=== PATIENT | female | born 2000 | race Caucasian/White ===

== ENCOUNTER 2019-09-10 21:15 | Outpatient (CLI) | payer MEDICAID, SELFPAY ==
[2019-09-10 21:38] VITALS: BP 128/75; PULSE 82
[2019-09-10 21:39] VITALS: TEMP 36.6; O2SAT 99
[2019-09-10 21:47] VITALS: BMI 35.9
[2019-09-10] MEDS: Nitrofurantoin Macrocrystals 100 MG Capsule PO (22:38)
--- NOTE | 2019-09-15 09:40 | OB.TRI.NOTE ---
- Problem List (1) Cramping affecting , antepartum Status: Acute (2) 27 weeks gestation of Status: Acute History of Present Illness Date of Service: 09/10/19 Was patient seen by the physician?: No Reason For Visit: R/O LABOR Date of Service: 09/10/19 Final TERRY: 12/12/19 Gestational age: 27 Weeks and 3 Days History of Present Illness: Patient was a transfer from [facility]. Patient presented with lower back pain and cramping for most of the day. Denies any loss of fluid, vaginal bleeding and has positive movement. Allergies No Known Allergies Allergy (Verified 09/10/19 21:48) Review of Systems Constitutional: Denies: Anorexia, Weakness Eyes: Denies: Blurred vision Cardiovascular: Denies: Chest Pain Respiratory: Denies: Cough Genitourinary: Reports: Frequency, Urgency Neurological: Denies: Headaches Physical Exam Vitals: Vital Signs Temp Pulse BP Pulse Ox 97.9 F 82 128/75 H 99 09/10/19 21:39 09/10/19 21:38 09/10/19 21:38 09/10/19 21:39 NST - FHR Rate Baby A Baseline: 140 NST Reactive:: Appropriate for gestational age Uterine Activity:: TOCO- none noted Impression/Plan Patient is a at 27.3 weeks gestation sent from [facility] to rule out labor. Patient is having cramping and lower back pain for the past two days. Positive movement. A/P UA sent at [place] [facility]- shows evidence of UTI Urine sent for culture Start Macrobid 100mg BID x 7 days CE- closed/thick/high Discharge home and will follow up in office
== END 2019-09-10 22:50 | disposition home or self-care (01) ==
LOC: WPOUT 21:25 → OBT 21:25
PROVIDERS: Visit Provider Advanced Practice Midwife
DX: O26.892 Other specified pregnancy related conditions, second trimester (principal); M54.5 Low back pain; Z3A.27 27 weeks gestation of pregnancy
CPT/HCPCS: 59025; 59050; 87086; 87088; 99218; G0378

== ENCOUNTER 2019-11-01 04:35 | Outpatient (CLI) | payer MEDICAID, SELFPAY ==
[2019-11-01 04:56] VITALS: BP 120/70; PULSE 80
[2019-11-01 04:57] VITALS: BP 120/70; PULSE 80; TEMP 36.7; O2SAT 99
[2019-11-01 05:13] VITALS: BMI 37.1
[2019-11-01 05:45] LABS: ALB/GLOB Ratio 0.6 RATIO (0.9-2.4); AST(SGOT) 18 U/L (15-37); Alanine Aminotransfer ALT/SGPT 17 U/L (13-56); Albumin, Serum 2.4 g/dL (3.2-5.0); Alkaline Phosphatase 99 U/L (45-117); Amylase 28 U/L (25-115); Anion Gap 6 (5-15); BUN 6 mg/dL (7-18); BUN/Creat Ratio 11.9 RATIO (10-20); Calcium,Total 8.1 mg/dL (8.5-10.1); Chloride 109 mmol/L (98-107); EST Glomerular Filtration Rate 165 mL/min (>60); Est Glom Filt Rate - Afr Amer 200 mL/min (>60); Estimated Creatinine Clearance 141.95 ml/min; Glucose 93 mg/dL (74-106); Lipase 66 U/L (73-393); Potassium 3.7 mmol/L (3.5-5.1); Protein, Total 6.4 g/dL (6.4-8.2); Sodium Level 138 mmol/L (136-145)
--- NOTE | 2019-11-01 08:23 | OB.TRI.NOTE ---
- Problem List (1) Abdominal pain Status: Acute (2) 34 weeks gestation of Status: Acute History of Present Illness Date of Service: 11/01/19 Was patient seen by the physician?: No Reason For Visit: R/O LABOR Final TERRY: 12/12/19 Gestational age: 34 Weeks and 1 Days History of Present Illness: Presents with pain under ribs Allergies No Known Allergies Allergy (Verified 11/01/19 05:13) Laboratory Studies: Laboratory Tests 11/01/19 Range/Units 05:18 Sodium 138 (136-145) mmol/L Potassium 3.7 (3.5-5.1) mmol/L Chloride 109 H (98-107) mmol/L Carbon Dioxide 23.0 (21.0-32.0) mmol/L Anion Gap 6 (5-15) BUN 6 L (7-18) mg/dL Creatinine 0.50 L (0.55-1.02) mg/dL Estim Creat Clear Calc 141.95 ml/min Est GFR (MDRD) Af Amer 200 (>60) mL/min Est GFR (MDRD) Non-Af 165 (>60) mL/min BUN/Creatinine Ratio 11.9 (10-20) RATIO Glucose 93 (74-106) mg/dL Calcium 8.1 L (8.5-10.1) mg/dL Total Bilirubin 0.30 (0.20-1.00) mg/dL AST 18 (15-37) U/L ALT 17 (13-56) U/L Alkaline Phosphatase 99 (45-117) U/L Total Protein 6.4 (6.4-8.2) g/dL Albumin 2.4 L (3.2-5.0) g/dL Globulin 4.0 (2.2-4.2) g/dL Albumin/Globulin Ratio 0.6 L (0.9-2.4) RATIO Amylase 28 (25-115) U/L Lipase 66 L (73-393) U/L Physical Exam Vitals: Vital Signs Temp Pulse BP Pulse Ox 98.1 F 80 120/70 99 11/01/19 04:57 11/01/19 04:57 11/01/19 04:57 11/01/19 04:57 NST - FHR Rate Baby A Baseline: 130 Variability:: Moderate Accelerations:: 15 x 15 Decelerations:: None NST Reactive:: Yes Impression/Plan - LFT's WNL - Amylase and lipase are not elevated - NST reactive - D/c home with follow up in the office for pain under ribs
== END 2019-11-01 06:05 | disposition home or self-care (01) ==
LOC: WPOUT 04:43 → OBT 04:45
PROVIDERS: Referring Provider Obstetrics & Gynecology; Visit Provider Obstetrics & Gynecology
DX: O47.03 False labor before 37 completed weeks of gestation, third trimester (principal); O26.899 Other specified pregnancy related conditions, unspecified trimester; Z3A.34 34 weeks gestation of pregnancy
CPT/HCPCS: 36415; 59025; 59050; 80053; 82150; 83690; 99218; G0378

== ENCOUNTER 2019-11-30 19:22 | Outpatient (CLI) | payer MEDICAID, SELFPAY ==
[2019-11-30 19:39] VITALS: BP 127/77; PULSE 90; TEMP 37.3; O2SAT 100
[2019-11-30 19:55] VITALS: BMI 39.1
--- NOTE | 2019-11-30 21:35 | OB.TRI.NOTE ---
- Problem List (1) Cramping affecting , antepartum Status: Acute (2) 38 weeks gestation of Status: Acute History of Present Illness Date of Service: 11/30/19 Was patient seen by the physician?: No Reason For Visit: RULE OUT LABOR Date of Service: 11/30/19 Gestational age: 38.2 History of Present Illness: Patient is a 19 year old at 38.2 weeks gestation that presents to triage with contractions starting earlier this evening. Denies any loss of fluids or vaginal bleeding. Positive movement. Allergies No Known Allergies Allergy (Verified 11/01/19 05:13) Review of Systems Constitutional: Denies: Chills, Fever Cardiovascular: Denies: Chest Pain Respiratory: Denies: Cough, Shortness of Breath Gastrointestinal: Denies: Abdominal Pain Genitourinary: Denies: Dysuria Neurological: Denies: Headaches Physical Exam Vitals: Vital Signs Temp Pulse BP Pulse Ox 99.2 F H 90 127/77 H 100 11/30/19 19:39 11/30/19 19:39 11/30/19 19:39 11/30/19 19:39 General: Alert, Oriented x3 Cardiovascular: Regular rate Lungs: Normal air movement Abdomen: Non Tender Neurological: Cranial nerves II-XII grossly intact Cervix Dilation (cm): 2 Station: -2 Effacement (%): 60 NST - FHR Rate Baby A Baseline: 130 Variability:: Moderate Accelerations:: 15 x 15 Decelerations:: None NST Reactive:: Yes, Appropriate for gestational age FHR Category:: Category I Uterine Activity:: Irritability Impression/Plan A/P at 38.2 weeks gestation here for contractions, rule out labor Category 1 tracing, NST reactive CE unchanged at 2/60/-2 Discharge home with instructions for follow up in office this week
== END 2019-11-30 21:40 | disposition home or self-care (01) ==
LOC: WPOUT 19:31 → WP 12-03 09:02
PROVIDERS: Visit Provider Advanced Practice Midwife
DX: O47.03 False labor before 37 completed weeks of gestation, third trimester (principal); Z3A.38 38 weeks gestation of pregnancy
CPT/HCPCS: 59025; 59050; 99218; G0378

== ENCOUNTER 2019-12-10 16:55 | Outpatient (CLI) | payer MEDICAID, SELFPAY ==
[2019-12-10 17:28] VITALS: BP 112/81; PULSE 91; TEMP 36.8; O2SAT 98
[2019-12-10 17:33] VITALS: BMI 38.3
[2019-12-10 18:24] LABS: ROM Internal Control Test YES-OK TO RESULT pt. (Internal QC); ROM Patient Test Negative (Negative)
--- NOTE | 2019-12-10 18:33 | OB.TRI.HP_ITS ---
- Problem List (1) 39 weeks gestation of Status: Acute (2) Amniotic fluid leaking Status: Acute History of Present Illness Date of Service: 12/10/19 Was patient seen by the physician?: No Reason For Visit: RULE OUT LABOR Date of Service: 12/10/19 Final TERRY: 12/12/19 Gestational age: 39 Weeks and 5 Days History of Present Illness: Patient is a at 39.5 weeks gestation that presents to triage with r/o ROM. Patient reports around 0500 today felt like her underwear were damp and con tinued to stay wet most of the day. Denies any vaginal bleeding or contractions. Positive movement. Allergies No Known Allergies Allergy (Verified 12/10/19 17:35) Laboratory Studies: Laboratory Tests 12/10/19 Range/Units 17:30 Vag Amniotic Fld Detect Negative (Negative) Review of Systems Constitutional: Denies: Chills, Fever Cardiovascular: Denies: Chest Pain, Heaviness, Light Headedness Respiratory: Denies: Cough, Shortness of Breath Gastrointestinal: Denies: Abdominal Pain Genitourinary: Denies: Dysuria Neurological: Denies: Headaches Physical Exam Vitals: Vital Signs Temp Pulse BP Pulse Ox 98.3 F 91 112/81 H 98 12/10/19 17:28 12/10/19 17:28 12/10/19 17:28 12/10/19 17:28 General: Alert, Oriented x3 Cardiovascular: Regular rate Lungs: Normal air movement Abdomen: Soft, Non Tender, Gravid Neurological: Cranial nerves II-XII grossly intact Cervix Dilation (cm): 2 - RN exam Station: -2 Effacement (%): 70 NST - FHR Rate Baby A Baseline: 150 Variability:: Moderate Accelerations:: 15 x 15 Decelerations:: None NST Reactive:: Yes FHR Category:: Category I Uterine Activity:: none noted Impression/Plan at 39.5 weeks gestation here for rule out ROM Category 1 tracing NST reactive ROM plus sent- negative results Discharge home with follow up in office
[2019-12-10 19:06] VITALS: BP 109/76; PULSE 54
== END 2019-12-10 19:10 | disposition home or self-care (01) ==
LOC: WPOUT 17:03 → WP 17:04
PROVIDERS: Referring Provider Advanced Practice Midwife; Visit Provider Advanced Practice Midwife
DX: O47.1 False labor at or after 37 completed weeks of gestation (principal); Z3A.39 39 weeks gestation of pregnancy
CPT/HCPCS: 59025; 59050; 84112; 99218; G0378

== ENCOUNTER → 2019-12-13 05:50 | Inpatient (IN) | payer MEDICAID, SELFPAY ==
[2019-12-10 17:33] VITALS: BMI 38.3
[2019-12-10 19:06] VITALS: TEMP 36.5
[2019-12-13] VITALS (70 sets, daily range): BP systolic 95–142; BP diastolic 54–78; PULSE 50–133; RESP 17; TEMP 36.7–37.3; O2SAT 93–100; BMI 38.9
--- NOTE | 2019-12-13 08:47 | PCM.HP.OB ---
History Date of Admission: 12/12/19 Final TERRY: 12/13/19 Gestational age: 40 Weeks and 0 Days History of this : This is a 19 year-old, G [], P [], at 40 weeks gestational age. Allergies No Known Allergies Allergy (Verified 12/13/19 06:30) Home Medications: Home Medications Vit,Calc76/Iron/Folic [Pnv 29-1 Tablet] 1 ea PO DAILY 09/10/19 Smoking Status: Former smoker Alcohol: None Number of Fetus(es): 1 NST - FHR Rate Baby A Baseline: 130 Variability:: Moderate Accelerations:: 15 x 15 Decelerations:: Variable Uterine Activity:: Irregular History Past Pregnancies: Past Pregnancies Delivery Date Name GA/ Weeks Outcome Route Wt Sex Labor Length Anesthesia Delivery Location Provider FOB Labs: See [facility] prenatals Physical Exam Vitals: Vital Signs Temp Pulse BP Pulse Ox 99.1 F 77 129/78 H 98 12/13/19 07:12 12/13/19 08:40 12/13/19 07:39 12/13/19 08:40 General: Alert, Oriented x3 Abdomen: Soft, Non Tender, Non-Distended, Gravid Neurological: Cranial nerves II-XII grossly intact Estimated gestational size: Appropriate for gestational size Presentation: Cephalic Cervix Dilation (cm): 5 Station: -2 Effacement (%): 90 Assessment/Plan All Active Problems (Last Updated 12/13/19 @ 08:[address] Kanchan Vazquez MD) Cramping affecting , antepartum (Acute) 27 weeks gestation of (Acute) Abdominal pain (Acute) 34 weeks gestation of (Acute) 38 weeks gestation of (Acute) 39 weeks gestation of (Acute) Amniotic fluid leaking (Acute) History of appendectomy (Acute) Depression (Acute) This is a 19 year-old, at 40 weeks gestational age. Admit to L&D Expectant management Pain - epidural GBS negative H/o chlamydia - will retreat as MAMADOU in process EFW less than 4500g, patient with adequate pelvis
[2019-12-13] MEDS: Lactated Ringers 500 ML 999 ML IV (08:57)
[2019-12-13 09:05] LABS: Absolute Lymphocyte Count 2.04 X10^3/uL (0.83-4.51); Absolute Neutrophil Count 12.6 X10^3/uL (2.0-7.7); Basophil# 0.02 X10^3/uL; Basophil% 0.1 % (0-1); Eosinophil# 0.01 X10^3/uL; Eosinophils% 0.1 % (0-5); Hematocrit 35.5 % (37-47); Hemoglobin 11.5 g/dL (12.0-15.0); Lymphocyte # 2.04 X10^3/ul (4.0); Mean Corp Hgb Conc 32.4 g/dL (32-36); Mean Corpuscular Hgb 27.8 pg (27.0-32.0); Mean Corpuscular Volume 85.7 fL (81-99); Mean Platelet Vol. 13.1 fl (6.2-12.0); Monocyte% 5.7 % (0-10); NRBC Flagged by Analyzer 0 % (0-5); Neutrophil # 12.64 X10^3/uL (2.7-7.7); Neutrophil % 80.5 % (47-70); Platelet Count 234 K/mm3 (150-450); RBC Distribution Width SD 37.2 fl (35.1-43.9); Red Blood Count 4.14 M/mm3 (4.2-5.4); White Blood Count 15.7 K/mm3 (4.4-11.0)
[2019-12-13] MEDS: fentaNYL-bupivacaine (epidural) 100 ML BAG EPIDURAL (10:11)
[2019-12-13] MEDS: Lactated Ringers 1,000 ML 50 ML IV (10:40)
--- NOTE | 2019-12-13 12:49 | PCM.PN.BLA ---
Progress Note S: Patient comfortable wit epidural O: cvx - C/C/0 fhts 125 with mod variability, accels, variables tocos irregular /not tracing well AROM clear fluid A&P: Labor down & start pushing in 1 hour STROKE Vital Signs/Narrative: Vital Signs Temp Pulse BP Pulse Ox 12/13/19 11:57 78 109/62 12/13/19 11:56 98.0 F 12/13/19 11:20 76 112/69 94 12/13/19 10:42 101 H 95/63 12/13/19 10:38 106 H 96 12/13/19 10:37 99 96/56 L 12/13/19 10:33 124 H 104/57 L 99 12/13/19 10:30 99.0 F 12/13/19 10:28 94 97 12/13/19 10:27 116 H 111/59 L 12/13/19 10:23 106 H 98 12/13/19 10:22 96 118/65 12/13/19 10:18 105 H 97 12/13/19 10:17 107 H 116/68 12/13/19 10:13 109 H 98 12/13/19 10:12 117 H 114/71 12/13/19 10:08 105 H 97 12/13/19 10:07 85 121/69 H 12/13/19 10:03 88 96 12/13/19 10:02 97 129/78 H 12/13/19 09:58 83 96 12/13/19 09:57 108 H 127/67 H 12/13/19 09:53 93 99 12/13/19 09:52 86 122/72 H 12/13/19 09:48 133 H 100 12/13/19 09:47 97 122/72 H 12/13/19 09:43 121 H 98 12/13/19 09:42 88 123/68 H 12/13/19 09:37 89 123/66 H 98 12/13/19 09:32 114 H 135/63 H 97 12/13/19 09:27 108 H 142/75 H 98 12/13/19 09:22 79 98 12/13/19 09:10 69 97 12/13/19 09:05 108 H 98 12/13/19 09:00 79 98 12/13/19 08:58 98.8 F 12/13/19 08:55 115 H 99 12/13/19 08:50 105 H 97
[2019-12-13] MEDS: Lactated Ringers 1,000 ML 200 ML IV (13:59)
[2019-12-13] MEDS: Oxytocin 30 units/NS 500 ml 30 UNITS/500 ML IV.SOLN 334 UNITS IV (15:30)
[2019-12-13] MEDS: Methylergonovine 0.2 MG/ML Ampul IM (15:37)
--- NOTE | 2019-12-13 16:14 | PCM.OPRPT ---
Vaginal Delivery Maternal Presentation: Active Labor Amniotic Membrane Rupture Type: Artificial Amniotic Fluid Description: Clear Final TERRY: 12/12/19 Gestational age: 40 Weeks and 1 Days Date of Procedure: 12/13/19 Pre-Operative Diagnosis: Labor Post-Operative Diagnosis: Labor Surgery/ Procedure Performed: Spontaneous Vaginal Delivery Type of Anesthesia: Epidural Description of Procedure: Patient prepped & draped in stirrups when C/C/+3. She pushed to deliver the head. Triple nuchal cord clamped & cut. 's shoulders & body then easily delivered with maternal push. Infant placed on maternal abdomen. Placenta delivered with gentle traction. Good uterine tone obtained. Presentation: TASHI Placental Delivery Description: Expressed Placenta Disposition: [facility] Cord Vessel Description: 3 Vessels Nuchal Cord Compression: Without compression Cord Entanglement: Around neck x 2, loose - x3 loose Estimated Blood Loss: 500ml Infant A gender: Male - [place] (1 minute): 8 (5 minute): 9 Episiotomy Description: None Laceration: 1st degree - bilateral & midline vaginal and 1st degree perineal - repaired with 3-0 vicryl Medications given after delivery: IV Pitocin, IM Methergin Complications: None
[2019-12-13] MEDS: 0.9% Saline Lock 10 ML Syringe IV (17:58)
[2019-12-13] MEDS: Ibuprofen 600 MG Tablet PO (18:52)
[2019-12-14 00:20] VITALS: BP 121/71; PULSE 74; RESP 17; TEMP 36.5
[2019-12-14] MEDS: Acetaminophen 500 MG Tablet 1000 MG PO (00:30)
[2019-12-14 03:45] VITALS: BP 105/51; PULSE 74; RESP 17; TEMP 36.4
[2019-12-14] MEDS: Ibuprofen 600 MG Tablet PO ×2 (08:11→19:55)
[2019-12-14] MEDS: 0.9% Saline Lock 10 ML Syringe IV (08:11)
[2019-12-14 08:14] VITALS: BP 116/75; PULSE 71; RESP 16; TEMP 36.6
--- NOTE | 2019-12-14 08:27 | PN.OBGYN_ITS ---
Subjective: Patient seen at bedside. Feeling good. Ambulating and urinating. Lochia decreased. going well. Desires Nexplanon placement today prior to discharge. Orders placed. Objective: Fundus Firm 2 below U - Physical Exam Vitals/I&O's: Vital Signs Temp Pulse Resp BP Pulse Ox 97.9 F 71 16 116/75 97 12/14/19 08:14 12/14/19 08:14 12/14/19 08:14 12/14/19 08:14 12/13/19 15:11 Oxygen Delivery Method Room Air Weight: 206 lb Body Mass Index (BMI) 38.9 Intake and Output for Last 24 Hours 12/12/19 12/13/19 12/14/19 23:59 23:59 23:59 Intake Total 2209.17 / 2209.17 Output Total 1600 / 1600 650 / 650 Balance 609.17 / 609.17 -650 / -650 General: Alert, Oriented x3 Lungs: Normal air movement Cardiovascular: Regular rate Abdomen: Soft, Non Tender Skin: No rashes Musculoskeletal: No Tenderness to Palpation of Joints or Extremities Neurological: Cranial nerves II-XII grossly intact Psych/Mental Status: Normal Affect, Appropriate Laboratory Results 12/13/19 08:50: WBC 15.7 H, RBC 4.14 L, Hgb 11.5 L, Hct 35.5 L, MCV 85.7, MCH 27.8, MCHC 32.4, RDW Std Deviation 37.2, RDW Coeff of Veronique 12.0, Plt Count 234, MPV 13.1 H, Immature Gran % (Auto) 0.600, Neut % (Auto) 80.5 H, Lymph % (Auto) 13.0 L, [place] % (Auto) 5.7, Eos % (Auto) 0.1, Baso % (Auto) 0.1, Absolute Neuts (auto) 12.6 H, Absolute Lymphs (auto) 2.04, Nucleated RBC % 0 12/13/19 08:50: Blood Type O POSITIVE, Antibody Screen NEGATIVE Current Medications Acetaminophen (Acetaminophen 500 Mg Tablet) 1,000 mg PO Q8H PRN PRN PRN Reason: Pain Score 1-3 Last Admin: 12/14/19 00:30 Dose: 1,000 mg Documented by: Bisacodyl (Bisacodyl 10 Mg Suppository) 10 mg RECTAL UD PRN PRN Reason: If no BM Dibucaine (Dibucaine 30 Gm Tube) 1 applic TOPICAL TID PRN PRN; Protocol PRN Reason: Discomfort Hydrocortisone (Hydrocortisone 2.5% Crm) 1 applic TOPICAL TID PRN PRN; Protocol PRN Reason: Discomfort Ibuprofen (Ibuprofen 600 Mg Tablet) 600 mg PO Q6H PRN PRN PRN Reason: Pain Score 1-3 Last Admin: 12/14/19 08:11 Dose: 600 mg Documented by: Methylergonovine Maleate (Methylergonovine 0.2 Mg/Ml Ampul) 0.2 mg IM X1 PRN PRN Reason: Excess bleeding/uterine atony Last Admin: 12/13/19 15:37 Dose: 0.2 mg Documented by: Ondansetron HCl (Ondansetron 4 Mg/2 Ml Vial) 4 mg IV Q4H PRN PRN PRN Reason: Nausea Oxycodone HCl (Oxycodone 5 Mg Tablet) 5 - 10 mg PO Q4H PRN PRN PRN Reason: Pain Score 4-10 Senna/Docusate Sodium (Senna/Docusate Sodium 1 Tablet) 1 - 2 tablet PO DAILY PRN PRN PRN Reason: Constipation Simethicone (Simethicone 80 Mg Tablet) 80 mg PO PCHS PRN PRN Reason: Indigestion/Stomach pain Sodium Chloride (0.9% Saline Lock 10 Ml Syringe) 5 - 15 ml IV UD PRN PRN Reason: SALINE FLUSH Last Admin: 12/14/19 08:11 Dose: 10 ml Documented by: Medical Necessity - Tobacco Use Smoking Status: Former smoker Assessment/Plan All Active Problems (Last Updated 12/13/19 @ 08:[address] Kanchan Vazquez MD) Cramping affecting , antepartum (Acute) 27 weeks gestation of (Acute) Abdominal pain (Acute) 34 weeks gestation of (Acute) 38 weeks gestation of (Acute) 39 weeks gestation of (Acute) Amniotic fluid leaking (Acute) History of appendectomy (Acute) Depression (Acute) PPD #1 Routine care Pain management support Nexplanon placement Anticipate Discharge home later today
--- NOTE | 2019-12-14 08:32 | DCINST_ITS ---
Discharge Diet: No Restrictions May resume sexual activity in: 6-8 weeks Additional Instructions: If you experience any of the following, contact your healthcare provider. * Bleeding that soaks a pad every hour for 2 hours * Fever 100.4 or higher * Unrelieved incision or abdominal pain * Swelling, redness, discharge or bleeding from your incision or episiotomy site * Your incision begins to separate * Problems urinating (including inability to urinate or burning while urinating). * Visual changes * Severe headache * Flu-like symptoms * Pain or redness in one of both of your breasts * Pain, warmth, tenderness or swelling in your legs, especially the calf area * Frequent nausea and vomiting * Symptoms of depression or anxiety If you experience any of the following, call 911 or go to the nearest Emergency Room. * Chest pain * Problems breathing * Seizure activity * Partial or complete paralysis of a body part, slurred speech, weakness or drooping of the face, or a sudden inability to walk or hold your balance Allergies/Adverse Reactions: Allergies No Known Allergies Allergy (Verified 12/13/19 06:30) Medications to take at Discharge Vit,Calc76/Iron/Folic [Pnv 29-1 Tablet] 1 ea PO DAILY 09/10/19 When: 2 weeks virtual visit/ 6 weeks in office Test Results: Test results from this visit will be discussed in further detail at your follow- up appointment, if applicable. Proposed Discharge Date: 12/14/19
--- NOTE | 2019-12-14 08:32 | PCM.DCVAG ---
Discharge Diet: No Restrictions May resume sexual activity in: 6-8 weeks Additional Instructions: If you experience any of the following, contact your healthcare provider. Bleeding that soaks a pad every hour for 2 hours Fever 100.4 or higher Unrelieved incision or abdominal pain Swelling, redness, discharge or bleeding from your incision or episiotomy site Your incision begins to separate Problems urinating (including inability to urinate or burning while urinating). Visual changes Severe headache Flu-like symptoms Pain or redness in one of both of your breasts Pain, warmth, tenderness or swelling in your legs, especially the calf area Frequent nausea and vomiting Symptoms of depression or anxiety If you experience any of the following, call 911 or go to the nearest Emergency Room. Chest pain Problems breathing Seizure activity Partial or complete paralysis of a body part, slurred speech, weakness or drooping of the face, or a sudden inability to walk or hold your balance Allergies/Adverse Reactions: Allergies No Known Allergies Allergy (Verified 12/13/19 06:30) Medications to take at Discharge Vit,Calc76/Iron/Folic [Pnv 29-1 Tablet] 1 ea PO DAILY 09/10/19 When: 2 weeks virtual visit/ 6 weeks in office Test Results: Test results from this visit will be discussed in further detail at your follow-up appointment, if applicable. Proposed Discharge Date: 12/14/19
[2019-12-14] MEDS: Etonogestrel 68 MG IMPLANT SQ (12:28)
[2019-12-14 12:40] VITALS: BP 110/69; PULSE 91; RESP 16; TEMP 36.8
--- NOTE | 2019-12-14 12:42 | PCM.PN.BLA ---
Progress Note PPD #1 that desires Nexplanon placement prior to discharge home. Discussed R/B/A to Nexplanon and patient desires placement. Consent signed. Nexplanon placed without difficulty in left arm. Card filled out and given to patient. Will update patient's chart
[2019-12-15] MEDS: Acetaminophen 500 MG Tablet 1000 MG PO (01:09)
[2019-12-15 03:00] VITALS: BP 112/72; PULSE 82; RESP 18; TEMP 36.7
[2019-12-15] MEDS: Ibuprofen 600 MG Tablet PO (06:57)
--- NOTE | 2019-12-15 08:45 | PN.OBGYN_ITS ---
Subjective: Patient seen at bedside. Had plans to be discharged home last night but baby had increased bilirubin level and needed to be placed under lights. Feeling well today. Denies any pain. Desires discharge home - Physical Exam Vitals/I&O's: Vital Signs Temp Pulse Resp BP Pulse Ox 98.0 F 82 18 112/72 98 12/15/19 03:00 12/15/19 03:00 12/15/19 03:00 12/15/19 03:00 12/14/19 20:00 Oxygen Delivery Method Room Air Weight: 206 lb Body Mass Index (BMI) 38.9 Intake and Output for Last 24 Hours 12/13/19 12/14/19 12/15/19 23:59 23:59 23:59 Intake Total 2209.17 / 2209.17 Output Total 1600 / 1600 850 / 850 Balance 609.17 / 609.17 -850 / -850 General: Alert HEENT: Atraumatic Neck: Supple Lungs: Normal air movement Cardiovascular: Regular rate Skin: No rashes Neurological: Cranial nerves II-XII grossly intact Psych/Mental Status: Normal Affect, Appropriate Current Medications Acetaminophen (Acetaminophen 500 Mg Tablet) 1,000 mg PO Q8H PRN PRN PRN Reason: Pain Score 1-3 Last Admin: 12/15/19 01:09 Dose: 1,000 mg Documented by: Bisacodyl (Bisacodyl 10 Mg Suppository) 10 mg RECTAL UD PRN PRN Reason: If no BM Dibucaine (Dibucaine 30 Gm Tube) 1 applic TOPICAL TID PRN PRN; Protocol PRN Reason: Discomfort Hydrocortisone (Hydrocortisone 2.5% Crm) 1 applic TOPICAL TID PRN PRN; Protocol PRN Reason: Discomfort Ibuprofen (Ibuprofen 600 Mg Tablet) 600 mg PO Q6H PRN PRN PRN Reason: Pain Score 1-3 Last Admin: 12/15/19 06:57 Dose: 600 mg Documented by: Methylergonovine Maleate (Methylergonovine 0.2 Mg/Ml Ampul) 0.2 mg IM X1 PRN PRN Reason: Excess bleeding/uterine atony Last Admin: 12/13/19 15:37 Dose: 0.2 mg Documented by: Ondansetron HCl (Ondansetron 4 Mg/2 Ml Vial) 4 mg IV Q4H PRN PRN PRN Reason: Nausea Oxycodone HCl (Oxycodone 5 Mg Tablet) 5 - 10 mg PO Q4H PRN PRN PRN Reason: Pain Score 4-10 Senna/Docusate Sodium (Senna/Docusate Sodium 1 Tablet) 1 - 2 tablet PO DAILY PRN PRN PRN Reason: Constipation Simethicone (Simethicone 80 Mg Tablet) 80 mg PO PCHS PRN PRN Reason: Indigestion/Stomach pain Sodium Chloride (0.9% Saline Lock 10 Ml Syringe) 5 - 15 ml IV UD PRN PRN Reason: SALINE FLUSH Last Admin: 12/14/19 08:11 Dose: 10 ml Documented by: Medical Necessity - Tobacco Use Smoking Status: Former smoker Assessment/Plan All Active Problems (Last Updated 12/13/19 @ 08:[address] Kanchan Vazquez MD) Cramping affecting , antepartum (Acute) 27 weeks gestation of (Acute) Abdominal pain (Acute) 34 weeks gestation of (Acute) 38 weeks gestation of (Acute) 39 weeks gestation of (Acute) Amniotic fluid leaking (Acute) History of appendectomy (Acute) Depression (Acute) PPD #2 Routine care support Discharge home
== END | disposition home or self-care (01) | DRG 560 ==
LOC: WPOUT 05:53 → WP 05:54 → WPOUT 08:25 → WP 08:25
PROVIDERS: Admitting Provider Obstetrics & Gynecology; Referring Provider Obstetrics & Gynecology; Visit Provider Obstetrics & Gynecology
DX: O69.81X0 Labor and delivery complicated by cord around neck, without compression, not applicable or unspecified (principal); O70.0 First degree perineal laceration during delivery; O47.1 False labor at or after 37 completed weeks of gestation; Z3A.40 40 weeks gestation of pregnancy; Z37.0 Single live birth; Z87.891 Personal history of nicotine dependence; Z3A.39 39 weeks gestation of pregnancy; Z30.017 Encounter for initial prescription of implantable subdermal contraceptive
CPT/HCPCS: 59025; 59050; 84112; 85025; 86850; 86900; 86901; 99218; J7120; A4216; G0378; J3490

== ENCOUNTER 2024-04-17 19:32 | Emergency (ER) | payer OTHER, SELFPAY ==
[2024-04-17 19:33] VITALS: BP 130/66; PULSE 128; RESP 17; TEMP 38.7; O2SAT 97; BMI 39.2
[2024-04-17 20:43] LABS: Absolute Lymphocyte Count 0.55 X10^3/uL (0.83-4.51); Absolute Neutrophil Count 7.1 X10^3/uL (2.0-7.7); Basophil# 0.03 X10^3/uL; Basophil% 0.3 % (0-1); Hematocrit 39.1 % (37-47); Hemoglobin 13.4 g/dL (12.0-15.0); Lymphocyte # 0.55 X10^3/ul (0.83-4.51); Lymphocyte % 6.4 % (19-41); Mean Corp Hgb Conc 34.3 g/dL (32-36); Mean Corpuscular Hgb 29.9 pg (27.0-32.0); Mean Corpuscular Volume 87.3 fL (81-99); Monocyte# 0.87 X10^3/uL; Monocyte% 10.1 % (0-10); NRBC Flagged by Analyzer 0 % (0-5); Neutrophil # 7.14 X10^3/uL (2.7-7.7); Neutrophil % 82.7 % (47-70); POSITIVE DIFFERENTIAL YES; Platelet Count 241 K/mm3 (150-450); RBC Distribution Width CV 12.4 % (11.6-14.6); RBC Distribution Width SD 39.6 fl (35.1-43.9); Red Blood Count 4.48 M/mm3 (4.2-5.4); White Blood Count 8.6 K/mm3 (4.4-11.0)
[2024-04-17 20:59] LABS: ALB/GLOB Ratio 0.7 RATIO (0.9-2.4); AST(SGOT) 46 U/L (15-37); Alanine Aminotransfer ALT/SGPT 56 U/L (13-56); Albumin, Serum 2.9 g/dL (3.2-5.0); Alkaline Phosphatase 73 U/L (45-117); Anion Gap 9 (5-15); BUN 5 mg/dL (7-18); BUN/Creat Ratio 9.6 RATIO (10-20); Calcium,Total 8.7 mg/dL (8.5-10.1); Chloride 105 mmol/L (98-107); Creatinine, Serum 0.52 mg/dL (0.55-1.02); EST Glomerular Filtration Rate 152 mL/min (>60); Est Glom Filt Rate - Afr Amer 184 mL/min (>60); Globulin 4.3 g/dL (2.2-4.2); Glucose 87 mg/dL (74-106); Potassium 3.6 mmol/L (3.5-5.1); Protein, Total 7.2 g/dL (6.4-8.2); Sodium Level 135 mmol/L (136-145)
[2024-04-17 21:33] VITALS: BP 122/68; PULSE 129; RESP 17; O2SAT 99
[2024-04-17 22:44] LABS: Color, Urine Yellow (Yellow); Glucose, Dipstick 50 mg/dl (Normal); Leukocyte Esterase-Dipstick 25 /ul (Negative); Nitrite-Dipstick Negative (Negative); Occult Blood-Urine Negative /ul (Negative); Protein-Dipstick 15 mg/dl (Negative); Urine Bilirubin Dipstick Negative (Negative); Urine Clarity Sl. Cloudy (Clear); Urine Urobilinogen 1 mg/dl (Normal); Urine pH 6.5 (5.0 - 8.0)
[2024-04-17 22:46] LABS: Ketone-Dipstick 150 mg/dl (Negative)
--- NOTE | 2024-04-17 22:58 | EX.ED.DYSGE1 ---
HPI History of Present Illness Chief Complaint: General Illness Informant: patient Onset/Context/Timing Onset: Days (2) Context: Gradual Onset Timing: Continuous Quality: Aching Location: Generalized Worsened by: Coughing Relieved by: Tylenol Narrative Narrative: Patient presents with fever and flulike symptoms that have been getting worse for the past 2 days. Patient states she feels achy all over. Patient states she is approximately 15 weeks . Patient states this has been constant for the past 2 days. Patient states it is gradually gotten worse. Patient admits to some nasal congestion and headache. Patient admits to some nausea and vomiting. Patient admits to a cough but denies any sputum production. Patient states her temperature at home was up to 101. PFSH PFSH Home Medications ?Medication ?Instructions ?Recorded ?Last Taken ?Type vitamin 1 ea PO DAILY 09/10/19 12/09/19 23:55 History no.76-iron,carbonyl 29 mg iron-folic acid 1 mg tablet Allergy/AdvReac Type Severity Reaction Status Date / Time No Known Allergies Allergy Verified 04/17/24 19:33 Surgical History no surgical history no surgical history Social History Smoking Status: Former smoker ROS ROS ED Constitutional Constitutional ED: Reports fever(s); Denies chills Eyes Eyes: Denies blurry vision or change in vision ENT ENT ED: Reports rhinorrhea and sore throat Cardiovascular Cardiovascular: Denies chest pain or palpitations Respiratory/Chest Respiratory/Chest: Reports cough; Denies dyspnea Gastrointestinal Gastrointestinal: Reports nausea and vomiting Genitourinary Genitourinary ED: Denies dysuria or hematuria Musculoskeletal Musculoskeletal: Denies back pain or neck pain Integumentary Denies abscess or rash Neurologic Neurologic: Reports headache(s); Denies weakness Allergic/Immunologic Allergic/Immunologic ED: Denies mouth swelling or urticaria EXAM Physical Exam Const Vital Signs: 04/17/24 19:33 04/17/24 21:33 04/17/24 22:33 Temperature 101.7 F H Temperature Source Oral Pulse Rate 128 H 129 H Respiratory Rate 17 17 Respiratory Effort Short of Breath Respiratory Pattern Normal Blood Pressure 130/66 H 122/68 H Blood Pressure Mean 87 86 Pulse Ox 97 99 Oxygen Delivery Method Room Air Room Air Positive well nourished and well developed General Appearance ED: well developed and NAD HEENT Reports moist mucous membranes Neck supple and no JVD Resp normal respiratory effort and clear to auscultation bilaterally Cardio regular rhythm Rate: tachycardic GI non-tender and non-distended Palpation: soft Extremity normal to inspection General Extremety ED: Negative for edema or tenderness General Extremity: Negative for edema Neuro oriented x3, CN's II-XII intact bilaterally and no sensory deficits noted Sensorium / Orientation: alert Motor Exam: strength 5/5 throughout Psych mental status grossly normal MDM MDM MDM Narrative Medical decision making narrative: Differential diagnosis includes viral illness, pneumonia, bronchitis, urinary tract infection, and electrolyte abnormality. Chest x-ray will be obtained to assess for pneumonia or bronchitis. CBC will be obtained to assess for leukocytosis and anemia. Comprehensive metabolic profile will be obtained to assess for hepatic function, renal function, and electrolyte abnormality. Quantitative hCG will be obtained to assess for . Urinalysis will be obtained to assess for urinary tract infection and hematuria. COVID-19, influenza, and RSV PCR will be obtained to assess for viral illness. Lab Data Attestation: I reviewed the patient's lab results. Lab results narrative: CBC was reviewed and was within normal limits. Comprehensive metabolic profile was reviewed and was essentially within normal limits. Urinalysis was reviewed. Urine ketones were 150. There is no evidence of urinary tract infection or hematuria. Quantitative hCG was reviewed and was [id number]. COVID-19 PCR was reviewed and was negative. Influenza PCR was reviewed and was positive for influenza A and negative for influenza B. RSV PCR was reviewed and was negative. Labs: Laboratory Results - last 24 hr 04/17/24 04/17/24 20:25 22:36 WBC 8.6 RBC 4.48 Hgb 13.4 Hct 39.1 MCV 87.3 MCH 29.9 MCHC 34.3 RDW Std Deviation 39.6 RDW Coeff of Veronique 12.4 Plt Count 241 MPV 12.0 Immature Gran % (Auto) 0.500 Neut % (Auto) 82.7 H Lymph % (Auto) 6.4 L [place] % (Auto) 10.1 H Eos % (Auto) 0.0 Baso % (Auto) 0.3 Absolute Neuts (auto) 7.1 Absolute Lymphs (auto) 0.55 L Nucleated RBC % 0 Sodium 135 L Potassium 3.6 Chloride 105 Carbon Dioxide 21.0 Anion Gap 9 BUN 5 L Creatinine 0.52 L Estim Creat Clear Calc 164.60 Est GFR (MDRD) Af Amer 184 Est GFR (MDRD) Non-Af 152 BUN/Creatinine Ratio 9.6 L Glucose 87 Calcium 8.7 Total Bilirubin 0.60 AST 46 H ALT 56 Alkaline Phosphatase 73 Total Protein 7.2 Albumin 2.9 L Globulin 4.3 H Albumin/Globulin Ratio 0.7 L Urine Color Yellow Urine Clarity Sl. Cloudy Urine pH 6.5 Ur Specific [place] 1.010 Urine Protein 15 H Urine Glucose (UA) 50 H Urine Ketones 150 A* Urine Occult Blood Negative Urine Nitrite Negative Urine Bilirubin Negative Urine Urobilinogen 1 H Ur Leukocyte Esterase 25 H Radiography Chest X-Ray - ED: 2 View, Read by ED Physician, Read by Radiologist and No Acute Disease Diagnostic Testing: PA and lateral chest x-ray was obtained. There are 2 views. On my independent interpretation, lung drummond are clear. There is normal cardiac silhouette. Bony thorax is normal. There is no acute process noted. Radiologist also interpreted the x-ray and agrees. Treatment and Re-Evaluation :: Patient was advised of her findings. Patient was advised she is outside the window for Tamiflu. Patient was instructed to take Tylenol as needed for any pain or fevers. Patient was instructed to drink plenty of fluids. Patient was instructed to follow-up with her [facility] in 3 to 5 days. Patient was instructed to return if worse in any way. Patient understood and was agreeable with the plan. All questions were answered. Discharge Plan Triage Chief Complaint: General Illness ED Provider: Ankush Chang Dx/Rx/DC Orders Clinical Impression: Influenza A, Instructions: ED Influenza (Adult), ED Established ... Prescriptions: No Action vit,[id number] 1 EACH tablet 1 ea PO DAILY Primary Care Provider: Damir Solano Referrals: Damir Solano MD [Primary Care Provider] - 3-5 Days Kanchan Vazquez MD [Med Staff - Active Staff] - 3-5 Days Print Language: Polish Disposition Disposition: Home, Self Care
[2024-04-17 22:59] LABS: Bacteria 1+ /hpf (None Seen); Mucous, Urine 1+ /hpf (<or=2+); Red Blood Cells-Urine 0-5 SEEN /hpf (0-5); Squamous Epithelial Cells - UA 0-5 SEEN /hpf (5-10); White Blood Cells 5-10 SEEN /hpf (0-5)
[2024-04-17 23:00] VITALS: BP 102/66; PULSE 110; RESP 12; O2SAT 99
[2024-04-17] MEDS: 0.9% Normal Saline (1000mL) 1,000 ML 1000 ML IV (23:18)
[2024-04-17] MEDS: Acetaminophen 500 MG Tablet 1000 MG PO (23:18)
--- NOTE | 2024-04-17 23:23 | RAD_ITS ---
PROCEDURE: CHEST PA AND LATERAL REASON FOR EXAM: 23-year-old female, cough. Positive influenza A, nausea, vomiting and fever x2 days. 15 weeks . TECHNIQUE: Frontal and lateral views of the chest. COMPARISON: None. FINDINGS: The heart size is normal. The mediastinal contour is unremarkable. No focal consolidation, pleural effusion or pneumothorax. The bones are unremarkable. RAD/Chest PA and Lateral IMPRESSION: NEGATIVE CHEST Reading Location: [id number]
[2024-04-18 00:33] LABS: hCG Titer Quant., Serum 15763 mIU/mL (1-3)
[2024-04-18 00:54] VITALS: BP 102/66; PULSE 99; RESP 18; TEMP 37.1; O2SAT 99
[2024-04-18 01:00] VITALS: BP 118/67; PULSE 75; RESP 12; O2SAT 98
== END 2024-04-18 01:35 | disposition home or self-care (01) ==
PROVIDERS: Emergency Provider Emergency Medicine; PCP Family Medicine; Visit Provider Emergency Medicine
DX: O99.512 Diseases of the respiratory system complicating pregnancy, second trimester (principal); J10.1 Influenza due to other identified influenza virus with other respiratory manifestations; Z3A.15 15 weeks gestation of pregnancy; Z87.891 Personal history of nicotine dependence
CPT/HCPCS: 71046; 80053; 81001; 84702; 85025; 87631; 96360; 96361; 99283; A4216

== ENCOUNTER 2024-09-07 21:45 | Outpatient (CLI) | payer OTHER, SELFPAY ==
[2024-09-07 21:59] VITALS: BP 124/62; PULSE 103; RESP 14; TEMP 37
--- OUTSIDE RECORDS SUMMARY | 2024-09-07 22:00 | XMS RPT_ITS | CCD ---
Author Organization [facility] Inform ion [facility] Care Team Providers Care Medical Administrative Specialist Name Role Phone Victor Hugo Solano MD Primary Care Provider ALEXANDRIA HYMAN Attending Unavaila ble VICTOR HUGO SOLANO Primary Care Unavailab VICTOR HUGO Bolton Primary Care Unavailab IRA Alejandro Attending Unavailable VICTOR HUGO PRICE Attending Unava ilable VICTOR HUGO SOLANO Primary Care Unavailab HALEY Felton Attending Unavailable VICTOR HUGO SOLANO Primary Care Unavailab Victor Hugo Bolton MD Primary Care Provider PROVIDER, UNKNOWN Referring Unavailable VICTOR HUGO SOLANO Primary Care Unavailab le Podlogar [employer] SH[employer] ASSOCIATE.Michelle [place] Unavailable Damir Solano Primary Care Unavailable Ankush Chang Attending Unavailable Knoble [employer] SHOP ASSOCIATE.Vida [place] Unavailable Knoble [employer] CREAM SHOP ASSOCIATE.Vida [place] Unavailable Knoble [employer] CREAM SHOP ASSOCIATE.Vida [place] Unavailable AJ POOLE Attending Unavailable VICTOR HUGO SOLANO Primary Care Unavailab AJ Gonzalez Attending Unavailable VICTOR HUGO SOLANO Primary Care Unavailab AJ Gonzalez Attending Unavailable VICTOR HUGO SOLANO Primary Care Unavailab ALEXANDRIA De Luna Attending Unavailable VICTOR HUGO SOLANO Primary Care Unavailab VICTOR HUGO Bolton Primary Care Unavailab VICTOR HUGO Bolton Primary Care Unavailab VERONIQUE Manzanares Attending Unavailable VICTOR HUGO SOLANO Primary Care Unavailab VERONIQUE Manzanares Attending Unavailable VICTOR HUGO SOLANO Primary Care Unavailab susana JONES VERONIQUE Attending Unavailable MOHINI, VERONIQUE Referring Unavailable VICTOR HUGO SOLANO Primary Care Unavailab susana JONES, VERONIQUE Referring Unavailable JOSE GALINDOECCA Sharmaine Referring Unavailable AJ POOLE Attending Unavailable VICTOR HUGO SOLANO Primary Care Unavailab MARIELA Jaeger Attending Unavailable JV SOLANOER Eladio Primary Care Unavailab MARIELA Jaeger Attending Unavailable JV SOLANOER B Primary Care Unavailab susana JONES, VERONIQUE Referring Unavailable MATEO, PAUL L Referring Unavailable JV SOLANOER Eladio Primary Care Unavailab susana JONES, VERONIQUE Attending Unavailable MATEO, PAUL L Referring Unavailable JV SOLANOER B Primary Care Unavailab JV BoltonER B Primary Care Unavailab AJ Gonzalez Referring Unavailable VICTOR HUGO SOLANO Primary Care Unavailab le MATEO, PAUL L Attending Unavailable ZULEMA, AJ Referring Unavailable JV SOLANOER B Primary Care Unavailab susana GALINDO, PAUL L Referring Unavailable JV SOLANOER B Primary Care Unavailab JV BoltonER Eladio Primary Care Unavailab le MATEO, PAUL L Referring Unavailable JV SOLANOER B Primary Care Unavailab le MATEO, PAUL L Referring Unavailable JV SOLANOER B Primary Care Unavailab susana JONES, VERONIQUE Attending Unavailable Medications Current Medications Medication Drug Class(es) Dates Sig (Normalized) Sig (Original) fluticasone propionate 0.05 mg/actuat metered dose nasal spray (1 source) Corticosteroid Start: 05-14-2022 End: 06-11-2022 take 1 spray(s) nasal route once daily at bedtime fluticasone (FLONASE) 50 mcg/actuation nasal spray Use 1 [place] in each nostril daily at bedtime for 28 days. Use before lying down for bed. 9.9 mL 0 05/14/2022 06/11/2022 Active Comment on above: Use 1 [place] in each nostril daily at bedtime for 28 days. Use before lying down for bed. loperamide hydrochloride 2 mg oral tablet (5 sources) Opioid Agonist Start: 03-21-2023 End: 02-09-2024 loperamide HCl (IMODIUM A-D) 2 mg tab Take 1 tablet by mouth as needed. Initial dose 4 mg, followed by 2 mg after each loose stool; maximum: 16 mg/day. Stop taking when diarrhea is resolved 24 tablet 03/21/2023 02/09/2024 Discontinued Comment on above: Take 1 tablet by [facility] as needed. Initial dose 4 mg, followed by 2 mg after each loose stool; maximum: 16 mg/day. Stop taking when diarrhea is resolved omeprazole 20 mg delayed release oral capsule (5 sources) Proton Pump Inhibitor Start: 04-21-2023 End: 02-09-2024 take 1 capsule by mouth once daily before breakfast omeprazole (PRILOSEC) 20 mg capsule Indications: Gastroesophageal reflux disease without esophagitis Take 1 capsule by mouth daily before breakfast. 1/2 hr before meal. 90 capsule 04/21/2023 02/09/2024 Discontinued Start: 01-31-2020 take 1 capsule by mo [facility] once daily omeprazole (PRILOSEC) 40 mg capsule Indications: RUQ abdominal pain Take 1 capsule by mouth once daily. 30 capsule 2 01/31/2020 Active Comment on above: Take 1 capsule by [facility] once daily. Take 1 capsule by [facility] daily before breakfast. 1/2 hr before meal. vit no.124/iron/folic ( VITAMIN ORAL) (18 sources) take 1 tablet by mouth once daily vit no.124/iron/folic ( VITAMIN ORAL) Take 1 tablet by mouth once daily. Active pyridoxine HCl, vitamin B6, (VITAMIN B-6 ORAL) (18 sources) take 1 tablet by mouth once daily pyridoxine HCl, vitamin B6, (VITAMIN B-6 ORAL) Take 1 tablet by mouth once daily. Active Completed/Discontinued Medications Medication Drug Class(es) Dates Sig (Normalized) Sig (Original) azithromycin 250 mg oral tablet (4 sources) Macrolide Antimicrobial Start: 04-16-2024 End: 05-21-2024 azithromycin (ZITHROMAX Z-ROXANNE) 250 mg tablet Indications: Bronchopneumonia Take 2 tablets (500 mg) by mouth on day 1, then take 1 tablet (250 mg) by mouth for 4 days. 6 tablet 04/16/2024 05/21/2024 Discontinued 12 hr dextromethorphan hydrobromide 30 mg / guaiFENesin 600 mg extended release oral tablet (1 source) Uncompetitive B-lxgbwl-K-[place]part[place] te Receptor Antagonist, Sigma-1 Agonist Start: 01-15-2021 take 1 tablet by mouth twice daily dextromethorphan-gua iFENesin (MUCINEX DM) 30-600 mg per tablet Indications: Viral URI with cough Take 1 tablet by mouth twice daily. 20 tablet 1 01/15/2021 Active Comment on above: Take 1 tablet by nanci th twice daily. drospirenone / Ethinyl Estradiol (2 sources) Progestin, Estrogen Start: 01-27-2022 take 1 tablet by mouth once daily Drospirenone-Ethinyl Estradiol (LORYNA, 28,) 3-0.02 mg per tablet Indications: General counseling and advice for contraceptive management , Encounter for BCP ( control pills) initial prescription Take 1 tablet by mouth once daily. 84 tablet 3 01/27/2022 Active Comment on above: Take 1 tablet by nanci th once daily. etonogestrel 68 mg drug implant (1 source) Progestin etonogestrel (NEXPLANON) 68 mg impl subdermal implant 68 mg by SUBDERMAL route. 0 Active Comment on above: 68 mg by SUBDERMAL r oute. famotidine 20 mg oral tablet (2 sources) Histamine-2 Receptor Antagonist Start: 03-21-2023 End: 05-20-2023 take 1 tablet by mouth twice daily famotidine (PEPCID) 20 mg tablet Indications: Nausea , Epigastric pain Take 1 tablet by mouth two times a day. 60 tablet 1 03/21/2023 04/21/2023 Discontinued Comment on above: Take 1 tablet by nanci th two times a day. Idqbjdes-Ge-Vky-Fe-FA ( VITAMIN) tab (1 source) take 1 tablet by mouth once Wfaytzwu-Vr-Fjs-Fe-F A ( VITAMIN) tab Take 1 tablet by mouth. 0 Active Comment on above: Take 1 tablet by nanci th. Problems Active Problems Problem Classification Problem Date Documented Da te Episodic/Chronic Abdominal pain (2 sources) Upper abdominal pain, unspecified; Translations: [Epigastric pain] Onset: 4 03-31-2023 Episodic Acute and chronic tonsillitis (1 source) Other chronic diseases of tonsils and adenoids; Translations: [Tonsil stone] Onset: 3 Chronic Contraceptive and procreative management (7 sources) Patient encounter status; Translations: [Encounter for other general counseling and advice on contraception] Episodic Esophageal disorders (1 source) Gastroesophageal reflux disease without esophagitis; Translations: [Gastro-esophageal reflux disease without esophagitis] 04-21-2023 Chronic Hemorrhage during ; abruptio placenta; placenta previa (2 sources) Antepartum hemorrhage; Translations: [Hemorrhage in early , unspecified] Onset: 4 11-14-2023 Episodic Immunizations and screening for infectious disease (2 sources) Vaccination needed; Translations: [Encounter for immunization] Onset: 5 07-30-2024 Episodic Menstrual disorders (1 source) Break-through bleeding; Translations: [Excessive and frequent menstruation with irregular cycle] Chronic Nausea and vomiting (1 source) Nausea; Translations: [Nausea] 03-31-2023 Episodic Other complications of (20 sources) Maternal obesity complicating , childbirth and the puerperium, antepartum; Translations: [Obesity complicating , first trimester] Onset: 4 02-13-2024 Chronic Other complications of (7 sources) Obesity complicating , first trimester; Translations: [Obesity complicating , childbirth, or the puerperium, antepartum condition or complication] Onset: 5 03-26-2024 Chronic Other complications of (1 source) Obesity complicating , third trimester; Translations: [Obesity affecting in third trimester, unspecified obesity type (HCC)] Onset: 5 Chronic Other complications of (1 source) Spotting per vagina in ; Translations: [Spotting complicating , unspecified trimester] 11-14-2023 Episodic Other complications of (20 sources) High risk ; Translations: [Supervision of high risk , unspecified, first trimester] Onset: 4 02-13-2024 Episodic Other gastrointestinal disorders (1 source) Constipation alternates with diarrhea; Translations: [Other specified symptoms and signs involving the digestive system and abdomen] 04-21-2023 Episodic Other lower respiratory disease (1 source) Persistent cough; Translations: [Persistent cough] 04-16-2024 Episodic Other nutritional; endocrine; and metabolic disorders (4 sources) Body mass index 30+ - obesity; Translations: [Body mass index (BMI) 38.0-38.9, adult] 03-26-2024 Chronic Other nutritional; endocrine; and metabolic disorders (1 source) Body mass index (BMI) 38.0-38.9, adult; Translations: [BMI 38.0-38.9,adult] Onset: Chronic Other screening for suspected conditions (not mental disorders or infectious disease) (3 sources) Encounter for screening for diabetes mellitus; Translations: [Encounter for screening for malformations] Onset: Episodic Pneumonia (except that caused by tuberculosis or sexually transmitted disease) (1 source) Bronchopneumonia; Translations: [Bronchopneumonia, unspecified organism] 04-16-2024 Episodic Polyhydramnios and other problems of amniotic cavity (4 sources) Polyhydramnios; Translations: [Polyhydramnios, third trimester, not applicable or unspecified] Onset: 08-13-2024 Episodic Residual codes; unclassified (1 source) Treatment not available; Translations: [Procedure and treatment not carried out for other reasons] Episodic Residual codes; unclassified (1 source) Gestation period, 7 weeks; Translations: [Less than 8 weeks gestation of ] 02-13-2024 Episodic Residual codes; unclassified (1 source) Gestation period, 10 weeks; Translations: [10 weeks gestation of ] 03-12-2024 Episodic Residual codes; unclassified (2 sources) Gestation period, 12 weeks; Translations: [12 weeks gestation of ] 03-26-2024 Episodic Residual codes; unclassified (2 sources) Gestation period, 16 weeks; Translations: [16 weeks gestation of ] 04-23-2024 Episodic Residual codes; unclassified (1 source) Gestation period, 20 weeks; Translations: [20 weeks gestation of ] 05-21-2024 Episodic Residual codes; unclassified (1 source) Gestation period, 24 weeks; Translations: [24 weeks gestation of ] 06-18-2024 Episodic Residual codes; unclassified (2 sources) Gestation period, 28 weeks; Translations: [28 weeks gestation of ] 07-16-2024 Episodic Residual codes; unclassified (2 sources) Gestation period, 30 weeks; Translations: [30 weeks gestation of ] 07-30-2024 Episodic Residual codes; unclassified (1 source) Gestation period, 32 weeks; Translations: [32 weeks gestation of ] 08-13-2024 Episodic Residual codes; unclassified (1 source) Gestation period, 34 weeks; Translations: [34 weeks gestation of ] 08-27-2024 Episodic Residual codes; unclassified (1 source) Gestation period, 35 weeks; Translations: [35 weeks gestation of ] 09-03-2024 Episodic Residual codes; unclassified (1 source) 35 weeks gestation of ; Translations: [35 weeks gestation of (HCC)] Onset: 5 Episodic Residual codes; unclassified (1 source) 34 weeks gestation of ; Translations: [34 weeks gestation of (HCC)] Onset: 5 Episodic Residual codes; unclassified (1 source) 32 weeks gestation of ; Translations: [32 weeks gestation of (HCC)] Onset: 5 Episodic Residual codes; unclassified (1 source) 30 weeks gestation of ; Translations: [30 weeks gestation of (HCC)] Onset: 5 Episodic Residual codes; unclassified (1 source) 24 weeks gestation of ; Translations: [24 weeks gestation of (HCC)] Onset: 5 Episodic Residual codes; unclassified (1 source) 28 weeks gestation of ; Translations: [28 weeks gestation of (HCC)] Onset: 5 Episodic Unclassified (1 source) Acute cough; Translations: [Acute cough] Onset: 3 Unclassified (19 sources) [facility] Education - COMMON Onset: 4 02-09-2024 Unclassified (19 sources) Education - [place] Onset: 4 02-09-2024 Unclassified (1 source) Cough, unspecified; Translations: [Cough, unspecified] Onset: 5 Viral infection (2 sources) Viral infection, unspecified; Translations: [Viral disease] Onset: 3 04-02-2024 Episodic Past or Other Problems Problem Classification Problem Date Documented Date Episodic/Chronic Bacterial infection; unspecified site (20 sources) Chlamydial infection; Translations: [Chlamydial infection, unspecified] Onset: 11-19-2019 Resolved: 02-13-2024 12-12-2019 Episodic Other complications of (20 sources) Abdominal pain in ; Translations: [Other specified related conditions, unspecified trimester] Onset: 04-19-2019 Resolved: 04-26-2019 04-26-2019 Episodic Other complications of (20 sources) Vomiting of , unspecified; Translations: [Unspecified vomiting of , unspecified as to episode of care or not applicable] Onset: 04-19-2019 Resolved: 07-26-2019 07-26-2019 Episodic Other complications of (1 source) Supervision of high risk , unspecified, second trimester; Translations: [Supervision of high risk in second trimester (HCC)] Onset: 05-21-2024 Episodic Other complications of (1 source) Supervision of high risk , unspecified, third trimester; Translations: [Supervision of high risk in third trimester (HCC)] Onset: 05-21-2024 Episodic Other complications of (1 source) Supervision of high risk , unspecified, first trimester; Translations: [Encounter for supervision of high risk in first trimester, antepartum] Onset: 02-13-2024 Episodic Other infections; including parasitic (20 sources) Pediculosis capitis; Translations: [Pediculosis due to Pediculus humanus capitis] Onset: 04-19-2019 Resolved: 07-26-2019 07-26-2019 Episodic Other lower respiratory disease (20 sources) History of bacterial infection; Translations: [Personal history of other diseases of the respiratory system] Onset: 04-19-2019 Resolved: 04-26-2019 04-26-2019 Episodic Other and delivery including normal (20 sources) Normal ; Translations: [Encounter for supervision of normal first , second trimester] Onset: 07-26-2019 Resolved: 08-13-2024 07-26-2019 Episodic Other upper respiratory infections (1 source) Acute sinusitis, unspecified; Translations: [Acute sinusitis, recurrence not specified, unspecified location] Onset: 05-23-2022 Episodic Residual codes; unclassified (20 sources) No current problems or disability; Translations: [Other specified health status] Onset: 11-25-2016 Resolved: 04-26-2019 04-26-2019 Episodic Residual codes; unclassified (19 sources) H/O: miscarriage; Translations: [Personal history of other complications of , childbirth and the puerperium] Onset: 02-13-2024 02-13-2024 Episodic Residual codes; unclassified (1 source) 16 weeks gestation of ; Translations: [16 weeks gestation of ] Onset: 04-23-2024 Episodic Residual codes; unclassified (1 source) Less than 8 weeks gestation of ; Translations: [7 weeks gestation of ] Onset: 03-26-2024 Episodic Residual codes; unclassified (1 source) 12 weeks gestation of ; Translations: [12 weeks gestation of ] Onset: 03-26-2024 Episodic Screening and history of mental health and substance abuse codes (20 sources) Stopped smoking; Translations: [Personal history of nicotine dependence] Onset: 04-19-2019 04-19-2019 Episodic Results Test Name Value Interpretation Reference Range Facil ity URINE OB DIP B/Oon 5 Glucose Ql (U) Negative Neg mg/dL [facility] Interpretation and review of laboratory results Normal [facility] Protein.monoclonal (U) [Mass/Vol] Negative Neg mg/dL [facility] URINE OB DIP B/Oon 5 Glucose Ql (U) Negative Neg mg/dL [facility] Protein.monoclonal (U) [Mass/Vol] Negative Neg mg/dL [facility] Examination level ultrasound on 08-13-2024 [facility] Radiology Study observation (narrative) [facility] CBC W Auto Differential pane l (Bld)on 07-16-2024 Basophils (Bld) [#/Vol] 0.03 10*3/uL Normal <0.11 [facility] Comment on above: Order Comment: Speci men Type: BLOOD SPECIMENOrdering Facility: [facility] Address: [address] [place] [address] Performed By: #### 5 7021-8 ####[facility] PORTSMOUTHDaniela [id number] [place] [address] [place] Basophils/100 WBC (Bld) 0.3 % Normal [facility] Comment on above: Order Comment: Speci men Type: BLOOD SPECIMENOrdering Facility: [facility] Address: [address] [place] [address] Performed By: #### 5 7021-8 ####[facility] SAVANAHPhilipAMILCARLIA [id number] [place] [address] [place] Differential cell count method Nom (Bld) Auto Normal [facility] Comment on above: Order Comment: Speci men Type: BLOOD SPECIMENOrdering Facility: [facility] Address: [address] [place] [address] Performed By: #### 5 7021-8 ####[facility] HOSPITALAMILCARLIA [id number] [place] [address] [place] Eosinophils (Bld) [#/Vol] 0.04 10*3/uL Normal <0.46 [facility] Comment on above: Order Comment: Speci men Type: BLOOD SPECIMENOrdering Facility: [facility] Address: [address] [place] [address] Performed By: #### 5 7021-8 ####[facility] HOSPITALA [id number] [place] [address] [place] Eosinophils/100 WBC (Bld) 0.4 % Normal [facility] Comment on above: Order Comment: Speci men Type: BLOOD SPECIMENOrdering Facility: [facility] Address: [address] [place] [address] Performed By: #### 5 7021-8 ####[facility] HOSPITALAMILCARLIA [id number] [place] [address] [place] Erythrocyte distribution width (RBC) [Ratio] 12.3 % Normal 11.5-15.0 [facility] Comment on above: Order Comment: Speci men Type: BLOOD SPECIMENOrdering Facility: [facility] Address: [address] [place] [address] Performed By: #### 5 7021-8 ####[facility] HOSPITALNCNIKAA [id number] [place] [id number] [place] Hematocrit (Bld) [Volume fraction] 37.5 % Normal 36.0-46.0 [facility] Comment on above: Order Comment: Speci men Type: BLOOD SPECIMENOrdering Facility: [facility] Address: [address] [place] [address] Performed By: #### 5 7021-8 ####[facility] HOSPITALKEELEY [id number] [place] [address] [place] Hemoglobin (Bld) [Mass/Vol] 12.8 g/dL Normal 11.5-15.5 [facility] Comment on above: Order Comment: Speci men Type: BLOOD SPECIMENOrdering Facility: [facility] Address: [address] [place] [address] Performed By: #### 5 7021-8 ####[facility] HOSPITALALYXA [id number] [place] [address] [place] Immature granulocytes (Bld) [#/Vol] 0.05 10*3/uL Normal <0.10 [facility] Comment on above: Order Comment: Speci men Type: BLOOD SPECIMENOrdering Facility: [facility] Address: [address] [place] [address] Performed By: #### 5 7021-8 ####[facility] HOSPITALALYXA [id number] [place] [address] [place] Immature granulocytes/100 WBC (Bld) 0.5 % Normal [facility] Comment on above: Order Comment: Speci men Type: BLOOD SPECIMENOrdering Facility: [facility] Address: [address] [place] [address] Performed By: #### 5 7021-8 ####[facility] HOSPITALNCLIA [id number] [place] [address] [place] Lymphocytes (Bld) [#/Vol] 2.05 10*3/uL Normal 1.00-4.00 [facility] Comment on above: Order Comment: Speci men Type: BLOOD SPECIMENOrdering Facility: [facility] Address: [address] [place] [address] Performed By: #### 5 7021-8 ####[facility] GABNCSAM [id number] [place] [address] [place] Lymphocytes/100 WBC (Bld) 20.1 % Normal [facility] Comment on above: Order Comment: Speci men Type: BLOOD SPECIMENOrdering Facility: [facility] Address: [address] [place] [address] Performed By: #### 5 7021-8 ####[facility] HOSPITALNCSAM [id number] [place] [address] [place] MCH (RBC) [Entitic mass] 30.3 pg Normal 26.0-34.0 [facility] Comment on above: Order Comment: Speci men Type: BLOOD SPECIMENOrdering Facility: [facility] Address: [address] [place] [address] Performed By: #### 5 7021-8 ####[facility] HOSPITALNCSAM [id number] [place] [address] [place] MCHC (RBC) [Mass/Vol] 34.1 g/dL Normal 30.5-36.0 [facility] Comment on above: Order Comment: Speci men Type: BLOOD SPECIMENOrdering Facility: [facility] Address: [address] [place] [address] Performed By: #### 5 7021-8 ####[facility] HOSPITALNCLIA [id number] [place] [address] [place] MCV (RBC) [Entitic vol] 88.7 fL Normal 80.0-100.0 [facility] Comment on above: Order Comment: Speci men Type: BLOOD SPECIMENOrdering Facility: [facility] Address: [address] [place] [address] Performed By: #### 5 7021-8 ####[facility] MILLWNCLIA [id number] [place] [address] [place] Monocytes (Bld) [#/Vol] 0.57 10*3/uL Normal <0.87 [facility] Comment on above: Order Comment: Speci men Type: BLOOD SPECIMENOrdering Facility: [facility] Address: [address] [place] [address] Performed By: #### 5 7021-8 ####[facility] HOSPITALLIA [id number] [place] [address] [place] Monocytes/100 WBC (Bld) 5.6 % Normal [facility] Comment on above: Order Comment: Speci men Type: BLOOD SPECIMENOrdering Facility: [facility] Address: [address] [place] [address] Performed By: #### 5 7021-8 ####[facility] HOSPITALLIA [id number] [place] [address] [place] Neutrophils (Bld) [#/Vol] 7.45 10*3/uL Normal 1.45-7.50 [facility] Comment on above: Order Comment: Speci men Type: BLOOD SPECIMENOrdering Facility: [facility] Address: [address] [place] [address] Performed By: #### 5 7021-8 ####[facility] MILLWNCLIA [id number] [place] [address] [place] Neutrophils/100 WBC (Bld) 73.1 % Normal [facility] Comment on above: Order Comment: Speci men Type: BLOOD SPECIMENOrdering Facility: [facility] Address: [address] [place] [address] Performed By: #### 5 7021-8 ####[facility]ITALNCLIA [id number] [place] [address] [place] Nucleated RBC (Bld) [#/Vol] 10*3/uL Normal <0.01 [facility] Comment on above: Order Comment: Speci men Type: BLOOD SPECIMENOrdering Facility: [facility] Address: [address] [place] [address] Performed By: #### 5 7021-8 ####[facility]OS[facility]ITALNCNIKAA [id number] [place] [address] [place] Nucleated RBC/100 WBC (Bld) [Ratio] 0.0 /100 WBC Normal [facility] Comment on above: Order Comment: Speci men Type: BLOOD SPECIMENOrdering Facility: [facility] Address: [address] [place] [address] Performed By: #### 5 7021-8 ####[facility] HOSPITALNCA [id number] [place] [address] [place] Platelet mean volume (Bld) [Entitic vol] 12.2 fL Normal 9.0-12.7 [facility] Comment on above: Order Comment: Speci men Type: BLOOD SPECIMENOrdering Facility: [facility] Address: [address] [place] [address] Performed By: #### 5 7021-8 ####[facility]ITALNCLIA [id number] [place] [address] [place] Platelets (Bld) [#/Vol] 219 10*3/uL Normal 150-400 [facility] Comment on above: Order Comment: Speci men Type: BLOOD SPECIMENOrdering Facility: [facility] Address: [address] [place] [address] Performed By: #### 5 7021-8 ####[facility]ITALNCLIA [id number] [place] [address] [place] RBC (Bld) [#/Vol] 4.23 10*6/uL Normal 3.90-5.20 [facility] Comment on above: Order Comment: Speci men Type: BLOOD SPECIMENOrdering Facility: [facility] Address: [address] [place] [address] Performed By: #### 5 7021-8 ####[facility]ITALNCLIA [id number] [place] [address] [place] WBC (Bld) [#/Vol] 10.19 10*3/uL Normal 3.70-11.[address] [facility] Comment on above: Order Comment: Speci men Type: BLOOD SPECIMENOrdering Facility: [facility] Address: [address] [place] [address] Performed By: #### 5 7021-8 ####[facility]ITALNCA [id number] [place] [address] [place] GESTATIONAL GLUCOSE SCREEN, 1-HOUR, 50 GRAM, NON-FASTINGon 07-16-2024 Glucose [Mass/Vol] 121 mg/dL Normal 74-134 [facility] Comment on above: Order Comment: Speci men Type: BLOOD SPECIMENOrdering Facility: [facility] Address: [address] [place] [address] Result Comment: [facility] Congress of Obstetricians and Gynecologists ([place]) guidelines state a gestational diabetes mellitus positive screen is made, in women not previously diagnosed with overt diabetes, when the 1 hr plasma glucose level is equal to or above 140 mg/dL. [facility] [employer] [facility] [place] recommends a 135 mg/dL cutoff. Performed By: #### G LTGST ####[facility]ITALNCLIA [id number] [place] [address] [place] Reagin and Treponema pallidu m IgG and IgM [Interp]on 07-16-2024 T. pallidum IgG+IgM IA Ql (S) Non-Reactive Normal Nonreactive [facility] Comment on above: Order Comment: Speci men Type: BLOOD SPECIMENOrdering Facility: [facility] Address: [address] [place], [place] [address] [id number] Performed By: #### 7 3752-8 ####[facility] LABCLIA [id number] [place] [id number] [place] Reagin+T pallidum IgG+IgM Se rPl-Impon 07-16-2024 Reagin and Treponema pallidum IgG and IgM [Interp] Cannot exclude recent Treponemal infection if specimen collected within 7-10 days after appearance of suspect lesions or 2-3 weeks after an exposure. Clinical correlation is required. Normal [facility] Comment on above: Order Comment: Speci men Type: BLOOD SPECIMENOrdering Facility: [facility] Address: [address] [place] [address] Performed By: #### 7 3752-8 ####[facility] LABCLIA [id number] [place] [id number] [place] Examination level ultrasound on 05-22-2024 Indication Detailed anatomic survey Maternal obesity, BMI >30 Impression REMOTE READ The patient is referred for a detailed anatomic survey. - Single, live, intrauterine . - biometry is consistent with the established gestational age. - No malformations were visualized on a complete detailed anatomic survey. - The amniotic fluid volume is normal amount. - The placenta is anterior, fundal. - The Transabdominal cervical length measures 40.8 mm with no evidence of funneling or other dynamic changes. - Not all structural malformations can be detected by ultrasound examination. - The EFW is 470 g, at the 96%. AC is at the 81%. Recommendations Additional follow-up as clinically indicated. Maternal Assessment Height 160 cm Height (ft) 5 ft Height (in) 3 in Physical Exam Initial weight (lb) 192 lb Initial BMI 34.01 kg/m Maternal assessment other: 4 Para 1 Method Transabdominal ultrasound examination. View: Adequate visualization Lai . Number of fetuses: 1 Dating GA by prior assessment 20 w + 5 d TERRY by prior assessment: 10/03/2024 Ultrasound examination on: 05/21/2024 GA by U/S based upon: AC, BPD, Femur, HC GA by U/S 22 w + 0 d TERRY by U/S: 09/24/2024 Assigned: based on stated TERRY, selected on 05/21/2024 Assigned GA 20 w + 5 d Assigned TERRY: 10/03/2024 General Evaluation Cardiac activity present. FHR 157 bpm. movements: present. Presentation: breech Placenta: Placental site: anterior, fundal Umbilical cord: Cord vessels: 3 vessel cord Amniotic fluid: Amount of AF: normal amount. MVP 5.6 cm Growth Overview Exam date GA BPD (mm) HC (mm) AC (mm) FL (mm) HL (mm) EFW (g) 04/23/2024 16w 5d 39.6 94% 145.1 76% 124.9 89% 26 94% 26.3 96% 215 97% 05/21/2024 20w 5d 52 86% 199.8 87% 169.6 81% 37.9 97% 37 98% 470 96% Biometry Standard BPD 52.0 mm 21w 5d 86% Hadlock OFD 72.7 mm 22w 3d >99% Nicolaides HC 199.8 mm 22w 1d 87% Alka Cerebellum tr 22.0 mm 20w 4d 65% Hill Nuchal fold 5.1 mm AC 169.6 mm 22w 0d 81% Hadlock Femur 37.9 mm 22w 2d 97% Alka Humerus 37.0 mm 22w 6d 98% Alka EFW 470 g 21w 6d 96% Hadlock EFW (lb) 1 lb EFW (oz) 1 oz EFW by: Hadlock (HC-AC-FL) Extended [employer] Project Manager 8.5 mm CM 6.7 mm 88% Nicolaides Extremities / Bony Struc FL / HC 0.19 48% Hadlock Other Structures FHR 157 bpm Anatomy Cranium: normal Lateral ventricles: normal Choroid plexus: normal Midline falx: normal Cavum septi pellucidi: normal Cerebellum: normal Cisterna magna: normal Head / Neck Vermis: normal Neck: normal Nuchal fold: normal Lips: normal Profile: normal Nose: normal Face Maxilla: normal Mandible: normal Orbits: normal Lens: normal 4-chamber view: normal RVOT view: normal LVOT view: normal 3-vessel view: normal 9-ltrpyg-famjbhi view: normal Heart / Thorax Situs: situs solitus (normal) Aortic arch view: normal SVC: normal IVC: normal Cardiac axis: normal Rt lung: normal Lt lung: normal Diaphragm: normal Cord insertion: normal Stomach: normal Kidneys: normal Bladder: normal Genitals: normal Abdomen Abdom. wall: normal Cervical spine: normal Thoracic spine: normal Lumbar spine: normal Sacral spine: normal Arms: normal Legs: normal Rt upper arm: normal Rt forearm: normal Rt hand: normal Rt fingers: normal Lt upper arm: normal Lt forearm: normal Lt hand: normal Lt fingers: normal Rt upper leg: normal Rt lower leg: normal Rt foot: normal Lt upper leg: normal Lt lower leg: normal Lt foot: normal sex: male Wants to know sex: yes Maternal Structures Uterus / Cervix Uterus: Visualized Cervix: Visualized Approach: Transabdominal Cervical length 40.8 mm Other: Patient declined transvaginal ultrasound for cervical length. Ovaries / Tubes / Adnexa Rt ovary: Visualized Lt ovary: Not visualized Performed By: Jessica Mckeon, BORIS, RVT Read By: Berta Hampton M.D. MATERNAL MEDICINE [facility] Examination level ultrasound on 05-21-2024 Radiology Study observation (narrative) [facility] Examination level ultrasound on 04-23-2024 Indication Early anatomic survey. Maternal obesity, BMI >30 Impression REMOTE READ The patient is referred for an early anatomic survey because of identified risk factors. - Single, live, intrauterine . - biometry is consistent with the established gestational age. - No malformations were visualized on a complete early anatomic assessment. - The amniotic fluid volume is normal amount. - The placenta is anterior, fundal. - Not all structural malformations can be detected by ultrasound examination. Recommendations - A detailed anatomic survey at 20 weeks is indicated secondary to increased risk. Maternal Assessment Height 160 cm Height (ft) 5 ft Height (in) 3 in Physical Exam Initial weight (lb) 192 lb Initial BMI 34.01 kg/m Method Transabdominal ultrasound examination Lai . Number of fetuses: 1 Dating GA by prior assessment 16 w + 5 d TERRY by prior assessment: 10/03/2024 Ultrasound examination on: 04/23/2024 GA by U/S based upon: AC, BPD, Femur, HC GA by U/S 18 w + 0 d TERRY by U/S: 09/24/2024 Assigned: based on stated TERRY, selected on 03/26/2024 Assigned GA 16 w + 5 d Assigned TERRY: 10/03/2024 General Evaluation Cardiac activity present. FHR 158 bpm. movements: present. Presentation: breech Placenta: Placental site: anterior, fundal Umbilical cord: Cord vessels: 3 vessel cord. Insertion site: normal insertion Amniotic fluid: Amount of AF: normal amount Biometry Standard BPD 39.6 mm 18w 0d 94% Hadlock OFD 51.1 mm 17w 2d 95% Nicolaides HC 145.1 mm 17w 4d 76% Alka Cerebellum tr 18.2 mm 18w 0d 93% Hill Nuchal fold 3.7 mm AC 124.9 mm 18w 1d 89% Hadlock Femur 26.0 mm 18w 0d 94% Alka Humerus 26.3 mm 18w 2d 96% Alka EFW 215 g 17w 6d 97% Hadlock EFW (lb) 0 lb EFW (oz) 8 oz EFW by: Hadlock (HC-AC-FL) Extended [employer] Project Manager 6.3 mm CM 4.0 mm 46% Nicolaides Extremities / Bony Struc FL / HC 0.18 90% Hadlock Other Structures FHR 158 bpm Anatomy Cranium: normal Lateral ventricles: normal Choroid plexus: normal Midline falx: normal Cerebellum: normal Cisterna magna: normal Lips: normal 4-chamber view: normal RVOT view: normal LVOT view: normal 3-vessel view: normal 3-gtrfqy-wjmkajj view: normal Heart / Thorax Diaphragm: normal Cord insertion: normal Stomach: normal Kidneys: normal Bladder: normal Cervical spine: normal Thoracic spine: normal Lumbar spine: normal Sacral spine: normal Arms: normal Legs: normal Rt upper arm: normal Rt forearm: normal Rt hand: normal Lt upper arm: normal Lt forearm: normal Lt hand: normal Rt upper leg: normal Rt lower leg: normal Rt foot: normal Lt upper leg: normal Lt lower leg: normal Lt foot: normal Maternal Structures Uterus / Cervix Uterus: Visualized Approach: Transabdominal Cervical length 35.5 mm Ovaries / Tubes / Adnexa Rt ovary: Visualized Lt ovary: Visualized Performed By: Theresa Chaney RDMS Read By: Yenny Lozano M.D. MATERNAL MEDICINE [facility] Radiology Study observation (narrative) [facility] hCG Titer Quant., Serumon HCG QUANT. 16554 mIU/mL [facility] 1-3 [facility] Comment on above: Result Comment: hCG levels with Gestational Age Gestational Age hCG mIU/mL (IU/L) 0.2 - 1 week 5 - 50 1-2 weeks 50 - 500 2-3 weeks 100 - 5000 3-4 weeks 500 - 64845 4-5 weeks 1000 - 88897 5-6 weeks 78619 - 100,000 6-8 weeks 76272 - 200,000 2-3 months 93601 - 100,000 Performed By: #### L 700.8000 #### [facility] [address] [place], [address] CBC W/Diff, Automatedon 03-31 Absolute Lymph 0.55 X10 3/uL Low 0.83-4.51 [facility] Comment on above: Performed By: #### L 500.4050, L100.0100 #### [facility] [address] [place], [address] Absolute Neut 7.1 X10 3/uL Normal 2.0-7.7 [facility] Comment on above: Performed By: #### L 500.4050, L100.0100 #### [facility] [address] [place], [address] Basophils/100 WBC (Bld) 0.3 % Normal 0-1 [facility] Comment on above: Performed By: #### L 500.4050, L100.0100 #### [facility] [address] [place], [address] Eosinophils/100 WBC (Bld) 0.0 % Normal 0-5 [facility] Comment on above: Performed By: #### L 500.4050, L100.0100 #### [facility] [address] [place], [address] Erythrocyte distribution width (RBC) [Ratio] 12.4 % Normal 11.6-14.6 [facility] Comment on above: Performed By: #### L 500.4050, L100.0100 #### [facility] [address] [place], [address] Hematocrit (Bld) [Volume fraction] 39.1 % Normal 37-47 [facility] Comment on above: Performed By: #### L 500.4050, L100.0100 #### [facility] [address] [place], [address] Hemoglobin (Bld) [Mass/Vol] 13.4 g/dL Normal 12.0-15.0 [facility] Comment on above: Performed By: #### L 500.4050, L100.0100 #### [facility] [address] [place], [address] IG% 0.500 Normal 0.0-0.9 [facility] Comment on above: Result Comment: IG% - Immature Granulocytes (promyelocytes, myelocytes and metamyelocytes) > 1% indicates that a LEFT SHIFT is Present. Performed By: #### L 500.4050, L100.0100 #### [facility] [address] [place], [address] Lymphocytes/100 WBC (Bld) 6.4 % Low 19-41 [facility] Comment on above: Performed By: #### L 500.4050, L100.0100 #### [facility] [address] [place], [address] MCH (RBC) [Entitic mass] 29.9 pg Normal 27.0-32.0 [facility] Comment on above: Performed By: #### L 500.4050, L100.0100 #### [facility] [address] [place], [address] MCHC (RBC) [Mass/Vol] 34.3 g/dL Normal 32-36 [facility] Comment on above: Performed By: #### L 500.4050, L100.0100 #### [facility] [address] [place], [address] MCV (RBC) [Entitic vol] 87.3 fL Normal 81-99 [facility] Comment on above: Performed By: #### L 500.4050, L100.0100 #### [facility] [address] [place], [address] Monocytes/100 WBC (Bld) 10.1 % High 0-10 [facility] Comment on above: Performed By: #### L 500.4050, L100.0100 #### [facility] [address] [place], [address] Neutrophils/100 WBC (Bld) 82.7 % High 47-70 [facility] Comment on above: Performed By: #### L 500.4050, L100.0100 #### [facility] [address] [place], [address] Nucleated RBC (Bld) [#/Vol] 0 10*3/uL Normal 0-5 [facility] Comment on above: Performed By: #### L 500.4050, L100.0100 #### [facility] [address] [place], [address] Platelet mean volume (Bld) [Entitic vol] 12.0 fL Normal 6.2-12.0 [facility] Comment on above: Performed By: #### L 500.4050, L100.0100 #### [facility] [address] [place], [address] Platelets (Bld) [#/Vol] 241 10*3/uL Normal 150-450 [facility] Comment on above: Performed By: #### L 500.4050, L100.0100 #### [facility] [address] [place], [address] RBC (Bld) [#/Vol] 4.48 10*6/uL Normal 4.2-5.4 [facility] Comment on above: Performed By: #### L 500.4050, L100.0100 #### [facility] [address] [place], [address] RDW SD 39.6 fl Normal 35.1-43.9 [facility] Comment on above: Performed By: #### L 500.4050, L100.0100 #### [facility] [address] [place], [address] WBC (Bld) [#/Vol] 8.6 10*3/uL Normal 4.4-11.0 [facility] Comment on above: Performed By: #### L 500.4050, L100.0100 #### [facility] [address] [place], [address] Chest PA and Lateralon 04-17 Chest PA and Lateral [facility] [address] [place] [address] Chest PA and Lateral MR#: [id number] Acct: [id number] Name: RAMONA ZHAO Rep #: [id number] : 2000 F 23 From: Diamond Sexton nd, MD PCP: Dr. Damir Solano MD Status: [facility] Study: Chest PA and Lateral Date of Exam: 04/17/24 Exam# [id number] Ordering Dr: Ankush Chang DO PROCEDURE: CHEST PA AND LATERAL REASON FOR EXAM: 23-year-old female, cough. Positive influenza A, nausea, vomiting and fever x2 days. 15 weeks . TECHNIQUE: Frontal and lateral views of the chest. COMPARISON: None. FINDINGS: The heart size is normal. The mediastinal contour is unremarkable. No focal consolidation, pleural effusion or pneumothorax. The bones are unremarkable. RAD/Chest PA and Lateral IMPRESSION: NEGATIVE CHEST Reading Location: [facility] CC: Dr. Damir Solano MD; Dr. Ankush Chang DO Paralegal Legal Secretary: Signed Normal [facility] Comprehensive Metabolic Prof ilon 04-17-2024 Albumin [Mass/Vol] 2.9 g/dL Low 3.2-5.0 [facility] Comment on above: Performed By: #### L 500.4050, L100.0100 #### [facility] [address] [place], [address] Albumin/Globulin [Mass ratio] 0.7 {ratio} Low 0.9-2.4 [facility] Comment on above: Performed By: #### L 500.4050, L100.0100 #### [facility] [address] [place], [address] ALK P 73 U/L Normal 45-117 [facility] Comment on above: Performed By: #### L 500.4050, L100.0100 #### [facility] [address] [place], [address] ALT [Catalytic activity/Vol] 56 U/L Normal 13-56 [facility] Comment on above: Performed By: #### L 500.4050, L100.0100 #### [facility] [address] [place], [address] AST [Catalytic activity/Vol] 46 U/L High 15-37 [facility] Comment on above: Performed By: #### L 500.4050, L100.0100 #### [facility] [address] [place], [address] Bilirubin [Mass/Vol] 0.60 mg/dL Normal 0.20-1.00 [facility] Comment on above: Result Comment: For patients on eltrombopag therapy, use of Dimension [place] TBIL is not recommended. Performed By: #### L 500.4050, L100.0100 #### [facility] [address] [place], [address] BUN/CRE 9.6 RATIO Low 10-20 [facility] Comment on above: Performed By: #### L 500.4050, L100.0100 #### [facility] [address] [place], [address] CA,Total 8.7 mg/dL Normal 8.5-10.1 [facility] Comment on above: Performed By: #### L 500.4050, L100.0100 #### [facility] [address] [place], [address] Chloride [Moles/Vol] 105 mmol/L Normal 98-107 [facility] Comment on above: Performed By: #### L 500.4050, L100.0100 #### [facility] [address] [place], [address] CO2 [Moles/Vol] 21.0 mmol/L Normal 21.0-32.0 [facility] Comment on above: Performed By: #### L 500.4050, L100.0100 #### [facility] [address] [place], [address] Creatinine [Mass/Vol] 0.52 mg/dL Low 0.55-1.02 [facility] Comment on above: Result Comment: The validity of the calculated GFR GFRAA in patients over 70 years has not been determined. Clinical correlation is essential. Performed By: #### L 500.4050, L100.0100 #### [facility] [address] [place], [address] ECRCL 164.60 ml/min Normal [facility] Comment on above: Performed By: #### L 500.4050, L100.0100 #### [facility] [address] [place], [address] EST GFR - AA 184 mL/min Normal >60 [facility] Comment on above: Result Comment: Afri can [place] GFR Calc Performed By: #### L 500.4050, L100.0100 #### [facility] [address] [place], [address] GAP 9 Normal 5-15 [facility] Comment on above: Performed By: #### L 500.4050, L100.0100 #### [facility] [address] [place], [address] GFR/1.73 sq M.predicted among non-blacks MDRD (S/P/Bld) [Vol rate/Area] 152 mL/min/{1.73_m2} Normal >60 [facility] Comment on above: Result Comment: Non- GFR Calc Performed By: #### L 500.4050, L100.0100 #### [facility] [address] [place], [address] Globulin (S) [Mass/Vol] 4.3 g/dL High 2.2-4.2 [facility] Comment on above: Performed By: #### L 500.4050, L100.0100 #### [facility] [address] [place], [address] Glucose [Mass/Vol] 87 mg/dL Normal 74-106 [facility] Comment on above: Performed By: #### L 500.4050, L100.0100 #### [facility] [address] [place], [address] Potassium [Moles/Vol] 3.6 mmol/L Normal 3.5-5.1 [facility] Comment on above: Performed By: #### L 500.4050, L100.0100 #### [facility] [address] [place], [address] Sodium [Moles/Vol] 135 mmol/L Low 136-145 [facility] Comment on above: Performed By: #### L 500.4050, L100.0100 #### [facility] [address] [place], [address] T PROT 7.2 g/dL Normal 6.4-8.2 [facility] Comment on above: Performed By: #### L 500.4050, L100.0100 #### [facility] [address] [place], [address] Urea nitrogen [Mass/Vol] 5 mg/dL Low - [facility] Comment on above: Performed By: #### L 500.4050, L100.0100 #### [facility] Laboratory [address] [place], [address] Emergency Department Summary on 04-17-2024 Emergency Department Summary [facility] Medical Records Department [address] [place] [address] Emergency Department Summary 04/17/24 MR#: [id number] Acct: [id number] Name: RAMONA ZHAO Rep #: [id number] : 2000 23 From: Ankush Chang DO PCP: Dr. Damir Solano MD Status:REG ER Location: ED HPI History of Present Illness Chief Complaint: General Illness Informant: patient Onset/Context/Timing Onset: Days (2) Context: Gradual Onset Timing: Continuous Quality: Aching Location: Generalized Worsened by: Coughing Relieved by: Tylenol Narrative Narrative: Patient presents with fever and flulike symptoms that have been getting worse for the past 2 days. Patient states she feels achy all over. Patient states she is approximately 15 weeks . Patient states this has been constant for the past 2 days. Patient states it is gradually gotten worse. Patient admits to some nasal congestion and headache. Patient admits to some nausea and vomiting. Patient admits to a cough but denies any sputum production. Patient states her temperature at home was up to 101. PFSH PFSH Home Medications ???Medication ???Instructions ???Recorded ???Last Taken ???Type vitamin 1 ea PO DAILY 09/10/19 1 23:55 History no.76-iron,carbonyl 29 mg iron-folic acid 1 mg tablet Allergy/AdvReac Type Severity Reaction Status Date / Time No Known Allergies Allergy Verified 04/17/24 19:33 Surgical History no surgical history no surgical history Social History Smoking Status: Former smoker ROS ROS ED Constitutional Constitutional ED: Reports fever(s); Denies chills Eyes Eyes: Denies blurry vision or change in vision ENT ENT ED: Reports rhinorrhea and sore throat Cardiovascular Cardiovascular: Denies chest pain or palpitations Respiratory/Chest Respiratory/Chest: Reports cough; Denies dyspnea Gastrointestinal Gastrointestinal: Reports nausea and vomiting Genitourinary Genitourinary ED: Denies dysuria or hematuria Musculoskeletal Musculoskeletal: Denies back pain or neck pain Integumentary Denies abscess or rash Neurologic Neurologic: Reports headache(s); Denies weakness Allergic/Immunologic Allergic/Immunologic ED: Denies mouth swelling or urticaria EXAM Physical Exam Const Vital Signs: 04/17/24 19:33 04/17/24 21:33 04/17/24 22:33 Temperature 101.7 F H Temperature Source Oral Pulse Rate 128 H 129 H Respiratory Rate 17 17 Respiratory Effort Short of Breath Respiratory Pattern Normal Blood Pressure 130/66 H 122/68 H Blood Pressure Mean 87 86 Pulse Ox 97 99 Oxygen Delivery Method Room Air Room Air Positive well nourished and well developed General Appearance ED: well developed and NAD HEENT Reports moist mucous membranes Neck supple and no JVD Resp normal respiratory effort and clear to auscultation bilaterally Cardio regular rhythm Rate: tachycardic GI non-tender and non-distended Palpation: soft Extremity normal to inspection General Extremety ED: Negative for edema or tenderness General Extremity: Negative for edema Neuro oriented x3, CN's II-XII intact bilaterally and no sensory deficits noted Sensorium / Orientation: alert Motor Exam: strength 5/5 throughout Psych mental status grossly normal MDM MDM MDM Narrative Medical decision making narrative: Differential diagnosis includes viral illness, pneumonia, bronchitis, urinary tract infection, and electrolyte abnormality. Chest x-ray will be obtained to assess for pneumonia or bronchitis. CBC will be obtained to assess for leukocytosis and anemia. Comprehensive metabolic profile will be obtained to assess for hepatic function, renal function, and electrolyte abnormality. Quantitative hCG will be obtained to assess for . Urinalysis will be obtained to assess for urinary tract infection and hematuria. COVID-19, influenza, and RSV PCR will be obtained to assess for viral illness. Lab Data Attestation: I reviewed the patient's lab results. Lab results narrative: CBC was reviewed and was within normal limits. Comprehensive metabolic profile was reviewed and was essentially within normal limits. Urinalysis was reviewed. Urine ketones were 150. There is no evidence of urinary tract infection or hematuria. Quantitative hCG was reviewed and was [address]. COVID-19 PCR was reviewed and was negative. Influenza PCR was reviewed and was positive for influenza A and negative for influenza B. RSV PCR was reviewed and was negative. Labs: Laboratory Results - last 24 hr 04/17/24 04/17/24 20:25 22:36 WBC 8.6 RBC 4.48 Hgb 13.4 Hct 39.1 MCV 87.3 MCH 29.9 MCHC 34.3 RDW Std Deviation 39.6 RDW Coeff of Veronique 12.4 (more content not included)... Normal [facility] M100.678on 04-17-2024 M100.678 18- SARS-CoV-2 (COVID 19) Negative INFLUENZA A A Positive A INFLUENZA B Negative RSV PCR Negative INFLUENZAE A Normal [facility] Comment on above: Performed By: #### M 100.678 #### [facility] Laboratory [address] [place], [place], [id number] Urinalysis, Completeon 04-17 BACTERIA 1+ /hpf Normal None Seen [facility] Comment on above: Order Comment: CRITICAL VALUE CALLED TO JORI MATA 04/17/24 2247 Charity Lollo. RESULTS READ BACK BY SAME. MOLECULAR BIOLOGY SCIENTIST TO SPECIFY Performed By: #### L 400.0001 #### [facility] Laboratory [address] [place], [address] EPI,SQUAMOUS 0-5 SEEN Normal 5-10 [facility] Comment on above: Order Comment: CRITICAL VALUE CALLED TO JORI MATA 04/17/24 2247 Charity Lollo. RESULTS READ BACK BY SAME. MOLECULAR BIOLOGY SCIENTIST TO SPECIFY Performed By: #### L 400.0001 #### [facility] [address] [place], [address] Mucus Ql (Urine sed) 1+ /hpf Normal [facility] Comment on above: Order Comment: CRITICAL VALUE CALLED TO JORI MATA 04/17/24 2247 Charity Lollo. RESULTS READ BACK BY SAME. MOLECULAR BIOLOGY SCIENTIST TO SPECIFY Performed By: #### L 400.0001 #### [facility] Laboratory [address] [place], [address] RBC 0-5 SEEN Normal 0-5 [facility] Comment on above: Order Comment: CRITICAL VALUE CALLED TO JORI MATA 04/17/24 2247 Charity Lollo. RESULTS READ BACK BY SAME. MOLECULAR BIOLOGY SCIENTIST TO SPECIFY Performed By: #### L 400.0001 #### [facility] [address] [place], [address] WBC 5-10 SEEN Normal 0-5 [facility] Comment on above: Order Comment: CRITICAL VALUE CALLED TO JORI MATA 04/17/24 2247 Charity Lollo. RESULTS READ BACK BY SAME. MOLECULAR BIOLOGY SCIENTIST TO SPECIFY Performed By: #### L 400.0001 #### [facility] [address] [place], [address] CNOVon 04-16-2024 CNOV Office Visit (WSTR ) KADENRAMONA PALMER ([id number]) [address] [facility] Date Time Provider Department 04/16/24 10:30 AM CARA FROST [facility] [[email or web address]] During your visit today, we recorded the following information about you: Temperature Pulse Respiration Blood pressure 98.9 degrees 97/minute 21/minute 104/82 Weight 89.5 kg Cara Frost PA-C 04/16/2024 11:01 AM Signed This note was created using NoteWriter. Subjective Ramona Zhao is a 23 year old female. Patient is a 23-year-old female who complains of ongoing loose, productive cough that she has been experiencing for the past 2 weeks. Patient reports no fever, chills or myalgia. Patient denies congestion, sinus pressure, ear pain or sore throat. Patient was seen and evaluated at this facility on 02 April 2024 at which time she was diagnosed with a viral URI. Patient reports that overall she is feeling improved, however she states that her cough has continued to worsen. Patient has no history of asthma or COPD and does not smoke. Patient is currently 13 weeks gestation. Cough Review of Systems Respiratory: Positive for cough. All other systems reviewed and are negative. Objective BP 104/82 Pulse 97 Temp 37.2 ?C (98.9 ?F) Resp 21 Wt 89.5 kg (197 lb 5 oz) LMP 12/20/2023 (Within Days) SpO2 98% BMI 39.83 kg/m? Physical Exam Vitals and nursing note reviewed. Constitutional: Appearance: Normal appearance. She is normal weight. HENT: Head: Normocephalic and atraumatic. Right Ear: Tympanic membrane, ear canal and external ear normal. Left Ear: Tympanic membrane, ear canal and external ear normal. Nose: Nose normal. Mouth/Throat: Mouth: Mucous membranes are moist. Pharynx: Oropharynx is clear. Eyes: Extraocular Movements: Extraocular movements intact. Conjunctiva/sclera: Conjunctivae normal. Pupils: Pupils are equal, round, and reactive to light. Cardiovascular: Rate and Rhythm: Normal rate and regular rhythm. Pulses: Normal pulses. Heart sounds: Normal heart sounds. Pulmonary: Effort: Pulmonary effort is normal. Breath sounds: Rhonchi present. No wheezing. Musculoskeletal: Cervical back: Normal range of motion and neck supple. Skin: General: Skin is warm and dry. Capillary Refill: Capillary refill takes less than 2 seconds. Neurological: General: No focal deficit present. Mental Status: She is alert and oriented to person, place, and time. Psychiatric: Mood and Affect: Mood normal. Behavior: Behavior normal. Thought Content: Thought content normal. Judgment: Judgment normal. Assessment and Plan Physical exam findings as noted above. Patient was provided with a prescription for Zithromax 250 mg and supportive care instructions were discussed. Patient verbalizes clear understanding of same. CLINICAL IMPRESSION: Bronchopneumonia; Persistent Cough ASSESSMENT/PLAN: 1. Bronchopneumonia - ICD9: 485, ICD10: J18.0 (primary diagnosis) - AZITHROMYCIN 250 MG TABLET 2. Persistent cough - ICD9: 786.2, ICD10: R05.3 Cara Frost PA-C Allergies As of Date: 04/16/2024 (No Known Allergies) Date Reviewed: 04/16/2024 Reviewed by: Xi Betts MA - Fully Assessed Reason for Visit: Cough [28] Cmt: PIZARRO, body aches x 1 day Primary Visit Diagnosis:Bronchopneum onia [J18.0] Other Visit Diagnosis:Persistent cough [R05.3] Order(s):azithromycin (ZITHROMAX Z-ROXANNE) 250 mg tabletTake 2 tablets (500 mg) by mouth on day 1, then take 1 tablet (250 mg) by mouth for 4 days.Disp: 6 tabletRfl: 0 Prescriptions as of 04/16/2024 - azithromycin (ZITHROMAX Z-ROXANNE) 250 mg tablet Take 2 tablets (500 mg) by mouth on day 1, then take 1 tablet (250 mg) by mouth for 4 days. - pyridoxine HCl, vitamin B6, (VITAMIN B-6 ORAL) Take 1 tablet by mouth once daily. - vit no.124/iron/folic ( VITAMIN ORAL) Take 1 tablet by mouth once daily. Problem List As Of Date 04/16/2024 Noted Resolved No known problems [Z78.9] 11/25/2016 04/26/2019 Abdominal pain in , antepartum [O26.89*04/19/2019 04/26/2019 History of streptococcal sore throat [Z87.09] 04/19/2019 04/26/2019 Quit smoking [Z87.891] 04/19/2019 Nausea and vomiting in [O21.9] 04/19/2019 07/26/2019 Patient request for diagnostic testing [Z01.89] 04/19/2019 07/26/2019 Head lice infestation [B85.0] 04/19/2019 07/26/2019 Chlamydial infection [A74.9] 11/19/2019 02/13/2024 Nausea and vomiting during [O21.9] 02/09/2024 Encounter for supervision of high risk pregnanc*02/13/2024 Obesity affecting in first trimester *02/13/2024 History of miscarriage [Z87.59] 02/13/2024 with uncertain dates in first trimest*02/13/2024 Prescriptions ordered this encounter Disp Refills Start End AZITHROMYCIN 250 MG TABLET 6 ta* 0 04/16/2024 Sig: Take 2 tablets (500 mg) by mouth on day 1, then take 1 tablet (250 mg) by mouth for 4 days. Ca (more content not included)... Normal [facility] CNOVon 04-02-2024 CNOV Office Visit (UCWSTR ) RAMONA ZHAO ([id number]) [address] Date Time Provider Department 04/02/24 1:00 PM LIVAN BILLS [facility] [[email or web address]] During your visit today, we recorded the following information about you: Temperature Pulse Respiration Blood pressure 98.4 degrees 91/minute 18/minute 122/78 Weight 87.6 kg Livan Bills APRN.LAP MAKER 04/02/2024 1:04 PM Signed Subjective HPI Nontoxic-appearing female who is 13 weeks presents urgent care chief complaint sore throat nasal congestion cough fatigue. Duration of symptoms 1 week. Associated symptoms listed above. Presents today for evaluation. OTC medications none. Son sick similar signs symptoms. Denies any fever chest pain shortness of breath hemoptysis pleuritic pain or change in bowel or bladder habits. Past medical history prescription medications allergies reviewed. .Patient presents with: Cough: Cough, congestion and ST x 1 week PAST MEDICAL HISTORY Diagnosis Date Chlamydial infection 11/19/2019 12/12/19-MAMADOU GC/CT today. Alexandria Schwartz APRN.CNM 11/19/2019 Positive at time of GBS. SW NEGATIVE MEDICAL HISTORY PAST SURGICAL HISTORY Procedure Laterality Date DENTAL SURGERY HX wisdom teeth cut out NEXPLANON INSERTION 12/14/2019 removed 02/05/2022 NEXPLANON REMOVAL ALLERGIES Patient has no known allergies. MEDICATIONS vit no.124/iron/folic ( VITAMIN ORAL) Take 1 tablet by mouth once daily. pyridoxine HCl, vitamin B6, (VITAMIN B-6 ORAL) Take 1 tablet by mouth once daily. FAMILY HISTORY Problem Relation Age of Onset Hypertension Mother No Known Problems Father ADD/ADHD Brother Diabetes Maternal Grandmother Hypertension Maternal Grandmother Thyroid Maternal Grandmother Diabetes Maternal Grandfather Heart Maternal Grandfather Hypertension Maternal Grandfather No Known Problems Paternal Grandmother Diabetes Paternal Grandfather Hypertension Paternal Grandfather Heart Paternal Grandfather Social History Tobacco Use Smoking status: Former Current packs/day: 0.00 Types: Cigarettes Start date: 04/12/2016 Quit date: 04/12/2019 Years since quittin.9 Smokeless tobacco: Never Tobacco comments: Social Vaping Use Vaping status: Former Quit date: 04/12/2019 Substance Use Topics Alcohol use: Not Currently Comment: social Drug use: Not Currently Types: Marijuana Comment: Stopped marijuana 01/20/2024 BP 122/78 Pulse 91 Temp 36.9 ?C (98.4 ?F) (Tympanic) Resp 18 Wt 87.6 kg (193 lb 2 oz) LMP 12/20/2023 (Within Days) SpO2 97% BMI 38.98 kg/m? Review of Systems Constitutional: Negative for chills, fever and malaise/fatigue. HENT: Positive for congestion and sore throat. Negative for ear discharge, ear pain and sinus pain. Eyes: Negative for blurred vision, pain, discharge and redness. Respiratory: Positive for cough. Negative for hemoptysis, sputum production, shortness of breath, wheezing and stridor. Cardiovascular: Negative for chest pain. Gastrointestinal: Negative for abdominal pain, diarrhea, nausea and vomiting. Musculoskeletal: Negative for myalgias. Skin: Negative for itching and rash. Neurological: Positive for headaches. Negative for dizziness. Objective Physical Exam Constitutional: General: She is not in acute distress. Appearance: She is not diaphoretic. HENT: Head: Normocephalic. Jaw: No trismus, tenderness, swelling or pain on movement. Right Ear: Tympanic membrane, ear canal and external ear normal. Left Ear: Tympanic membrane, ear canal and external ear normal. Nose: Congestion present. Mouth/Throat: Mouth: Mucous membranes are moist. Pharynx: Oropharynx is clear. Uvula midline. No pharyngeal swelling, oropharyngeal exudate, posterior oropharyngeal erythema or uvula swelling. Eyes: Conjunctiva/sclera: Conjunctivae normal. Pupils: Pupils are equal, round, and reactive to light. Cardiovascular: Rate and Rhythm: Normal rate and regular rhythm. Heart sounds: Normal heart sounds. Pulmonary: Effort: Pulmonary effort is normal. No tachypnea, accessory muscle usage or respiratory distress. Breath sounds: Normal breath sounds. No stridor. No wheezing, rhonchi or rales. Abdominal: General: There is no distension. Palpations: Abdomen is soft. Tenderness: There is no abdominal tenderness. There is no guarding or rebound. Musculoskeletal: Cervical back: Normal range of motion and neck supple. No edema, erythema, rigidity or tenderness. No pain with movement. Normal range of motion. Lymphadenopathy: Cervical: No cervical adenopathy. Skin: General: Skin is warm and dry. Neurological: Mental Status: She is alert and oriented to person, place, and time. ASSESSMENT/PLAN: 1. Viral illness - ICD9: 079.99, ICD10: B34.9 - Discussed viral etiology and rationale for treatment. - Symptomatic treatment with prn lavelle (more content not included)... Normal [facility] nuchal translucency me asured by on 03-27-2024 Indication First trimester anatomic survey Maternal obesity, BMI >30 Impression REMOTE READ The patient is referred for a first trimester anatomy scan including nuchal translucency measurement as clinically indicated. - Single, live, intrauterine . - [place] rump length measurement is consistent with the established gestational age. - A qualitative screen of the nuchal translucency and other anatomic structures was unremarkable on a complete first trimester anatomic assessment. - Not all structural malformations can be detected by ultrasound examination. Maternal Structures: Right Ovary: Size 28 mm x 23 mm x 24 mm Left Ovary: Size 22 mm x 22 mm x 19 mm Recommendations - An anatomic survey at 18-20 weeks is recommended given no identified risk factors. Maternal Assessment Height 160 cm Height (ft) 5 ft Height (in) 3 in Physical Exam Initial weight (lb) 192 lb Initial BMI 34.01 kg/m Maternal assessment other: 4 Para 1 Method Transabdominal ultrasound examination Lai . Number of fetuses: 1 Dating LMP on: 12/20/2023 GA by LMP 13 w + 6 d TERRY by LMP: 09/25/2024 GA by prior assessment 12 w + 5 d TERRY by prior assessment: 10/03/2024 Ultrasound examination on: 03/26/2024 GA by U/S based upon: CRL GA by U/S 13 w + 4 d TERRY by U/S: 09/27/2024 Assigned: based on stated TERRY, selected on 03/26/2024 Assigned GA 12 w + 5 d Assigned TERRY: 10/03/2024 General Evaluation Cardiac activity present Placenta: anterior Cord vessels: 3 vessel cord Amniotic fluid: normal amount Biometry Standard FHR 160 bpm CRL 74.7 mm 13w 4d 93% [facility] First Trimester Anatomy Calvarium: normal Falx cerebri: normal Choroid plexus: normal Profile: normal Nasal bone: normal Retronasal triangle: normal Maxilla: normal Mandible: normal Nuchal translucency: Unremarkable Situs: normal Cardiac position: normal Cardiac axis: normal 4-chamber view: normal 4-chamber view with color: normal [id number]-mtgacko view: normal Abdominal cord insertion: normal Stomach: normal Kidneys: normal Bladder: normal Color doppler of perivesical umbilical arteries: normal Vertebral alignment: normal Arms: normal Hands: normal Legs: normal Feet: normal Maternal Structures Uterus / Cervix Uterus: Visualized Uterus length 135 mm Uterus width 110 mm Uterus height 64 mm Uterus Vol 497.8 cm Ovaries / Tubes / Adnexa Rt ovary: Visualized Rt ovary D1 28 mm Rt ovary D2 23 mm Rt ovary D3 24 mm Rt ovary Vol 8.1 cm Lt ovary: Visualized Lt ovary D1 22 mm Lt ovary D2 22 mm Lt ovary D3 19 mm Lt ovary Vol 4.9 cm Performed By: Jessica Mckeon RDMS, RVT Read By: Yenny Lozano M.D. MATERNAL MEDICINE [facility] CARRIER SCREEN, STANDARDon 0 03-26-2024 CARRIER SCREEN RESULTS View results in Scanned Documents link when available. Normal [facility] Comment on above: Order Comment: Speci men Type: BLOOD SPECIMENOrdering Facility: [facility] Address: [address] [place] [id number] Performed By: #### C RRSCN ####MYRIADCLIA [id number] [place] [address] CBC W Auto Differential pane l (Bld)on 03-26-2024 Basophils (Bld) [#/Vol] 0.03 10*3/uL Normal <0.11 [facility] Comment on above: Order Comment: Speci men Type: BLOOD SPECIMENOrdering Facility: [facility] Address: [address] [place] [address] Performed By: #### 5 7021-8 ####[facility] MILLMARILUZWNCLIA [id number] [place] [address] [place] Basophils/100 WBC (Bld) 0.3 % Normal [facility] Comment on above: Order Comment: Speci men Type: BLOOD SPECIMENOrdering Facility: [facility] Address: [address] [place] [address] Performed By: #### 5 7021-8 ####[facility] MILLWNCLIA [id number] [place] [address] [place] Differential cell count method Nom (Bld) Auto Normal [facility] Comment on above: Order Comment: Speci men Type: BLOOD SPECIMENOrdering Facility: [facility] Address: [address] [place] [address] Performed By: #### 5 7021-8 ####[facility] MILLWNCLIA [id number] [place] [address] [place] Eosinophils (Bld) [#/Vol] 0.03 10*3/uL Normal <0.46 [facility] Comment on above: Order Comment: Speci men Type: BLOOD SPECIMENOrdering Facility: [facility] Address: [address] [place] [address] Performed By: #### 5 7021-8 ####[facility] MILLTOWNCLIA [id number] [place] [address] [place] Eosinophils/100 WBC (Bld) 0.3 % Normal [facility] Comment on above: Order Comment: Speci men Type: BLOOD SPECIMENOrdering Facility: [facility] Address: [address] [place] [address] Performed By: #### 5 7021-8 ####[facility] MILLWNCLIA [id number] [place] [address] [place] Erythrocyte distribution width (RBC) [Ratio] 12.0 % Normal 11.5-15.0 [facility] Comment on above: Order Comment: Speci men Type: BLOOD SPECIMENOrdering Facility: [facility] Address: [address] [place] [address] Performed By: #### 5 7021-8 ####[facility] [id number] [place] [address] [place] Hematocrit (Bld) [Volume fraction] 37.4 % Normal 36.0-46.0 [facility] Comment on above: Order Comment: Speci men Type: BLOOD SPECIMENOrdering Facility: [facility] Address: [address] [place] [address] Performed By: #### 5 7021-8 ####[facility]ALSAM [id number] [place] [address] [place] Hemoglobin (Bld) [Mass/Vol] 12.9 g/dL Normal 11.5-15.5 [facility] Comment on above: Order Comment: Speci men Type: BLOOD SPECIMENOrdering Facility: [facility] Address: [address] [place] [address] Performed By: #### 5 7021-8 ####[facility] [id number] [place] [address] [place] Immature granulocytes (Bld) [#/Vol] 0.03 10*3/uL Normal <0.10 [facility] Comment on above: Order Comment: Speci men Type: BLOOD SPECIMENOrdering Facility: [facility] Address: [address] [place] [address] Performed By: #### 5 7021-8 ####[facility]ITAL[facility]CL[facility] [id number] [place] [address] [place] Immature granulocytes/100 WBC (Bld) 0.3 % Normal [facility] Comment on above: Order Comment: Speci men Type: BLOOD SPECIMENOrdering Facility: [facility] Address: [address] [place] [address] Performed By: #### 5 7021-8 ####[facility] [id number] [place] [address] [place] Lymphocytes (Bld) [#/Vol] 1.74 10*3/uL Normal 1.00-4.00 [facility] Comment on above: Order Comment: Speci men Type: BLOOD SPECIMENOrdering Facility: [facility] Address: [address] [place] [address] Performed By: #### 5 7021-8 ####[facility] [id number] [place] [address] [place] Lymphocytes/100 WBC (Bld) 18.6 % Normal [facility] Comment on above: Order Comment: Speci men Type: BLOOD SPECIMENOrdering Facility: [facility] Address: [address] [place] [address] Performed By: #### 5 7021-8 ####[facility] [id number] [place] [address] [place] MCH (RBC) [Entitic mass] 29.7 pg Normal 26.0-34.0 [facility] Comment on above: Order Comment: Speci men Type: BLOOD SPECIMENOrdering Facility: [facility] Address: [address] [place] [address] Performed By: #### 5 7021-8 ####[facility] [id number] [place] [address] [place] MCHC (RBC) [Mass/Vol] 34.5 g/dL Normal 30.5-36.0 [facility] Comment on above: Order Comment: Speci men Type: BLOOD SPECIMENOrdering Facility: [facility] Address: [address] [place] [address] Performed By: #### 5 7021-8 ####[facility] SAVANAHLACYLIA [id number] [place] [address] [place] MCV (RBC) [Entitic vol] 86.2 fL Normal 80.0-100.0 [facility] Comment on above: Order Comment: Speci men Type: BLOOD SPECIMENOrdering Facility: [facility] Address: [address] [place] [address] Performed By: #### 5 7021-8 ####[facility] [id number] [place] [address] [place] Monocytes (Bld) [#/Vol] 0.83 10*3/uL Normal <0.87 [facility] Comment on above: Order Comment: Speci men Type: BLOOD SPECIMENOrdering Facility: [facility] Address: [address] [place] [address] Performed By: #### 5 7021-8 ####[facility] [id number] [place] [address] [place] Monocytes/100 WBC (Bld) 8.8 % Normal [facility] Comment on above: Order Comment: Speci men Type: BLOOD SPECIMENOrdering Facility: [facility] Address: [address] [place] [address] Performed By: #### 5 7021-8 ####[facility]ITAL[facility] [id number] [place] [address] [place] Neutrophils (Bld) [#/Vol] 6.72 10*3/uL Normal 1.45-7.50 [facility] Comment on above: Order Comment: Speci men Type: BLOOD SPECIMENOrdering Facility: [facility] Address: [address] [place] [address] Performed By: #### 5 7021-8 ####[facility] [id number] [place] [address] [place] Neutrophils/100 WBC (Bld) 71.7 % Normal [facility] Comment on above: Order Comment: Speci men Type: BLOOD SPECIMENOrdering Facility: [facility] Address: [address] [place] [address] Performed By: #### 5 7021-8 ####[facility] [id number] [place] [address] [place] Nucleated RBC (Bld) [#/Vol] 10*3/uL Normal <0.01 [facility] Comment on above: Order Comment: Speci men Type: BLOOD SPECIMENOrdering Facility: [facility] Address: [address] [place] [address] Performed By: #### 5 7021-8 ####[facility] [id number] [place] [address] [place] Nucleated RBC/100 WBC (Bld) [Ratio] 0.0 /100 WBC Normal [facility] Comment on above: Order Comment: Speci men Type: BLOOD SPECIMENOrdering Facility: [facility] Address: [address] [place] [address] Performed By: #### 5 7021-8 ####[facility] [id number] [place] [address] [place] Platelet mean volume (Bld) [Entitic vol] 12.2 fL Normal 9.0-12.7 [facility] Comment on above: Order Comment: Speci men Type: BLOOD SPECIMENOrdering Facility: [facility] Address: [address] [place] [address] Performed By: #### 5 7021-8 ####[facility]ITALNCLI [id number] [place] [address] [place] Platelets (Bld) [#/Vol] 239 10*3/uL Normal 150-400 [facility] Comment on above: Order Comment: Speci men Type: BLOOD SPECIMENOrdering Facility: [facility] Address: [address] [place] [address] Performed By: #### 5 7021-8 ####[facility] [id number] [place] [address] [place] RBC (Bld) [#/Vol] 4.34 10*6/uL Normal 3.90-5.20 [facility] Comment on above: Order Comment: Speci men Type: BLOOD SPECIMENOrdering Facility: [facility] Address: [address] [place] [address] Performed By: #### 5 7021-8 ####[facility] [id number] [place] [address] [place] WBC (Bld) [#/Vol] 9.38 10*3/uL Normal 3.70-11.00 [facility] Comment on above: Order Comment: Speci men Type: BLOOD SPECIMENOrdering Facility: [facility] Address: [address] [place] [address] Performed By: #### 5 7021-8 ####[facility] [id number] [place] [address] [place] nuchal translucency me asured by USon 03-26-2024 Radiology Study observation (narrative) [facility] HBV surface Ag Ser Qlon - HBV surface Ag Ql (S) Negative Normal Negative [facility] Comment on above: Order Comment: Speci men Type: BLOOD SPECIMENOrdering Facility: [facility] Address: [address] [place] [address] Performed By: #### 5 195-3, 00359-0, 00286-9 ####[facility] LABCLIA [id number] [place] [address] [place] HCV Ab Ser Qlon 03-26-2024 HCV Ab Ql (S) Negative Normal Negative [facility] Comment on above: Order Comment: Renetta lynn Type: BLOOD SPECIMENOrdering Facility: [facility] Address: [address] [place] [address] Result Comment: The result suggests no evidence of active infection with Hepatitis C virus. Should recent infection be suspected, repeat testing may be considered 4-6 weeks after this draw. Performed By: #### 1 6128-1 ####[facility] LABCLIA [id number] [place] [address] [place] HGB ELECTROPHORESIS FOR EVAL (LAB ORDER)on 03-26-2024 Hemoglobin A (Bld) [Mass fraction] 97.5 % Normal 96.2-98.0 [facility] Comment on above: Order Comment: Renetta lynn Type: BLOOD SPECIMENOrdering Facility: [facility] Address: [address] [place] [address] Performed By: #### L [id number], HGBELEV ####[facility] LABCLIA [id number] [place] [address] [place] Hemoglobin A2 (Bld) [Mass fraction] 2.5 % Normal 2.0-3.1 [facility] Comment on above: Order Comment: Renetta lynn Type: BLOOD SPECIMENOrdering Facility: [facility] Address: [address] [place] [address] Performed By: #### L [id number], HGBELEV ####[facility] LABCLIA [id number] [place] [address] [place] Hemoglobin Unsp Elph (Bld) [Mass fraction] No abnormal hemoglobin identified. Normal No abnormal hemoglobin identified. [facility] Comment on above: Order Comment: Renetta lynn Type: BLOOD SPECIMENOrdering Facility: [facility] Address: [address] [place] [address] Performed By: #### L [id number], HGBELEV ####[facility] LABCLIA [id number] [place] [address] [place] HGB EVALUATION CASCADE INTER Devang 03-26-2024 Hemoglobin pattern (Bld) [Interp] Reviewed by Sandra Ramirez MD Normal [facility] Comment on above: Order Comment: Speci men Type: BLOOD SPECIMENOrdering Facility: [facility] Address: [address] [place] [address] Performed By: #### L [id number], HGBELEV ####[facility] LABCLIA [id number] [place] [address] [place] INTERPRETATION (HGB EVAL) Normal [facility] Comment on above: Order Comment: Speci men Type: BLOOD SPECIMENOrdering Facility: [facility] Address: [address] [place] [address] Result Comment: Hemo globins were analyzed by capillary electrophoresis and CBC red cell parameters were reviewed. No abnormal hemoglobin is identified. There is a normal hemoglobin capillary electrophoresis pattern. Performed By: #### L [id number], HGBELEV ####[facility] LABCLIA [id number] [place] [address] [place] HIV 1+2 Ab IA Qlon 5 HIV 1 and 2 Ab IA.rapid Nom (S/P/Bld) Normal [facility] Comment on above: Order Comment: Speci men Type: BLOOD SPECIMENOrdering Facility: [facility] Address: [address] [place] [address] Result Comment: Test not indicated. Performed By: #### 5 195-3, 66470-3, 00138-2 ####[facility] LABIA [id number] [place] [address] [place] HIV 1+2 Ab+HIV1 p24 Ag IA Ql Non-Reactive Normal Nonreactive [facility] Comment on above: Order Comment: Speci men Type: BLOOD SPECIMENOrdering Facility: [facility] Address: [address] [place] [address] Performed By: #### 5 195-3, 50607-8, 52167-3 ####[facility] LABCLIA [id number] [place] [address] [place] HIV immunoassay testing algorithm interpretation (S/P/Bld) [Interp] Normal [facility] Comment on above: Order Comment: Speci men Type: BLOOD SPECIMENOrdering Facility: [facility] Address: [address] [place] [address] Result Comment: No e vidence of HIV-1 or HIV-2 infection. Should recent infection be suspected, repeat testing may be considered 2-3 weeks after this draw. [place] Rev. Code 3701.243(E): This information has been disclosed to you from confidential records protected from disclosure by state law. ???You shall make no further disclosure of this information without the specific, written, and informed release of the individual to whom it pertains or as otherwise permitted by state law. A general authorization for the release of medical or other information is not sufficient for the purpose of the release of HIV test results or diagnoses. Performed By: #### 5 195-3, 19803-1, 11204-3 ####[facility] LABIA [id number] [place] [address] [place] HbA1c (Bld)on 03-26-2024 Average glucose Estimated from glycated hemoglobin (Bld) [Mass/Vol] 80 mg/dL Normal [facility] Comment on above: Order Comment: Speci men Type: BLOOD SPECIMENOrdering Facility: [facility] Address: [address] [place] [address] Result Comment: eAG: (Estimated average glucose) is a calculated value from HgbA1c and is safety representative of the average blood glucose level in the last 2-3 month period. Performed By: #### 5 5454-3 ####[facility] LABIA [id number] [place] [address] [place] HbA1c (Bld) [Mass fraction] 4.4 % Normal 4.3-5.6 [facility] Comment on above: Order Comment: Speci men Type: BLOOD SPECIMENOrdering Facility: [facility] Address: [address] [place] [address] Result Comment: Amer ican Diabetes Association guidelines indicate that patients with HgbA1c in the range 5.7-6.4% are at increased risk for development of diabetes, and intervention by lifestyle modification may be beneficial. HgbA1c greater or equal to 6.5% is considered diagnostic of diabetes. Performed By: #### 5 5454-3 ####[facility] LABCLIA [id number] [address] OF [facility] [id number] PLUSon 03-26-2024 Cell-free DNA./Cell-free DNA.total Dosage of chromosome-specific cfDNA (cfDNA) [Molar fraction] 17% Normal [facility] Comment on above: Order Comment: Renetta lynn Type: BLOOD SPECIMENOrdering Facility: [facility] Address: [address] [place] [address] Performed By: #### M AT21 ####[facility] LABCLIA [id number] [place] [address] Chr 13+18+21+X+Y aneuploidy Dosage of chromosome-specific cfDNA Ql (cfDNA) Negative Normal [facility] Comment on above: Order Comment: Renetta lynn Type: BLOOD SPECIMENOrdering Facility: [facility] Address: [address] [place] [address] Performed By: #### M AT21 ####[facility] LABCLIA [id number] [place] [address] Chr 21 trisomy Dosage of chromosome-specific cfDNA Ql (cfDNA) Negative Normal [facility] Comment on above: Order Comment: Novai men Type: BLOOD SPECIMENOrdering Facility: [facility] Address: [address] [place] [address] Performed By: #### M AT21 ####[facility] LABCLIA [id number] [place] [address] Chr X and Y aneuploidy risk Sequencing Ql (cfDNA) [Interp] Not detected Normal [facility] Comment on above: Order Comment: Novai men Type: BLOOD SPECIMENOrdering Facility: [facility] Address: [address] [place] [address] Result Comment: Not Detected Not Detected Performed By: #### M AT21 ####[facility] LABCLIA [id number] [place] [address] Citation Damian (Reference lab test) Comment Normal [facility] Comment on above: Order Comment: Speci men Type: BLOOD SPECIMENOrdering Facility: [facility] Address: [address] [place] [address] Result Comment: 1. P mariel BENÍTEZ, et al. Kaia Med. 2012;14(3):296-305. 2. Calvin CASTELLANO, et al. Prenat Diag. 2013;33(6):591-597. 3. Adam C, et al. Clin Chem. 2015 Apr;61(4):608-616. 4. Bri BENÍTEZ, et al. Kaia Med. 2011;13(11):913-920. 5. ACOG/SMFM Practice Bulletin No. 226, Nov 2019. Performed By: #### M AT21 ####[facility] LABCLIA [id number] [place] [address] Gestational age Estimated from conception date Lai Normal [facility] Comment on above: Order Comment: Speci men Type: BLOOD SPECIMENOrdering Facility: [facility] Address: [address] [place] [address] Performed By: #### M AT21 ####[facility] LABCLIA [id number] [place] [address] GESTATIONALAGE AGE > OR = 9W Yes Normal [facility] Comment on above: Order Comment: Speci men Type: BLOOD SPECIMENOrdering Facility: [facility] Address: [address] [place] [address] Performed By: #### M AT21 ####[facility] LABCLIA [id number] [place] [address] Laboratory comment Damian (Report) Comment Normal [facility] Comment on above: Order Comment: Speci men Type: BLOOD SPECIMENOrdering Facility: [facility] Address: [address] [place] [address] Result Comment: The MaterniT(R) 21 PLUS laboratory-developed test (LDT) analyzes circulating cell-free DNA from a maternal blood sample. This test is used for screening purposes and not diagnostic. Clinical correlation is recommended. Validation data on twin pregnancies is limited and the ability of this test to detect aneuploidy in higher multiple gestations has not yet been validated. Performed By: #### M AT21 ####[facility] LABSynapseIA [id number] [place] [id number] director of clinical services name Nom (Provider) Comment Normal [facility] Comment on above: Order Comment: Speci men Type: BLOOD SPECIMENOrdering Facility: [facility] Address: [address] [place] [address] Result Comment: This specimen showed an expected representation of chromosome 21, 18 and 13 material. Clinical correlation is suggested. Comment Paramjit Soto MD, PhD, Director, [employer] Performed By: #### M AT21 ####[facility] LABCLIA [id number] [place] [id number] LIMITATIONS OF THE TEST Comment Normal [facility] Comment on above: Order Comment: Renetta lynn Type: BLOOD SPECIMENOrdering Facility: [facility] Address: [address] [place] [address] Result Comment: [place] vasques the results of these tests are highly reliable, discordant results, including inaccurate sex prediction, may occur due to placental, maternal, or mosaicism or neoplasm; vanishing twin; prior maternal organ transplant; or other causes. These tests are screening tests and not diagnostic; they do not replace the accuracy and precision of diagnosis with CVS or amniocentesis. A patient with a positive test result should be referred for genetic counseling and offered invasive diagnosis for confirmation of test results.[5] The results of this testing, including the benefits and limitations, should be discussed with a qualified healthcare provider. management decisions, including termination of the , should not be based on the results of these tests alone. The healthcare provider is responsible for the use of this information in the management of their patient. Sex chromosomal aneuploidies are not reportable for known multiple gestations. A negative result does not ensure an unaffected nor does it exclude the possibility of other chromosomal abnormalities or defects which are not a part of these tests. An uninformative result may be reported, the causes of which may include, but are not limited to, insufficient sequencing coverage, noise or artifacts in the region, amplification or sequencing bias, or insufficient fraction. These tests are not intended to identify pregnancies at risk for neural tube defects or ventral wall defects. Testing for whole chromosome abnormalities (including sex chromosomes) and for subchromosomal abnormalities could lead to the potential discovery of both and maternal genomic abnormalities that could have major, minor, or no, clinical significance. Evaluating the significance of a positive or a non-reportable result may involve both invasive testing and additional studies on the mother. Such investigations may lead to a diagnosis of maternal chromosomal or subchromosomal abnormalities, which on occasion may be associated with benign or malignant maternal neoplasms. These tests may not accurately identify triploidy, balanced rearrangements, or the precise location of subchromosomal duplications or deletions; these may be detected by diagnosis with CVS or amniocentesis. The ability to report results may be impacted by maternal BMI, maternal weight, maternal systemic lupus erythematosus (SLE) and/or by certain pharmaceutical agents such as low molecular weight heparin (for example: Lovenox(R), Xaparin(R), Clexane(R) and Fragmin(R)). Performed By: #### M AT21 ####[facility] LABSynapseIA [id number] [place] [address] Monosomy X risk Dosage of chromosome-specific cfDNA Ql (Plasma cell-free+WBC DNA) [Interp] Not detected Normal [facility] Comment on above: Order Comment: Renetta lynn Type: BLOOD SPECIMENOrdering Facility: [facility] Address: [address] [place] [address] Performed By: #### M AT21 ####[facility] LABCLIA [id number] [place] [address] NEGATIVE PREDICTIVE VALUE Note Normal [facility] Comment on above: Order Comment: Renetta lynn Type: BLOOD SPECIMENOrdering Facility: [facility] Address: [address] [place] [address] Result Comment: The Negative Predictive Value (NPV) for trisomy 21, 18, and 13 is greater than 99%. The NPV for SCA and ESS cannot be calculated as SCA and ESS are only reported when an abnormality is detected. Performed By: #### M AT21 ####[facility] LABSynapseIA [id number] [place] [address] NOTE Comment Normal [facility] Comment on above: Order Comment: Speci men Type: BLOOD SPECIMENOrdering Facility: [facility] Address: [address] [place] [address] Result Comment: See Notes [employer] is a subsidiary of [employer], using the brand [employer]. This test was developed and its performance characteristics determined by [employer]. It has not been cleared or approved by the Food and Drug Administration. This laboratory is certified under the Clinical Laboratory Improvement Amendments (CLIA) as qualified to perform high complexity clinical laboratory testing and accredited by the [employer] ([employer]). If there is future clinical need for adding MaterniT GENOME testing, this specimen will be available until term. [facility] samples will not be retained beyond 60 days. [facility] patients will have to send a new sample for re-sequencing ([facility] Test Code: [id number]). Performed By: #### M AT21 ####[facility] LABSynapseIA [id number] [place] [address] PERFORMANCE CHARACTERISTICS Note Normal [facility] Comment on above: Order Comment: Speci men Type: BLOOD SPECIMENOrdering Facility: [facility] Address: [address] [place] [address] Result Comment: ! Sex ! Accuracy: 99.4% ! ! ! ! Region (associated syndrome) ! Est. Sens# ! Est. Spec ! ! ! ! Trisomy 21 (Down Syndrome) ! 99.1% ! 99.9% ! ! ! ! Trisomy 18 (Mireles Syndrome) ! >99.9% ! 99.6% ! ! ! ! Trisomy 13 (Patau Syndrome) ! 91.7% ! 99.7% ! ! ! ! Sex Chromosome Aneuploidies## ! 96.2% ! 99.7% ! ! ! * As reported in ISCA database nstd37 [https://www.ncbi.nlm.nih.gov/dbvar/studies/nstd37/ ] # Estimated Sensitivity. Sensitivity estimated across the observed size distribution of each syndrome [per ISCA database nstd37] and across the range of fractions observed in routine clinical NIPT. Actual sensitivity can also be influenced by other factors such as the size of the event, total sequence counts, amplification bias, or sequence bias. ## Lai gestation only. Performed By: #### M AT21 ####[facility] LABCLIA [id number] [place] [address] POSITIVE PREDICTIVE VALUE N/A Normal [facility] Comment on above: Order Comment: Speci men Type: BLOOD SPECIMENOrdering Facility: [facility] Address: [address] [place] [address] Performed By: #### M AT21 ####[facility] LABCLIA [id number] [place] [address] Reference Lab Test Method Comment Normal [facility] Comment on above: Order Comment: Speci men Type: BLOOD SPECIMENOrdering Facility: [facility] Address: [address] [place] [address] Result Comment: See Notes Circulating cell-free DNA was purified from the plasma component of maternal blood. The extracted DNA was then converted into a genomic DNA library for aneuploidy analysis of chromosomes 21, 18, and 13 via next generation sequencing.[1] Optional findings based on the test order include sex chromosome aneuploidy (SCA)[2], and enhanced sequencing series (ESS)[3], which will only be reported on as an additional finding when an abnormality is detected. SCA testing includes information on X and Y representation, while ESS testing includes deletions in selected regions (22q, 15q, 11q, 8q, 5p, 4p, 1p) and trisomy of chromosomes 16 and 22. Performed By: #### M AT21 ####[facility] LABCLIA [id number] [place] [address] Sex Dosage of chromosome-specific cfDNA Nom (cfDNA) Comment Normal [facility] Comment on above: Order Comment: Speci men Type: BLOOD SPECIMENOrdering Facility: [facility] Address: [address] [place] [address] Result Comment: Cons istent with Male Performed By: #### M AT21 ####[facility] LABCLIA [id number] [place] [address] Test performance information Damian (Unsp spec) Comment Normal [facility] Comment on above: Order Comment: Speci men Type: BLOOD SPECIMENOrdering Facility: [facility] Address: [address] [place] [address] Result Comment: The performance characteristics of the MaterniT(R) 21 PLUS laboratory-developed test (LDT) have been determined in a clinical validation study with women at increased risk for chromosomal aneuploidy.[1-4] Performed By: #### M AT21 ####[facility] LABCLIA [id number] [place] [address] Trisomy 13 risk Dosage of chromosome-specific cfDNA Ql (cfDNA) [Interp] Negative Normal [facility] Comment on above: Order Comment: Renetta lynn Type: BLOOD SPECIMENOrdering Facility: [facility] Address: [address] [place] [address] Performed By: #### M AT21 ####[facility] LABCLIA [id number] [place] [address] Trisomy 18 risk Dosage of chromosome-specific cfDNA Ql (Plasma cell-free+WBC DNA) [Interp] Negative Normal [facility] Comment on above: Order Comment: Renetta lynn Type: BLOOD SPECIMENOrdering Facility: [facility] Address: [address] [place] [address] Performed By: #### M AT21 ####[employer] LABCLIA [id number] [place] [address] RBC PARAMETERS FOR HB IDon 0 03-26-2024 Erythrocyte distribution width (RBC) [Ratio] 12.1 % Normal 11.5-15.0 [facility] Comment on above: Order Comment: Renetta lynn Type: BLOOD SPECIMENOrdering Facility: [facility] Address: [address] [place] [address] Performed By: #### L [id number] ####[facility] LABCLIA [id number] [place] [address] [place] Hematocrit (Bld) [Volume fraction] 37.6 % Normal 36.0-46.0 [facility] Comment on above: Order Comment: Renetta lynn Type: BLOOD SPECIMENOrdering Facility: [facility] Address: [address] [place] [address] Performed By: #### L [id number] ####[facility] LABIA [id number] [place] [address] [place] Hemoglobin (Bld) [Mass/Vol] 12.7 g/dL Normal 11.5-15.5 [facility] Comment on above: Order Comment: Speci men Type: BLOOD SPECIMENOrdering Facility: [facility] Address: [address] [place] [address] Performed By: #### L [id number] ####[facility] LABIA [id number] [place] [address] [place] MCH (RBC) [Entitic mass] 30.1 pg Normal 26.0-34.0 [facility] Comment on above: Order Comment: Speci men Type: BLOOD SPECIMENOrdering Facility: [facility] Address: [address] [place] [address] Performed By: #### L [id number] ####[facility] [id number] [place] [address] [place] MCHC (RBC) [Mass/Vol] 33.8 g/dL Normal 30.5-36.0 [facility] Comment on above: Order Comment: Speci men Type: BLOOD SPECIMENOrdering Facility: [facility] Address: [address] [place] [address] Performed By: #### L [id number] ####[facility] [id number] [place] [address] [place] MCV (RBC) [Entitic vol] 89.1 fL Normal 80.0-100.0 [facility] Comment on above: Order Comment: Speci men Type: BLOOD SPECIMENOrdering Facility: [facility] Address: [address] [place] [address] Performed By: #### L [id number] ####[facility] LABIA [id number] [place] [address] [place] RBC (Bld) [#/Vol] 4.22 10*6/uL Normal 3.90-5.20 [facility] Comment on above: Order Comment: Speci men Type: BLOOD SPECIMENOrdering Facility: [facility] Address: [address] [place] [address] Performed By: #### L [id number] ####[facility] LABCLIA [id number] [place] [address] [place] RUBELLA IGG ANTIBODYon 03-26 RUBELLA IGG AB, QUAL Positive Normal Positive [facility] Comment on above: Order Comment: Speci men Type: BLOOD SPECIMENOrdering Facility: [facility] Address: [address] [place] [address] Result Comment: The result suggests recent or past exposure to Rubella virus or history of Rubella vaccination. Positive result may also be seen due to presence of passively-transferred antibodies. Please correlate with patient's history. Performed By: #### R UBIGG ####[facility] LABCLIA [id number] [place] [address] [place] Reagin and Treponema pallidu m IgG and IgM [Interp]on 03-26-2024 T. pallidum IgG+IgM IA Ql (S) Non-Reactive Normal Nonreactive [facility] Comment on above: Order Comment: Speci men Type: BLOOD SPECIMENOrdering Facility: [facility] Address: [address] [place] [address] Performed By: #### 5 195-3, 59430-8, 17349-2 ####[facility] LABCLIA [id number] [place] [address] [place] Reagin+T pallidum IgG+IgM Se rPl-Impon 03-26-2024 Reagin and Treponema pallidum IgG and IgM [Interp] Cannot exclude recent Treponemal infection if specimen collected within 7-10 days after appearance of suspect lesions or 2-3 weeks after an exposure. Clinical correlation is required. Normal [facility] Comment on above: Order Comment: Speci men Type: BLOOD SPECIMENOrdering Facility: [facility] Address: [address] [place] [address] Performed By: #### 5 195-3, 31697-8, 77293-6 ####[facility] LABCLIA [id number] [place] [address] [place] TYPE + SCREEN PRENATALon ABO O Normal [facility] Comment on above: Order Comment: Speci men Type: BLOOD SPECIMENOrdering Facility: [facility] Address: [address] [place] [address] Performed By: #### T SPN ####[facility] BLOOD BANKIA [id number] [place] [address] [place] Rh Nom (Bld) Positive Normal [facility] Comment on above: Order Comment: Speci men Type: BLOOD SPECIMENOrdering Facility: [facility] Address: [address] [place] [address] Performed By: #### T SPN ####[facility] BLOOD BANKIA [id number] [place] [address] [place] TYPE AND SCREEN EXPIRATION 03/29/2024 23:59 Normal [facility] Comment on above: Order Comment: Speci men Type: BLOOD SPECIMENOrdering Facility: [facility] Address: [address] [place] [address] Performed By: #### T SPN ####[facility] BLOOD BANKCLIA [id number] [place] [address] [place] Bacteria Ur Culton 4 Bacteria identified Cx Nom (U) ORGANISM ID: 1 10,000 -<50,000 CFU/ml Normal urogenital sergio Normal [facility] Comment on above: Performed By: #### 6 30-4 ####[facility] LABCLIA [id number] [place] [address] [place] C. trachomatis+N. gonorrhoea e DNA NABILA+probe Ql (Unsp spec)on 02-13-2024 C. trachomatis rRNA NABILA+probe Ql (Unsp spec) Not detected Normal Not detected [facility] Comment on above: Order Comment: Speci men Type: SWABOrdering Facility: [facility] Address: [address] [place] [address] Performed By: #### 3 6902-5 ####[facility] LABCLIA [id number] [place] [address] [place] N. gonorrhoeae rRNA NABILA+probe Ql (Unsp spec) Not detected Normal Not detected [facility] Comment on above: Order Comment: Speci men Type: SWABOrdering Facility: [facility] Address: [address] [place] [address] Performed By: #### 3 6902-5 ####[facility] LABCLIA [id number] [place] [address] [place] PAP TESTon 02-13-2024 ADEQUACY Satisfactory for interpretation. Normal [facility] Comment on above: Order Comment: Speci men Type: FLUID SPECIMENOrdering Facility: [facility] Address: [address] [place] [address] Performed By: #### L [id number] ####[facility] LABCLIA [id number] [place] [address] [place] CASE REPORT Normal [facility] Comment on above: Order Comment: Speci men Type: FLUID SPECIMENOrdering Facility: [facility] Address: [address] [place] [address] Result Comment: Gyne cologic Cytology Report Case: [id number] Authorizing Provider: Aj Poole APRN.LAP MAKER Collected: 02/13/2024 11:55 AM Ordering Location: OB/Gynecology Received: 02/13/2024 02:46 PM First Screen: Aramouni, Tiffanie, CT, ASCP Specimen: Pap Test, ThinPrep, Cervix Performed By: #### L [id number] ####[facility] LABCLIA [id number] [place] [address] [place] CLINICAL HISTORY, CYTOLOGY, NURSE TECHNICIAN (Indicate Weeks) Normal [facility] Comment on above: Order Comment: Speci men Type: FLUID SPECIMENOrdering Facility: [facility] Address: [address] [place] [address] Performed By: #### L [id number] ####[facility] LABCLIA [id number] [place] [address] [place] FINAL PERFORMING LAB Normal [facility] Comment on above: Order Comment: Speci men Type: FLUID SPECIMENOrdering Facility: [facility] Address: [address] [place] [address] Result Comment: Tech nical component, garnett mechanic screening performed at [facility], [address] [place], [place] [address] CLIA# [id number] Diagnostic interpretation performed at [facility], [address] [place], [place] [address] CLIA# [id number] Plant Machinist: Federico Ring M.D. Performed By: #### L [id number] ####[facility] LABCLIA [id number] [place] [address] [place] INTERPRETATION, CYTOLOGY, NURSE TECHNICIAN Normal [facility] Comment on above: Order Comment: Speci men Type: FLUID SPECIMENOrdering Facility: [facility] Address: [address] [place] [address] Result Comment: Nega tive for intraepithelial lesion or malignancy. Performed By: #### L [id number] ####[facility] LABCLIA [id number] [place] [address] [place] LMP 12/20/2023 Normal [facility] Comment on above: Order Comment: Speci men Type: FLUID SPECIMENOrdering Facility: [facility] Address: [address] [place] [address] Performed By: #### L [id number] ####[facility] LABCLIA [id number] [place] [address] [place] PAP DISCLAIMER COMMENT The Pap Smear is a screening test for cervical cancer. False negative results occur with all screening tests, emphasizing the need for rescreening at recommended intervals, and clinical correlation. Normal [facility] Comment on above: Order Comment: Speci men Type: FLUID SPECIMENOrdering Facility: [facility] Address: [address] [place] [address] Performed By: #### L [id number] ####[facility] LABCLIA [id number] [place] [address] [place] PAP PROGRAM CONSULTANT COMMENT This specimen has be en analyzed by the ThinPrep Imaging System, an automated imaging and review system, which assists the laboratory in evaluating cells on ThinPrep Pap tests. Following automated imaging, selected drummond from every slide are reviewed by a garnett mechanic. Normal [facility] Comment on above: Order Comment: Speci men Type: FLUID SPECIMENOrdering Facility: [facility] Address: [address] [place] [address] Performed By: #### L [id number] ####[facility] LABIA [id number] [address] [place] POC MIXER WET POUR ULTRASOUNDon 02-13-20 24 Indication Viability; confirm cardiac activity Impression Single intrauterine gestational sac, CRL indicates discrepancy from clinical dates, TERRY 10/03/2024 based on today's ultrasound, cardiac activity is visualized Recommendations Follow up for NT scan if desired Method Transabdominal ultrasound examination, Transvaginal ultrasound examination. View: Adequate visualization Lai . Number of embryos: 1 Dating LMP on: 12/20/2023 GA by LMP 7 w + 6 d TERRY by LMP: 09/25/2024 Ultrasound examination on: 02/13/2024 GA by U/S based upon: CRL GA by U/S 6 w + 5 d TERRY by U/S: 10/03/2024 Assigned: based on the LMP, selected on 02/13/2024 Assigned GA 7 w + 6 d Assigned TERRY: 09/25/2024 Biometry Standard FHR 152 bpm CRL 8.1 mm 6w 5d <1% Hadlock Assessment Gestational sac: visualized Location: intrauterine Yolk sac: visualized Embryo: visualized CRL 8.1 mm 6w 5d <1% Hadlock Cardiac activity: present FHR 152 bpm General Evaluation Cardiac activity present. FHR 152 bpm Performed By: Aj Poole NP Read By: Aj Poole NP MATERNAL MEDICINE [facility] Radiology Study observation (narrative) [facility] CNOVon 02-09-2024 CNOV Office Visit (OBGYWM ) RAMONA ZHAO ([id number]) [address] [facility] Date Time Provider Department 02/09/24 8:45 AM AJ POOLE OBGYWM During your visit today, we recorded the following information about you: Blood pressure Weight Last Period 114/64 91.2 kg 12/20/23 Aj Poole, ANA.LAP MAKER 02/09/2024 8:58 AM Signed Ramona Zhao is a 23 year old female who presents for problem visit to confirm . HPI: Ramona presents for a confirmation of . She states her LMP was in the end of November but does not remember the exact date - around 12/20. She is taking a vitamin. She is no longer using marijuana or vaping. She is having severe nausea. Using mints and mint tea for some relief. She is able to eat or drink, but has a harder time in the morning. OB History T1 L1 SAB0 IAB0 Ectopic0 Multiple0 Live Births1 Physical Therapist Technician History LMP: 12/20/2023 (Within Days), Having periods Age at Menarche: Age at First : Age at Menopause: Physical Therapist Technician History Comments: Sexual Activity: Yes; Male Contraception: Condom PAST MEDICAL HISTORY Diagnosis Date NEGATIVE MEDICAL HISTORY PAST SURGICAL HISTORY Procedure Laterality Date DENTAL SURGERY HX wisdom teeth cut out NEXPLANON INSERTION 12/14/2019 removed 02/05/2022 FAMILY HISTORY Problem Relation Age of Onset Hypertension Mother No Known Problems Father ADD/ADHD Brother Diabetes Maternal Grandmother Hypertension Maternal Grandmother Thyroid Maternal Grandmother Diabetes Maternal Grandfather Heart Maternal Grandfather Hypertension Maternal Grandfather No Known Problems Paternal Grandmother Diabetes Paternal Grandfather Hypertension Paternal Grandfather Heart Paternal Grandfather Social History Tobacco Use Smoking status: Former Current packs/day: 0.00 Types: Cigarettes Start date: 04/12/2016 Quit date: 04/12/2019 Years since quittin.8 Smokeless tobacco: Never Tobacco comments: Social Vaping Use Vaping status: current everyday user Quit date: 04/12/2019 Substances: Nicotine, THC, CBD, Flavoring Substance Use Topics Alcohol use: Yes Comment: social Drug use: Yes Types: Marijuana No current outpatient medications on file. No current facility-administered medications for this visit. Allergies As of Date: 02/09/2024 (No Known Allergies) Fully Assessed 02/09/2024 REVIEW OF SYSTEMS Expanded ROS: NURSE TECHNICIAN: + UPT Allergies and current medication updated:Yes SENSITIVE EXAM: Sensitive exam not performed. EXAM: BP 114/64 Wt 201 lb (91.2kg) LMP 12/20/2023 GENERAL: pleasant, female in no apparent distress HEENT: Normocephalic, atraumatic, mucus membranes moist, and no lesions CHEST: Normal inspiratory effort NEURO: alert and oriented x3,exam grossly non-focal EXTREMITIES: normal ASSESSMENT AND PLAN: 1. Positive urine test - ICD9: V72.42, ICD10: Z32.01 (primary diagnosis) - Continue PNV - Avoid environmental toxins - Reviewed spotting/light cramping normal, but to notify with anything further - care guide provided via [employer] 2. Nausea and vomiting during - ICD9: 643.90, ICD10: O21.9 Vitamin B6 and Unisom doses reviewed. - To notify if prescription is needed. - Small frequent meals and hydration encouraged - To go to ER if unable to tolerate food/water more than 12-24 hours RTO for new OB visit. Aj Poole APRN.LAP MAKER Medical Decision Making: Problems: Moderate: New problem with uncertain prognosis Data: Unique test(s) ordered: 1 Risk: Low: Low risk from testing/treatment Moderate: Drug management Medical Decision Making Level: 4 - Moderate Aj PooleANA.LAP MAKER 02/09/2024 8:53 AM Signed MORNING SICKNESS IN by Elaine Conti M.D. for [employer] As you may already know, morning sickness can often be more appropriately called evening sickness or efjtm-insqvm-wa-the-da y sickness. While there are the carolann few, most women (50-90%) experience some degree of nausea, some have vomiting, and a few develop a severe form of vomiting during called hyperemesis gravidarum. What causes the nausea and vomiting of ? We can't explain why some people feel fine and others are green for months. Even the same woman may feel vastly different in each . There is some relationship between nausea and the level of the hormone hCG. In twin pregnancies, and in other situations where the hCG is greater than expected, nausea and vomiting tend to be worse. In a destined for miscarriage, hCG levels tend to be low, and nausea is often less severe. This being said, a lack of nausea doesn't guarantee that the is destined for miscarriage. The fact that nausea and vomiting are often signs of a healthy (more content not included)... Normal [facility] UA DIP,URINE HCG (POC)on Beta HCG ( test) Ql (U) Positive Abnormal Negative [facility] Comment on above: Location:[facility], [address], [place], [address] Interpretation and review of laboratory results Abnormal [facility] Tree Planter (POCT) Internal QC OK [facility] Location:[facility], [address], [place], [address] [facility] POINT OF CARE [facility] B-HCG SerPl-aCncon 4 HCG.beta subunit Qn m[IU]/mL Normal <5.0 [facility] Comment on above: Order Comment: Speci men Type: BLOOD SPECIMEN Ordering Facility: [facility] Address: [address] [place] [address] Result Comment: Oneal zacariasindira Performed By: #### 2 1198-7 #### [facility] CLIA [id number] [address] [place] [address] [place] CBC panel Auto (Bld)on 11-13 Erythrocyte distribution width (RBC) [Ratio] 11.9 % 11.5 - 15.0 % [facility] Hematocrit (Bld) [Volume fraction] 41.6 % 36.0 - 46.0 % [facility] Hemoglobin (Bld) [Mass/Vol] 13.6 g/dL 11.5 - 15.5 g/dL [facility] Interpretation and review of laboratory results Normal [facility] MCH (RBC) [Entitic mass] 28.6 pg 26.0 - 34.[address] [facility] MCHC (RBC) [Mass/Vol] 32.7 g/dL 30.5 - 36.0 g/dL [facility] MCV (RBC) [Entitic vol] 87.4 fL 80.0 - 100.[address] [facility] Nucleated RBC (Bld) [#/Vol] NINF [facility] Platelet mean volume (Bld) [Entitic vol] 11.5 fL 9.0 - 12.[address] [facility] Platelets (Bld) [#/Vol] 310 10*3/uL [facility] RBC (Bld) [#/Vol] 4.76 10*6/uL 3.90 - 5.2 0 m/uL [facility] WBC (Bld) [#/Vol] 10.24 10*3/uL [facility] Erythrocyte distribution width (RBC) [Ratio] 11.9 % Normal 11.5-15.0 [facility] Comment on above: Order Comment: Speci men Type: BLOOD SPECIMEN Ordering Facility: [facility] Address: [address] [place] [id number] Performed By: #### 5 8410-2 #### [facility] CLIA [id number] [address] Hematocrit (Bld) [Volume fraction] 41.6 % Normal 36.0-46.0 [facility] Comment on above: Order Comment: Speci men Type: BLOOD SPECIMEN Ordering Facility: [facility] Address: [address] [place] [address] Performed By: #### 5 8410-2 #### [facility] CLIA [id number] [address] Hemoglobin (Bld) [Mass/Vol] 13.6 g/dL Normal 11.5-15.5 [facility] Comment on above: Order Comment: Speci men Type: BLOOD SPECIMEN [facility]ing Facility: [facility] Address: [address] [place] [address] Performed By: #### 5 8410-2 #### [facility] CLIA [id number] [address] MCH (RBC) [Entitic mass] 28.6 pg Normal 26.0-34.0 [facility] Comment on above: Order Comment: Speci men Type: BLOOD SPECIMEN [facility]ing Facility: [facility] Address: [address] [place] [address] Performed By: #### 5 8410-2 #### [facility] CLIA [id number] [address] MCHC (RBC) [Mass/Vol] 32.7 g/dL Normal 30.5-36.0 [facility] Comment on above: Order Comment: Speci men Type: BLOOD SPECIMEN Ordering Facility: [facility] Address: [address] [place] [address] Performed By: #### 5 8410-2 #### [facility] CLIA [id number] [address] MCV (RBC) [Entitic vol] 87.4 fL Normal 80.0-100.0 [facility] Comment on above: Order Comment: Speci men Type: BLOOD SPECIMEN [facility]ing Facility: [facility] Address: [address] [place] [address] Performed By: #### 5 8410-2 #### [facility] CLIA [id number] [address] Nucleated RBC (Bld) [#/Vol] 10*3/uL Normal <0.01 [facility] Comment on above: Order Comment: Speci men Type: BLOOD SPECIMEN Ordering Facility: [facility] Address: [address] [place] [address] Performed By: #### 5 8410-2 #### [facility] CLIA [id number] [address] [place] Platelet mean volume (Bld) [Entitic vol] 11.5 fL Normal 9.0-12.7 [facility] Comment on above: Order Comment: Speci men Type: BLOOD SPECIMEN Ordering Facility: [facility] Address: [address] [place] [address] Performed By: #### 5 8410-2 #### [facility] CLIA [id number] [address] [place] Platelets (Bld) [#/Vol] 310 10*3/uL Normal 150-400 [facility] Comment on above: Order Comment: Speci men Type: BLOOD SPECIMEN Ordering Facility: [facility] Address: [address] [place] [address] Performed By: #### 5 8410-2 #### [facility] CLIA [id number] [address] [place] [address] [place] RBC (Bld) [#/Vol] 4.76 10*6/uL Normal 3.90-5.20 [facility] Comment on above: Order Comment: Speci men Type: BLOOD SPECIMEN Ordering Facility: [facility] Address: [address] [place] [address] Performed By: #### 5 8410-2 #### [facility] CLIA [id number] [address] [place] WBC (Bld) [#/Vol] 10.24 10*3/uL Normal 3.70-11.00 [facility] Comment on above: Order Comment: Speci men Type: BLOOD SPECIMEN Ordering Facility: [facility] Address: [address] [place] [address] Performed By: #### 5 8410-2 #### [facility] CLIA [id number] [address] [place] CNPNon 11-14-2023 [facility] RAMONA ZHAO ([id number]) [address] Date Time Provider Department 11/14/23 PAUL GALINDO OBGYWM During your visit today, we recorded the following information about you: Armida Quiros RN 11/14/2023 1:48 PM Signed Pt called stating + test on 11-11-23. Started bleeding 2 days ago-heavy for about 8 hours with use of tampons.Has been wearing a panty liner since then and continues with spotting. Pt wanting HCG levels drawn. Bleeding precautions reviewed. VARUN Amor Rebecca L, MD 11/14/2023 2:08 PM Signed Virtual visit this afternoon to discuss- and have openings.. MD Russel Linares Trisha, RN 11/14/2023 2:32 PM Signed Left message for patient to call office. VARUN Williamson Lindsey, RN 11/14/2023 3:30 PM Signed Patient notified of below and virtual visit scheduled. Jessica Tripp RN Allergies As of Date: 11/14/2023 (No Known Allergies) Date Reviewed: 04/21/2023 Reviewed by: Nasima Johnson MA - Fully Assessed Reason for Visit: Spotting [Other] Primary Visit Diagnosis:Spotting in early [O26.859] Order(s):HCG QUANTITATIVE [SQHCGQT] Order #: [id number] STANDING Prescriptions as of 11/14/2023 - omeprazole (PRILOSEC) 20 mg capsule Take 1 capsule by mouth daily before breakfast. 1/2 hr before meal. - loperamide HCl (IMODIUM A-D) 2 mg tab Take 1 tablet by mouth as needed. Initial dose 4 mg, followed by 2 mg after each loose stool; maximum: 16 mg/day. Stop taking when diarrhea is resolved Problem List As Of Date 11/14/2023 Noted Resolved No known problems [Z78.9] 11/25/2016 04/26/2019 Abdominal pain in , antepartum [O26.89*04/19/2019 04/26/2019 History of streptococcal sore throat [Z87.09] 04/19/2019 04/26/2019 Quit smoking [Z87.891] 04/19/2019 Nausea and vomiting in [O21.9] 04/19/2019 07/26/2019 Patient request for diagnostic testing [Z01.89] 04/19/2019 07/26/2019 Head lice infestation [B85.0] 04/19/2019 07/26/2019 Encounter for supervision of normal first pregn*07/26/2019 Chlamydial infection [A74.9] 11/19/2019 Encounter Status:Closed by JESSICA TRIPP on 11/14/23 Normal [facility] HCG QUANTITATIVEon HCG.beta subunit Qn NINF [facility] Comment on above: Negative HCG.beta subunit Qnon 2023 Interpretation and review of laboratory results Normal [facility] TYPE + SCREEN PRENATALon ABO group Nom (Bld) O [facility] Blood group antibody screen Ql Negative [facility] HIstorical Ab Scr Status Negative [facility] Rh Nom (Bld) Positive [facility] Type and Screen Expiration 11/17/2023 23:59 [facility] ABO O [facility] Comment on above: Order Comment: Speci men Type: BLOOD SPECIMEN Ordering Facility: [facility] Address: [address] [place] [address] Performed By: #### T SPN #### [facility] CLIA [id number] [address] HISTORICAL AB SCR STATUS Negative [facility] Comment on above: Order Comment: Speci men Type: BLOOD SPECIMEN Ordering Facility: [facility] Address: [address] [place] [address] Performed By: #### T SPN #### [facility] CLIA [id number] [address] [place] Rh Nom (Bld) Positive [facility] Comment on above: Order Comment: Speci men Type: BLOOD SPECIMEN Ordering Facility: [facility] Address: [address] [place] [address] Performed By: #### T SPN #### [facility] CLIA [id number] [address] [place] [address] [facility] TYPE AND SCREEN EXPIRATION 11/17/2023 23:59 [facility] Comment on above: Order Comment: Speci men Type: BLOOD SPECIMEN Ordering Facility: [facility] Address: [address] [place] [address] Performed By: #### T SPN #### [facility] CLIA [id number] [address] [place] [id number] [facility] NM HEPATOBILIARY W EF AND/OR RXon 03-31-2023 [facility] ALLIED HEALTHon 03-14-2023 ALLIED HEALTH HNO ID: [id number] Author: MARY STONE RT(R) Service: ? Author Type: Technologist Type: Allied Health Filed: 03/14/2023 16:08 Note Text: Radiology Service Progress Note PATIENT NAME: Ramona Zhao DATE OF SERVICE: March 14, 2023 TIME: 4:08 PM PATIENT IDENTITY VERIFICATION COMPLETED USING TWO (2) IDENTIFIERS: Name and Date of confirmed by patient verbally. FALL SCREENING: Has the patient had 2 falls in the last year or 1 fall with injury or currently using an Ambulatory Assistive Device (Walker, Cane, Wheelchair, Crutches, etc.)? Emergency Room Patient: Screened in ED PATIENT GENDER DATA: Female. status: : No status: NO. PATIENT RELEVANT IMPLANT DATA REVIEWED: Yes RADIOLOGY DEPARTMENT: Ultrasound PERIPHERAL IV DATA: Not applicable SIGNED BY: Mary Stone RDMS, RVT March 14, 2023 4:08 PM Normal [facility] B-HCG SerPl-aCncon 4 HCG.beta subunit Qn m[IU]/mL Normal <5.0 [facility] Comment on above: Order Comment: Speci men Type: BLOOD SPECIMEN Ordering Facility: [facility] Address: [address] [place] [address] Result Comment: Nega tive Performed By: #### 2 4323-8, 3039-3, #### [facility] CLIA [id number] [address] [place] [address] [place] CBC W Auto Differential pane l (Bld)on 03-14-2023 Basophils (Bld) [#/Vol] 0.03 10*3/uL Normal <0.11 [facility] Comment on above: Order Comment: Speci men Type: BLOOD SPECIMEN Ordering Facility: [facility] Address: [address] [place] [address] Performed By: #### 2 4323-8, 3039-3, #### [facility] CLIA [id number] [address] [place] [id number] [facility] Basophils/100 WBC (Bld) 0.3 % Normal [facility] Comment on above: Order Comment: Speci men Type: BLOOD SPECIMEN Ordering Facility: [facility] Address: [address] [place] [address] Performed By: #### 2 4323-8, 3039-3, #### [facility] CLIA [id number] [address] Differential cell count method Nom (Bld) Auto Normal [facility] Comment on above: Order Comment: Speci men Type: BLOOD SPECIMEN Ordering Facility: [facility] Address: [address] [place] [address] Performed By: #### 2 4323-8, 3, #### [facility] CLIA [id number] [address] [place] [address] [place] Eosinophils (Bld) [#/Vol] 0.12 10*3/uL Normal <0.46 [facility] Comment on above: Order Comment: Speci men Type: BLOOD SPECIMEN Ordering Facility: [facility] Address: [address] [place] [address] Performed By: #### 2 4323-8, 3039-3, #### [facility] CLIA [id number] [address] [place] [address] [place] Eosinophils/100 WBC (Bld) 1.0 % Normal [facility] Comment on above: Order Comment: Speci men Type: BLOOD SPECIMEN Ordering Facility: [facility] Address: [address] [place] [address] Performed By: #### 2 4323-8, 0-3, #### [facility] CLIA [id number] [address] [place] [address] [place] Erythrocyte distribution width (RBC) [Ratio] 11.8 % Normal 11.5-15.0 [facility] Comment on above: Order Comment: Speci men Type: BLOOD SPECIMEN Ordering Facility: [facility] Address: [address] [place] [address] Performed By: #### 2 4323-8, 3039-3, #### [facility] CLIA [id number] [address] [place] [address] [place] Hematocrit (Bld) [Volume fraction] 44.3 % Normal 36.0-46.0 [facility] Comment on above: Order Comment: Speci men Type: BLOOD SPECIMEN Ordering Facility: [facility] Address: [address] [place] [address] Performed By: #### 2 4323-8, 3039-3, #### [facility] CLIA [id number] [address] [place] [address] [place] Hemoglobin (Bld) [Mass/Vol] 14.3 g/dL Normal 11.5-15.5 [facility] Comment on above: Order Comment: Speci men Type: BLOOD SPECIMEN Ordering Facility: [facility] Address: [address] [place] [address] Performed By: #### 2 4323-8, 0-3, #### [facility] CLIA [id number] [address] [place] [address] [place] Immature granulocytes (Bld) [#/Vol] 10*3/uL Normal <0.10 [facility] Comment on above: Order Comment: Speci men Type: BLOOD SPECIMEN Ordering Facility: [facility] Address: [address] [place] [address] Performed By: #### 2 4323-8, 3039-3, #### [facility] CLIA [id number] [address] [place] [address] [place] Immature granulocytes/100 WBC (Bld) 0.1 % Normal [facility] Comment on above: Order Comment: Speci men Type: BLOOD SPECIMEN Ordering Facility: [facility] Address: [address] [place] [address] Performed By: #### 2 4323-8, 3, #### [facility] CLIA [id number] [address] [place] [address] [place] Lymphocytes (Bld) [#/Vol] 1.83 10*3/uL Normal 1.00-4.00 [facility] Comment on above: Order Comment: Speci men Type: BLOOD SPECIMEN Ordering Facility: [facility] Address: [address] [place] [address] Performed By: #### 2 4323-8, 3, #### [facility] CLIA [id number] [address] [place] [address] [place] Lymphocytes/100 WBC (Bld) 15.9 % Normal [facility] Comment on above: Order Comment: Speci men Type: BLOOD SPECIMEN Ordering Facility: [facility] Address: [address] [place] [address] Performed By: #### 2 4323-8, 3, #### [facility] CLIA [id number] [address] [place] [address] [place] MCH (RBC) [Entitic mass] 28.9 pg Normal 26.0-34.0 [facility] Comment on above: Order Comment: Speci men Type: BLOOD SPECIMEN Ordering Facility: [facility] Address: [address] [place] [address] Performed By: #### 2 4323-8, 3, #### [facility] CLIA [id number] [address] [place] [address] [facility] MCHC (RBC) [Mass/Vol] 32.3 g/dL Normal 30.5-36.0 [facility] Comment on above: Order Comment: Speci men Type: BLOOD SPECIMEN Ordering Facility: [facility] Address: [address] [place] [address] Performed By: #### 2 4323-8, 3, #### [facility] CLIA [id number] [address] [place] [address] [place] MCV (RBC) [Entitic vol] 89.7 fL Normal 80.0-100.0 [facility] Comment on above: Order Comment: Speci men Type: BLOOD SPECIMEN Ordering Facility: [facility] Address: [address] [place] [address] Performed By: #### 2 4323-8, 3, #### [facility] CLIA [id number] [address] [place], [place] [address] [place] [address] [place] Monocytes (Bld) [#/Vol] 0.75 10*3/uL Normal <0.87 [facility] Comment on above: Order Comment: Speci men Type: BLOOD SPECIMEN Ordering Facility: [facility] Address: [address] [place] [address] Performed By: #### 2 4323-8, 3, #### [facility] CLIA [id number] [address] [place] [address] [facility] Monocytes/100 WBC (Bld) 6.5 % Normal [facility] Comment on above: Order Comment: Speci men Type: BLOOD SPECIMEN Ordering Facility: [facility] Address: [address] [place] [address] Performed By: #### 2 4323-8, 3, #### [facility] CLIA [id number] [address] [facility] [place] [address] [place] Neutrophils (Bld) [#/Vol] 8.75 10*3/uL High 1.45-7.50 [facility] Comment on above: Order Comment: Speci men Type: BLOOD SPECIMEN Ordering Facility: [facility] Address: [address] [place] [address] Performed By: #### 2 4323-8, 3039-3, #### [facility] CLIA [id number] [address] [place] [address] [place] Neutrophils/100 WBC (Bld) 76.2 % Normal [facility] Comment on above: Order Comment: Speci men Type: BLOOD SPECIMEN Ordering Facility: [facility] Address: [address] [place] [address] Performed By: #### 2 4323-8, 3, #### [facility] CLIA [id number] [address] [place] [address] [place] Nucleated RBC (Bld) [#/Vol] Normal [facility] Comment on above: Order Comment: Speci men Type: BLOOD SPECIMEN Ordering Facility: [facility] Address: [address] [place] [address] Performed By: #### 2 4323-8, 3, #### [facility] CLIA [id number] [address] [place] [address] [place] Nucleated RBC/100 WBC (Bld) [Ratio] Normal [facility] Comment on above: Order Comment: Speci men Type: BLOOD SPECIMEN Ordering Facility: [facility] Address: [address] [place] [address] Performed By: #### 2 4323-8, 3, #### [facility] CLIA [id number] [address] [place] [address] [place] Platelet mean volume (Bld) [Entitic vol] 11.1 fL Normal 9.0-12.7 [facility] Comment on above: Order Comment: Speci men Type: BLOOD SPECIMEN Ordering Facility: [facility] Address: [address] [place] [address] Performed By: #### 2 4323-8, 3039-3, #### [facility] CLIA [id number] [address] [place] [address] [place] Platelets (Bld) [#/Vol] 293 10*3/uL Normal 150-400 [facility] Comment on above: Order Comment: Speci men Type: BLOOD SPECIMEN Ordering Facility: [facility] Address: [address] [place] [address] Performed By: #### 2 4323-8, 3039-3, #### [facility] CLIA [id number] [address] [place] [address] [place] RBC (Bld) [#/Vol] 4.94 10*6/uL Normal 3.90-5.20 [facility] Comment on above: Order Comment: Speci men Type: BLOOD SPECIMEN Ordering Facility: [facility] Address: [address] [place] [address] Performed By: #### 2 4323-8, 3039-3, #### [facility] CLIA [id number] [address] [place] [address] [place] WBC (Bld) [#/Vol] 11.49 10*3/uL High 3.70-11.00 [facility] Comment on above: Order Comment: Speci men Type: BLOOD SPECIMEN Ordering Facility: [facility] Address: [address] [place], [place] [address] Performed By: #### 2 4323-8, 3039-3, #### [facility] CLIA [id number] [address] [place] [address] [facility] Comprehensive metabolic 2000 panelon 03-14-2023 Albumin [Mass/Vol] 4.3 g/dL Normal 3.9-4.9 [facility] Comment on above: Order Comment: Speci men Type: BLOOD SPECIMEN Ordering Facility: [facility] Address: [address] [place] [address] Performed By: #### 2 4323-8, 3039-3, #### [facility] CLIA [id number] [address] [place] [address] [place] ALP [Catalytic activity/Vol] 63 U/L Normal 34-123 [facility] Comment on above: Order Comment: Speci men Type: BLOOD SPECIMEN Ordering Facility: [facility] Address: [address] [place] [address] Performed By: #### 2 4323-8, 3039-3, #### [facility] CLIA [id number] [address] [place] [address] [place] ALT With P-5'-P [Catalytic activity/Vol] 14 U/L Normal 7-38 [facility] Comment on above: Order Comment: Speci men Type: BLOOD SPECIMEN Ordering Facility: [facility] Address: [address] [place] [address] Performed By: #### 2 4323-8, 3039-3, #### [facility] CLIA [id number] [address] [place] [address] [facility] [place] Anion gap [Moles/Vol] 10 mmol/L Normal 9-18 [facility] Comment on above: Order Comment: Speci men Type: BLOOD SPECIMEN Ordering Facility: [facility] Address: [address] [place] [address] Performed By: #### 2 4323-8, 0-3, #### [facility] CLIA [id number] [address] [place] [address] [place] AST With P-5'-P [Catalytic activity/Vol] 19 U/L Normal 13-35 [facility] Comment on above: Order Comment: Speci men Type: BLOOD SPECIMEN Ordering Facility: [facility] Address: [address] [place] [address] Performed By: #### 2 4323-8, 3040-3, #### [facility] CLIA [id number] [address] [place] [address] [place] Bilirubin [Mass/Vol] 0.6 mg/dL Normal 0.2-1.3 [facility] Comment on above: Order Comment: Speci men Type: BLOOD SPECIMEN Ordering Facility: [facility] Address: [address] [place] [address] Performed By: #### 2 4323-8, 3039-3, #### [facility] CLIA [id number] [address] [facility] [address] [place] Calcium [Mass/Vol] 9.0 mg/dL Normal 8.5-10.2 [facility] Comment on above: Order Comment: Speci men Type: BLOOD SPECIMEN Ordering Facility: [facility] Address: [address] [place] [address] Performed By: #### 2 4323-8, 3, #### [facility] CLIA [id number] [address] [facility] [address] [place] Chloride [Moles/Vol] 104 mmol/L Normal 97-105 [facility] Comment on above: Order Comment: Speci men Type: BLOOD SPECIMEN Ordering Facility: [facility] Address: [address] [place] [address] Performed By: #### 2 4323-8, 3, #### [facility] CLIA [id number] [address] [place] [address] [place] CO2 [Moles/Vol] 26 mmol/L Normal 22-30 [facility] Comment on above: Order Comment: Speci men Type: BLOOD SPECIMEN Ordering Facility: [facility] Address: [address] [place] [address] Performed By: #### 2 4323-8, 3039-3, #### [facility] CLIA [id number] [address] [place] [address] [place] Creatinine [Mass/Vol] 0.69 mg/dL Normal 0.58-0.96 [facility] Comment on above: Order Comment: Renetta lynn Type: BLOOD SPECIMEN Ordering Facility: [facility] Address: [address] [place] [address] Performed By: #### 2 4323-8, 3040-3, 89171-0 #### [facility] CLIA [id number] [address] [place] [address] [facility] Creatinine and Glomerular filtration rate.predicted panel (S/P/Bld) 125 mL/min/1.73m??? Normal >=60 [facility] Comment on above: Order Comment: Renetta lynn Type: BLOOD SPECIMEN Ordering Facility: [facility] Address: [address] [place] [address] Result Comment: [place] mated Glomerular Filtration Rate (eGFR) is calculated using the 2020 CKD-EPI creatinine equation. This equation utilizes serum creatinine, sex, and age as parameters. The creatinine assay has traceable calibration to isotope dilution-mass spectrometry. Refer to KDIGO guidelines for clinical interpretation. In patients with unstable renal function, e.g. those with acute kidney injury, the eGFR may not accurately reflect actual GFR. Performed By: #### 2 4323-8, 0-3, #### [facility] CLIA [id number] [address] [place] [address] [place] [facility] Glucose [Mass/Vol] 83 mg/dL Normal 74-99 [facility] Comment on above: Order Comment: Renetta lynn Type: BLOOD SPECIMEN Ordering Facility: [facility] Address: [address] [place] [address] Result Comment: The [place] [employer] (ADA) provides guidance for cutoff values for fasting glucose and random glucose. The ADA defines fasting as no caloric intake for at least 8 hours. Fasting plasma glucose results between 100 to 125 mg/dL indicate increased risk for diabetes (prediabetes). Fasting plasma glucose results greater than or equal to 126 mg/dL meet the criteria for diagnosis of diabetes. In the absence of unequivocal hyperglycemia, results should be confirmed by repeat testing. In a patient with classic symptoms of hyperglycemia or hyperglycemic crisis, random plasma glucose results greater than or equal to 200 mg/dL meet the criteria for diagnosis of diabetes. Reference: Standards of Medical Care in Diabetes 2016, [place] [employer]. Diabetes Care. 2016.39(Suppl 1). Performed By: #### 2 4323-8, 3039-3, #### [facility] CLIA [id number] [address] [place] [address] [place] Potassium [Moles/Vol] 3.9 mmol/L Normal 3.7-5.1 [facility] Comment on above: Order Comment: Speci men Type: BLOOD SPECIMEN Ordering Facility: [facility] Address: [address] [place] [address] Performed By: #### 2 4323-8, 3, #### [facility] CLIA [id number] [address] [place] [address] [place] Protein [Mass/Vol] 7.0 g/dL Normal 6.3-8.0 [facility] Comment on above: Order Comment: Speci men Type: BLOOD SPECIMEN Ordering Facility: [facility] Address: [address] [place] [address] Performed By: #### 2 4323-8, 3, #### [facility] CLIA [id number] [address] [place] [address] [place] Sodium [Moles/Vol] 140 mmol/L Normal 136-144 [facility] Comment on above: Order Comment: Speci men Type: BLOOD SPECIMEN Ordering Facility: [facility] Address: [address] [place] [address] Performed By: #### 2 4323-8, 3, #### [facility] CLIA [id number] [address] [place] [address] [place] Urea nitrogen [Mass/Vol] 10 mg/dL Normal 7-21 [facility] Comment on above: Order Comment: Speci men Type: BLOOD SPECIMEN Ordering Facility: [facility] Address: [address] [place] [address] Performed By: #### 2 4323-8, 3040-3, 70754-8 #### [facility] CLIA [id number] [address] [place] [address] [facility] ED NOTEon 03-14-2023 ED NOTE HNO ID: [id number] Author: JANICE MARIE RN Service: Nursing Author Type: Registered Nurse Type: ED Notes Filed: 03/14/2023 16:41 Note Text: Patient leaves pleasant and cooperative, alert and oriented x 3 with regular and easy respirations. Discharge instructions discussed. There are no additional questions for the provider. Medications discussed with patients verbal understanding of purpose and potential side effects. Will follow up as directed or return to ED for worsening or life threatening symptoms. Normal [facility] ED NOTE HNO ID: [id number] Author: JANICE MARIE, VARUN Service: Nursing Author Type: Registered Nurse Type: ED Notes Filed: 03/14/2023 15:14 Note Text: Patient awoke at 0200 today for work feeling nauseated. Shortly after she developed pain. She preceded to work. The pain continued in waves with diarrhea (x 4 times), denies vomiting. Approx 3 years ago she was told her gallbladder was not functioning appropriately. Since she has episodes of bloating and pain after eating high fat foods.She ate pizza and jackson-egg and cheese muffin 03/13/23. Her pain is epigastric and RUQ/LUQ abdomen. She states It is like a band across my abdomen. Normal [facility] ED PROV NOTEon 03-14-2023 ED PROV NOTE HNO ID: [id number] Author: IRA ZEE MD Service: Emergency Medicine Author Type: Physician Type: ED Provider Notes Filed: 03/14/2023 16:32 Note Text: ED Provider Note Patient Name: Ramona Zhao : 2000 SERVICE DATE: 03/14/23 History Patient presents with: Abdominal Pain Diarrhea Ramona Zhao is a 22 year old female with history of gallbladder dysfunction who presents with upper abdominal pain. Patient has not taken anything with no relief of symptoms. - Symptom began 12 hours prior to arrival. - Severity: moderate - Timing: intermittent - Quality: Colicky - Pain is exacerbated by nothing. Pain radiates to upper back. - Pain is not exacerbated by inspiration. - Symptoms are associated with nausea and diarrheal stool. - Symptoms are not associated with chills and fever. - Improved by nothing. - Not improved by rest Previous workup for gallbladder colic was diagnosed with what sounds like a low ejection fraction and since then she has had sensitivities to greasy and fatty foods. She was initially evaluated shortly after the of her child 4 years ago she was supposed to get repeat testing but did not schedule that. Today she developed discomfort around 2 in the morning she did go to work she has had pain off and on throughout the workday and presents emergency department for evaluation. Seems similar to what she had had for years ago when she had her original evaluation.. PAST MEDICAL HISTORY Diagnosis Date - NEGATIVE MEDICAL HISTORY PAST SURGICAL HISTORY Procedure Laterality Date - DENTAL SURGERY HX wisdom teeth cut out - NEXPLANON INSERTION 12/14/2019 removed 02/05/2022 FAMILY HISTORY Problem Relation Age of Onset - Hypertension Mother - No Known Problems Father - ADD/ADHD Brother - Diabetes Maternal Grandmother - Hypertension Maternal Grandmother - Thyroid Maternal Grandmother - Diabetes Maternal Grandfather - Heart Maternal Grandfather - Hypertension Maternal Grandfather - No Known Problems Paternal Grandmother - Diabetes Paternal Grandfather - Hypertension Paternal Grandfather - Heart Paternal Grandfather Social History Tobacco Use - Smoking status: Former Years: 3 Types: Cigarettes Quit date: 04/12/2019 Years since quittin.9 - Smokeless tobacco: Never - Tobacco comments: Social Vaping Use - Vaping Use: current everyday user - Quit date: 04/12/2019 - Substances: Nicotine, THC, CBD, Flavoring Substance and Sexual Activity - Alcohol use: Yes Comment: social - Drug use: Yes Types: Marijuana - Sexual activity: Yes Partners: Male control/protection: Condom ALLERGIES No Known Allergies Review of Systems Constitutional: Negative for chills and fever. Respiratory: Negative for cough and shortness of breath. Gastrointestinal: Positive for abdominal pain, diarrhea and nausea. Genitourinary: Negative for dysuria and flank pain. Musculoskeletal: Positive for back pain. Allergic/Immunologic: Negative for environmental allergies, food allergies and immunocompromised state. Physical Exam Vitals [03/14/23 1429] BP Pulse Temp Temp src Resp SpO2 Weight Height 124/76 89 36.8 ?C (98.2 ?F) Temporal Art 16 100 % 94.8 kg (209 lb) -- Physical Exam Vitals and nursing note reviewed. Constitutional: General: She is not in acute distress. Appearance: She is well-developed. She is not toxic-appearing. Comments: Elevated BMI HENT: Head: Normocephalic and atraumatic. Cardiovascular: Rate and Rhythm: Normal rate and regular rhythm. Pulmonary: Effort: Pulmonary effort is normal. No respiratory distress. Abdominal: Tenderness: There is abdominal tenderness in the epigastric area. There is no guarding or rebound. Skin: General: Skin is warm and dry. Capillary Refill: Capillary refill takes less than 2 seconds. Coloration: Skin is not jaundiced. Findings: No rash. Neurological: General: No focal deficit present. Mental Status: She is oriented to person, place, and time. Psychiatric: Mood and Affect: Mood normal. Mood is not anxious or depressed. Behavior: Behavior normal. Diagnostic Testing ED Labs Ordered and Reviewed - No data to display Procedures ED Course / Clinical Impression Clinical Impressions as of 03/14/23 1632 Pain of upper abdomen MDM / Disposition / Plan Patient is concerned that she may be having gallbladder issues. She does have some upper abdominal tenderness on palpation there is been some nausea no vomiting she has had some diarrheal stools. Sounds like she has been having some food sensitivities. She did have abnormal gallbladder function presumably on HIDA scan. By her history she was post to repeat the HIDA scan but did not do so. Our workup here looks good with ultrasound and lab work unable to do HIDA this could be done however outpatient no indication that she needs admission or transfer at this time Toradol was (more content not included)... Normal [facility] Lipase SerPl-cCncon 03-14-19 24 Lipase [Catalytic activity/Vol] 14 U/L Low 16-61 [facility] Comment on above: Order Comment: Speci men Type: BLOOD SPECIMEN Ordering Facility: [facility] Address: [address] [facility] [address] Performed By: #### 2 4323-8, 3040-3, 12647-9 #### [facility] CLIA [id number] [address] [place] [address] [place] US ABD RIGHT UPPER QUADRANTo n 03-14-2023 US ABD RIGHT UPPER QUADRANT * * *Final Report* * * DATE OF EXAM: Mar 14 2023 4:15PM LDU 1032 - US ABD RIGHT UPPER QUADRANT / PROCEDURE REASON: RUQ pain, no fever, no elev WBC * * * * Physician Interpretation * * * * EXAMINATION: RIGHT UPPER QUADRANT ULTRASOUND CLINICAL HISTORY: Right upper quadrant abdominal pain. TECHNIQUE: Sonography of the right upper quadrant was performed. Images were obtained and stored in a permanent archive. MQ: [id number] COMPARISON: 02/01/2020 RESULT: Pancreas: Normal sonographic appearance. Portions obscured: Portions of the body as well as the tail. Liver: Echotexture: Normal, homogeneous. Echogenicity: Normal Surface contour: Smooth Lesions: None. Biliary: No intrahepatic biliary duct dilation. CBD: 0.6 cm at the hilum. Gallbladder: Normal caliber -Contents: No cholelithiasis -Wall: Normal -Other: No pericholecystic fluid. Right Kidney: No hydronephrosis. Ascites: None. IMPRESSION: Normal sonographic appearance of the right upper quadrant. Paralegal Legal Secretary: PSCEladio Transcribe Date/Time: Mar 14 2023 4:16P Dictated by : ANTONIO LYNN MD This examination was interpreted and the report reviewed and electronically signed by: ANTONIO LYNN MD on Mar 14 2023 4:19PM EST [id number] Normal [facility] Bacteria Bld Culton 05-24-19 23 Bacteria identified Cx Nom (Bld) CULTURE, BLOOD: No growth 5 days Normal [facility] Comment on above: Performed By: #### 5 7021-8 #### [facility] CLIA [id number] [address] [place] [address] [place] Bacteria identified Cx Nom (Bld) CULTURE, BLOOD: No growth 5 days Normal [facility] Comment on above: Performed By: #### 6 00-7 #### [facility] CLIA [id number] [address] [place] [address] [place] Bacteria Ur Culton 3 Bacteria identified Cx Nom (U) CULTURE, URINE: 10,000-<50,000 CFU/ml Normal Urogenital Sergio Normal [facility] Comment on above: Performed By: #### 5 7021-8 #### [facility] CLIA [id number] [address] [place] [address] [place] CBC W Auto Differential pane l (Bld)on 05-23-2022 Basophils (Bld) [#/Vol] 10*3/uL Normal <0.11 [facility] Comment on above: Order Comment: Speci men Type: BLOOD SPECIMEN Ordering Facility: [facility] Address: [address] [place] [address] Performed By: #### 5 7021-8 #### [facility] CLIA [id number] [address] [place] [address] [place] Basophils/100 WBC (Bld) 0.1 % Normal [facility] Comment on above: Order Comment: Speci men Type: BLOOD SPECIMEN Ordering Facility: [facility] Address: [address] [place] [address] Performed By: #### 5 7021-8 #### [facility] CLIA [id number] [address] [place] [address] [facility] [place] Differential cell count method Nom (Bld) Auto Normal [facility] Comment on above: Order Comment: Speci men Type: BLOOD SPECIMEN Ordering Facility: [facility] Address: [address] [place] [address] Performed By: #### 5 7021-8 #### [facility] CLIA [id number] [address] [place] [address] [place] Eosinophils (Bld) [#/Vol] 0.05 10*3/uL Normal <0.46 [facility] Comment on above: Order Comment: Speci men Type: BLOOD SPECIMEN Ordering Facility: [facility] Address: [address] [place] [address] Performed By: #### 5 7021-8 #### [facility] CLIA [id number] [address] [place] [address] [place] Eosinophils/100 WBC (Bld) 0.3 % Normal [facility] Comment on above: Order Comment: Speci men Type: BLOOD SPECIMEN Ordering Facility: [facility] Address: [address] [place] [address] Performed By: #### 5 7021-8 #### [facility] CLIA [id number] [address] [place] [address] [place] Erythrocyte distribution width (RBC) [Ratio] 12.0 % Normal 11.5-15.0 [facility] Comment on above: Order Comment: Speci men Type: BLOOD SPECIMEN Ordering Facility: [facility] Address: [address] [place] [address] Performed By: #### 5 7021-8 #### [facility] CLIA [id number] [address] [place] [address] [place] Hematocrit (Bld) [Volume fraction] 40.9 % Normal 36.0-46.0 [facility] Comment on above: Order Comment: Speci men Type: BLOOD SPECIMEN Ordering Facility: [facility] Address: [address] [place] [address] Performed By: #### 5 7021-8 #### [facility] CLIA [id number] [address] [place] [address] [place] Hemoglobin (Bld) [Mass/Vol] 13.3 g/dL Normal 11.5-15.5 [facility] Comment on above: Order Comment: Speci men Type: BLOOD SPECIMEN Ordering Facility: [facility] Address: [address] [place] [address] Performed By: #### 5 7021-8 #### [facility] CLIA [id number] [address] [place] Immature granulocytes (Bld) [#/Vol] 0.03 10*3/uL Normal <0.10 [facility] Comment on above: Order Comment: Speci men Type: BLOOD SPECIMEN Ordering Facility: [facility] Address: [address] [place] [address] Performed By: #### 5 7021-8 #### [facility] CLIA [id number] [address] STATES OF [facility] Immature granulocytes/100 WBC (Bld) 0.2 % Normal [facility] Comment on above: Order Comment: Speci men Type: BLOOD SPECIMEN Ordering Facility: [facility] Address: [address] [place] [address] Performed By: #### 5 7021-8 #### [facility] CLIA [id number] [address] [place] [address] [facility] [place] Lymphocytes (Bld) [#/Vol] 3.48 10*3/uL Normal 1.00-4.00 [facility] Comment on above: Order Comment: Speci men Type: BLOOD SPECIMEN Ordering Facility: [facility] Address: [address] [place] [address] Performed By: #### 5 7021-8 #### [facility] CLIA [id number] [address] [place] [address] Lymphocytes/100 WBC (Bld) 20.7 % Normal [facility] Comment on above: Order Comment: Speci men Type: BLOOD SPECIMEN Ordering Facility: [facility] Address: [address] [place] [address] Performed By: #### 5 7021-8 #### [facility] CLIA [id number] [address] [place] [address] [place] MCH (RBC) [Entitic mass] 29.2 pg Normal 26.0-34.0 [facility] Comment on above: Order Comment: Speci men Type: BLOOD SPECIMEN Ordering Facility: [facility] Address: [address] [place] [address] Performed By: #### 5 7021-8 #### [facility] CLIA [id number] [address] [place] [address] [place] [facility] MCHC (RBC) [Mass/Vol] 32.5 g/dL Normal 30.5-36.0 [facility] Comment on above: Order Comment: Speci men Type: BLOOD SPECIMEN Ordering Facility: [facility] Address: [address] [place] [address] Performed By: #### 5 7021-8 #### [facility] CLIA [id number] [address] [place] [address] [place] MCV (RBC) [Entitic vol] 89.9 fL Normal 80.0-100.0 [facility] Comment on above: Order Comment: Speci men Type: BLOOD SPECIMEN Ordering Facility: [facility] Address: [address] [place] [address] Performed By: #### 5 7021-8 #### [facility] CLIA [id number] [address] [place] [address] [place] Monocytes (Bld) [#/Vol] 1.29 10*3/uL High <0.87 [facility] Comment on above: Order Comment: Speci men Type: BLOOD SPECIMEN Ordering Facility: [facility] Address: [address] [place] [address] Performed By: #### 5 7021-8 #### [facility] CLIA [id number] [address] [place] Monocytes/100 WBC (Bld) 7.7 % Normal [facility] Comment on above: Order Comment: Speci men Type: BLOOD SPECIMEN Ordering Facility: [facility] Address: [address] [place] [address] Performed By: #### 5 7021-8 #### [facility] CLIA [id number] [address] [place] [address] [place] Neutrophils (Bld) [#/Vol] 11.97 10*3/uL High 1.45-7.50 [facility] Comment on above: Order Comment: Speci men Type: BLOOD SPECIMEN Ordering Facility: [facility] Address: [address] [place] [address] Performed By: #### 5 7021-8 #### [facility] CLIA [id number] [address] [place] [address] [place] Neutrophils/100 WBC (Bld) 71.0 % Normal [facility] Comment on above: Order Comment: Speci men Type: BLOOD SPECIMEN Ordering Facility: [facility] Address: [address] [address] Performed By: #### 5 7021-8 #### [facility] CLIA [id number] [address] [place] [address] [place] Nucleated RBC (Bld) [#/Vol] Normal [facility] Comment on above: Order Comment: Speci men Type: BLOOD SPECIMEN Ordering Facility: [facility] Address: [address] [address] Performed By: #### 5 7021-8 #### [facility] CLIA [id number] [address] [place] [address] [place] Nucleated RBC/100 WBC (Bld) [Ratio] Normal [facility] Comment on above: Order Comment: Speci men Type: BLOOD SPECIMEN Ordering Facility: [facility] Address: [address] [address] Performed By: #### 5 7021-8 #### [facility] CLIA [id number] [address] [place] [address] [place] Platelet mean volume (Bld) [Entitic vol] 10.9 fL Normal 9.0-12.7 [facility] Comment on above: Order Comment: Speci men Type: BLOOD SPECIMEN Ordering Facility: [facility] Address: [address] [address] Performed By: #### 5 7021-8 #### [facility] CLIA [id number] [address] [place] [address] [place] Platelets (Bld) [#/Vol] 357 10*3/uL Normal 150-400 [facility] Comment on above: Order Comment: Speci men Type: BLOOD SPECIMEN Ordering Facility: [facility] Address: [address] [place] [address] Performed By: #### 5 7021-8 #### [facility] CLIA [id number] [address] OF [facility] RBC (Bld) [#/Vol] 4.55 10*6/uL Normal 3.90-5.20 [facility] Comment on above: Order Comment: Speci men Type: BLOOD SPECIMEN Ordering Facility: [facility] Address: [address] [place] [address] Performed By: #### 5 7021-8 #### [facility] CLIA [id number] [address] [place] [address] OF [facility] WBC (Bld) [#/Vol] 16.84 10*3/uL High 3.70-11.00 [facility] Comment on above: Order Comment: Speci men Type: BLOOD SPECIMEN Ordering Facility: [facility] Address: [address] [place] [address] Performed By: #### 5 7021-8 #### [facility] CLIA [id number] [address] [place] [address] Comprehensive metabolic 2000 panelon 05-23-2022 Albumin [Mass/Vol] 4.0 g/dL Normal 3.9-4.9 [facility] Comment on above: Order Comment: Speci men Type: SPECIMEN FROM THROAT Ordering Facility: [facility] Address: [address] [place] [address] Performed By: #### G ASPCR #### [facility] CLIA [id number] [address] [place] [address] ALP [Catalytic activity/Vol] 73 U/L Normal 34-123 [facility] Comment on above: Order Comment: Speci men Type: SPECIMEN FROM THROAT Ordering Facility: [facility] Address: [address] [place] [address] Performed By: #### G ASPCR #### [facility] CLIA [id number] [address] [place] [address] ALT With P-5'-P [Catalytic activity/Vol] 15 U/L Normal 7-38 [facility] Comment on above: Order Comment: Speci men Type: SPECIMEN FROM THROAT Ordering Facility: [facility] Address: [address] [place] [address] Performed By: #### G ASPCR #### [facility] CLIA [id number] [address] [place] [address] [place] Anion gap [Moles/Vol] 10 mmol/L Normal 9-18 [facility] Comment on above: Order Comment: Speci men Type: SPECIMEN FROM THROAT Ordering Facility: [facility] Address: [address] [place] [address] Performed By: #### G ASPCR #### [facility] CLIA [id number] [address] [place] [address] [place] AST With P-5'-P [Catalytic activity/Vol] 17 U/L Normal 13-35 [facility] Comment on above: Order Comment: Speci men Type: SPECIMEN FROM THROAT Ordering Facility: [facility] Address: [address] [place] [address] Performed By: #### G ASPCR #### [facility] CLIA [id number] [address] [place] [address] [place] Bilirubin [Mass/Vol] 0.4 mg/dL Normal 0.2-1.3 [facility] Comment on above: Order Comment: Speci men Type: SPECIMEN FROM THROAT Ordering Facility: [facility] Address: [address] [place] [address] Performed By: #### G ASPCR #### [facility] CLIA [id number] [address] [place] [address] [place] Calcium [Mass/Vol] 9.3 mg/dL Normal 8.5-10.2 [facility] Comment on above: Order Comment: Speci men Type: SPECIMEN FROM THROAT Ordering Facility: [facility] Address: [address] [place] [address] Performed By: #### G ASPCR #### [facility] CLIA [id number] [address] [place] [address] [place] Chloride [Moles/Vol] 99 mmol/L Normal 97-105 [facility] Comment on above: Order Comment: Speci men Type: SPECIMEN FROM THROAT Ordering Facility: [facility] Address: [address] [place] [address] Performed By: #### G ASPCR #### [facility] CLIA [id number] [address] [place] [address] [place] CO2 [Moles/Vol] 27 mmol/L Normal 22-30 [facility] Comment on above: Order Comment: Speci men Type: SPECIMEN FROM THROAT Ordering Facility: [facility] Address: [address] [place] [address] Performed By: #### G ASPCR #### [facility] CLIA [id number] [address] [place] [address] STATES OF [facility] Creatinine [Mass/Vol] 0.69 mg/dL Normal 0.58-0.96 [facility] Comment on above: Order Comment: Speci men Type: SPECIMEN FROM THROAT Ordering Facility: [facility] Address: [address] [place] [address] Performed By: #### G ASPCR #### [facility] CLIA [id number] [address] [place] [address] OF [facility] ESTIMATED GLOMERULAR FILTRATION RATE 125 mL/min/1.73m??? Normal >=60 [facility] Comment on above: Order Comment: Speci men Type: SPECIMEN FROM THROAT Ordering Facility: [facility] Address: [address] [place] [address] Result Comment: [place] mated Glomerular Filtration Rate (eGFR) is calculated using the 2020 CKD-EPI creatinine equation. This equation utilizes serum creatinine, sex, and age as parameters. The creatinine assay has traceable calibration to isotope dilution-mass spectrometry. Refer to KDIGO guidelines for clinical interpretation. In patients with unstable renal function, e.g. those with acute kidney injury, the eGFR may not accurately reflect actual GFR. Performed By: #### G ASPCR #### [facility] CLIA [id number] [address] [place] [address] [place] Glucose [Mass/Vol] 99 mg/dL Normal 74-99 [facility] Comment on above: Order Comment: Speci men Type: SPECIMEN FROM THROAT Ordering Facility: [facility] Address: [address] [place] [address] Result Comment: The [place] [employer] (ADA) provides guidance for cutoff values for fasting glucose and random glucose. The ADA defines fasting as no caloric intake for at least 8 hours. Fasting plasma glucose results between 100 to 125 mg/dL indicate increased risk for diabetes (prediabetes). Fasting plasma glucose results greater than or equal to 126 mg/dL meet the criteria for diagnosis of diabetes. In the absence of unequivocal hyperglycemia, results should be confirmed by repeat testing. In a patient with classic symptoms of hyperglycemia or hyperglycemic crisis, random plasma glucose results greater than or equal to 200 mg/dL meet the criteria for diagnosis of diabetes. Reference: Standards of Medical Care in Diabetes 2016, [place] [employer]. Diabetes Care. 2016.39(Suppl 1). Performed By: #### G ASPCR #### [facility] CLIA [id number] [address] [place] [address] [place] Potassium [Moles/Vol] 3.9 mmol/L Normal 3.7-5.1 [facility] Comment on above: Order Comment: Speci men Type: SPECIMEN FROM THROAT Ordering Facility: [facility] Address: [address] [place] [address] Performed By: #### G ASPCR #### [facility] CLIA [id number] [address] [place] [address] [place] Protein [Mass/Vol] 7.5 g/dL Normal 6.3-8.0 [facility] Comment on above: Order Comment: Speci men Type: SPECIMEN FROM THROAT Ordering Facility: [facility] Address: [address] [place] [address] Performed By: #### G ASPCR #### [facility] CLIA [id number] [address] [place] [address] [place] Sodium [Moles/Vol] 136 mmol/L Normal 136-144 [facility] Comment on above: Order Comment: Speci men Type: SPECIMEN FROM THROAT Ordering Facility: [facility] Address: [address] [address] Performed By: #### G ASPCR #### [facility] CLIA [id number] [address] Urea nitrogen [Mass/Vol] 8 mg/dL Normal 7-21 [facility] Comment on above: Order Comment: Speci men Type: SPECIMEN FROM THROAT Ordering Facility: [facility] Address: [address] [address] Performed By: #### G ASPCR #### [facility] CLIA [id number] [address] ED NOTEon 05-23-2022 ED NOTE HNO ID: [id number] Author: Brian Pfeiffer RN Service: Emergency Medicine Author Type: Registered Nurse Type: ED Notes Filed: 05/23/2022 8:13 PM Note Text: Pt arrived with c/o of continued ear pain and fever from previous visit. Pt states was here and only put on nasal spray to open ears. Helped for a short time but pain and fever worse. PWD. NAD. VSS. HR elevated. Fever noted. Normal [facility] ED PROV NOTEon 05-23-2022 ED PROV NOTE HNO ID: [id number] Author: Alexandria Hyman DO Service: Emergency Medicine Author Type: Physician Type: ED Provider Notes Filed: 05/24/2022 2:57 AM Note Text: ED Provider Note Patient Name: Ramona Zhao : 2000 SERVICE DATE: 05/23/22 History Patient presents with: Fever Ear Pain Ramona Zhao is a 22 year old female who presents with Fever and Ear Pain. - Symptoms began a couple weeks. - Severity: moderate - Timing: constant - Quality: sore - Fever and Ear Pain is exacerbated by nothing. - Fever and Ear Pain is not exacerbated by anything. - Symptoms are associated with dizziness, headache, bilateral ear pain, sore throat when she coughs, thick green sinus drainage. - Symptoms are not associated with abdominal pain, chest pain, diarrhea, rash, shortness of breath, vomiting, numbness, weakness, head injury, LOC, difficulty swallowing, neck pain, neck stiffness. Patient presents with persistent fever and cough for the past couple weeks. She states that she was seen in the ED previously for the symptoms and was diagnosed with a virus. She states her symptoms have not improved. She is having bilateral ear pain. She states she does have a sore throat mainly when she coughs. No difficulty swallowing. No neck stiffness. She denies chest pain or shortness of breath. She states the cough is starting to become productive. She states that she has no abdominal pain. No vomiting or diarrhea. No dysuria or hematuria. No rash. She also reports thick green sinus drainage over the past couple weeks. PAST MEDICAL HISTORY Diagnosis Date NEGATIVE MEDICAL HISTORY PAST SURGICAL HISTORY Procedure Laterality Date DENTAL SURGERY HX wisdom teeth cut out NEXPLANON INSERTION 12/14/2019 removed 02/05/2022 FAMILY HISTORY Problem Relation Age of Onset Hypertension Mother No Known Problems Father ADD/ADHD Brother Diabetes Maternal Grandmother Hypertension Maternal Grandmother Thyroid Maternal Grandmother Diabetes Maternal Grandfather Heart Maternal Grandfather Hypertension Maternal Grandfather No Known Problems Paternal Grandmother Diabetes Paternal Grandfather Hypertension Paternal Grandfather Heart Paternal Grandfather Social History Tobacco Use Smoking status: Former Years: 3.00 Types: Cigarettes Quit date: 04/12/2019 Years since quittin.1 Smokeless tobacco: Never Tobacco comments: Social Vaping Use Vaping Use: current everyday user Quit date: 04/12/2019 Substances: Nicotine Substance and Sexual Activity Alcohol use: Yes Comment: social Drug use: No Sexual activity: Yes Partners: Male control/protection: Condom ALLERGIES No Known Allergies Review of Systems Constitutional: Positive for chills and fever. HENT: Positive for congestion, ear pain, rhinorrhea, sinus pressure and sore throat (Mainly with cough). Negative for drooling, ear discharge, facial swelling, mouth sores, trouble swallowing and voice change. Eyes: Negative for discharge and redness. Respiratory: Positive for cough. Negative for shortness of breath. Cardiovascular: Negative for chest pain, palpitations and leg swelling. Gastrointestinal: Negative for abdominal pain, diarrhea, nausea and vomiting. Genitourinary: Negative for dysuria, flank pain and hematuria. Musculoskeletal: Negative for back pain, neck pain and neck stiffness. Skin: Negative for rash. Neurological: Positive for dizziness and headaches. Negative for syncope, facial asymmetry, speech difficulty, weakness and numbness. Psychiatric/Behavioral : Negative for agitation and confusion. Physical Exam Vitals BP Pulse Temp Temp src Resp SpO2 Weight Height 05/23/22193105/23/22193305/23/22193105/23/22193105/23/22193105/23/22193105/23/22193105/23/221931 133/91 (!) 130 (!) 38.2 ?C (100.7 ?F) Temporal 16 99 % 90.7 kg (200 lb) 1.524 m (5') Physical Exam Vitals and nursing note reviewed. Constitutional: Appearance: She is not toxic-appearing. HENT: Head: Normocephalic and atraumatic. No right periorbital erythema or left periorbital erythema. Jaw: No trismus. Right Ear: Tympanic membrane, ear canal and external ear normal. Left Ear: Tympanic membrane, ear canal and external ear normal. Nose: Congestion present. Mouth/Throat: Mouth: Mucous membranes are moist. Pharynx: Oropharynx is clear. Uvula midline. Posterior oropharyngeal erythema present. No pharyngeal swelling, oropharyngeal exudate or uvula swelling. Tonsils: No tonsillar exudate or tonsillar abscesses. 1+ on the right. 1+ on the left. Comments: Uvula midline, no elevation of the tongue, soft submandibular compartment. Tonsils are symmetric bilaterally. Eyes: General: No scleral icterus. Conjunctiva/sclera: Conjunctivae normal. Neck: Trachea: Trachea and phonation normal. Cardiovascular: Rate and Rhythm: Regular rhythm. Tachycardia present. Puls (more content not included)... Normal [facility] FLUABV+SARS-CoV-2+RSV Pnl Re sp NABILA+probeon 05-23-2022 FLUABV+SARS-CoV-2+RS V Pnl Resp NABILA+probe COVID 19 RESULT: Not detected The method used is RT-PCR or an equivalent NAAT method. Reference Range(the expected result in uninfected individuals): Not detected INFLUENZA A PCR: Not detected INFLUENZA B PCR: Not detected RSV PCR: Not detected Normal [facility] Comment on above: Performed By: #### 5 7021-8 #### [facility] CLIA [id number] [address] [place] [address] [facility] GROUP A STREPTOCOCCUS BY PCR on 05-23-2022 S. pyogenes DNA NABILA+probe Ql (Throat) Not detected Normal Not detected [facility] Comment on above: Order Comment: Speci men Type: SPECIMEN FROM THROAT Ordering Facility: [facility] Address: [address] [place] [address] Performed By: #### G ASPCR #### [facility] CLIA [id number] [address] [place] [address] [place] HCG Preg Ur Qlon 05-23-2022 HCG ( test) Ql (U) Negative Normal Negative [facility] Comment on above: Order Comment: Speci men Type: SPECIMEN FROM THROAT Ordering Facility: [facility] Address: [address] [place] [address] Result Comment: This test is intended to aid in the early detection of . Very dilute urine samples, as indicated by a low specific gravity, may not contain safety representative levels of hCG. This test detects intact hCG only. This test does not reliably detect hCG degradation products, including free-beta subunit and beta-core fragment. Therefore, this test may show reduced reactivity in urine after 8 weeks gestation. A number of conditions other than , including trophoblastic disease and certain non-trophoblastic neoplasms cause elevated levels of hCG. As with any assay employing mouse antibodies, the possibility exists for interference by human anti-mouse antibodies (HAMA) in the specimen. The test provides a presumptive diagnosis for . Performed By: #### G ASPCR #### [facility] CLIA [id number] [address] [place] [address] [place] HIGH SENSITIVITY TROPONIN T (INITIAL)on 05-23-2022 HIGH SENSITIVITY MILO <6 Normal <12 [facility] Comment on above: Order Comment: Speci men Type: BLOOD SPECIMEN Ordering Facility: [facility] Address: [address] [place] [address] Result Comment: When assessing risk for acute coronary syndromes: In patients undergoing blood draw greater than or equal to 2 hours from symptom onset, with history of very low to moderate risk and non-ischemic ECG, an initial hs-Troponin T less than 12 ng/L AND a 1 hour delta hs-Troponin T less than 3 ng/L should be considered very low risk for 30 day MACE. Performed By: #### L [id number] #### [facility] CLIA [id number] [address] [place] [address] [place] HIGH SENSITIVITY TROPONIN T (SECOND)on 05-23-2022 HIGH SENSITIVITY MILO <6 Normal <12 [facility] Comment on above: Order Comment: Spechayley men Type: SPECIMEN FROM THROAT Ordering Facility: [facility] Address: [address] [place] [address] Result Comment: When assessing risk for acute coronary syndromes: In patients undergoing blood draw greater than or equal to 2 hours from symptom onset, with history of very low to moderate risk and non-ischemic ECG, an initial hs-Troponin T less than 12 ng/L AND a 1 hour delta hs-Troponin T less than 3 ng/L should be considered very low risk for 30 day MACE. Performed By: #### G ASPCR #### [facility] CLIA [id number] [address] [place], [place] [id number] [place] Lactate (Bld) [Moles/Vol]on 05-23-2022 Lactate [Moles/Vol] 1.1 mmol/L Normal 0.5-2.2 [facility] Comment on above: Order Comment: Speci men Type: SPECIMEN FROM THROAT Ordering Facility: [facility] Address: [address] [address] Performed By: #### G ASPCR #### [facility] CLIA [id number] [address] [place], [place] [id number] [place] Urinalysis complete panel (U )on 05-23-2022 Bacteria LM.HPF (Urine sed) [#/Area] Many Abnormal None Seen [facility] Comment on above: Order Comment: Renetta men Type: URINE SPECIMEN Ordering Facility: [facility] Address: [address] [place] [address] Performed By: #### 2 4356-8 #### [facility] CLIA [id number] [address] [place] [address] [facility] [place] Bilirubin Ql (U) Negative Normal Negative [place] Comment on above: Order Comment: Speci men Type: URINE SPECIMEN Ordering Facility: [facility] Address: [address] [place] [address] Performed By: #### 2 4356-8 #### [facility] CLIA [id number] [address] [place] [address] [facility] [place] Clarity (Unsp spec) Clear Normal Clear [facility] Comment on above: Order Comment: Speci men Type: URINE SPECIMEN Ordering Facility: [facility] Address: [address] [place] [address] Performed By: #### 2 4356-8 #### [facility] CLIA [id number] [address] Color (U) Yellow Normal Yellow [facility] Comment on above: Order Comment: Speci men Type: URINE SPECIMEN Ordering Facility: [facility] Address: [address] [place] [address] Performed By: #### 2 4356-8 #### [facility] CLIA [id number] [address] [place], [place] [id number] [facility] Epithelial cells LM.HPF (Urine sed) [#/Area] Moderate Normal [facility] Comment on above: Order Comment: Speci men Type: URINE SPECIMEN Ordering Facility: [facility] Address: [address] [place] [address] Performed By: #### 2 4356-8 #### [facility] CLIA [id number] [address] [id number] [facility] Glucose Test strip (U) [Mass/Vol] Negative Normal Negative [facility] Comment on above: Order Comment: Speci men Type: URINE SPECIMEN Ordering Facility: [facility] Address: [address] [place] [address] Performed By: #### 2 4356-8 #### [facility] CLIA [id number] [address] [place] [address] [facility] [place] Hemoglobin Ql (U) Trace Abnormal Negative [facility] Comment on above: Order Comment: Speci men Type: URINE SPECIMEN Ordering Facility: [facility] Address: [address] [place] [address] Performed By: #### 2 4356-8 #### [facility] CLIA [id number] [address] [place] [address] [place] Ketones Ql (U) Negative Normal Negative [facility] Comment on above: Order Comment: Speci men Type: URINE SPECIMEN Ordering Facility: [facility] Address: [address] [place] [address] Performed By: #### 2 4356-8 #### [facility] CLIA [id number] [address] Leukocyte esterase Test strip Ql (U) Negative Normal Negative [facility] Comment on above: Order Comment: Speci men Type: URINE SPECIMEN Ordering Facility: [facility] Address: [address] [place] [address] Performed By: #### 2 4356-8 #### [facility] CLIA [id number] [address] [place] Nitrite Ql (U) Negative Normal Negative [facility] Comment on above: Order Comment: Speci men Type: URINE SPECIMEN Ordering Facility: [facility] Address: [address] [place] [address] Performed By: #### 2 4356-8 #### [facility] CLIA [id number] [address] [place] pH (U) 7.0 [pH] Normal 5.0-8.0 [facility] Comment on above: Order Comment: Speci men Type: URINE SPECIMEN Ordering Facility: [facility] Address: [address] [place] [address] Performed By: #### 2 4356-8 #### [facility] CLIA [id number] [address] [place] [address] Protein (U) [Mass/Vol] Negative Normal Negative [facility] Comment on above: Order Comment: Speci men Type: URINE SPECIMEN Ordering Facility: [facility] Address: [address] [place] [address] Performed By: #### 2 4356-8 #### [facility] CLIA [id number] [address] [place] [address] RBC LM.HPF (Urine sed) [#/Area] 0-3 /HPF Normal 0-3 /HPF [facility] Comment on above: Order Comment: Speci men Type: URINE SPECIMEN Ordering Facility: [facility] Address: [address] [place] [address] Performed By: #### 2 4356-8 #### [facility] CLIA [id number] [address] [place] [address] Urobilinogen Ql (U) 0.2 EU/dL Normal 0.2-1.0 EU/dL [facility] Comment on above: Order Comment: Speci men Type: URINE SPECIMEN Ordering Facility: [facility] Address: [address] [place] [address] Performed By: #### 2 4356-8 #### [facility] CLIA [id number] [address] [place] [address] WBC LM.HPF (Urine sed) [#/Area] 0-5 /HPF Normal 0-5 /HPF [facility] Comment on above: Order Comment: Speci men Type: URINE SPECIMEN Ordering Facility: [facility] Address: [address] [place] [address] Performed By: #### 2 4356-8 #### [facility] CLIA [id number] [address] [place] [address] Urinalysis complete pnl Uron 05-23-2022 Specific gravity (U) [Rel density] 1.015 Normal 1.005-1.030 [facility] Comment on above: Order Comment: Speci men Type: URINE SPECIMEN Ordering Facility: [facility] Address: [address] [place] [address] Performed By: #### 2 4356-8 #### [facility] CLIA [id number] [address] [place] [address] [facility] Order Comment: Speci men Type: SPECIMEN FROM THROAT Ordering Facility: [facility] Address: [address] [place] [address] Performed By: #### G ASPCR #### [facility] CLIA [id number] [address] XR CHEST 2V FRONTAL/LATon XR CHEST 2V FRONTAL/LAT * * *Final Report* * * DATE OF EXAM: May 23 2022 9:19PM LDX 5291 - XR CHEST 2V FRONTAL/LAT / PROCEDURE REASON: Cough, persistent * * * * Physician Interpretation * * * * EXAMINATION: CHEST RADIOGRAPH (2 VIEW FRONTAL and LATERAL), 05/23/2022 CLINICAL HISTORY: Cough, persistent, Fever of unknown origin MQ: [id number] EXAM DATE/TIME: 05/23/2022 9:19 PM COMPARISON: 07/09/2021 RESULT: Lines, tubes, and devices: None. Lungs and pleura: There is suboptimal inspiration accentuating the pulmonary markings at the lung bases mildly. No appreciable infiltrates. No pleural effusion. No pneumothorax. Cardiomediastinal silhouette: Normal cardiomediastinal silhouette. Bones and soft tissues: Osseous structures grossly intact. Large patient body habitus. IMPRESSION: Suboptimal inspiration. No acute radiographic abnormality. Paralegal Legal Secretary: PSCB Transcribe Date/Time: May 23 2022 9:20P Dictated by : POLA ARMSTRONG MD This examination was interpreted and the report reviewed and electronically signed by: POLA ARMSTRONG MD on May 23 2022 9:21PM EST [id number] Normal [facility] ED PROV NOTEon 05-15-2022 ED PROV NOTE HNO ID: [id number] Author: Haley Barnhart MD Service: Emergency Medicine Author Type: Physician Type: ED Provider Notes Filed: 05/14/2022 10:57 PM Note Text: ED Provider Note Patient Name: Ramona Zhao : 2000 SERVICE DATE: 05/14/22 History Patient presents with: Cough Fever HPI 22-year-old female that significant past medical history presenting for evaluation of URI symptoms for 3 days History is provided by the patient. Reports she has children at home with similar symptoms. Reports 3 days of sinus congestion, pressure, sore throat and runny nose. Also reporting right ear fullness. Has a cough that is mostly dry. Reports fevers at home with highest temp measured to 102. Is taking Motrin and Tylenol intermittently. Reports her last dose of Tylenol was about 12 hours ago. Has tried Mucinex intermittently with no significant improvement. Denies nausea, vomiting or diarrhea. Unsure of COVID exposure. PAST MEDICAL HISTORY Diagnosis Date NEGATIVE MEDICAL HISTORY PAST SURGICAL HISTORY Procedure Laterality Date DENTAL SURGERY HX wisdom teeth cut out NEXPLANON INSERTION 12/14/2019 removed 02/05/2022 FAMILY HISTORY Problem Relation Age of Onset Hypertension Mother No Known Problems Father ADD/ADHD Brother Diabetes Maternal Grandmother Hypertension Maternal Grandmother Thyroid Maternal Grandmother Diabetes Maternal Grandfather Heart Maternal Grandfather Hypertension Maternal Grandfather No Known Problems Paternal Grandmother Diabetes Paternal Grandfather Hypertension Paternal Grandfather Heart Paternal Grandfather Social History Tobacco Use Smoking status: Former Years: 3.00 Types: Cigarettes Quit date: 04/12/2019 Years since quittin.0 Smokeless tobacco: Never Tobacco comments: Social Vaping Use Vaping Use: current everyday user Quit date: 04/12/2019 Substances: Nicotine Substance and Sexual Activity Alcohol use: Yes Comment: social Drug use: No Sexual activity: Yes Partners: Male control/protection: Condom ALLERGIES No Known Allergies Review of Systems Constitutional: Positive for chills and fever. HENT: Positive for congestion, ear pain, rhinorrhea and sore throat. Negative for ear discharge and sinus pressure. Eyes: Negative for photophobia and visual disturbance. Respiratory: Positive for cough. Negative for shortness of breath. Cardiovascular: Negative for chest pain and palpitations. Gastrointestinal: Negative for abdominal pain, nausea and vomiting. Genitourinary: Negative for dysuria, frequency and hematuria. Musculoskeletal: Negative for back pain and neck pain. Skin: Negative for rash and wound. Neurological: Negative for dizziness, weakness and headaches. Physical Exam Vitals [05/14/229] BP Pulse Temp Temp src Resp SpO2 Weight Height 144/80 (!) 108 36.9 ?C (98.5 ?F) Temporal 22 100 % 101 kg (222 lb 10.6 oz) 1.524 m (5') Physical Exam Vitals and nursing note reviewed. Constitutional: General: She is not in acute distress. Appearance: She is well-developed. HENT: Head: Normocephalic and atraumatic. Right Ear: Tympanic membrane, ear canal and external ear normal. Left Ear: Tympanic membrane, ear canal and external ear normal. Nose: Congestion present. Mouth/Throat: Mouth: Mucous membranes are moist. Pharynx: Oropharynx is clear. Eyes: Conjunctiva/sclera: Conjunctivae normal. Neck: Trachea: No tracheal deviation. Cardiovascular: Rate and Rhythm: Normal rate and regular rhythm. Heart sounds: Normal heart sounds. Pulmonary: Effort: Pulmonary effort is normal. No respiratory distress. Breath sounds: Normal breath sounds. Comments: Lungs are clear to auscultation without wheezing, rales or rhonchi. No increased work of breathing, no accessory muscle usage. Pulse oximetry maintained on room air and patient has easy unlabored speech Abdominal: General: Bowel sounds are normal. Palpations: Abdomen is soft. Musculoskeletal: General: Normal range of motion. Cervical back: Normal range of motion. Skin: General: Skin is warm and dry. Neurological: Mental Status: She is alert and oriented to person, place, and time. Diagnostic Testing ED Labs Ordered and Reviewed - No data to display Procedures ED Course / Clinical Impression Clinical Impressions as of 05/14/22 6501 Viral illness COVID-19 test performed per [facility] [place] policy for suspected COVID community exposure. MDM / Disposition / Plan MDM Patient is a 22-year-old female with history as above presenting with complaints of URI symptoms x3d. History and exam as above. Medical record reviewed. Patient overall well-appearing, nontoxic no obvious distress. Differential diagnosis considered this including viral illness, including but not limited to COVID-19, influenza, RSV. On exam she has evidence of congestion but ears are clear, oropharynx unremarkab (more content not included)... Normal [facility] FLUABV+SARS-CoV-2+RSV Pnl Re sp NABILA+probeon 05-15-2022 FLUABV+SARS-CoV-2+RS V Pnl Resp NABILA+probe COVID 19 RESULT: Not detected The method used is RT-PCR or an equivalent NAAT method. Reference Range(the expected result in uninfected individuals): Not detected INFLUENZA A PCR: Not detected INFLUENZA B PCR: Not detected RSV PCR: Not detected Normal [facility] Comment on above: Performed By: #### 5 7021-8 #### [facility] CLIA [id number] [address] [place] [address] ED NOTEon 05-14-2022 ED NOTE HNO ID: [id number] Author: Allie Hoffman RN Service: Emergency Medicine Author Type: Registered Nurse Type: ED Notes Filed: 05/14/2022 9:49 PM Note Text: Sore throat / cough / congestion x 3. Fever as high as 102; advil 1000. Denies N/V/D. Normal [facility] ED NOTEon 04-20-2022 ED NOTE HNO ID: [id number] Author: Nany Lazo Service: Emergency Medicine Author Type: ? Type: ED Notes Filed: 04/21/2022 3:12 PM Note Text: Emergency Services: ED Call Back Questionnaire SERVICE DATE: 04/20/2022 Are you feeling better? Yes Any questions about discharge instructions and follow-up care? No Were you able to make a follow up appointment? No, referred to appointment hotline Do you have any further questions? No Is there anything that we could have done differently to improve your ED visit? No SIGNATURE: Nany Lazo PATIENT NAME: Ramona Zhao DATE: April 21, 2022 TIME: 3:11 PM Normal [facility] ED NOTE HNO ID: [id number] Author: Beena Rome RN Service: Emergency Medicine Author Type: Registered Nurse Type: ED Notes Filed: 04/20/2022 10:40 AM Note Text: Pt given discharge instructions, pt questions answered and pt denies any further questions at time of discharge. Pt ambulates out of dept with a steady gait. 1 rx given Normal [facility] ED NOTE HNO ID: [id number] Author: Beena Rome RN Service: Emergency Medicine Author Type: Registered Nurse Type: ED Notes Filed: 04/20/2022 9:56 AM Note Text: Pt had a uri recently and now has swelling and pain to the l side of her throat only. Pt has history of having tonsil stones. Normal [facility] ED PROV NOTEon 04-20-2022 ED PROV NOTE HNO ID: [id number] Author: Victor Hugo Price MD Service: Emergency Medicine Author Type: Physician Type: ED Provider Notes Filed: 04/21/2022 1:49 AM Note Text: ED Provider Note Patient Name: Ramona Zhao : 2000 SERVICE DATE: 04/20/22 History Patient presents with: Sore Throat Patient presents the emergency department concerns over throat pain and difficulty swallowing. Patient had a recent upper respiratory infection, which is now improved, however patient actually has pain in the left side of her throat, specifically her tonsil. Patient states she has a past history of tonsil stones, and she feels this may be the same. Patient denies fevers. Patient has no neck pain. Has no chest pain or difficulty breathing, and patient has an absence of cough. Sore Throat Location: Left Quality: Sore Severity: Mild Onset quality: Gradual Duration: 2 days Timing: Intermittent Progression: Worsening Chronicity: New Worsened by: Drinking and swallowing Associated symptoms: sinus congestion Associated symptoms: no abdominal pain, no chest pain, no cough, no fever and no shortness of breath Risk factors: no exposure to strep and no sick contacts PAST MEDICAL HISTORY Diagnosis Date NEGATIVE MEDICAL HISTORY PAST SURGICAL HISTORY Procedure Laterality Date DENTAL SURGERY HX wisdom teeth cut out NEXPLANON INSERTION 12/14/2019 removed 02/05/2022 FAMILY HISTORY Problem Relation Age of Onset Hypertension Mother No Known Problems Father ADD/ADHD Brother Diabetes Maternal Grandmother Hypertension Maternal Grandmother Thyroid Maternal Grandmother Diabetes Maternal Grandfather Heart Maternal Grandfather Hypertension Maternal Grandfather No Known Problems Paternal Grandmother Diabetes Paternal Grandfather Hypertension Paternal Grandfather Heart Paternal Grandfather Social History Tobacco Use Smoking status: Former Years: 3.00 Types: Cigarettes Quit date: 04/12/2019 Years since quittin.0 Smokeless tobacco: Never Tobacco comments: Social Vaping Use Vaping Use: current everyday user Quit date: 04/12/2019 Substances: Nicotine Substance and Sexual Activity Alcohol use: Yes Comment: social Drug use: No Sexual activity: Yes Partners: Male control/protection: Condom ALLERGIES No Known Allergies Review of Systems Constitutional: Negative for fever. HENT: Positive for sore throat. Respiratory: Negative for cough and shortness of breath. Cardiovascular: Negative for chest pain. Gastrointestinal: Negative for abdominal pain. All other systems reviewed and are negative. Physical Exam Vitals [04/20/22 0955] BP Pulse Temp Temp src Resp SpO2 Weight Height 140/89 (!) 96 36.7 ?C (98.1 ?F) Oral 14 96 % -- -- Physical Exam Vitals and nursing note reviewed. Constitutional: General: She is not in acute distress. Appearance: Normal appearance. She is not ill-appearing or toxic-appearing. HENT: Head: Normocephalic and atraumatic. Left Ear: Tympanic membrane and ear canal normal. No drainage, swelling or tenderness. No middle ear effusion. Tympanic membrane is not erythematous. Nose: Congestion present. Mouth/Throat: Mouth: Mucous membranes are moist. No oral lesions. Pharynx: Uvula midline. No uvula swelling. Tonsils: No tonsillar exudate. 1+ on the left. Eyes: General: Right eye: No discharge. Left eye: No discharge. Neck: Thyroid: No thyromegaly. Cardiovascular: Rate and Rhythm: Normal rate and regular rhythm. Pulmonary: Effort: Pulmonary effort is normal. No respiratory distress. Musculoskeletal: Cervical back: Normal range of motion and neck supple. Lymphadenopathy: Cervical: No cervical adenopathy. Skin: General: Skin is warm and dry. Neurological: General: No focal deficit present. Mental Status: She is alert and oriented to person, place, and time. Mental status is at baseline. Psychiatric: Mood and Affect: Mood normal. Behavior: Behavior normal. Diagnostic Testing ED Labs Ordered and Reviewed - No data to display Procedures ED Course / Clinical Impression Clinical Impressions as of 04/21/22 0145 Tonsil stone - r/o pharyngitis MDM / Disposition / Plan 21-year-old female, previously healthy, up-to-date immunizations presents the emergency room complaints of unilateral, left-sided throat pain and swelling. Patient's symptoms initially suboptimally for 5 days ago, she had upper respite infection, which has not since cleared, however patient has persistent pain, swelling, her left tonsil. Patient does have a history of tonsillar stones, she wonders if this is the same. Does have isolated, very mild left-sided tonsillar swelling, hypertrophy, with erythema, and there appears to be a small exudative lesion in the center, I was able to touch this and palpate with a tongue depressor, and actually appears very firm, and immobile due to (more content not included)... Normal [facility] US GRAVID ECHO LESS THAN 14 WEEKS OFFICEon 05-03-2019 Cholesterol [Mass/Vol] Indication: Confirmation of Transabdominal and transvaginal ultrasound were performed. LMP 02/25/2019 9 weeks 3 days December 02, 2019 U/S 05/02/2019 8 weeks 2 days December 10, 2019 The uterus was visualized and a gestational sac was seen. The yolk sac appeared normal. The pole measured 1.8 cm and the heart rate was 182 beats per minute. There was a 1.8 by 0.8 by 0.9 cm subchorionic hemorrhage noted. There was a 0.4 by 0.3 cm umbilical cord cyst noted. The right ovary was normal and measured 2 by 1.6 by 1.3 cm. The left ovary was measured 3.3 by 2 by 2 cm. There was mild free fluid in the pelvis. Impression: Viable lai intrauterine . Dating error with estimated date of confinement of December 10, 2019. Small subchorionic hemorrhage noted. Normal [facility] Comment on above: Order Comment: Order ed on [facility]# [id number] Result Comment: Tech nologist: DM Dictated By: WONG KING MD, FACOG Signed By: WONG KING MD, FACOG Transcribed: 05.03.2019 14:08 Signed Out: 05/03/19 14:08:16 Rapid Influenza A/Bon 2019 Rapid Influenza A/B See below Normal Negative [facility] Comment on above: Result Comment: Nega tive for influenza A and B. Performed By: #### L RFLU #### [place] [address] Throat Rapid Grp A Strepon 0 04-11-2019 S. pyogenes Ag IA Ql (Unsp spec) see below Normal Negative [facility] Comment on above: Result Comment: Posi tive for group A Streptococcus antigen. Performed By: #### L RAPS #### [facility] [address] [place] [address] Urinalysis Routineon 020 Appearance (U) CLEAR Normal [facility] Comment on above: Performed By: #### L URIN #### [place] [address] Bacteria LM.HPF (Urine sed) [#/Area] FEW Abnormal None [facility] Comment on above: Performed By: #### L URIN #### [place] [address] Bilirubin Urine Negative Normal Negative [facility] Comment on above: Performed By: #### L URIN #### [place] [address] Color (U) YELLOW Normal [facility] Comment on above: Performed By: #### L URIN #### [place] [address] Ep Cells Urine 6-12 Abnormal 0-5 [facility] Comment on above: Performed By: #### L URIN #### [place] [address] Glucose Ql (U) Negative Normal Negative [facility] Comment on above: Performed By: #### L URIN #### [place] [address] Hemoglobin,Urine Negative Normal Negative [facility] Comment on above: Performed By: #### L URIN #### [place] [address] Ketone Urine 2+ Abnormal Negative [facility] Comment on above: Performed By: #### L URIN #### [place] [address] Leukocytes Esterase TRACE Abnormal Negative [facility] Comment on above: Performed By: #### L URIN #### [address], [place] [address] Nitrites Urine Negative Normal Negative [facility] Comment on above: Performed By: #### L URIN #### [facility] [address] [place] [address] pH (U) 7.5 [pH] Normal 5.0-8.0 [facility] Comment on above: Performed By: #### L URIN #### [place] [address] Protein (U) [Mass/Vol] Negative Normal Negative [facility] Comment on above: Performed By: #### L URIN #### [place] [address] RBC LM.HPF (Urine sed) [#/Area] 0-3 Normal 0-3 [facility] Comment on above: Performed By: #### L URIN #### [place] [address] Specific Garner, Ur 1.020 Normal 1.005-1.030 [facility] Comment on above: Performed By: #### L URIN #### [place] [address] Urobilinogen,Ur 1.0 EU/dL Normal 0.2-1.0 [facility] Comment on above: Performed By: #### L URIN #### [place] [address] WBC LM.HPF (Urine sed) [#/Area] 0-2 Normal 0-5 [facility] Comment on above: Performed By: #### L URIN #### [place] [address] Urine HCG, Qual.on 0 Beta HCG ( test) Ql (U) Positive Normal Negative [facility] Comment on above: Performed By: #### L HCG2 #### [place] [address] CT HEAD WO CONTRASTon 2018 CT HEAD WO CONTRAST Patient Name: RAMONA ZHAO STUDY: NR CT HEAD WO CONTRAST; 07/01/2018 10:57 pm INDICATION: head injury yesterday, off balance, vomiting. COMPARISON: None. ACCESSION NUMBER(S): [id number] ORDERING CLINICIAN: KEIKO SILVEIRA TECHNIQUE: Noncontrast axial CT scan of head was performed. Angled reformats in brain and bone windows were generated. The images were reviewed in bone, brain, blood and soft tissue windows. FINDINGS: CSF Spaces: The ventricles, sulci and basal cisterns are within normal limits. There is no extraaxial fluid collection. Parenchyma: The ching-white differentiation is intact. There is no mass effect or midline shift. There is no intracranial hemorrhage. Calvarium: The calvarium is unremarkable. Paranasal sinuses and mastoids: Visualized paranasal sinuses and mastoids are clear. IMPRESSION: Normal exam. Electronically signed by: YASMINE MAJANO MD [facility] Provider Note - ED v2on 05-0 Protein mass conc Provider Note - ED v 2: Chart Review: ED NOTES ED NOTES: History of Present Illness: Patient is a 18 y/o female who denies significant PMhx, presenting to the ED with complaints of nausea, vomiting x2, and dizziness, status post head injury last night. Patient states that she was standing up from bed when she hit her head on the metal siding of the bed. She reports that her symptoms began approximately 2 hours prior to arrival. Patient also admits to vision changes, stating that her vision is blurry, shaking, and that she sees black dots. She admits to feeling shaky and weak while on her feat with problems ambulating as a result. Per boyfriend present at bedside, the patient was fine for 1-2 hours after the head injury last night. Patient does note some abdominal pain in addition to her nausea. She denies any chest pain, shortness of breath, fever, chills, urinary complaints, or fatigue. Patient denies any chance of and states that she is on control. She denies taking anything prior to arrival. PMH: Denies PSH: Denies Allergies: NKDA Social history: Admits to smoking and trying to quit. On control. Family history: Reviewed and noncontributory. Review of Systems: Constitutional: No fatigue, fever, chills, changes in appetite. + Problems ambulating, head injury Skin: No rash HEENT: No visual changes, ear pain, nasal congestion, sore throat Neck: No neck pain, stiffness Cardiac: No chest pain, edema Resp: No difficulty breathing, cough, orthopnea GI: No bowel changes. + Nausea, vomiting, abdominal pain : No dysuria, hematuria, changes in urinary habits, discharge Musculoskeletal: No myalgias, back pain Hematologic: No easy bleeding, bruising Neurological: No headaches, numbness or tingling. + Weakness, vision changes, dizziness Psych: No anxiety, depression, suicidal or homicidal ideation. Physical exam Vital signs and nursing note reviewed General: Appears well, no acute distress, alert Head: Head atraumatic; normocephalic Eyes: Normal inspection; no icterus ENT: Mucosa moist without lesion Neck: Normal inspection, no meningeal signs Resp: Normal breath sounds, no wheeze or crackles; No respiratory distress Chest Wall: No tenderness or deformity Heart: Heart rate and rhythm regular; No Murmurs Abdomen: Soft, Non-tender; No distention, guarding, rigidity, or rebound MSK: Normal appearance; Moves all extremities; No LE edema Neuro: AxOx3; CNII-XII intact; sensation intact to upper and lower extremities bilaterally; motor intact to upper and lower extremities bilaterally; rapid alternating movement and finger-nose test normal; no nystagmus; unsteady on standing; speech normal, no dysphasia or aphasia Psych: Mood and Affect normal Skin: Color appropriate; warm; Dry Course/MDM: [07/01/2018, 21:50] Patient seen in the ED and evaluated for nausea, vomiting, and dizziness status post head injury. Her clinical presentation and history is concerning for concussion. Patient to receive HCG and CT head for further evaluation. She will be given Tylenol for pain and Zofran for nausea as well as IV fluids. If workup is negative, plan is for patient discharge. Patient was advised on smoking cessation and the risks of continued smoking. She was informed to engage in brain rest for the next several days until her symptoms resolve. Patient and family understand and are agreeable with the above plan of care and instructions pending discharge. Imaging reviewed and found unremarkable. [23:51] On re-assessment, the patient reports feeling much improved after receiving fluids. She is stable for discharge with a diagnosis of concussion. I again instructed the patient to take brain rest and advised that she follow up with her primary care physician. Patient and family understand and are agreeable with the plan for discharge. HISTORY OF PRESENTING ILLNESS RAMONA is a 18 year old Female and was seen by me at 01-Jul-2018 21:44 for a chief complaint of head injury (Patient states that she hit her head yesterday on the beam of a metal bunk bed. Patient is now having blurred vision, dizziness, nausea, and vomiting. Patient denies any LOC.)(1). Triage Information: Most recent Vital Sign Value Date Temp (F): 98.7 07-01-2018 21:49 Temp (C): 37.1 07-01-2018 21:49 Heart Rate (beats/min): 92 07-01-2018 21:49 Respirations (breaths/min): 17 07-01-2018 21:49 SpO2 (%): 97 07-01-2018 21:49 BP Systolic (mm Hg): 150 07-01-2018 21:49 BP Diastolic (mm Hg): 97 07-01-2018 21:49 PAST MEDICAL HISTORY ATTESTATION: I have reviewed and confirmed nurse's/medic's notes for patient's medications, allergies, medical history, and surgical history ALLERGIES/INTOLERANCES : No Known Allergies HEALTH HISTORY: No documented data. OUTPATIENT MEDICATIONS: Home Medications Review Status for Reconciliation: Not Done Med Status: Patient Currently Takes Medications Drug Name: Zofran ODT 4 mg oral tablet, disintegrating Instructions: 1 tab(s) orally every 6 hours, As Needed -for nausea SIGNIFICANT EVENTS: Past Medical History Description:Denies AIR SAMPLER: Is : no(1) Is : no(1) RESULTS/VITAL SIGNS RESULTS: Radiology Results: Impression: Normal exam. CT Head without Contrast [Jul 01 2018 11:04PM] VITAL SIGNS: T PRBP SpO2O2(LPM) %FiO2 Method 01-Jul-2018 21:49:[id number] 7 97 room air, no respiratory support CLINICAL IMPRESSION Diagnosis/Annotation: ED Dx Name:Concussion Code:S06.0X9A Dispostion: discharged Type: home Condition on Disposition: stable ATTESTATION Scribe Name: Sterling Garzon Scribing on Behalf of: Keiko Silveira DO ATTENDING SCRIBE ATTESTATION STATEMENT I, Keiko Silveira DO, attests all medical record entries made by the scribe were under my direction and personally dictated by me. I have reviewed the chart and agree that the record accurately reflects my performance of the history, physical, and assessment plan. I have also personally directed, reviewed, and agree with disposition instructions. Comments/Additional Findings: Scribed by Sterling Garzon This note is prepared by the scribe acting as Scribe for Keiko Silveira DO. All medical record entries made by the Scribe were at my direction and personally dictated by me. I have reviewed the chart and agree that the record accurately reflects my personal performance of the history, physical exam, assessment, plan, and diagnosis. I have also personally directed, reviewed, and agree with the discharge instructions. Keiko Silveira DO CRITICAL CARE TIME Is this a critically ill patient: no Electronic Signatures: Keiko Silveira () (Signed 02-Jul-2018 00:41) Authored: Provider Note - ED v2 Sterling Garzon (Scribe) (Entered 01-Jul-2018 22:21) Entered: Provider Note - ED v2 Last Updated: 02-Jul-2018 00:41 by Keiko Silveira () References: 1. Data Referenced From Triage - ED 07/01/2018 09:[address] [facility] Risk Screen - Adult Emergenc yon 07-01-2018 Risk Screen - Adult Emergency Preferred Language: Preferred Language: Preferred Language for Discussing Health Care (patient/designee)Engl ney Advanced Directives: Advance Directive Medicalno Family Violence Adult: Abuse Screen: Are you or have you been threatened or abused physically, emotionally, or sexually by anyoneno Learning Assessment (Patient): Learning Assessment (Patient): Patient is Able to be Assessed for Learningyes Factors Influencing Readiness to Learnacuteness of illness Factors that Impact Ability to Learnnone Devices/Methods Used to Communicatenone Learning Preferenceswritten material; verbal instruction Cultural Considerationsnone Developmental Considerationsnone Nondenominational Considerationsnone Learning Assessment (Other Learner): Learning Assessment (Other Learner): Other learner availableyes... Learnermother Factors Influencing Readiness to Learnacuteness of illness Factors that Impact Ability to Learnnone Devices/Methods Used to Communicatenone Learning Preferencesverbal instruction, written material Cultural Considerationsnone Developmental Considerationsnone Nondenominational Considerationsnone Fall Risk Adult: Falls Risk: Altered Mobilitynone Change in Mental Statusno Relevant Medical History / Diagnosisnone Fall Historynone Altered Eliminationno Medications that Might Alter: equilibrium, cognitive judgement or severity of injurynone Sensory Deficitno UNABLE or UNWILLING to Follow Directionsno Patient Identified as a Falls Riskyes Pressure Injury/TB/Substance: Pressure Injury: Pressure Injury Present on Admissionno Do you have a coughno Substance Use Current or Former Historynever: e-Cigarette/Vaping, Alcohol, Street Drugs YES: Cigarette/Tobacco Smoking Statuscurrent every day smoker Admission Risk Screen: Significant IndicatorsComplete CAGE: CAGE: Is this an injured patient at a Trauma Center ([facility]/[place]/[facility]): yes C: Have you ever felt you needed to Cut down on your drinking: no A: Have people Annoyed you by criticizing your drinking: no G: Have you ever felt Guilty about drinking: no E: Have you ever felt you needed a drink first thing in the morning (Eye-water purification chemist) to steady your nerves or to get rid of hangover: no Electronic Signatures: Nasima Belle (VARUN) (Signed 01-Jul-2018 21:58) Authored: Preferred Language, Advanced Directives, Family Violence Adult, Learning Assessment (Patient), Learning Assessment (Other Learner), Fall Risk Adult, Pressure Injury/TB/Substance, CAGE Last Updated: 01-Jul-2018 21:58 by Nasima Belle (VARUN) [facility] Triage - EDon 07-01-2018 Triage - ED Quick Triage: The patient and/or guardian verbally acknowledges placement for services into the following (when Urgent Care Service hours are operating):emergency department Are You no Are You Currently Breastfeedingno Chart Review: CHIEF COMPLAINT RAMONA ZHAO is a Female patient with a chief complaint of head injury (Patient states that she hit her head yesterday on the beam of a metal bunk bed. Patient is now having blurred vision, dizziness, nausea, and vomiting. Patient denies any LOC.). Triage Date/Time: 01-Jul-2018 21:49 Pain Rating (0-10): Rest: 0 Vital Signs: Temperature: 98.7F ( 37.1C) taken tympanic Blood Pressure: 150/97 Mean: Heart Rate: 92 Respiratory Rate: 17 Pulse Oximetry: 97% on room air, no respiratory support. Weight: 184.5 pounds. Calculated 83.7 kg. (scale measurement) Cough lasting greater than 3 weeks: no Patient immunocompromised related to: N/A Travel outside of [place]: no Last menstrual period: 01-Jul-2018 AIR SAMPLER History: control Patient has homicidal thoughts: no LAMAR: 3 Symptom Notes: . Symptoms Are POSITIVE For: blurred vision, nausea and vomiting. Symptoms Are Negative For: ataxia, bleeding, confusion, dizziness, headache, loss of consciousness and seizure. [place] Suicide Suicide Risk Screen In the Past Month: Have you wished you were or wished you could go to sleep and not wake up no In the Past Month: Have you had any actual thoughts of killing yourself no In Your Lifetime: Have you ever done anything, started to do anything, or prepared to do anything to end your life no PAIN Pain Scale Used: SRINIVASAN Pain Rating (0-10): 0 = None ARRIVAL INFORMATION Means of Arrival: wheelchair Mode of Arrival: private vehicle Arrival From: home Accompanied By: parent and spouse/significant other Language: Spoken Language Preferred: Bahraini Reading Language Preferred: [place] Highway Commissioner Requested: no automotive parts interpreter was requested MDRO: History of MDRO: no Present on Arrival: Device Present on Arrival to ED: no Pressure Ulcer Present on Arrival to ED: no PRIMARY ASSESSMENT RAMONA ZHAO's primary assessment is Within Normal Limits. The airway is open and patent. Breathing spontaneous and unlabored with clear breath sounds bilaterally. Circulation is normal with good peripheral pulses. Skin is warm and dry and color is normal for race. PAST MEDICAL HISTORY Immunization History: Last Known Tetanus Immunization: Unknown TRAVEL HISTORY Travel Exposure History: NO travel to International locations in the past 30 days Past Medical History: Past Medical History Reviewedyes Denies: Past Medical History, Active Electronic Signatures: Nasima Belle (VARUN) (Signed 01-Jul-2018 21:59) Authored: Triage, Past Medical History Last Updated: 01-Jul-2018 21:59 by Nasima Belle (VARUN) Normal [facility] Vital Signs Date Time Vital Sign Value Performing Clinician Nahun harris 09-03-2024 13:27-0400 Body mass index (BMI) [Ratio] 40.78 kg/m2 Mariela Velasco MD Work Phone: [facility] 09-03-2024 13:27-0400 Body weight 98.61 kg Mariela Velasco MD Work Phone: [facility] 09-03-2024 13:27-0400 Diastolic blood pressure 78 mm[Hg] Mariela Velasco MD Work Phone: [facility] 09-03-2024 13:27-0400 Systolic blood pressure 112 mm[Hg] Mariela Velasco MD Work Phone: [facility] 08-27-2024 16:12-0400 Body mass index (BMI) [Ratio] 40.14 kg/m2 Veronique Jones MD Work Phone: [facility] 08-27-2024 16:12-0400 Body weight 97.07 kg Veronique Jones MD Work Phone: [facility] 08-27-2024 16:12-0400 Diastolic blood pressure 78 mm[Hg] Veronique Jones MD Work Phone: [facility] 08-27-2024 16:12-0400 Systolic blood pressure 118 mm[Hg] Veronique Jones MD Work Phone: [facility] 08-13-2024 13:29-0400 Body mass index (BMI) [Ratio] 39.81 kg/m2 Veronique Jones MD Work Phone: [facility] 08-13-2024 13:29-0400 Body weight 96.25 kg Veronique Jones MD Work Phone: [facility] 08-13-2024 13:29-0400 Diastolic blood pressure 70 mm[Hg] Veronique Jones MD Work Phone: [facility] 08-13-2024 13:29-0400 Systolic blood pressure 112 mm[Hg] Veronique Jones MD Work Phone: [facility] 07-30-2024 14:16-0400 Body mass index (BMI) [Ratio] 39.32 kg/m2 Veronique Jones MD Work Phone: [facility] 07-30-2024 14:16-0400 Body weight 95.07 kg Veronique Jones MD Work Phone: [facility] 07-30-2024 14:16-0400 Diastolic blood pressure 70 mm[Hg] Veronique Jones MD Work Phone: [facility] 07-30-2024 14:16-0400 Systolic blood pressure 110 mm[Hg] Veronique Jones MD Work Phone: [facility] 07-16-2024 14:27-0400 Body mass index (BMI) [Ratio] 39.24 kg/m2 Veronique Jones MD Work Phone: [facility] 07-16-2024 14:27-0400 Body weight 94.89 kg Veronique Jones MD Work Phone: [facility] 07-16-2024 14:27-0400 Diastolic blood pressure 60 mm[Hg] Veronique Jones MD Work Phone: [facility] 07-16-2024 14:27-0400 Systolic blood pressure 100 mm[Hg] Veronique Jones MD Work Phone: [facility] 06-18-2024 14:14-0400 Body mass index (BMI) [Ratio] 38.57 kg/m2 Mariela Velasco MD Work Phone: [facility] 06-18-2024 14:14-0400 Body weight 93.26 kg Mariela Velasco MD Work Phone: [facility] 06-18-2024 14:14-0400 Diastolic blood pressure 64 mm[Hg] Mariela Velasco MD Work Phone: [facility] 06-18-2024 14:14-0400 Systolic blood pressure 102 mm[Hg] Mariela Velasco MD Work Phone: [facility] [facility] 05-21-2024 14:11-0400 Body mass index (BMI) [Ratio] 37.52 kg/m2 Aj Poole APRN.LAP MAKER Work Phone: [facility] 05-21-2024 14:11-0400 Body weight 90.72 kg Aj Poole APRN.LAP MAKER Work Phone: [facility] 05-21-2024 14:11-0400 Diastolic blood pressure 60 mm[Hg] Aj Poole [employer]AM SHOP ASSOCIATE.LAP MAKER Work Phone: [facility] 05-21-2024 14:11-0400 Systolic blood pressure 110 mm[Hg] Aj Zulema [employer]AM SHOP ASSOCIATE.LAP MAKER Work Phone: [facility] 04-23-2024 14:02-0500 Body height 155.5 cm Veronique Jones MD Work Phone: [facility] 04-23-2024 14:02-0500 Body mass index (BMI) [Ratio] 35.79 kg/m2 Veronique Jones MD Work Phone: [facility] 04-23-2024 14:02-0500 Body weight 86.55 kg Veronique Jones MD Work Phone: [facility] 04-23-2024 14:02-0500 Diastolic blood pressure 60 mm[Hg] Veronique Jones MD Work Phone: [facility] 04-23-2024 14:02-0500 Systolic blood pressure 100 mm[Hg] Veronique Jones MD Work Phone: [facility] 04-16-2024 10:35-0500 Body mass index (BMI) [Ratio] 39.83 kg/m2 Cara Clutter PA-C Work Phone: [facility] 04-16-2024 10:35-0500 Body temperature 98.91 [degF] Cara Clutter PA-C Work Phone: [facility] 04-16-2024 10:35-0500 Body weight 89.5 kg Cara Clutter PA-C Work Phone: [facility] 04-16-2024 10:35-0500 Diastolic blood pressure 82 mm[Hg] Cara Clutter PA-C Work Phone: [facility] 04-16-2024 10:35-0500 Heart rate 97 /min Cara Clutter PA-C Work Phone: [facility] 04-16-2024 10:35-0500 Respiratory rate 21 /min Cara Clutter PA-C Work Phone: [facility] 04-16-2024 10:35-0500 SaO2% (BldA) [Mass fraction] 98 % Cara Clutter PA-C Work Phone: [facility] 04-16-2024 10:35-0500 Systolic blood pressure 104 mm[Hg] Cara Clutter PA-C Work Phone: [facility] 04-02-2024 12:43-0500 Body mass index (BMI) [Ratio] 38.98 kg/m2 Livan Bills [employer] SHOP ASSOCIATE.LAP MAKER Work Phone: [facility] 04-02-2024 12:43-0500 Body temperature 98.4 [degF] Livan Bills ICE CREAM SHOP ASSOCIATE.LAP MAKER Work Phone: [facility] 04-02-2024 12:43-0500 Body weight 87.6 kg Livan Bills [employer] CREAM SHOP ASSOCIATE.LAP MAKER Work Phone: [facility] 04-02-2024 12:43-0500 Diastolic blood pressure 78 mm[Hg] Livan Bills [employer] CREAM SHOP ASSOCIATE.LAP MAKER Work Phone: [facility] 04-02-2024 12:43-0500 Heart rate 91 /min Livan Bills [employer] CREAM SHOP ASSOCIATE.LAP MAKER Work Phone: [facility] 04-02-2024 12:43-0500 Respiratory rate 18 /min Livan Bills [employer] CREAM SHOP ASSOCIATE.LAP MAKER Work Phone: [facility] 04-02-2024 12:43-0500 SaO2% (BldA) [Mass fraction] 97 % Livan Bills [employer] SHOP ASSOCIATE.LAP MAKER Work Phone: [facility] 04-02-2024 12:43-0500 Systolic blood pressure 122 mm[Hg] Livan Bills [employer] CREAM SHOP ASSOCIATE.LAP MAKER Work Phone: [facility] 03-26-2024 13:42-0500 Body mass index (BMI) [Ratio] 38.76 kg/m2 Paul Galindo MD Work Phone: [facility] 03-26-2024 13:42-0500 Body weight 87.09 kg Paul Galnido MD Work Phone: [facility] 03-26-2024 13:42-0500 Diastolic blood pressure 66 mm[Hg] Paul Galindo MD Work Phone: [facility] 03-26-2024 13:42-0500 Systolic blood pressure 114 mm[Hg] Pual Galindo MD Work Phone: [facility] 03-12-2024 13:17-0500 Body mass index (BMI) [Ratio] 39.16 kg/m2 Alexandria Schwartz ICE [employer]AM SHOP ASSOCIATE.CNM Work Phone: [facility] 03-12-2024 13:17-0500 Body weight 88 kg Alexandria Schwartz ICE CREAM SHOP ASSOCIATE.CNM Work Phone: [facility] 03-12-2024 13:17-0500 Diastolic blood pressure 72 mm[Hg] Alexandria Schwartz ICE CREAM SHOP ASSOCIATE.CNM Work Phone: [facility] 03-12-2024 13:17-0500 Systolic blood pressure 110 mm[Hg] Alexandria Schwartz ICE CREAM SHOP ASSOCIATE.CNM Work Phone: [facility] 02-13-2024 11:14-0500 Body height 149.9 cm Aj Poole [employer]AM SHOP ASSOCIATE.LAP MAKER Work Phone: [facility] 02-13-2024 11:14-0500 Body mass index (BMI) [Ratio] 39.57 kg/m2 Aj Hashirley [employer]AM SHOP ASSOCIATE.LAP MAKER Work Phone: [facility] 02-13-2024 11:14-0500 Body weight 88.91 kg Aj Haury [employer] CREAM SHOP ASSOCIATE.LAP MAKER Work Phone: [facility] 02-13-2024 11:14-0500 Diastolic blood pressure 68 mm[Hg] Aj Haury [employer] CREAM SHOP ASSOCIATE.LAP MAKER Work Phone: [facility] 02-13-2024 11:14-0500 Systolic blood pressure 112 mm[Hg] Aj Haury [employer] CREAM SHOP ASSOCIATE.LAP MAKER Work Phone: [facility] 02-09-2024 08:45-0500 Body mass index (BMI) [Ratio] 39.26 kg/m2 Aj Poole APRN.LAP MAKER Work Phone: [facility] 02-09-2024 08:45-0500 Body weight 91.17 kg Aj Poole APRN.LAP MAKER Work Phone: [facility] 02-09-2024 08:45-0500 Diastolic blood pressure 64 mm[Hg] Aj Poole [employer]AM SHOP ASSOCIATE.LAP MAKER Work Phone: [facility] 02-09-2024 08:45-0500 Systolic blood pressure 114 mm[Hg] Aj Poole [employer] CREAM SHOP ASSOCIATE.LAP MAKER Work Phone: [facility] 04-21-2023 17:34-0500 Body weight 92.53 kg Vida Drake APRN.LAP MAKER Work Phone: [facility] 04-21-2023 17:34-0500 Diastolic blood pressure 66 mm[Hg] Vida Drake APRN.LAP MAKER Work Phone: [facility] 04-21-2023 17:34-0500 Heart rate 94 /min Vida Drake APRN.LAP MAKER Work Phone: [facility] 04-21-2023 17:34-0500 Respiratory rate 16 /min Vida Drake APRN.LAP MAKER Work Phone: [facility] 04-21-2023 17:34-0500 Systolic blood pressure 112 mm[Hg] Vida Drake APRN.LAP MAKER Work Phone: [facility] 01-27-2022 07:16-0500 Body weight 100.25 kg Alpa Rios APRN.LAP MAKER Work Phone: [facility] 01-27-2022 07:16-0500 Diastolic blood pressure 62 mm[Hg] Alpa Rios APRN.LAP MAKER Work Phone: [facility] 01-27-2022 07:16-0500 Systolic blood pressure 102 mm[Hg] Alpa Rios APRN.LAP MAKER Work Phone: [facility] Encounters Encounter Date Encounter Type Care Provider Facility Start: 09-03-2024 End: 09-03-2024 Patient encounter procedure Mariela Velasco MD Work Phone: OB/Gynecology Comment on above: 35 weeks gestation o f (HCC) (Primary Dx); Supervision of high risk in third trimester (HCC); Obesity affecting in third trimester, unspecified obesity type (HCC) Start: 09-03-2024 End: 09-03-2024 ambulatory MARIELA VELASCO Facility:[facility] Start: 08-27-2024 End: 08-27-2024 Patient encounter procedure Veronique Jones MD Work Phone: OB/Gynecology Comment on above: Supervision of high risk in third trimester (HCC) (Primary Dx); Obesity affecting in third trimester, unspecified obesity type (HCC); 34 weeks gestation of (HCC); Supervision of high risk in second trimester (HCC) Start: 08-27-2024 End: 08-27-2024 ambulatory VICTOR HUGO SOLANO Facility:[facility] Start: 08-13-2024 End: 08-13-2024 ambulatory PAUL GALINDO Facility:[facility] Start: 08-13-2024 End: 08-13-2024 Patient encounter procedure [employer] [facility] Maternal Medicine Comment on above: Maternal obesity syn drome in first trimester (HCC); BMI 38.0-38.9,adult Supervision of high risk in third trimester (HCC) (Primary Dx); 32 weeks gestation of (HCC); Obesity affecting in third trimester, unspecified obesity type (HCC) Start: 07-30-2024 End: 07-30-2024 Patient encounter procedure Veronique Jones MD Work Phone: OB/Gynecology Comment on above: Supervision of high risk in third trimester (HCC) (Primary Dx); 30 weeks gestation of (HCC); Obesity affecting in third trimester, unspecified obesity type (HCC); Need for vaccination Start: 07-30-2024 End: 07-30-2024 ambulatory VICTOR HUGO SOLANO Facility:[facility] Start: 07-16-2024 End: 07-16-2024 Patient encounter procedure Veronique Jones MD Work Phone: OB/Gynecology Comment on above: Supervision of high risk in third trimester (HCC) (Primary Dx); 28 weeks gestation of (HCC); Obesity affecting in third trimester, unspecified obesity type (HCC) Start: 07-16-2024 End: 07-16-2024 ambulatory VICTOR HUGO SOLANO Facility:[facility] Start: 06-18-2024 End: 06-18-2024 Patient encounter procedure Mariela Velasco MD Work Phone: OB/Gynecology Comment on above: Screening for diabet es mellitus (Primary Dx); 24 weeks gestation of (HCC); Supervision of high risk in second trimester (HCC) Start: 06-18-2024 End: 06-18-2024 ambulatory MARIELA VELASCO Facility:[facility] Start: 05-22-2024 End: 07-22-2024 Follow-up encounter Paul Galindo MD Work Phone: OB/Gynecology Start: 05-21-2024 End: 05-21-2024 ambulatory PAUL GALINDO Facility:[facility] Start: 05-21-2024 End: 05-21-2024 Patient encounter procedure Aj Poole APRN.CNP Work Phone: OB/Gynecology Comment on above: Supervision of high risk in second trimester (Primary Dx); 20 weeks gestation of ; Obesity affecting in second trimester, unspecified obesity type Encounter for anatomic survey (Primary Dx); Maternal obesity 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; BMI 38.0-38.9,adult Start: 04-23-2024 End: 04-23-2024 ambulatory PAUL GALINDO Facility:[facility] Start: 04-23-2024 End: 04-23-2024 Patient encounter procedure Veronique Jones MD Work Phone: OB/Gynecology Comment on above: Encounter for superv ision of high risk in first trimester, antepartum (Primary Dx); 16 weeks gestation of ; Maternal obesity 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 Encounter for israel coleman screening for malformation using ultrasound (Primary Dx); Maternal obesity 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; BMI 38.0-38.9,adult; 16 weeks gestation of Start: 04-17-2024 End: 04-18-2024 Emergency department patient visit [facility] Facility:[facility] Start: 04-16-2024 End: 04-16-2024 ambulatory [facility] Facility:[facility] Start: 04-16-2024 End: 04-16-2024 Office outpatient visit 25 minutes Cara Frost PA-C Work Phone: [facility] [employer] [facility] Comment on above: Bronchopneumonia (Pr imary Dx); Persistent cough Start: 04-02-2024 End: 04-02-2024 ambulatory [facility] Facility:[facility] Start: 04-02-2024 End: 04-02-2024 Office outpatient visit 15 minutes Livan Bills APRN.CNP Work Phone: [facility] Comment on above: Viral illness (Prima ry Dx) Start: 03-26-2024 End: 03-26-2024 [facility] AJ POOLE Facility:[facility] Start: 03-26-2024 End: 03-26-2024 Patient encounter procedure Paul Galindo MD Work Phone: OB/Gynecology Comment on above: Encounter for superv ision of high risk in first trimester, antepartum (Primary Dx); 12 weeks gestation of ; screening encounter; Maternal obesity 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; BMI 38.0-38.9,adult Encounter for antena jared screening for malformation using ultrasound (Primary Dx); 12 weeks gestation of Start: 03-26-2024 End: 03-26-2024 [facility] AJ POOLE Facility:[facility] Start: 03-12-2024 End: 03-12-2024 ambulatory ALEXANDRIA SCHWARTZ Facility:[facility] Start: 03-12-2024 End: 03-12-2024 Patient encounter procedure Alexandria Schwartz APRN.CNJose Alejandro Work Phone: OB/Gynecology Comment on above: Encounter for superv ision of high risk in first trimester, antepartum (Primary Dx); 10 weeks gestation of ; Obesity affecting in first trimester, unspecified obesity type Start: 02-13-2024 End: 02-13-2024 ambulatory AJ POOLE Facility:[facility] Start: 02-13-2024 End: 02-13-2024 Patient encounter procedure Aj Poole ANA.LAP MAKER Work Phone: OB/Gynecology Comment on above: Encounter for superv ision of high risk in first trimester, antepartum (Primary Dx); with uncertain dates in first trimester; 7 weeks gestation of ; Obesity affecting in first trimester, unspecified obesity type; History of miscarriage; Nausea and vomiting during Start: 02-09-2024 End: 02-09-2024 ambulatory AJ POOLE Facility:[facility] Start: 02-09-2024 End: 02-09-2024 Patient encounter procedure Aj Poole ANA.LAP MAKER Work Phone: OB/Gynecology Comment on above: Positive urine pregn smiley test (Primary Dx); Nausea and vomiting during Start: 11-14-2023 End: 11-14-2023 ambulatory Aj Pizarroshirley PEREZ.LAP MAKER Work Phone: OB/Gynecology Comment on above: Bleeding in early pr egnancy (Primary Dx) Start: 11-14-2023 End: 11-14-2023 Telemedicine consultation with patient Aj Poole APRN.LAP MAKER Work Phone: OB/Gynecology Start: 11-14-2023 End: 11-14-2023 Telephone encounter Paul Galindo MD Work Phone: OB/Gynecology Comment on above: Spotting Start: 04-21-2023 End: 04-21-2023 Patient encounter procedure Vida Drake APRN.LAP MAKER Work Phone: Family Medicine [place] Comment on above: Alternating constipa tion and diarrhea (Primary Dx); Gastroesophageal reflux disease without esophagitis Start: 03-31-2023 End: 03-31-2023 Subsequent hospital visit by physician [facility] Work Phone: Nuclear Medicine Comment on above: Nausea [R11.0] Start: 03-14-2023 End: 03-14-2023 Emergency department patient visit VICTOR HUGO SOLANO Facility:[facility] Start: 05-30-2022 ambulatory Lety Murillo APRN.LAP MAKER Work Phone: Telemedicine Comment on above: Treatment not availa ble (Primary Dx) Start: 05-23-2022 End: 05-24-2022 Emergency department patient visit ALEXANDRIA SHRESTHARosalvaREINALDO Facility:[facility] Start: 05-14-2022 End: 05-15-2022 Emergency department patient visit HALEY BARNHART Facility:[facility] Start: 04-20-2022 End: 04-20-2022 Emergency department patient visit VICTOR HUGO FLOWERS CONCEPCION Facility:[facility] Start: 01-27-2022 End: 01-27-2022 Patient encounter procedure Alpa Rioszelda PEREZ.LAP MAKER Work Phone: OB/Gynecology Comment on above: Breakthrough bleedin g on Nexplanon (Primary Dx); General counseling and advice for contraceptive management; Encounter for BCP ( control pills) initial prescription Start: 04-19-2019 End: 07-26-2019 Patient requested procedure Paul Galindo MD Work Phone: [facility] Procedures Date Procedure Procedure Detail Performing Clinician Start: 09-03-2024 Urnls dip stick/tabl et rgnt non-auto w/o micrscp Mariela Velasco MD Work Phone: Start: 08-27-2024 Urnls dip stick/tabl et rgnt non-auto w/o micrscp Veronique Jones MD Work Phone: Start: 08-13-2024 Us preg uterus after 1st trimest / gestation Paul Galindo MD Work Phone: Start: 05-21-2024 Us preg uterus after 1st trimest / gestation Paul Galindo MD Work Phone: Start: 04-23-2024 Us preg uterus after 1st trimest / gestation Paul Galindo MD Work Phone: Start: 03-26-2024 Antibody screen AJ HUNT Comment on above: Order Comment: Speci men Type: BLOOD SPECIMENOrdering Facility: [facility] Address: [address] [place] [address] Performed By: #### T SPN ####CC [facility]CL[facility] [id number] [facility] [id number] [id number] [place] Start: 03-26-2024 Us nuchal watts slucency 1st gestation Aj Poole APRN.LAP MAKER Work Phone: Start: 02-13-2024 Us uterus l imited 1/> fetuses Aj Poole [employer] ASSOCIATE.LAP MAKER Work Phone: Start: 02-09-2024 UA DIP,URINE HCG (POC) Aj Poole [employer] SH[employer] ASSOCIATE.LAP MAKER Work Phone: Start: 11-14-2023 Antibody screen UNKNOWN PROVIDER Comment on above: Order Comment: Speci men Type: BLOOD SPECIMEN Ordering Facility: [facility] Address: [address] [place] [address] Performed By: #### T SPN #### [facility] CLIA [id number] [address] [place], [place] [id number] [place] [address] Start: 03-31-2023 Hepatobil syst imag inc gb w/pharma intervenj Paola Rea [employer]AM SHOP ASSOCIATE.SUBCONTRACTS MANAGER Work Phone: Start: 05-07-2018 Follow-up visit Plan of Treatment Date Care Activity Detail Author Start: 07-30-2034 Urine microalbumin profile DTaP,Tdap,Td Vaccine (9 - Td or Tdap) [facility] Start: 09-16-[address] [facility] Start: 02-12-2027 Screening for malign ant neoplasm of cervix Cervical Cancer Screening [facility] Start: 03-26-2025 Covid-19 Vaccine ( season) Covid-19 Vaccine ( season) [facility] Comment on above: Postponed from 10/29 (Declined at this time) Start: 10-29-2024 Influenza vaccination [facility] Start: 09-17-2024 End: 09-17-2024 Patient encounter procedure OB/Gynecology Comment on above: NST OB Routine Start: 09-11-2024 End: 09-11-2024 Patient encounter procedure Maternal Medicine Comment on above: Growth and BPP OB-Growth and BPP at 11 Start: 09-10-2024 End: 09-10-2024 Patient encounter procedure OB/Gynecology Comment on above: NST OB Routine Start: 09-03-2024 End: 09-03-2024 Patient encounter procedure OB/Gynecology Comment on above: NST NST/ OB Start: 08-27-2024 End: 08-27-2024 Patient encounter procedure Maternal Medicine Comment on above: Growth Growth/ ob Start: 08-27-2024 Influenza vaccination Influenza Vacc ine (#1) [facility] Comment on above: Postponed from 10/29 (Declined at this time) Start: 08-13-2024 End: 08-13-2024 Patient encounter procedure Maternal Medicine Comment on above: OB Start: 07-30-2024 End: 07-30-2024 Patient encounter procedure 07/30/2024 2:20 PM EDT Routine Office Visit OB/Gynecology [address] [place], [place] [id number] Veronique Jones MD [address] [place] [address] OB OB/Gynecology Comment on above: OB Start: 07-18-2024 End: 10-17-2024 ANEMIA REFLEX PANEL ANEMIA REFLEX PANEL Lab Routine 24 weeks gestation of (HCC) Supervision of high risk in second trimester ([facility]) Expected: 07/18/2024 (Approximate), Expires: 10/17/2024 [facility] Comment on above: Expected: 07/18/2024 (Approximate), Expires: 10/17/2024 Start: 07-18-2024 End: 06-18-2025 GESTATIONAL GLUCOSE SCREEN, 1-HOUR, 50 GRAM, NON-FASTING GESTATIONAL GLUCOSE SCREEN, 1-HOUR, 50 GRAM, NON-FASTING Lab Routine Screening for diabetes mellitus Expected: 07/18/2024 (Approximate), Expires: 06/18/[address] [facility] Work Phone: Comment on above: Expected: 07/18/2024 (Approximate), Expires: 06/18/2025 Start: 07-18-2024 End: 06-18-2025 SYPHILIS TREPONEMAL W/REFLEX SYPHILIS TREPONEMAL W/REFLEX Lab Routine 24 weeks gestation of (HCC) Supervision of high risk in second trimester ([facility]) Expected: 07/18/2024 (Approximate), Expires: 06/18/2025 [facility] Comment on above: Expected: 07/18/2024 (Approximate), Expires: 06/18/2025 Start: 07-16-2024 End: 07-16-2024 Patient encounter procedure 07/16/2024 2:20 PM EDT Routine Office Visit OB/Gynecology [address] [place] [address] Veronique Jones MD [address] [place] [address] OB Routine OB/Gynecology Comment on above: OB Routine Start: 07-16-2024 End: 07-16-2024 ambulatory 07/16/2024 1:00 PM EDT Results Only [facility] [address] [place] [address] Glucose test and LABs [facility] Comment on above: Glucose test and LAB s Start: 06-18-2024 End: 06-18-2024 Patient encounter procedure 06/18/2024 2:20 PM EDT Routine Office Visit OB/Gynecology [address] [place] [address] Mariela Velasco MD [address] [place] [address] OB OB/Gynecology Comment on above: OB Start: 05-21-2024 End: 05-21-2024 Patient encounter procedure Maternal Medicine Comment on above: anatomy OB Start: 04-23-2024 End: 04-23-2024 Patient encounter procedure Maternal Medicine Comment on above: anatomy OB Start: 03-26-2024 End: 06-25-2024 Chromosome 21 trisomy [Presence] in Blood or Tissue by Cytogenetics [facility] Comment on above: Expected: 03/26/2024 , Expires: 06/25/2024 Start: 03-26-2024 End: 03-26-2024 Patient encounter procedure Maternal Medicine Comment on above: Nuchal OB Routine Start: 03-12-2024 End: 03-12-2024 Patient encounter procedure 03/12/2024 1:15 PM EST Routine Office Visit OB/Gynecology [address] [place] [address] Alexandria Schwartz APRN.CNM [address] [place] [address] OB Routine OB/Gynecology Comment on above: OB Routine Start: 02-13-2024 End: 05-14-2024 ANEMIA REFLEX PANEL ANEMIA REFLEX PANEL Lab Routine Encounter for supervision of high risk in first trimester, antepartum with uncertain dates in first trimester Expected: 02/13/2024, Expires: 05/14/[address] [facility] Work Phone: Comment on above: Expected: 02/13/2024 , Expires: 05/14/2024 Start: 02-13-2024 End: 05-14-2024 CARRIER SCREEN, STANDARD CARRIER SCREEN, STANDARD Lab Routine Encounter for supervision of high risk in first trimester, antepartum with uncertain dates in first trimester 7 weeks gestation of Expected: 02/13/2024, Expires: 05/14/2024 [facility] Comment on above: Expected: 02/13/2024 , Expires: 05/14/2024 Start: 02-13-2024 End: 05-14-2024 Hemoglobin A1c in Blood HEMOGLOBIN A1C Lab Routine Encounter for supervision of high risk in first trimester, antepartum with uncertain dates in first trimester Expected: 02/13/2024, Expires: 05/14/2024 [facility] Comment on above: Expected: 02/13/2024 , Expires: 05/14/2024 Start: 02-13-2024 End: 05-14-2024 HEMOGLOBIN EVALUATION CASCADE HEMOGLOBIN EVALUATION CASCADE Lab Routine Encounter for supervision of high risk in first trimester, antepartum Expected: 02/13/2024, Expires: 05/14/2024 [facility] Comment on above: Expected: 02/13/2024 , Expires: 05/14/2024 Start: 02-13-2024 End: 05-14-2024 Hepatitis B virus surface Ag [Presence] in Serum HEPATITIS B SURFACE ANTIGEN Lab Routine Encounter for supervision of high risk in first trimester, antepartum with uncertain dates in first trimester Expected: 02/13/2024, Expires: 05/14/2024 [facility] Comment on above: Expected: 02/13/2024 , Expires: 05/14/2024 Start: 02-13-2024 End: 05-14-2024 Hepatitis C virus Ab [Presence] in Serum HEPATITIS C ANTIBODY IA WITH CONFIRMATION Lab Routine Encounter for supervision of high risk in first trimester, antepartum with uncertain dates in first trimester Expected: 02/13/2024, Expires: 05/14/2024 [facility] Comment on above: Expected: 02/13/2024 , Expires: 05/14/2024 Start: 02-13-2024 End: 05-14-2024 HIV 1+2 Ab [Presence] in Serum or Plasma by Immunoassay HIV 1/2 COMBO WITH REFLEX TO DIFFERENTIATION Lab Routine Encounter for supervision of high risk in first trimester, antepartum with uncertain dates in first trimester Expected: 02/13/2024, Expires: 05/14/2024 [facility] Comment on above: Expected: 02/13/2024 , Expires: 05/14/2024 Start: 02-13-2024 End: 02-12-2025 NUCHAL TRANSLUCENCY WHI NUCHAL TRANSLUCENCY WHI Anc Imaging Routine Encounter for supervision of high risk in first trimester, antepartum with uncertain dates in first trimester 7 weeks gestation of Expected: 02/13/2024, Expires: 02/12/2025 [facility] Comment on above: Expected: 02/13/2024 , Expires: 02/12/2025 Start: 02-13-2024 End: 05-14-2024 RUBELLA IGG ANTIBODY RUBELLA IGG ANTIBODY Lab Routine Encounter for supervision of high risk in first trimester, antepartum with uncertain dates in first trimester Expected: 02/13/2024, Expires: 05/14/2024 [facility] Comment on above: Expected: 02/13/2024 , Expires: 05/14/2024 Start: 02-13-2024 End: 05-14-2024 SYPHILIS TREPONEMAL W/REFLEX SYPHILIS TREPONEMAL W/REFLEX Lab Routine Encounter for supervision of high risk in first trimester, antepartum with uncertain dates in first trimester Expected: 02/13/2024, Expires: 05/14/2024 [facility] Comment on above: Expected: 02/13/2024 , Expires: 05/14/2024 Start: 02-13-2024 End: 05-14-2024 TYPE + SCREEN TYPE + SCREEN Blood Bank Routine Encounter for supervision of high risk in first trimester, antepartum with uncertain dates in first trimester Expected: 02/13/2024, Expires: 05/14/2024 [facility] Comment on above: Expected: 02/13/2024 , Expires: 05/14/2024 Start: 02-13-2024 End: 02-13-2024 Patient encounter procedure 02/13/2024 11:00 AM EST Initial Office Visit OB/Gynecology [address] [place], [place] [id number] Aj Poole APRN.LAP MAKER [address] [place] [address] New OB OB/Gynecology Comment on above: New OB Start: 10-30-2023 Covid-19 Vaccine ( season) Covid-19 Vaccine ( season) [facility] Start: 10-30-2023 Covid-19 Vaccine ( season) Covid-19 Vaccine ( season) [facility] Start: 10-30-2023 Influenza vaccination Influenza Vacc ine (#1) [facility] Start: 02-28-2023 Depression Assessment Depression Ass essment [facility] Start: 10-29-2022 Covid-19 Vaccine ( season) Covid-19 Vacc[address] () [facility] Start: 10-29-2022 Influenza vaccination [facility] Start: 02-28-2022 DEPRESSION ASSESSMENT DEPRESSION ASS ESSMENT [facility] Start: 10-29-2021 Influenza vaccination INFLUENZA (#1) [facility] Start: 02-28-2021 DEPRESSION ASSESSMENT DEPRESSION ASS ESSMENT [facility] Start: 12-11-2020 CHLAMYDIA SCREENING (18-24) CHLAMYDIA SCREENING (18-24) [facility] Start: 12-11-2020 GC (GONORRHEA) SCREENING (18-24) GC (GONORRHEA) SCREENING (18-24) [facility] Start: 12-11-2020 Screening for Chlamy faye trachomatis Chlamydia Screening (18-) [facility] Start: 10-22-2020 COVID-19 VACCINE (3 - Booster for Pfizer series) COVID-19 VACCINE (3 - Booster for Pfizer series) [facility] Start: 05-12-2020 PAP TESTING PAP TESTING [facility] Start: 05-12-2020 Screening for malign ant neoplasm of cervix [facility] Start: 07-19-2017 HPV Vaccine (2 - 3-d ose series) HPV Vaccine (2 - 3-dose series) [facility] Start: 05-12-2017 Anxiety Screening Anxiety Screening [facility] Start: 05-12-2017 Depression Screening Depression Scre ening [facility] Start: 12-21-2016 MENINGOCOCCAL B: Consider based on risk (2 of 2 - Risk Bexsero 2-dose series) MENINGOCOCCAL B: Consider based on risk (2 of 2 - Risk Bexsero 2-dose series) [facility] Start: 05-12-2013 PEDS TO ADULT TRANSITION ANNUAL ASSESSMENT PEDS TO ADULT TRANSITION ANNUAL ASSESSMENT [facility] Start: 2011 PEDS TO ADULT TRANSITION INITIAL DISCUSSION PEDS TO ADULT TRANSITION INITIAL DISCUSSION [facility] Start: 05-12-2010 HPV VACCINE (1 - 2-d ose series) HPV VACCINE (1 - 2-dose series) [facility] Bacteria identified in Urine by Culture URINE CULTURE Microbiology Routine Encounter for supervision of high risk in first trimester, antepartum with uncertain dates in first trimester 02/13/2024 11:[address] [facility] Chlamydia trachomatis+Neisseria gonorrhoeae DNA [Presence] in Unspecified specimen by NABILA with probe detection GONORRHEA/CHLAMYDIA NAAT Lab Routine Encounter for supervision of high risk in first trimester, antepartum with uncertain dates in first trimester 02/13/2024 11:[address] [facility] End: 12-14-2023 Choriogonadotropin.beta subunit [Units/volume] in Serum or Plasma HCG QUANTITATIVE Lab Routine Spotting in early 2x per week for 2 Occurrences starting 11/14/2023 until 12/14/[address] [facility] Work Phone: Comment on above: 2x per week for 2 Oc currences starting 11/14/2023 until 12/14/2023 End: 10-03-2024 nonstress test NON-STRESS TEST Procedures Routine 30 weeks gestation of (HCC) Obesity affecting in third trimester, unspecified obesity type (HCC) Once per week for 3 Occurrences starting 07/30/2024 until 10/03/[address] [facility] Work Phone: Comment on above: Once per week for 3 Occurrences starting 07/30/2024 until 10/03/2024 NEXPLANON REMOVAL NEXPLANON FREIDA SHAYY Procedures Routine Breakthrough bleeding on Nexplanon General counseling and advice for contraceptive management Ordered: 01/27/[address] [facility] Work Phone: Comment on above: Ordered: 01/27/2022 End: 10-12-2024 OBSTETRIC ULTRASOUND WHI OBSTETRIC ULTRASOUND [facility] Anc Imaging Routine 12 weeks gestation of Encounter for supervision of high risk in first trimester, antepartum screening encounter Maternal obesity 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 BMI 38.0-38.9,adult Once per month for 8 Occurrences starting 03/26/2024 until 10/12/[address] [facility] Work Phone: Comment on above: Once per month for 8 Occurrences starting 03/26/2024 until 10/12/2024 End: 10-08-2024 OBSTETRIC ULTRASOUND WHI OBSTETRIC ULTRASOUND [facility] Anc Imaging Routine 28 weeks gestation of (HCC) Supervision of high risk in third trimester (HCC) Obesity affecting in third trimester, unspecified obesity type (HCC) Once per month for 2 Occurrences starting 07/16/2024 until 10/08/[address] [facility] Work Phone: Comment on above: Once per month for 2 Occurrences starting 07/16/2024 until 10/08/2024 PAP TEST PAP TEST Lab Ren centeno Encounter for supervision of high risk in first trimester, antepartum with uncertain dates in first trimester 02/13/2024 11:55 AM COLEMAN [facility] Immunizations Immunization Date Immunization Notes Care Provider Fa alvaro 07-30-2024 tetanus toxoid, redu aleida diphtheria toxoid, and acellular pertussis vaccine, adsorbed Veronique Jones MD Work Phone: [facility] 11-21-2019 influenza, injectabl e, quadrivalent, contains preservative Alpa Rios APRN.[facility] Work Phone: [facility] Work Phone: 11-21-2019 influenza virus vacc ine, unspecified formulation [facility] Work Phone: [facility] 09-17-2019 tetanus toxoid, redu aleida diphtheria toxoid, and acellular pertussis vaccine, adsorbed Alpa Rios APRN.[facility] Work Phone: [facility] Work Phone: 11-23-2016 meningococcal B vacc ine, recombinant, OMV, adjuvanted Alpa Rios APRN.[facility] Work Phone: [facility] Work Phone: 11-23-2016 meningococcal polysaccharide (groups A, C, Y and W-135) diphtheria toxoid conjugate vaccine (MCV4P) Alpa Rios APRN.[facility] Work Phone: [facility] Work Phone: 11-17-2011 tetanus toxoid, redu aleida diphtheria toxoid, and acellular pertussis vaccine, adsorbed Alpa Rios APRN.[facility] Work Phone: [facility] Work Phone: 06-20-2003 diphtheria, tetanus toxoids and acellular pertussis vaccine, 5 pertussis antigens Alpa Rios APRN.[facility] Work Phone: [facility] Work Phone: 06-20-2003 measles, mumps and rubella virus vaccine Alpa Rios APRN.[facility] Work Phone: [facility] Work Phone: 06-20-2003 poliovirus vaccine, inactivated Alpa Rios APRN.[facility] Work Phone: [facility] Work Phone: 10-08-2002 diphtheria, tetanus toxoids and acellular pertussis vaccine, 5 pertussis antigens Alpa Rios APRN.[facility] Work Phone: [facility] Work Phone: 05-18-2000 haemophilus influenz ae type b vaccine, HbOC conjugate Alpa Rios APRN.[facility] Work Phone: [facility] Work Phone: 05-18-2000 hepatitis B vaccine, pediatric or pediatric/adolescent dosage Alpa Rios ICE CREAM SHOP ASSOCIATE.[facility] Work Phone: [facility] Work Phone: 05-18-2000 measles, mumps and rubella virus vaccine Alpa Rios ICE CREAM SHOP ASSOCIATE.[facility] Work Phone: [facility] Work Phone: 05-18-2000 varicella virus vaccine Alpa Rios APRN.[facility] Work Phone: [facility] Work Phone: 1999 diphtheria, tetanus toxoids and acellular pertussis vaccine, 5 pertussis antigens Alpa Rios APRN.[facility] Work Phone: [facility] Work Phone: 1999 poliovirus vaccine, inactivated Alpa Rios ICE CREAM SHOP ASSOCIATE.[facility] Work Phone: [facility] Work Phone: 1999 diphtheria, tetanus toxoids and acellular pertussis vaccine, 5 pertussis antigens Alpa Rios ICE CREAM SHOP ASSOCIATE.LAP MAKER Work Phone: [facility] Work Phone: 1999 haemophilus influenz ae type b vaccine, HbOC conjugate Alpa Rios ICE CREAM SHOP ASSOCIATE.LAP MAKER Work Phone: [facility] Work Phone: 1999 hepatitis B vaccine, pediatric or pediatric/adolescent dosage Alpa [place] ICE CREAM SHOP ASSOCIATE.LAP MAKER Work Phone: [facility] Work Phone: 1999 poliovirus vaccine, inactivated Alpa Rios APRN.L[employer] MAK[employer] Work Phone: [facility] Work Phone: 1999 diphtheria, tetanus toxoids and acellular pertussis vaccine, 5 pertussis antigens Alpa Rios APRN.[employer] MA[employer] Work Phone: [facility] Work Phone: 1999 haemophilus influenz ae type b vaccine, HbOC conjugate Alpa Rios APRN.LAP MAKER Work Phone: [facility] Work Phone: 1999 hepatitis B vaccine, pediatric or pediatric/adolescent dosage Alpa Rios APRN.[employer] MAK[employer] Work Phone: [facility] Work Phone: [id number] poliovirus vaccine, inactivated Alpa Rios APRN.[employer] Work Phone: [facility] Work Phone: Payers Date Payer Category Payer Self-pay 2024 Unknown [id number] 2022 Medicaid [id number] 2019 Medicaid [id number] 2019 Private Health Insurance [id number] 2019 Unknown [id number] Unknown [id number] Social History Date Type Detail Facility Start: 01-27-2022 End: 02-09-2024 Tobacco smoking status NHIS Ex-smoker [facility] Work Phone: Start: 04-12-2016 End: 04-12-2019 History of tobacco use Current smoker [facility] Work Phone: Start: 04-12-2016 End: 04-12-2019 History of tobacco use Cigarette Smoker [facility] Work Phone: Start: 01-27-2022 End: 02-09-2024 Tobacco use and exposure Smokeless tobacco non-user 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 Start: 04-19-2019 History SDOH Financial 2 [facility] Start: 04-19-2019 History SDOH Food Worry 1 [facility] Start: 04-19-[address] [facility] Start: 01-27-2022 Tobacco Comment [facility] Start: 1999 Sex Assigned At Not on file [facility] Start: 05-23-2022 End: 02-09-2024 Alcohol intake Current drinker of alcohol (finding) [facility] Start: 04-20-2022 Alcohol Comment [facility] Start: 03-15-2023 End: 03-21-2023 History of Social function [facility] Start: 03-15-2023 End: 03-21-[address] [facility] How hard is it for y ou to pay for the very basics like food, housing, medical care, and heating Hard [facility] (I/We) worried wheth er (my/our) food would run out before (I/we) got money to buy more. Never true [facility] In the past 12 month s, has lack of transportation kept you from medical appointments or from getting medications? No [facility] Start: 02-13-2024 End: 09-03-2024 Alcoholic beverage intake Ex-drinker (finding) [facility] sylvia Start: 01-11-2024 [facility] Goals Date Patient Goal Desired Activity /State Personal health goal Clinical Notes 04-19-2019 to 09-03-2024 Mariela Velasco MD - 09/03/2024 3:48 PM EDTPrenatal Quick Notes - Mariela Velasco MD - 09/03/2024 3:47 PM EDTPrenatal Quick Notes - Mariela Velasco MD - 09/03/2024 3:47 PM EDT Note Date & Type Note Facility 09-03-2024 Note HNO ID: [id number] Author: MARIELA VELASCO MD Service: ? Author Type: Physician Type: Progress Notes Filed: 09/03/2024 15:49 Note Text: NST SUMMARY PROVIDER ASSESSMENT AND INTERPRETATION Indications for NST: Obesity and Polyhydramnios Baseline: 155 Variability: Moderate Accelerations: Present 15 X 15 Decelerations: None Interpretation: Reactive SIGNATURE: Mairela Velasco MD [facility] 09-03-2024 History of Presen t illness Narrative NST SUMMARY PROVIDER ASSESSMENT AND INTERPRETATION Indications for NST: Obesity and Polyhydramnios Baseline: 155 Variability: Moderate Accelerations: Present 15 X 15 Decelerations: None Interpretation: Reactive SIGNATURE: Mariela Velasco MD documented in this encounter [facility] 09-03-2024 Progress note Formatting of t his note might be different from the original. S: Ramona Zhao is a 24 year old female who presents at 10/03/2024, by Ultrasound for a routine visit. Denies headache, visual changes, chest pain, shortness of breath, vaginal bleeding, leakage of fluid, or dysuria. Feeling well, no complaints. Good movement, No contractions O: See flow sheet Gen: No apparent distress Abd: Gravid, nontender Reactive NST Has growth next week ASSESSMENT/PLAN: 1. 35 weeks gestation of ([facility]) - ICD9: V22.2, ICD10: Z3A.35 (primary diagnosis) - URINE OB DIP B/O 2. Supervision of high risk in third trimester ([facility]) - ICD9: V23.9, ICD10: O09.93 - URINE OB DIP B/O 3. Obesity affecting in third trimester, unspecified obesity type ([facility]) - ICD9: 649.13, ICD10: O99.213 Growth q month and Nsts q week - URINE OB DIP B/O Mariela Velasco MD [facility] 09-03-2024 Miscellaneous Notes S: Ramona Zhao is a 24 year old female who presents at 10/03/2024, by Ultrasound for a routine visit. Denies headache, visual changes, chest pain, shortness of breath, vaginal bleeding, leakage of fluid, or dysuria. Feeling well, no complaints. Good movement, No contractions O: See flow sheet Gen: No apparent distress Abd: Gravid, nontender Reactive NST Has growth next week ASSESSMENT/PLAN: 1. 35 weeks gestation of ([facility]) - ICD9: V22.2, ICD10: Z3A.35 (primary diagnosis) - URINE OB DIP B/O 2. Supervision of high risk in third trimester ([facility]) - ICD9: V23.9, ICD10: O09.93 - URINE OB DIP B/O 3. Obesity affecting in third trimester, unspecified obesity type ([facility]) - ICD9: 649.13, ICD10: O99.213 Growth q month and Nsts q week - URINE OB DIP B/O Mariela Velasco MD documented in this encounter [facility] 09-03-2024 Instructions Yarelis Rider MA - 09/03/2024 1:25 PM EDT SEQUENTIAL SCREENINGS The [facility] offers sequential screenings for women who are interested in screenings for chromosomal abnormalities and certain defects during a . The sequential screen combines ultrasound and blood tests to determine the risk of chromosomal abnormalities, including Down's Syndrome (Trisomy 21) and Trisomy 18, as well as open neural tube defects including spina bifida. Ultrasound examination is performed between 11 weeks and 13 weeks gestational age. Blood tests are drawn after the ultrasound and again later in the between 15 and 21 weeks gestational age. Please let your physician know if you are interested in this testing. It will require an appointment with our utility locate technician. This is not an ultrasound performed by a physician in our office during a routine visit. SIGNS AND SYMPTOMS OF LABOR 1. Contractions every 10 minutes or more often 2. Clear, pink, or brownish fluid (water) leaking from vagina 3. Feeling that baby is pushing down, pressure 4. Low, dull backache 5. Cramps that feel like a period 6. Cramps with or without diarrhea If you notice any of the above symptoms, contact our office at [phone] and ask to speak with a nurse. After hours, you can call doctors registry at [phone] OR call [facility] at [phone] and ask to have the doctor cardiopulmonary technician paged. If you consider this an emergency, dial 9--2 or go to your nearest emergency department. NEED HELP? Are you dealing with a violent or abusive relationship? Are you a victim of rape or sexual assult? Call [facility] ([place]) 24 hour Crisis Hotline: 554.163.3591 or 977-455-2103. MANUAL Your Guide to a Healthy manual is now on-line. Visit [email or web address] to download your free copy documented in this encounter [facility] 08-27-2024 Note HNO ID: [id number] Author: VERONIQUE JONES MD Service: ? Author Type: Physician Type: Progress Notes Filed: 08/27/2024 17:21 Note Text: SW- Pt doing well. Having irregular ctx's. No vb, lof. Good FM PE: Gen- NAD, well appearing Abd- Soft, gravid, NT See flowsheet A/p 34 wk gestation - Accelerated growth: Has 36 week growth US scheduled. Consider section if EFW 5,000 grams or more - Obesity: Scheduled weekly NST's. Cont daily FKC's - RTO 1 wk Veronique Jones DO [facility] 08-27-2024 History of Presen t illness Narrative SW- Pt doing well. Having irregular ctx's. No vb, lof. Good FM PE: Gen- NAD, well appearing Abd- Soft, gravid, NT See flowsheet A/p 34 wk gestation - Accelerated growth: Has 36 week growth US scheduled. Consider section if EFW 5,000 grams or more - Obesity: Scheduled weekly NST's. Cont daily FKC's - RTO 1 wk Veronique Jones DO documented in this encounter [facility] 08-27-2024 Progress note Formatting of t his note might be different from the original. SW- No rgular ctx, v,b lkof. Good FM [facility] 08-27-2024 Miscellaneous Notes SW- No rgular ctx, v,b lkof. Good FM documented in this encounter [facility] 08-27-2024 Instructions Chikis Esquivel MA - 08/27/2024 4:12 PM EDT SEQUENTIAL SCREENINGS The [facility] offers sequential screenings for women who are interested in screenings for chromosomal abnormalities and certain defects during a . The sequential screen combines ultrasound and blood tests to determine the risk of chromosomal abnormalities, including Down's Syndrome (Trisomy 21) and Trisomy 18, as well as open neural tube defects including spina bifida. Ultrasound examination is performed between 11 weeks and 13 weeks gestational age. Blood tests are drawn after the ultrasound and again later in the between 15 and 21 weeks gestational age. Please let your physician know if you are interested in this testing. It will require an appointment with our utility locate technician. This is not an ultrasound performed by a physician in our office during a routine visit. SIGNS AND SYMPTOMS OF LABOR 1. Contractions every 10 minutes or more often 2. Clear, pink, or brownish fluid (water) leaking from vagina 3. Feeling that baby is pushing down, pressure 4. Low, dull backache 5. Cramps that feel like a period 6. Cramps with or without diarrhea If you notice any of the above symptoms, contact our office at [phone] and ask to speak with a nurse. After hours, you can call doctors registry at [phone] OR call [facility] at [phone] and ask to have the doctor cardiopulmonary technician paged. If you consider this an emergency, dial 9--1 or go to your nearest emergency department. NEED HELP? Are you dealing with a violent or abusive relationship? Are you a victim of rape or sexual assult? Call [facility] ([place]) 24 hour Crisis Hotline: 684.671.7238 or 014-062-2582. MANUAL Your Guide to a Healthy manual is now on-line. Visit [email or web address] to download your free copy documented in this encounter [facility] 08-13-2024 Note Indication Evaluation of growth Discrepancy between uterine size and clinical dates Impression - Single, live, intrauterine . - presentation is cephalic. - The biometry is ahead of the assigned gestational dating. - The EFW is 2773 g, at the >99%. AC is at the >99%. - The amniotic fluid volume is mild polyhydramnios with an MVP of 7 cm and an WALLY of 24.2 cm. - The placenta is anterior, fundal. - No malformations visualized on a limited survey as detailed below. Recommendations - growth scan every 4 weeks - Additional follow up as clinically indicated. Maternal Assessment Height 160 cm Height (ft) 5 ft Height (in) 3 in Physical Exam Initial weight (lb) 192 lb Initial BMI 34.01 kg/m Maternal assessment other: 4 Para 1 REMOTE READ Method Transabdominal ultrasound examination Lai . Number of fetuses: 1 Dating GA by prior assessment 32 w + 5 d TERRY by prior assessment: 10/03/2024 Ultrasound examination on: 08/13/2024 GA by U/S based upon: AC, BPD, Femur, HC GA by U/S 36 w + 0 d TERRY by U/S: 09/10/2024 Assigned: based on stated TERRY, selected on 08/13/2024 Assigned GA 32 w + 5 d Assigned TERRY: 10/03/2024 General Evaluation Cardiac activity present. FHR 148 bpm. movements: present. Presentation: cephalic Placenta: Placental site: anterior, fundal Umbilical cord: Cord vessels: 3 vessel cord Amniotic fluid: Amount of AF: mild polyhydramnios. MVP 7.0 cm. WALLY 24.2 cm. Q1 4.6 cm, Q2 7.0 cm, Q3 5.9 cm, Q4 6.8 cm Growth Overview Exam date GA BPD (mm) HC (mm) AC (mm) FL (mm) HL (mm) EFW (g) 04/23/2024 16w 5d 39.6 94% 145.1 76% 124.9 89% 26 94% 26.3 96% 215 97% 05/21/2024 20w 5d 52 86% 199.8 87% 169.6 81% 37.9 97% 37 98% 470 96% 08/13/2024 32w 5d 91.4 >99% 329.8 97% 323.7 >99% 66 93% 2773 >99% Biometry Standard BPD 91.4 mm 37w 1d >99% Hadlock OFD 115.4 mm 36w 3d 92% Nicolaides HC 329.8 mm 37w 0d 97% Alka AC 323.7 mm 36w 2d >99% Hadlock Femur 66.0 mm 33w 5d 93% Alka EFW 2,773 g 35w 6d >99% Hadlock EFW (lb) 6 lb EFW (oz) 2 oz EFW by: Hadlock (HC-AC-FL) Extended Interactive Media Project Manager 8.1 mm Extremities / Bony Struc FL / HC 0.20 Other Structures FHR 148 bpm Anatomy Lateral ventricles: normal Cavum septi pellucidi: normal Cerebellum: normal Cisterna magna: normal 4-chamber view: normal RVOT view: normal LVOT view: normal 3-vessel view: normal Heart / Thorax Situs: situs solitus (normal) Diaphragm: normal Stomach: normal Kidneys: normal Bladder: normal sex: male Wants to know sex: yes Performed By: Jessica Mckeon RDMS, RVT Read By: Priscilla De La Cruz M.D. [facility] 08-13-2024 Note HNO ID: [id number] Author: VERONIQUE JONES MD Service: ? Author Type: Physician Type: Progress Notes Filed: 08/13/2024 13:58 Note Text: SW- Some discomfort. No ctx, vb, lof. Good FM PE: Gen- NAD, well appearing See flowsheet A/p 32 wk gestation - Obesity: Growth US today and final report pending. Repeat growth US 4 weeks. NSTs at 36 wks - RTO 2 wks Veronique Jones DO [facility] 08-13-2024 History of Presen t illness Narrative SW- Some discomfort. No ctx, vb, lof. Good FM PE: Gen- NAD, well appearing See flowsheet A/p 32 wk gestation - Obesity: Growth US today and final report pending. Repeat growth US 4 weeks. NSTs at 36 wks - RTO 2 wks Veronique Jones DO documented in this encounter [facility] 08-13-2024 Instructions Yarelis Rider MA - 08/13/2024 1:28 PM EDT SEQUENTIAL SCREENINGS The [facility] offers sequential screenings for women who are interested in screenings for chromosomal abnormalities and certain defects during a . The sequential screen combines ultrasound and blood tests to determine the risk of chromosomal abnormalities, including Down's Syndrome (Trisomy 21) and Trisomy 18, as well as open neural tube defects including spina bifida. Ultrasound examination is performed between 11 weeks and 13 weeks gestational age. Blood tests are drawn after the ultrasound and again later in the between 15 and 21 weeks gestational age. Please let your physician know if you are interested in this testing. It will require an appointment with our utility locate technician. This is not an ultrasound performed by a physician in our office during a routine visit. SIGNS AND SYMPTOMS OF LABOR 1. Contractions every 10 minutes or more often 2. Clear, pink, or brownish fluid (water) leaking from vagina 3. Feeling that baby is pushing down, pressure 4. Low, dull backache 5. Cramps that feel like a period 6. Cramps with or without diarrhea If you notice any of the above symptoms, contact our office at [phone] and ask to speak with a nurse. After hours, you can call doctors registry at [phone] OR call [facility] at [phone] and ask to have the doctor cardiopulmonary technician paged. If you consider this an emergency, dial 9--1 or go to your nearest emergency department. NEED HELP? Are you dealing with a violent or abusive relationship? Are you a victim of rape or sexual assult? Call [facility] ([place]) 24 hour Crisis Hotline: 546.883.8359 or 706-618-5760. MANUAL Your Guide to a Healthy manual is now on-line. Visit [email or web address] to download your free copy documented in this encounter [facility] 07-30-2024 Progress note Formatting of t his note might be different from the original. SW- Some cramping. No vb, lof. Good FM. No urinary or bowel symptoms PE: Gen- NAD, well appearing Abd- Soft, gravid, NT See flowsheet A/p 30 wk gestation - Tdap today - Obesity: Schedule growth US and NST - RTO 2 wks Veronique Jones DO [facility] 07-30-2024 Miscellaneous Notes SW- Some cramping. No vb, lof. Good FM. No urinary or bowel symptoms PE: Gen- NAD, well appearing Abd- Soft, gravid, NT See flowsheet A/p 30 wk gestation - Tdap today - Obesity: Schedule growth US and NST - RTO 2 wks Veronique Jones DO documented in this encounter [facility] 07-30-2024 Note HNO ID: [id number] Author: YARELIS RIDER MA Service: ? Author Type: Business Development Intern Type: Progress Notes Filed: 07/30/2024 15:05 Note Text: Patient identified by name and date of . Ramona Zhao presents today for a vaccination of Tdap. Patient denies an allergy to latex: yes Patient denies a severe (life-threatening) allergy to a previous dose of Tdap, DTP, DTaP, DT or Td vaccine. Yes Patient denies history of epilepsy or neurological problems: Yes Patient is afebrile and denies being moderately or severely ill: Yes Patient denies history of Guillain-Bingham Syndrome (a severe paralytic illness): Yes Tdap Adacel injection was given without incident. See immunizations for details of immunizations administered today. VIS sheet provided: Yes Provider Veronique Jones DO was present in office at time of injection. Yarelis Rider MA [facility] 07-30-2024 History of Presen t illness Narrative Patient identified by name and date of . Ramona Zhao presents today for a vaccination of Tdap. Patient denies an allergy to latex: yes Patient denies a severe (life-threatening) allergy to a previous dose of Tdap, DTP, DTaP, DT or Td vaccine. Yes Patient denies history of epilepsy or neurological problems: Yes Patient is afebrile and denies being moderately or severely ill: Yes Patient denies history of Guillain-Bingham Syndrome (a severe paralytic illness): Yes Tdap Adacel injection was given without incident. See immunizations for details of immunizations administered today. VIS sheet provided: Yes Provider Veronique Jones DO was present in office at time of injection. Yarelis Rider MA documented in this encounter [facility] 07-30-2024 Instructions Yarelis Rider MA - 07/30/2024 2:14 PM EDT SEQUENTIAL SCREENINGS The [facility] offers sequential screenings for women who are interested in screenings for chromosomal abnormalities and certain defects during a . The sequential screen combines ultrasound and blood tests to determine the risk of chromosomal abnormalities, including Down's Syndrome (Trisomy 21) and Trisomy 18, as well as open neural tube defects including spina bifida. Ultrasound examination is performed between 11 weeks and 13 weeks gestational age. Blood tests are drawn after the ultrasound and again later in the between 15 and 21 weeks gestational age. Please let your physician know if you are interested in this testing. It will require an appointment with our utility locate technician. This is not an ultrasound performed by a physician in our office during a routine visit. SIGNS AND SYMPTOMS OF LABOR 1. Contractions every 10 minutes or more often 2. Clear, pink, or brownish fluid (water) leaking from vagina 3. Feeling that baby is pushing down, pressure 4. Low, dull backache 5. Cramps that feel like a period 6. Cramps with or without diarrhea If you notice any of the above symptoms, contact our office at [phone] and ask to speak with a nurse. After hours, you can call doctors registry at [phone] OR call [facility] at [phone] and ask to have the doctor cardiopulmonary technician paged. If you consider this an emergency, dial 9-1-1 or go to your nearest emergency department. NEED HELP? Are you dealing with a violent or abusive relationship? Are you a victim of rape or sexual assult? Call [facility] ([place]) 24 hour Crisis Hotline: 863.229.1344 or 353-160-2974. MANUAL Your Guide to a Healthy manual is now on-line. Visit [email or web address] to download your free copy documented in this encounter [facility] 07-16-2024 Progress note Formatting of t his note might be different from the original. SW- Pt doing well. No ctx, vb, lof. Good FM PE: Gen- NAD, well appearing Abd- Soft, gravid, NT, S>D See flowsheet A/p 28 wk gestation - Discussed Tdap and considering, ask next visit - Declines LARC - 28 wk labs - plan sheet given - Growth US's ordered for obesity - RTO 2 wks Veronique Jones DO [facility] 07-16-2024 Miscellaneous Notes SW- Pt doing well. No ctx, vb, lof. Good FM PE: Gen- NAD, well appearing Abd- Soft, gravid, NT, S>D See flowsheet A/p 28 wk gestation - Discussed Tdap and considering, ask next visit - Declines LARC - 28 wk labs - plan sheet given - Growth US's ordered for obesity - RTO 2 wks Veronique Jones DO documented in this encounter [facility] 07-16-2024 Instructions Yarelis Rider MA - 07/16/2024 2:23 PM EDT SEQUENTIAL SCREENINGS The [facility] offers sequential screenings for women who are interested in screenings for chromosomal abnormalities and certain defects during a . The sequential screen combines ultrasound and blood tests to determine the risk of chromosomal abnormalities, including Down's Syndrome (Trisomy 21) and Trisomy 18, as well as open neural tube defects including spina bifida. Ultrasound examination is performed between 11 weeks and 13 weeks gestational age. Blood tests are drawn after the ultrasound and again later in the between 15 and 21 weeks gestational age. Please let your physician know if you are interested in this testing. It will require an appointment with our utility locate technician. This is not an ultrasound performed by a physician in our office during a routine visit. SIGNS AND SYMPTOMS OF LABOR 1. Contractions every 10 minutes or more often 2. Clear, pink, or brownish fluid (water) leaking from vagina 3. Feeling that baby is pushing down, pressure 4. Low, dull backache 5. Cramps that feel like a period 6. Cramps with or without diarrhea If you notice any of the above symptoms, contact our office at [phone] and ask to speak with a nurse. After hours, you can call doctors registry at [phone] OR call [facility] at [phone] and ask to have the doctor cardiopulmonary technician paged. If you consider this an emergency, dial 9-1-1 or go to your nearest emergency department. NEED HELP? Are you dealing with a violent or abusive relationship? Are you a victim of rape or sexual assult? Call [facility] ([facility] 24 hour Crisis Hotline: 539.700.2816 or 339-876-3577. MANUAL Your Guide to a Healthy manual is now on-line. Visit [email or web address] to download your free copy documented in this encounter [facility] 06-18-2024 Progress note Formatting of t his note might be different from the original. S: Ramona Zhao is a 24 year old female who presents at 10/03/2024, by Ultrasound for a routine visit. Denies headache, visual changes, chest pain, shortness of breath, vaginal bleeding, leakage of fluid, or dysuria. Feeling well, no complaints. Good movement, No contractions O: See flow sheet Gen: No apparent distress Abd: Gravid, nontender GCT next visit Growth q 4 Nsts at 36 weeks ASSESSMENT/PLAN: 1. Screening for diabetes mellitus - ICD9: V77.1, ICD10: Z13.1 (primary diagnosis) - GESTATIONAL GLUCOSE SCREEN, 1-HOUR, 50 GRAM, NON-FASTING 2. 24 weeks gestation of (HCC) - ICD9: V22.2, ICD10: Z3A.24 - SYPHILIS TREPONEMAL W/REFLEX - ANEMIA REFLEX PANEL 3. Supervision of high risk in second trimester ([facility]) - ICD9: V23.9, ICD10: O09.92 - SYPHILIS TREPONEMAL W/REFLEX - ANEMIA REFLEX PANEL Mariela Velasco MD [facility] 06-18-2024 Miscellaneous Notes S: Ramona Zhao is a 24 year old female who presents at 10/03/2024, by Ultrasound for a routine visit. Denies headache, visual changes, chest pain, shortness of breath, vaginal bleeding, leakage of fluid, or dysuria. Feeling well, no complaints. Good movement, No contractions O: See flow sheet Gen: No apparent distress Abd: Gravid, nontender GCT next visit Growth q 4 Nsts at 36 weeks ASSESSMENT/PLAN: 1. Screening for diabetes mellitus - ICD9: V77.1, ICD10: Z13.1 (primary diagnosis) - GESTATIONAL GLUCOSE SCREEN, 1-HOUR, 50 GRAM, NON-FASTING 2. 24 weeks gestation of (HCC) - ICD9: V22.2, ICD10: Z3A.24 - SYPHILIS TREPONEMAL W/REFLEX - ANEMIA REFLEX PANEL 3. Supervision of high risk in second trimester ([facility]) - ICD9: V23.9, ICD10: O09.92 - SYPHILIS TREPONEMAL W/REFLEX - ANEMIA REFLEX PANEL Mariela Velasco MD documented in this encounter [facility] 06-18-2024 Instructions Yarelis Rider MA - 06/18/2024 2:10 PM EDT SEQUENTIAL SCREENINGS The [facility] offers sequential screenings for women who are interested in screenings for chromosomal abnormalities and certain defects during a . The sequential screen combines ultrasound and blood tests to determine the risk of chromosomal abnormalities, including Down's Syndrome (Trisomy 21) and Trisomy 18, as well as open neural tube defects including spina bifida. Ultrasound examination is performed between 11 weeks and 13 weeks gestational age. Blood tests are drawn after the ultrasound and again later in the between 15 and 21 weeks gestational age. Please let your physician know if you are interested in this testing. It will require an appointment with our utility locate technician. This is not an ultrasound performed by a physician in our office during a routine visit. SIGNS AND SYMPTOMS OF LABOR 1. Contractions every 10 minutes or more often 2. Clear, pink, or brownish fluid (water) leaking from vagina 3. Feeling that baby is pushing down, pressure 4. Low, dull backache 5. Cramps that feel like a period 6. Cramps with or without diarrhea If you notice any of the above symptoms, contact our office at [phone] and ask to speak with a nurse. After hours, you can call doctors registry at [phone] OR call [facility] at [phone] and ask to have the doctor cardiopulmonary technician paged. If you consider this an emergency, dial 9-1- or go to your nearest emergency department. NEED HELP? Are you dealing with a violent or abusive relationship? Are you a victim of rape or sexual assult? Call [facility] ([place]) 24 hour Crisis Hotline: 757.904.9526 or 908-306-5162. MANUAL Your Guide to a Healthy manual is now on-line. Visit [email or web address] to download your free copy documented in this encounter [facility] 05-22-2024 Progress note Formatting of t his note might be different from the original. Anatomy ultrasound reviewed. No abnormalities identified. Follow up as clinically indicated. Please place copy in ob chart. Paul Galindo MD [facility] 05-22-2024 Miscellaneous Notes Anatomy ultrasound reviewed. No abnormalities identified. Follow up as clinically indicated. Please place copy in ob chart. Paul Galindo MD documented in this encounter [facility] 05-21-2024 Progress note Formatting of t his note might be different from the original. EH - S: Ramona is a 24 year old female who presents at 20w5d for a routine visit. Feeling movement. Denies headache, visual changes, chest pain, shortness of breath, vaginal bleeding, leakage of fluid, or dysuria. Feeling well, no complaints. O: See flow sheet Gen: No apparent distress Abd: Gravid, nontender, 4 lb TWG ASSESSMENT/PLAN: 1. Supervision of high risk in second trimester - ICD9: V23.9, ICD10: O09.92 (primary diagnosis) - Continue PNV 2. 20 weeks gestation of - ICD9: V22.2, ICD10: Z3A.20 - Anatomy ultrasound today, report pending 3. Obesity affecting in second trimester, unspecified obesity type - ICD9: 649.13, ICD10: O99.212 -Pre BMI 36 - Plan for 32 week growth q 4 weeks. - Weekly NSTs at 36 weeks. PTL precautions reviewed. RTO in 4 weeks or sooner as needed. Aj Poole APRN.LAP MAKER [facility] 05-21-2024 Miscellaneous Notes EH - S: Ramona is a 24 year old female who presents at 20w5d for a routine visit. Feeling movement. Denies headache, visual changes, chest pain, shortness of breath, vaginal bleeding, leakage of fluid, or dysuria. Feeling well, no complaints. O: See flow sheet Gen: No apparent distress Abd: Gravid, nontender, 4 lb TWG ASSESSMENT/PLAN: 1. Supervision of high risk in second trimester - ICD9: V23.9, ICD10: O09.92 (primary diagnosis) - Continue PNV 2. 20 weeks gestation of - ICD9: V22.2, ICD10: Z3A.20 - Anatomy ultrasound today, report pending 3. Obesity affecting in second trimester, unspecified obesity type - ICD9: 649.13, ICD10: O99.212 -Pre BMI 36 - Plan for 32 week growth q 4 weeks. - Weekly NSTs at 36 weeks. PTL precautions reviewed. RTO in 4 weeks or sooner as needed. Aj Poole APRN.LAP MAKER documented in this encounter [facility] 05-21-2024 Instructions Missy Salinas MA - 05/21/2024 2:10 PM EDT SEQUENTIAL SCREENINGS The [facility] offers sequential screenings for women who are interested in screenings for chromosomal abnormalities and certain defects during a . The sequential screen combines ultrasound and blood tests to determine the risk of chromosomal abnormalities, including Down's Syndrome (Trisomy 21) and Trisomy 18, as well as open neural tube defects including spina bifida. Ultrasound examination is performed between 11 weeks and 13 weeks gestational age. Blood tests are drawn after the ultrasound and again later in the between 15 and 21 weeks gestational age. Please let your physician know if you are interested in this testing. It will require an appointment with our utility locate technician. This is not an ultrasound performed by a physician in our office during a routine visit. SIGNS AND SYMPTOMS OF LABOR 1. Contractions every 10 minutes or more often 2. Clear, pink, or brownish fluid (water) leaking from vagina 3. Feeling that baby is pushing down, pressure 4. Low, dull backache 5. Cramps that feel like a period 6. Cramps with or without diarrhea If you notice any of the above symptoms, contact our office at [phone] and ask to speak with a nurse. After hours, you can call doctors registry at [phone] OR call [facility] at [phone] and ask to have the doctor cardiopulmonary technician paged. If you consider this an emergency, dial 9-1-9 or go to your nearest emergency department. NEED HELP? Are you dealing with a violent or abusive relationship? Are you a victim of rape or sexual assult? Call [facility] ([place]) 24 hour Crisis Hotline: 402.208.1493 or 817-492-3535. MANUAL Your Guide to a Healthy manual is now on-line. Visit [email or web address] to download your free copy documented in this encounter [facility] 04-23-2024 Progress note Formatting of t his note might be different from the original. SW- pt doing well. No pain, vb, lof PE: Gen- Nad, well appearing Abd- Soft, NT See flowsheet A/p 16 wk gestation - NOB and NIPT reviewed - Early anatomy US today - RTO 4 wks for 20 week anatomy and visit Veronique Jones DO [facility] 04-23-2024 Miscellaneous Notes SW- pt doing well. No pain, vb, lof PE: Gen- Nad, well appearing Abd- Soft, NT See flowsheet A/p 16 wk gestation - NOB and NIPT reviewed - Early anatomy US today - RTO 4 wks for 20 week anatomy and visit Veronique Jones DO documented in this encounter [facility] 04-23-2024 Instructions Yarelis Rider MA - 04/23/2024 1:58 PM EST SEQUENTIAL SCREENINGS The [facility] offers sequential screenings for women who are interested in screenings for chromosomal abnormalities and certain defects during a . The sequential screen combines ultrasound and blood tests to determine the risk of chromosomal abnormalities, including Down's Syndrome (Trisomy 21) and Trisomy 18, as well as open neural tube defects including spina bifida. Ultrasound examination is performed between 11 weeks and 13 weeks gestational age. Blood tests are drawn after the ultrasound and again later in the between 15 and 21 weeks gestational age. Please let your physician know if you are interested in this testing. It will require an appointment with our utility locate technician. This is not an ultrasound performed by a physician in our office during a routine visit. SIGNS AND SYMPTOMS OF LABOR 1. Contractions every 10 minutes or more often 2. Clear, pink, or brownish fluid (water) leaking from vagina 3. Feeling that baby is pushing down, pressure 4. Low, dull backache 5. Cramps that feel like a period 6. Cramps with or without diarrhea If you notice any of the above symptoms, contact our office at [phone] and ask to speak with a nurse. After hours, you can call doctors registry at [phone] OR call [facility] at [phone] and ask to have the doctor cardiopulmonary technician paged. If you consider this an emergency, dial 1-8 or go to your nearest emergency department. NEED HELP? Are you dealing with a violent or abusive relationship? Are you a victim of rape or sexual assult? Call [facility] ([place]) 24 hour Crisis Hotline: 324.413.5467 or 818-485-6868. MANUAL Your Guide to a Healthy manual is now on-line. Visit [email or web address] to download your free copy documented in this encounter [facility] 04-16-2024 Note HNO ID: [id number] Author: CARA FROST PA-C Service: ? Author Type: Physician Supply Room Clerk Type: Progress Notes Filed: 04/16/2024 11:01 Note Text: This note was created using [employer]. Subjective Ramona Zhao is a 23 year old female. Patient is a 23-year-old female who complains of ongoing loose, productive cough that she has been experiencing for the past 2 weeks. Patient reports no fever, chills or myalgia. Patient denies congestion, sinus pressure, ear pain or sore throat. Patient was seen and evaluated at this facility on 02 April 2024 at which time she was diagnosed with a viral URI. Patient reports that overall she is feeling improved, however she states that her cough has continued to worsen. Patient has no history of asthma or COPD and does not smoke. Patient is currently 13 weeks gestation. Cough Review of Systems Respiratory: Positive for cough. All other systems reviewed and are negative. Objective BP 104/82 Pulse 97 Temp 37.2 ?C (98.9 ?F) Resp 21 Wt 89.5 kg (197 lb 5 oz) LMP 12/20/2023 (Within Days) SpO2 98% BMI 39.83 kg/m? Physical Exam Vitals and nursing note reviewed. Constitutional: Appearance: Normal appearance. She is normal weight. HENT: Head: Normocephalic and atraumatic. Right Ear: Tympanic membrane, ear canal and external ear normal. Left Ear: Tympanic membrane, ear canal and external ear normal. Nose: Nose normal. Mouth/Throat: Mouth: Mucous membranes are moist. Pharynx: Oropharynx is clear. Eyes: Extraocular Movements: Extraocular movements intact. Conjunctiva/sclera: Conjunctivae normal. Pupils: Pupils are equal, round, and reactive to light. Cardiovascular: Rate and Rhythm: Normal rate and regular rhythm. Pulses: Normal pulses. Heart sounds: Normal heart sounds. Pulmonary: Effort: Pulmonary effort is normal. Breath sounds: Rhonchi present. No wheezing. Musculoskeletal: Cervical back: Normal range of motion and neck supple. Skin: General: Skin is warm and dry. Capillary Refill: Capillary refill takes less than 2 seconds. Neurological: General: No focal deficit present. Mental Status: She is alert and oriented to person, place, and time. Psychiatric: Mood and Affect: Mood normal. Behavior: Behavior normal. Thought Content: Thought content normal. Judgment: Judgment normal. Assessment and Plan Physical exam findings as noted above. Patient was provided with a prescription for Zithromax 250 mg and supportive care instructions were discussed. Patient verbalizes clear understanding of same. CLINICAL IMPRESSION: Bronchopneumonia; Persistent Cough ASSESSMENT/PLAN: 1. Bronchopneumonia - ICD9: 485, ICD10: J18.0 (primary diagnosis) - AZITHROMYCIN 250 MG TABLET 2. Persistent cough - ICD9: 786.2, ICD10: R05.3 Cara Frost PA-C [facility] 04-16-2024 History of Presen t illness Narrative This note was created using [employer]. Subjective Ramona Zhao is a 23 year old female. Patient is a 23-year-old female who complains of ongoing loose, productive cough that she has been experiencing for the past 2 weeks. Patient reports no fever, chills or myalgia. Patient denies congestion, sinus pressure, ear pain or sore throat. Patient was seen and evaluated at this facility on 02 April 2024 at which time she was diagnosed with a viral URI. Patient reports that overall she is feeling improved, however she states that her cough has continued to worsen. Patient has no history of asthma or COPD and does not smoke. Patient is currently 13 weeks gestation. Cough Review of Systems Respiratory: Positive for cough. All other systems reviewed and are negative. Objective BP 104/82 Pulse 97 Temp 37.2 C (98.9 F) Resp 21 Wt 89.5 kg (197 lb 5 oz) LMP 12/20/2023 (Within Days) SpO2 98% BMI 39.83 kg/m Physical Exam Vitals and nursing note reviewed. Constitutional: Appearance: Normal appearance. She is normal weight. HENT: Head: Normocephalic and atraumatic. Right Ear: Tympanic membrane, ear canal and external ear normal. Left Ear: Tympanic membrane, ear canal and external ear normal. Nose: Nose normal. Mouth/Throat: Mouth: Mucous membranes are moist. Pharynx: Oropharynx is clear. Eyes: Extraocular Movements: Extraocular movements intact. Conjunctiva/sclera: Conjunctivae normal. Pupils: Pupils are equal, round, and reactive to light. Cardiovascular: Rate and Rhythm: Normal rate and regular rhythm. Pulses: Normal pulses. Heart sounds: Normal heart sounds. Pulmonary: Effort: Pulmonary effort is normal. Breath sounds: Rhonchi present. No wheezing. Musculoskeletal: Cervical back: Normal range of motion and neck supple. Skin: General: Skin is warm and dry. Capillary Refill: Capillary refill takes less than 2 seconds. Neurological: General: No focal deficit present. Mental Status: She is alert and oriented to person, place, and time. Psychiatric: Mood and Affect: Mood normal. Behavior: Behavior normal. Thought Content: Thought content normal. Judgment: Judgment normal. Assessment and Plan Physical exam findings as noted above. Patient was provided with a prescription for Zithromax 250 mg and supportive care instructions were discussed. Patient verbalizes clear understanding of same. CLINICAL IMPRESSION: Bronchopneumonia; Persistent Cough ASSESSMENT/PLAN: 1. Bronchopneumonia - ICD9: 485, ICD10: J18.0 (primary diagnosis) - AZITHROMYCIN 250 MG TABLET 2. Persistent cough - ICD9: 786.2, ICD10: R05.3 Cara Frost PA-C documented in this encounter [facility] 04-02-2024 Note HNO ID: [id number] Author: LIVAN BILLS APRN.LAP MAKER Service: ? Author Type: Nurse Practitioner Type: Progress Notes Filed: 04/02/2024 13:04 Note Text: Subjective HPI Nontoxic-appearing female who is 13 weeks presents urgent care chief complaint sore throat nasal congestion cough fatigue. Duration of symptoms 1 week. Associated symptoms listed above. Presents today for evaluation. OTC medications none. Son sick similar signs symptoms. Denies any fever chest pain shortness of breath hemoptysis pleuritic pain or change in bowel or bladder habits. Past medical history prescription medications allergies reviewed. .Patient presents with: Cough: Cough, congestion and ST x 1 week PAST MEDICAL HISTORY Diagnosis Date Chlamydial infection 11/19/2019 12/12/19-[facility] GC/CT today. Alexandria Schwartz APRN.CNM 11/19/2019 Positive at time of GBS. SW NEGATIVE MEDICAL HISTORY PAST SURGICAL HISTORY Procedure Laterality Date DENTAL SURGERY HX wisdom teeth cut out NEXPLANON INSERTION 12/14/2019 removed 02/05/2022 NEXPLANON REMOVAL ALLERGIES Patient has no known allergies. MEDICATIONS vit no.124/iron/folic ( VITAMIN ORAL) Take 1 tablet by mouth once daily. pyridoxine HCl, vitamin B6, (VITAMIN B-6 ORAL) Take 1 tablet by mouth once daily. FAMILY HISTORY Problem Relation Age of Onset Hypertension Mother No Known Problems Father ADD/ADHD Brother Diabetes Maternal Grandmother Hypertension Maternal Grandmother Thyroid Maternal Grandmother Diabetes Maternal Grandfather Heart Maternal Grandfather Hypertension Maternal Grandfather No Known Problems Paternal Grandmother Diabetes Paternal Grandfather Hypertension Paternal Grandfather Heart Paternal Grandfather Social History Tobacco Use Smoking status: Former Current packs/day: 0.00 Types: Cigarettes Start date: 04/12/2016 Quit date: 04/12/2019 Years since quittin.9 Smokeless tobacco: Never Tobacco comments: Social Vaping Use Vaping status: Former Quit date: 04/12/2019 Substance Use Topics Alcohol use: Not Currently Comment: social Drug use: Not Currently Types: Marijuana Comment: Stopped marijuana 01/20/2024 BP 122/78 Pulse 91 Temp 36.9 ?C (98.4 ?F) (Tympanic) Resp 18 Wt 87.6 kg (193 lb 2 oz) LMP 12/20/2023 (Within Days) SpO2 97% BMI 38.98 kg/m? Review of Systems Constitutional: Negative for chills, fever and malaise/fatigue. HENT: Positive for congestion and sore throat. Negative for ear discharge, ear pain and sinus pain. Eyes: Negative for blurred vision, pain, discharge and redness. Respiratory: Positive for cough. Negative for hemoptysis, sputum production, shortness of breath, wheezing and stridor. Cardiovascular: Negative for chest pain. Gastrointestinal: Negative for abdominal pain, diarrhea, nausea and vomiting. Musculoskeletal: Negative for myalgias. Skin: Negative for itching and rash. Neurological: Positive for headaches. Negative for dizziness. Objective Physical Exam Constitutional: General: She is not in acute distress. Appearance: She is not diaphoretic. HENT: Head: Normocephalic. Jaw: No trismus, tenderness, swelling or pain on movement. Right Ear: Tympanic membrane, ear canal and external ear normal. Left Ear: Tympanic membrane, ear canal and external ear normal. Nose: Congestion present. Mouth/Throat: Mouth: Mucous membranes are moist. Pharynx: Oropharynx is clear. Uvula midline. No pharyngeal swelling, oropharyngeal exudate, posterior oropharyngeal erythema or uvula swelling. Eyes: Conjunctiva/sclera: Conjunctivae normal. Pupils: Pupils are equal, round, and reactive to light. Cardiovascular: Rate and Rhythm: Normal rate and regular rhythm. Heart sounds: Normal heart sounds. Pulmonary: Effort: Pulmonary effort is normal. No tachypnea, accessory muscle usage or respiratory distress. Breath sounds: Normal breath sounds. No stridor. No wheezing, rhonchi or rales. Abdominal: General: There is no distension. Palpations: Abdomen is soft. Tenderness: There is no abdominal tenderness. There is no guarding or rebound. Musculoskeletal: Cervical back: Normal range of motion and neck supple. No edema, erythema, rigidity or tenderness. No pain with movement. Normal range of motion. Lymphadenopathy: Cervical: No cervical adenopathy. Skin: General: Skin is warm and dry. Neurological: Mental Status: She is alert and oriented to person, place, and time. ASSESSMENT/PLAN: 1. Viral illness - ICD9: 079.99, ICD10: B34.9 - Discussed viral etiology and rationale for treatment. - Symptomatic treatment with prn analgesia - Supportive care with fluids and rest No evidence of bacterial infection noted on today's assessment. Patient was educated on supportive therapies. Patient will follow up with primary care provider as needed. Patient was instructed to immediately proceed to emergency room for any (more content not included)... [facility] 04-02-2024 History of Presen t illness Narrative Subjective HPI Nontoxic-appearing female who is 13 weeks presents urgent care chief complaint sore throat nasal congestion cough fatigue. Duration of symptoms 1 week. Associated symptoms listed above. Presents today for evaluation. OTC medications none. Son sick similar signs symptoms. Denies any fever chest pain shortness of breath hemoptysis pleuritic pain or change in bowel or bladder habits. Past medical history prescription medications allergies reviewed. .Patient presents with: Cough: Cough, congestion and ST x 1 week PAST MEDICAL HISTORY Diagnosis Date Chlamydial infection 11/19/2019 12/12/19-[facility] GC/CT today. Alexandria Schwartz APRN.UMA 11/19/2019 Positive at time of GBS. SW NEGATIVE MEDICAL HISTORY PAST SURGICAL HISTORY Procedure Laterality Date DENTAL SURGERY HX wisdom teeth cut out NEXPLANON INSERTION 12/14/2019 removed 02/05/2022 NEXPLANON REMOVAL ALLERGIES Patient has no known allergies. MEDICATIONS vit no.124/iron/folic ( VITAMIN ORAL) Take 1 tablet by mouth once daily. pyridoxine HCl, vitamin B6, (VITAMIN B-6 ORAL) Take 1 tablet by mouth once daily. FAMILY HISTORY Problem Relation Age of Onset Hypertension Mother No Known Problems Father ADD/ADHD Brother Diabetes Maternal Grandmother Hypertension Maternal Grandmother Thyroid Maternal Grandmother Diabetes Maternal Grandfather Heart Maternal Grandfather Hypertension Maternal Grandfather No Known Problems Paternal Grandmother Diabetes Paternal Grandfather Hypertension Paternal Grandfather Heart Paternal Grandfather Social History Tobacco Use Smoking status: Former Current packs/day: 0.00 Types: Cigarettes Start date: 04/12/2016 Quit date: 04/12/2019 Years since quittin.9 Smokeless tobacco: Never Tobacco comments: Social Vaping Use Vaping status: Former Quit date: 04/12/2019 Substance Use Topics Alcohol use: Not Currently Comment: social Drug use: Not Currently Types: Marijuana Comment: Stopped marijuana 01/20/2024 BP 122/78 Pulse 91 Temp 36.9 C (98.4 F) (Tympanic) Resp 18 Wt 87.6 kg (193 lb 2 oz) LMP 12/20/2023 (Within Days) SpO2 97% BMI 38.98 kg/m Review of Systems Constitutional: Negative for chills, fever and malaise/fatigue. HENT: Positive for congestion and sore throat. Negative for ear discharge, ear pain and sinus pain. Eyes: Negative for blurred vision, pain, discharge and redness. Respiratory: Positive for cough. Negative for hemoptysis, sputum production, shortness of breath, wheezing and stridor. Cardiovascular: Negative for chest pain. Gastrointestinal: Negative for abdominal pain, diarrhea, nausea and vomiting. Musculoskeletal: Negative for myalgias. Skin: Negative for itching and rash. Neurological: Positive for headaches. Negative for dizziness. Objective Physical Exam Constitutional: General: She is not in acute distress. Appearance: She is not diaphoretic. HENT: Head: Normocephalic. Jaw: No trismus, tenderness, swelling or pain on movement. Right Ear: Tympanic membrane, ear canal and external ear normal. Left Ear: Tympanic membrane, ear canal and external ear normal. Nose: Congestion present. Mouth/Throat: Mouth: Mucous membranes are moist. Pharynx: Oropharynx is clear. Uvula midline. No pharyngeal swelling, oropharyngeal exudate, posterior oropharyngeal erythema or uvula swelling. Eyes: Conjunctiva/sclera: Conjunctivae normal. Pupils: Pupils are equal, round, and reactive to light. Cardiovascular: Rate and Rhythm: Normal rate and regular rhythm. Heart sounds: Normal heart sounds. Pulmonary: Effort: Pulmonary effort is normal. No tachypnea, accessory muscle usage or respiratory distress. Breath sounds: Normal breath sounds. No stridor. No wheezing, rhonchi or rales. Abdominal: General: There is no distension. Palpations: Abdomen is soft. Tenderness: There is no abdominal tenderness. There is no guarding or rebound. Musculoskeletal: Cervical back: Normal range of motion and neck supple. No edema, erythema, rigidity or tenderness. No pain with movement. Normal range of motion. Lymphadenopathy: Cervical: No cervical adenopathy. Skin: General: Skin is warm and dry. Neurological: Mental Status: She is alert and oriented to person, place, and time. ASSESSMENT/PLAN: 1. Viral illness - ICD9: 079.99, ICD10: B34.9 - Discussed viral etiology and rationale for treatment. - Symptomatic treatment with prn analgesia - Supportive care with fluids and rest No evidence of bacterial infection noted on today's assessment. Patient was educated on supportive therapies. Patient will follow up with primary care provider as needed. Patient was instructed to immediately proceed to emergency room for any new, worsening, or symptoms lasting longer than anticipated. The patient's clinical presentation is otherwise unremarkable at this time. Based on exam and clinical finding, the patient is stable for discharge. Plan of care was discussed with patient. Patient verbalizes understanding and agrees to plan of care. This note was generated using Picmon[employer] software. It may contain errors in wording, punctuation, or spelling. Livan Bills APRN.LAP MAKER documented in this encounter [facility] 03-27-2024 Progress note Formatting of t his note might be different from the original. Anatomy ultrasound reviewed. No abnormalities identified. Follow up as clinically indicated. Please place copy in ob chart. Paul Galindo MD [facility] 03-27-2024 Miscellaneous Notes Anatomy ultrasound reviewed. No abnormalities identified. Follow up as clinically indicated. Please place copy in ob chart. Paul Galindo MD documented in this encounter [facility] 03-26-2024 Progress note Formatting of t his note might be different from the original. RR- VB No. LOF No. CTXS No. Movement: absent. Other c/o: No. Medication list reviewed. SENSITIVE EXAM: Sensitive exam not performed. Physical Exam See Flow Sheet Abd: soft, nontender A/P 12w5d Estimated Date of Delivery: 10/03/24 declines flu/covid vaccine NIPT and PN labs f/u in 4 weeks or prn US today confirs TERRY start ASA prophylaxis obesity- early anatomy US nad 36 week growth scan ASSESSMENT/PLAN: 1. Encounter for supervision of high risk in first trimester, antepartum - ICD9: V23.9, ICD10: O09.91 (primary diagnosis) - OBSTETRIC ULTRASOUND WHI 2. 12 weeks gestation of - ICD9: V22.2, ICD10: Z3A.12 - OBSTETRIC ULTRASOUND WHI 3. screening encounter - ICD9: V28.9, ICD10: Z36.9 - OBSTETRIC ULTRASOUND WHI 4. Maternal obesity 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 - ICD9: 649.13, 278.00, ICD10: O99.211 - OBSTETRIC ULTRASOUND WHI 5. BMI 38.0-38.9,adult - ICD9: V85.38, ICD10: Z68.38 - OBSTETRIC ULTRASOUND WHI MD Paul Linares MD [facility] 03-26-2024 Miscellaneous Notes RR- VB No. LOF No. CTXS No. Movement: absent. Other c/o: No. Medication list reviewed. SENSITIVE EXAM: Sensitive exam not performed. Physical Exam See Flow Sheet Abd: soft, nontender A/P 12w5d Estimated Date of Delivery: 10/03/24 declines flu/covid vaccine NIPT and PN labs f/u in 4 weeks or prn US today confirs TERRY start ASA prophylaxis obesity- early anatomy US nad 36 week growth scan ASSESSMENT/PLAN: 1. Encounter for supervision of high risk in first trimester, antepartum - ICD9: V23.9, ICD10: O09.91 (primary diagnosis) - OBSTETRIC ULTRASOUND WHI 2. 12 weeks gestation of - ICD9: V22.2, ICD10: Z3A.12 - OBSTETRIC ULTRASOUND WHI 3. screening encounter - ICD9: V28.9, ICD10: Z36.9 - OBSTETRIC ULTRASOUND WHI 4. Maternal obesity 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 - ICD9: 649.13, 278.00, ICD10: O99.211 - OBSTETRIC ULTRASOUND WHI 5. BMI 38.0-38.9,adult - ICD9: V85.38, ICD10: Z68.38 - OBSTETRIC ULTRASOUND WHI MD Paul Linares MD documented in this encounter [facility] 03-26-2024 Instructions Keri Waller LPN - 03/26/2024 1:18 PM EST SEQUENTIAL SCREENINGS The [facility] offers sequential screenings for women who are interested in screenings for chromosomal abnormalities and certain defects during a . The sequential screen combines ultrasound and blood tests to determine the risk of chromosomal abnormalities, including Down's Syndrome (Trisomy 21) and Trisomy 18, as well as open neural tube defects including spina bifida. Ultrasound examination is performed between 11 weeks and 13 weeks gestational age. Blood tests are drawn after the ultrasound and again later in the between 15 and 21 weeks gestational age. Please let your physician know if you are interested in this testing. It will require an appointment with our utility locate technician. This is not an ultrasound performed by a physician in our office during a routine visit. SIGNS AND SYMPTOMS OF LABOR 1. Contractions every 10 minutes or more often 2. Clear, pink, or brownish fluid (water) leaking from vagina 3. Feeling that baby is pushing down, pressure 4. Low, dull backache 5. Cramps that feel like a period 6. Cramps with or without diarrhea If you notice any of the above symptoms, contact our office at [phone] and ask to speak with a nurse. After hours, you can call doctors registry at [phone] OR call [facility] at [phone] and ask to have the doctor cardiopulmonary technician paged. If you consider this an emergency, dial 10-29- or go to your nearest emergency department. NEED HELP? Are you dealing with a violent or abusive relationship? Are you a victim of rape or sexual assult? Call [facility] ([place]) 24 hour Crisis Hotline: 666.423.9184 or 321-797-2507. MANUAL Your Guide to a Healthy manual is now on-line. Visit [email or web address] to download your free copy documented in this encounter [facility] 03-20-2024 Progress note Formatting of t his note might be different from the original. NOEMÍ-S: Ramona Zhao is a 23 year old female who presents at 11w6d with TERRY:10/03/2024, by Ultrasound for a routine visit. Denies headache, visual changes, chest pain, shortness of breath, vaginal bleeding, leakage of fluid, or dysuria. Feeling well, no complaints. O: See flow sheet Gen: No apparent distress Abd: nontender ASSESSMENT/PLAN: 1. Encounter for supervision of high risk in first trimester, antepartum -PN labs next visit -First trimester anatomy US scheduled -Reviewed NIPT -Recommend ASA 81mg PO once daily at 12 weeks 2. 10 weeks gestation of 3. Obesity affecting in first trimester, unspecified obesity type -Pregravid BMI 39 -Growth US every 4 weeks starting at 32 wk -NSts weekly starting at 36 weeks PTL precautions reviewed and when to call RTO in 4 weeks Alexandria Schwartz APRN.CNM [facility] Work Phone: 03-20-2024 Miscellaneous Notes NOEMÍ-S: Ramona Zhao is a 23 year old female who presents at 11w6d with TERRY:10/03/2024, by Ultrasound for a routine visit. Denies headache, visual changes, chest pain, shortness of breath, vaginal bleeding, leakage of fluid, or dysuria. Feeling well, no complaints. O: See flow sheet Gen: No apparent distress Abd: nontender ASSESSMENT/PLAN: 1. Encounter for supervision of high risk in first trimester, antepartum -PN labs next visit -First trimester anatomy US scheduled -Reviewed NIPT -Recommend ASA 81mg PO once daily at 12 weeks 2. 10 weeks gestation of 3. Obesity affecting in first trimester, unspecified obesity type -Pregravid BMI 39 -Growth US every 4 weeks starting at 32 wk -NSts weekly starting at 36 weeks PTL precautions reviewed and when to call RTO in 4 weeks Alexandria Schwartz APRN.CNM documented in this encounter [facility] 03-12-2024 Instructions Adam Bethea MA - 03/12/2024 1:15 PM EST SEQUENTIAL SCREENINGS The [facility] offers sequential screenings for women who are interested in screenings for chromosomal abnormalities and certain defects during a . The sequential screen combines ultrasound and blood tests to determine the risk of chromosomal abnormalities, including Down's Syndrome (Trisomy 21) and Trisomy 18, as well as open neural tube defects including spina bifida. Ultrasound examination is performed between 11 weeks and 13 weeks gestational age. Blood tests are drawn after the ultrasound and again later in the between 15 and 21 weeks gestational age. Please let your physician know if you are interested in this testing. It will require an appointment with our utility locate technician. This is not an ultrasound performed by a physician in our office during a routine visit. SIGNS AND SYMPTOMS OF LABOR 1. Contractions every 10 minutes or more often 2. Clear, pink, or brownish fluid (water) leaking from vagina 3. Feeling that baby is pushing down, pressure 4. Low, dull backache 5. Cramps that feel like a period 6. Cramps with or without diarrhea If you notice any of the above symptoms, contact our office at [phone] and ask to speak with a nurse. After hours, you can call doctors registry at [phone] OR call [facility] at [phone] and ask to have the doctor cardiopulmonary technician paged. If you consider this an emergency, dial 9--1 or go to your nearest emergency department. NEED HELP? Are you dealing with a violent or abusive relationship? Are you a victim of rape or sexual assult? Call [facility] ([place]) 24 hour Crisis Hotline: 607.201.2719 or 437-442-8441. MANUAL Your Guide to a Healthy manual is now on-line. Visit [email or web address] to download your free copy documented in this encounter [facility] 02-13-2024 Note HNO ID: [id number] Author: AJ POOLE APRN.LAP MAKER Service: ? Author Type: Nurse Practitioner Type: Progress Notes Filed: 02/13/2024 12:52 Note Text: Dean Of Admissions offered: Patient declines. INITIAL OB ASSESSMENT HPI: Ramona is a 23 year old White here to establish Obstetrical Care. Patient's last menstrual period was 12/20/2023 (within days). from OB Dating Form. was unplanned but accepted Complaints: No OB History T1 L1 SAB2 IAB0 Ectopic0 Multiple0 Live Births1 Previous history: Prior : never History of 4th degree laceration: No History of shoulder dystocia: No History of Hypertensive disorders including pre-eclampsia or gestational hypertension: No History of gestational diabetes: No Patient's Risk Screening for delivery: Have you had a prior lai between 20w and 36w6d? No How many pregnancies have you had before? 3 Did you have a previous baby with a GBS Infection? No Please select all that apply for any prior : N/A MEDICAL/PSYCHOSOCIAL HISTORY: History of hemorrhage or bleeding concerns: No Thyroid Disease: No History of chronic hypertension: No History of pre-existing diabetes: No ABO/RH(D) Date Value Ref Range Status 05/31/2019 O POSITIVE Final BMI 39.57 kg/(m2) Last Pap: History of abnormal pap: No Prior treatment for cervical dysplasia: none. Last HPV: History of STDs: Chlamydia Partner History of STDs: None Did you have a partner with Herpes? No Tobacco use: No E-Cigarette/Vaping Use: No Caffeine use: Yes, 1-2 8 oz cups of coffee daily Drug use: No Alcohol use: No Multivitamin with Folic acid: Yes Would refuse blood transfusion if medically necessary: No Social Needs: How often does this describe you? I don't have enough money to pay my bills: Never Within the past 12 months, have you worried that your food would run out before you had money to buy more? Never In the past 12 months, has lack of reliable transportation kept you from going to medical appointments or work, or from getting things needed for daily living? Never In the past 12 months, have you had any concerns about having a place to live, or about the condition or quality of your housing? Never Would you like more information on any of the following (please check all that apply)? Not interested Social History: Do you have any history of depression, anxiety, PTSD, or other mood problems? No Do you have a history of abuse or trauma that may impact your experience? No Are you currently employed? Yes Depression/Anxiety Screening: denies symptoms of depression. OB Depression and Anxiety Screening- This Encounter (since 02/12/2024) Over the past 2 weeks have you felt down, depressed, or hopeless? Negative Over the past two weeks, have you felt little interest or pleasure in doing things?? Negative Feeling nervous, anxious or on edge 0-Not at all Not being able to stop or control worrying 0-Not al all Anxiety Pre-Screening Total (If >/= 3 additional questions will be reviewed) 0 Genetic Screening: Partner present: Yes Patient verbalized knowledge of partner family health history: Yes Do you or your partner have any personal or family history of defects not previously discussed: No Do you have history of a complicated by anomaly, genetic condition, or demise: No Preeclampsia Risk Screening: Screening for prevention of preeclampsia: High risk factors: None Moderate risk ractors: Obesity (body mass index greater than 30) OB Risk Screening: Completed, no positive findings documented. 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 vit no.124/iron/folic ( VITAMIN ORAL) Take 1 tablet by mouth once daily. No current facility-administered medications for this visit. Allergies As of Date: 02/13/2024 (No Known Allergies) Fully Assessed 02/13/2024 Does patient have penicillin allergy: No REVIEW OF SYSTEMS: GENERAL: Negative for: Fever or Chills HEENT: Negative for: Headache, Impaired Vision, Ringing in Ears, Nosebleeds NECK: Negative for: Swelling, Pain, Stiffness RESPIRATORY: Negative for: Cough, Shortness of breath, Wheezing GASTROINTESTINAL: Negative for: Heartburn, Constipation, Diarrhea, Blood in stool + nausea MUSCULOSKELETAL: Negative for: Muscle or joint pain, stiffness, Joint swelling NEUROLOGIC/PSYCHIATRIC: Negative for: Weakness, Paralysis, Numbness, T (more content not included)... [facility] 02-13-2024 History of Presen t illness Narrative Dean Of Admissions offered: Patient declines. INITIAL OB ASSESSMENT HPI: Ramona is a 23 year old White here to establish Obstetrical Care. Patient's last menstrual period was 12/20/2023 (within days). from OB Dating Form. was unplanned but accepted Complaints: No OB History T1 L1 SAB2 IAB0 Ectopic0 Multiple0 Live Births1 Previous history: Prior : never History of 4th degree laceration: No History of shoulder dystocia: No History of Hypertensive disorders including pre-eclampsia or gestational hypertension: No History of gestational diabetes: No Patient's Risk Screening for delivery: Have you had a prior lai between 20w and 36w6d? No How many pregnancies have you had before? 3 Did you have a previous baby with a GBS Infection? No Please select all that apply for any prior : N/A MEDICAL/PSYCHOSOCIAL HISTORY: History of hemorrhage or bleeding concerns: No Thyroid Disease: No History of chronic hypertension: No History of pre-existing diabetes: No ABO/RH(D) Date Value Ref Range Status 05/31/2019 O POSITIVE Final BMI 39.57 kg/(m^2) Last Pap: History of abnormal pap: No Prior treatment for cervical dysplasia: none. Last HPV: History of STDs: Chlamydia Partner History of STDs: None Did you have a partner with Herpes? No Tobacco use: No E-Cigarette/Vaping Use: No Caffeine use: Yes, 1-2 8 oz cups of coffee daily Drug use: No Alcohol use: No Multivitamin with Folic acid: Yes Would refuse blood transfusion if medically necessary: No Social Needs: How often does this describe you? I don't have enough money to pay my bills: Never Within the past 12 months, have you worried that your food would run out before you had money to buy more? Never In the past 12 months, has lack of reliable transportation kept you from going to medical appointments or work, or from getting things needed for daily living? Never In the past 12 months, have you had any concerns about having a place to live, or about the condition or quality of your housing? Never Would you like more information on any of the following (please check all that apply)? Not interested Social History: Do you have any history of depression, anxiety, PTSD, or other mood problems? No Do you have a history of abuse or trauma that may impact your experience? No Are you currently employed? Yes Depression/Anxiety Screening: denies symptoms of depression. OB Depression and Anxiety Screening- This Encounter (since 02/12/2024) Over the past 2 weeks have you felt down, depressed, or hopeless? Negative Over the past two weeks, have you felt little interest or pleasure in doing things? Negative Feeling nervous, anxious or on edge 0-Not at all Not being able to stop or control worrying 0-Not al all Anxiety Pre-Screening Total (If >/= 3 additional questions will be reviewed) 0 Genetic Screening: Partner present: Yes Patient verbalized knowledge of partner family health history: Yes Do you or your partner have any personal or family history of defects not previously discussed: No Do you have history of a complicated by anomaly, genetic condition, or demise: No Preeclampsia Risk Screening: Screening for prevention of preeclampsia: High risk factors: None Moderate risk ractors: Obesity (body mass index greater than 30) OB Risk Screening: Completed, no positive findings documented. 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 vit no.124/iron/folic ( VITAMIN ORAL) Take 1 tablet by mouth once daily. No current facility-administered medications for this visit. Allergies As of Date: 02/13/2024 (No Known Allergies) Fully Assessed 02/13/2024 Does patient have penicillin allergy: No REVIEW OF SYSTEMS: GENERAL: Negative for: Fever or Chills HEENT: Negative for: Headache, Impaired Vision, Ringing in Ears, Nosebleeds NECK: Negative for: Swelling, Pain, Stiffness RESPIRATORY: Negative for: Cough, Shortness of breath, Wheezing GASTROINTESTINAL: Negative for: Heartburn, Constipation, Diarrhea, Blood in stool + nausea MUSCULOSKELETAL: Negative for: Muscle or joint pain, stiffness, Joint swelling NEUROLOGIC/PSYCHIATRIC: Negative for: Weakness, Paralysis, Numbness, Tingling, Tremor, Anxiety, Depression, Memory loss SKIN: Negative for: Rash, Itching GENITOURINARY: Negative for: vaginal itching, vaginal discharge, hematuria or dysuria SENSITIVE EXAM: The sensitive examination was discussed with the Patient or Patient's Authorized Medical Library Assistant. As applicable, any other physician, advance practice provider, medical student, or other health professional student that will be observing or involved in the sensitive examination for educational or training purposes was discussed with the Patient or Authorized Medical Library Assistant. The Patient or Authorized Medical Library Assistant has agreed to proceed with the sensitive examination. (Sensitive examination includes inspection and/or palpation of the breasts, pelvis, prostate and anorectal regions). PHYSICAL EXAM: BP 112/68 Ht 4' 11.016 (1.50m) Wt 196 lb (88.9kg) LMP 12/20/2023 BMI 39.57 kg/(m^2). GENERAL: pleasant in no apparent distress DERMATOLOGY: Normal, without lesions, non-icteric, and non-hirsute NECK: Supple, full range of motion, no adenopathy, and thyroid normal CHEST: Normal inspiratory effort BREAST: soft, non-tender, symmetric, no dominant mass, normal nipple-areolar complex, no lymphadenopathy, and no nipple discharge ABDOMEN: soft, non-tender, and no masses NEURO: alert and oriented x3,exam grossly non-focal PELVIS: External genitalia normal without lesions. Perineal body intact. No vaginal or cervical lesions. Cervix closed. Uterus <8 week size. No adnexal masses or tenderness. Clinical Pelvimetry: Pelvimetry clinically assessed as adequate Limited OB ultrasound exam: single intrauterine and positive cardiac activity ASSESSMENT: 23 year old at 7w6d wks gestational age PLAN: 1) Patient oriented to practice. Patient given new OB orientation folder. Discussed nutrition, folic acid supplementation, dietary guidelines, exercise, smoking, alcohol, caffeine, and drug use. Discussed gestational weight gain guidelines. Discussed routine OB labs including STD/HIV. Discussed how to access Your guide to a health and the Tufting Supervisor. Discussed hemoglobin electrophoresis. Patient: Accepts Reviewed midwifery and lacquer pin press operator services that are available. 2) Screening: Hemoglobin A1C: ordered Baby Aspirin: The patient has been counseled about the potential benefits of low dose aspirin in and our recommendation that this be offered to all patients, regardless of whether they meet the high risk criteria specified above. She Accepts Aneuploidy Screening: Discussed aneuploidy screening, nuchal translucency/first trimester early anatomy ultrasound and NIPT. The risks/benefits and limitations of NIPT/aneuploidy screening were reviewed including the potential for false negative and false positive results. The availability of genetic counseling was reviewed. Information on aneuploidy screening was provided. The patient chooses to proceed with First trimester early anatomy ultrasound (12-13w6d) Myriad Carrier Screening: Discussed myriad carrier screening. We discussed the availability of professional-society guided carrier screening and reviewed the conditions screened and limitations of screening. The availability of genetic counseling was reviewed. Information on carrier screening was provided. The patient Accepts 3) Patient offered option of Virtual Visits. Patient unsure. May consider in future. ACTIVE PROBLEM LIST Encounter for Supervision of High Risk in First Trimester, Antepartum - 02/13/2024 Comment: Care Checklist Vaccines: [] Flu vaccine [] declined [] RSV vaccine 32 0/7 - 36 6/ (Oct - Mar) [] declined [] COVID vaccine [] declined [] TDaP 27-36 [] declined First trimester: [x] Dating US [] 1st tri labs [x] Pap smear [] Carrier screening [x] declined [] NIPT screening [] declined [x] First trimester anatomy scan [] declined [x] universal ASA ordered (start 12w-16w) [] declined [] M Power Consult [] not indicated [] declined Second trimester: [] Anatomy scan [] Mode of Delivery - [] Feeding - [] Pump ordered [] Diabetes screen [] CBC, RPR [] Behavioral Health Screening Third trimester (- weeks): [] Consent [] Contraception [] Senior Electronics Engineer [] TeamBirth handout Third trimester (36-40 weeks): [] GBS [] Presentation - [] Scheduled [] yes - Hibiclens, pre-op instructions, CBC, T&S ordered [] no [] H&P [] Preferences worksheet [] Scanned in EMR Obesity Affecting in First Trimester - 02/13/2024 Comment: -Pre BMI 39 - Plan for 32 week growth q 4 weeks. - Weekly NSTs at 36 weeks. History of Miscarriage - 02/13/2024 Comment: x2 With Uncertain Dates in First Trimester - 02/13/2024 Comment: February 13, 2024 POCUS not consistent with LMP. Confirm TERRY with nuchal. Aj Poole APRN.LAP MAKER Nausea and Vomiting During - 02/09/2024 Comment: 02/13/24 Improved with Vitamin B6. To notify if prescription is needed. Aj Poole APRN.LAP MAKER Follow up in 4 weeks or sooner prn. Plan for NT scan between 12w0d and 13w6d gestation. Aj Poole APRN.LAP MAKER documented in this encounter [facility] 02-13-2024 Instructions Aj Poole APRN.CNP - 02/13/2024 10:59 AM EST Please select the following link to access the [facility] Your Guide to a Healthy . [email or web address] e MORNING SICKNESS IN by Elaine Conti M.D. for earthmine As you may already know, morning sickness can often be more appropriately called evening sickness or zzjrq-shuush-mr-the-day sickness. While there are the carolann few, most women (50-90%) experience some degree of nausea, some have vomiting, and a few develop a severe form of vomiting during called hyperemesis gravidarum. What causes the nausea and vomiting of ? We can't explain why some people feel fine and others are green for months. Even the same woman may feel vastly different in each . There is some relationship between nausea and the level of the hormone hCG. In twin pregnancies, and in other situations where the hCG is greater than expected, nausea and vomiting tend to be worse. In a destined for miscarriage, hCG levels tend to be low, and nausea is often less severe. This being said, a lack of nausea doesn't guarantee that the is destined for miscarriage. The fact that nausea and vomiting are often signs of a healthy can offer a silver lining in the dark cloud of miserable nausea. How long will the nausea last? Fortunately, for most women, nausea and vomiting are a first trimester event, peaking at week 9-10 and waning by week 14-16. When you are feeling bad the weeks can go by slowly but most moms do feel tremendously better by the middle of the . Whether morning sickness is a brief experience or lasts through most of the , there are treatments that can make the weeks or months more tolerable. What can you do about it? Diet: See what works for you. Try eating bland dry foods, and avoid fatty or spicy foods. It is okay to eat a less than perfectly balanced diet in the first trimester. Have your liquids separately from dry foods. Try sports drinks, water, clear juices, Juan-aid, or non-caffeinated tea. Avoid carbonated beverages that fill up your stomach. Try eating lots of little meals. If you tend to feel sick when you first wake up, leave crackers next to the bed for a quick snack before rising. Keeping healthy snacks with you all day to nibble when you feel queasy can sometimes even prevent nausea from starting. vitamins and nausea: Pre-shira vitamins can sometimes worsen nausea in . While folate is necessary, especially early in the , it comes as a smaller pill that many people find more tolerable than the complete vitamin pill. Ask your practitioner if it is okay to temporarily replace vitamins and iron with just a folate pill if you find a significant worsening in the level of your nausea from the vitamins. Alternative therapies: Acupressure may be used to treat nausea in , and is not known to have any risks for the fetus. Wristbands (marketed for seasickness) that put pressure on an acupressure point at the wrist are often available at drugstores or travel stores. Jennifer root is used for nausea in many traditional cultures. Some women take fresh grated jennifer or jennifer tablets. It is possible that the pill form contains other ingredients or contaminants, so you may want to try fresh jennifer first. Medications: Emetrol is the only nausea medication approved for use in . It is available over the counter and is soothing to the stomach. A prescription medication called Bendectin was available in the -1979's and was shown to be safe in , but the company stopped marketing it in the [place] due to the costs of liability coverage. Bendectin contained 10 milligrams of vitamin B6 and 10 milligrams of Doxylamine. Two tablets were given at bedtime and a total of up to 4 tablets could be used in a 24-hour period. Interestingly, Unisom , which contains a higher dose (25 mg.) of the same medication, Doxylamine, is currently marketed as an oehk-lfk-pnquqrd sleeping pill. Ask your practitioner if creating a vitamin B6/Doxylamine combination with nqhq-xxp-piavupk medications would be safe for you. Prescription medications like Compazine and Phenergan can be used if the benefits outweigh possible risks, but these have not been clearly shown to be safe in . Zofran , an expensive anti-nausea medication often used to treat nausea from chemotherapy, can also be used. Can I throw up so much it harms the baby? The act of vomiting cannot hurt your fetus, which is protected inside the uterus. If you get dehydrated or develop a metabolic imbalance, this can be unhealthy. As long as you can keep down liquids, you and your baby will generally do all right. Eat when you feel able. If you are unable to keep anything down, or if you notice potential signs of dehydration such as lightheadedness, or concentrated and/or infrequent urination, call your practitioner. Some women need brief hospital admission for intravenous fluids and anti-nausea medications if their condition becomes severe. This severe form of nausea and vomiting is called Hyperemesis Gravidarum. As with many symptoms of , remind yourself that this, too, shall pass, and you'll have a wonderful baby to show for it! TREATMENT OPTIONS, SHORT VERSION: Frequent small meals Hydrate throughout day [employer] wrist pressure point applicators Jennifer root (powdered, in capsules) 250mg four times a day Vitamin B6 25 mg tablet three times a day Also may be taken with half a tablet of Unisom three times a day (Doxylamine 12.5 mg) If severe (weight loss, dehydration), call us and come in for IV hydration and possible medication in the form of injections. Prescription medications such as Phenergan, Compazine, Reglan documented in this encounter [facility] 02-09-2024 Instructions Aj Poole APRN.CNP - 02/09/2024 8:53 AM EST MORNING SICKNESS IN by Elaine Conti M.D. for earthmine As you may already know, morning sickness can often be more appropriately called evening sickness or njspk-rvhbeh-vb-the-day sickness. While there are the carolann few, most women (50-90%) experience some degree of nausea, some have vomiting, and a few develop a severe form of vomiting during called hyperemesis gravidarum. What causes the nausea and vomiting of ? We can't explain why some people feel fine and others are green for months. Even the same woman may feel vastly different in each . There is some relationship between nausea and the level of the hormone hCG. In twin pregnancies, and in other situations where the hCG is greater than expected, nausea and vomiting tend to be worse. In a destined for miscarriage, hCG levels tend to be low, and nausea is often less severe. This being said, a lack of nausea doesn't guarantee that the is destined for miscarriage. The fact that nausea and vomiting are often signs of a healthy can offer a silver lining in the dark cloud of miserable nausea. How long will the nausea last? Fortunately, for most women, nausea and vomiting are a first trimester event, peaking at week 9-10 and waning by week 14-16. When you are feeling bad the weeks can go by slowly but most moms do feel tremendously better by the middle of the . Whether morning sickness is a brief experience or lasts through most of the , there are treatments that can make the weeks or months more tolerable. What can you do about it? Diet: See what works for you. Try eating bland dry foods, and avoid fatty or spicy foods. It is okay to eat a less than perfectly balanced diet in the first trimester. Have your liquids separately from dry foods. Try sports drinks, water, clear juices, Juan-aid, or non-caffeinated tea. Avoid carbonated beverages that fill up your stomach. Try eating lots of little meals. If you tend to feel sick when you first wake up, leave crackers next to the bed for a quick snack before rising. Keeping healthy snacks with you all day to nibble when you feel queasy can sometimes even prevent nausea from starting. vitamins and nausea: Pre- vitamins can sometimes worsen nausea in . While folate is necessary, especially early in the , it comes as a smaller pill that many people find more tolerable than the complete vitamin pill. Ask your practitioner if it is okay to temporarily replace vitamins and iron with just a folate pill if you find a significant worsening in the level of your nausea from the vitamins. Alternative therapies: Acupressure may be used to treat nausea in , and is not known to have any risks for the fetus. Wristbands (marketed for seasickness) that put pressure on an acupressure point at the wrist are often available at drugstores or travel stores. Jennifer root is used for nausea in many traditional cultures. Some women take fresh grated jennifer or jennifer tablets. It is possible that the pill form contains other ingredients or contaminants, so you may want to try fresh jennifer first. Medications: Emetrol is the only nausea medication approved for use in . It is available over the counter and is soothing to the stomach. A prescription medication called Bendectin was available in the -1979's and was shown to be safe in , but the company stopped marketing it in the [place] due to the costs of liability coverage. Bendectin contained 10 milligrams of vitamin B6 and 10 milligrams of Doxylamine. Two tablets were given at bedtime and a total of up to 4 tablets could be used in a 24-hour period. Interestingly, Unisom , which contains a higher dose (25 mg.) of the same medication, Doxylamine, is currently marketed as an wkjy-kpx-edytawm sleeping pill. Ask your practitioner if creating a vitamin B6/Doxylamine combination with lvdt-cfx-wzagoos medications would be safe for you. Prescription medications like Compazine and Phenergan can be used if the benefits outweigh possible risks, but these have not been clearly shown to be safe in . Zofran , an expensive anti-nausea medication often used to treat nausea from chemotherapy, can also be used. Can I throw up so much it harms the baby? The act of vomiting cannot hurt your fetus, which is protected inside the uterus. If you get dehydrated or develop a metabolic imbalance, this can be unhealthy. As long as you can keep down liquids, you and your baby will generally do all right. Eat when you feel able. If you are unable to keep anything down, or if you notice potential signs of dehydration such as lightheadedness, or concentrated and/or infrequent urination, call your practitioner. Some women need brief hospital admission for intravenous fluids and anti-nausea medications if their condition becomes severe. This severe form of nausea and vomiting is called Hyperemesis Gravidarum. As with many symptoms of , remind yourself that this, too, shall pass, and you'll have a wonderful baby to show for it! TREATMENT OPTIONS, SHORT VERSION: Frequent small meals Hydrate throughout day [employer]ands wrist pressure point applicators Jennifer root (powdered, in capsules) 250mg four times a day Vitamin B6 25 mg tablet three times a day Also may be taken with half a tablet of Unisom three times a day (Doxylamine 12.5 mg) If severe (weight loss, dehydration), call us and come in for IV hydration and possible medication in the form of injections. Prescription medications such as Phenergan, Compazine, Reglan documented in this encounter [facility] 02-09-2024 Note HNO ID: [id number] Author: AJ POOLE APRN.LAP MAKER Service: ? Author Type: Nurse Practitioner Type: Progress Notes Filed: 02/09/2024 08:58 Note Text: Ramona Zhao is a 23 year old female who presents for problem visit to confirm . HPI: Ramona presents for a confirmation of . She states her LMP was in the end of November but does not remember the exact date - around 12/20. She is taking a vitamin. She is no longer using marijuana or vaping. She is having severe nausea. Using mints and mint tea for some relief. She is able to eat or drink, but has a harder time in the morning. OB History T1 L1 SAB0 IAB0 Ectopic0 Multiple0 Live Births1 Physical Therapist Technician History LMP: 12/20/2023 (Within Days), Having periods Age at Menarche: Age at First : Age at Menopause: Physical Therapist Technician History Comments: Sexual Activity: Yes; Male Contraception: Condom PAST MEDICAL HISTORY Diagnosis Date NEGATIVE MEDICAL HISTORY PAST SURGICAL HISTORY Procedure Laterality Date DENTAL SURGERY HX wisdom teeth cut out NEXPLANON INSERTION 12/14/2019 removed 02/05/2022 FAMILY HISTORY Problem Relation Age of Onset Hypertension Mother No Known Problems Father ADD/ADHD Brother Diabetes Maternal Grandmother Hypertension Maternal Grandmother Thyroid Maternal Grandmother Diabetes Maternal Grandfather Heart Maternal Grandfather Hypertension Maternal Grandfather No Known Problems Paternal Grandmother Diabetes Paternal Grandfather Hypertension Paternal Grandfather Heart Paternal Grandfather Social History Tobacco Use Smoking status: Former Current packs/day: 0.00 Types: Cigarettes Start date: 04/12/2016 Quit date: 04/12/2019 Years since quittin.8 Smokeless tobacco: Never Tobacco comments: Social Vaping Use Vaping status: current everyday user Quit date: 04/12/2019 Substances: Nicotine, THC, CBD, Flavoring Substance Use Topics Alcohol use: Yes Comment: social Drug use: Yes Types: Marijuana No current outpatient medications on file. No current facility-administered medications for this visit. Allergies As of Date: 02/09/2024 (No Known Allergies) Fully Assessed 02/09/2024 REVIEW OF SYSTEMS Expanded ROS: NURSE TECHNICIAN: + UPT Allergies and current medication updated:Yes SENSITIVE EXAM: Sensitive exam not performed. EXAM: BP 114/64 Wt 201 lb (91.2kg) LMP 12/20/2023 GENERAL: pleasant, female in no apparent distress HEENT: Normocephalic, atraumatic, mucus membranes moist, and no lesions CHEST: Normal inspiratory effort NEURO: alert and oriented x3,exam grossly non-focal EXTREMITIES: normal ASSESSMENT AND PLAN: 1. Positive urine test - ICD9: V72.42, ICD10: Z32.01 (primary diagnosis) - Continue PNV - Avoid environmental toxins - Reviewed spotting/light cramping normal, but to notify with anything further - care guide provided via [facility] 2. Nausea and vomiting during - ICD9: 643.90, ICD10: O21.9 Vitamin B6 and Unisom doses reviewed. - To notify if prescription is needed. - Small frequent meals and hydration encouraged - To go to ER if unable to tolerate food/water more than 12-24 hours RTO for new OB visit. Aj Poole APRN.[employer] Medical Decision Making: Problems: Moderate: New problem with uncertain prognosis Data: Unique test(s) ordered: 1 Risk: Low: Low risk from testing/treatment Moderate: Drug management Medical Decision Making Level: 4 - Moderate [facility] 02-09-2024 History of Presen t illness Narrative Ramona Zhao is a 23 year old female who presents for problem visit to confirm . HPI: Ramona presents for a confirmation of . She states her LMP was in the end of November but does not remember the exact date - around 12/20. She is taking a vitamin. She is no longer using marijuana or vaping. She is having severe nausea. Using mints and mint tea for some relief. She is able to eat or drink, but has a harder time in the morning. OB History T1 L1 SAB0 IAB0 Ectopic0 Multiple0 Live Births1 Physical Therapist Technician History LMP: 12/20/2023 (Within Days), Having periods Age at Menarche: Age at First : Age at Menopause: Physical Therapist Technician History Comments: Sexual Activity: Yes; Male Contraception: Condom PAST MEDICAL HISTORY Diagnosis Date NEGATIVE MEDICAL HISTORY PAST SURGICAL HISTORY Procedure Laterality Date DENTAL SURGERY HX wisdom teeth cut out NEXPLANON INSERTION 12/14/2019 removed 02/05/2022 FAMILY HISTORY Problem Relation Age of Onset Hypertension Mother No Known Problems Father ADD/ADHD Brother Diabetes Maternal Grandmother Hypertension Maternal Grandmother Thyroid Maternal Grandmother Diabetes Maternal Grandfather Heart Maternal Grandfather Hypertension Maternal Grandfather No Known Problems Paternal Grandmother Diabetes Paternal Grandfather Hypertension Paternal Grandfather Heart Paternal Grandfather Social History Tobacco Use Smoking status: Former Current packs/day: 0.00 Types: Cigarettes Start date: 04/12/2016 Quit date: 04/12/2019 Years since quittin.8 Smokeless tobacco: Never Tobacco comments: Social Vaping Use Vaping status: current everyday user Quit date: 04/12/2019 Substances: Nicotine, THC, CBD, Flavoring Substance Use Topics Alcohol use: Yes Comment: social Drug use: Yes Types: Marijuana No current outpatient medications on file. No current facility-administered medications for this visit. Allergies As of Date: 02/09/2024 (No Known Allergies) Fully Assessed 02/09/2024 REVIEW OF SYSTEMS Expanded ROS: NURSE TECHNICIAN: + UPT Allergies and current medication updated:Yes SENSITIVE EXAM: Sensitive exam not performed. EXAM: BP 114/64 Wt 201 lb (91.2kg) LMP 12/20/2023 GENERAL: pleasant, female in no apparent distress HEENT: Normocephalic, atraumatic, mucus membranes moist, and no lesions CHEST: Normal inspiratory effort NEURO: alert and oriented x3,exam grossly non-focal EXTREMITIES: normal ASSESSMENT AND PLAN: 1. Positive urine test - ICD9: V72.42, ICD10: Z32.01 (primary diagnosis) - Continue PNV - Avoid environmental toxins - Reviewed spotting/light cramping normal, but to notify with anything further - [facility] 2. Nausea and vomiting during - ICD9: 643.90, ICD10: O21.9 Vitamin B6 and Unisom doses reviewed. - To notify if prescription is needed. - Small frequent meals and hydration encouraged - To go to ER if unable to tolerate food/water more than 12-24 hours RTO for new OB visit. Aj Poole APRN.CNP Medical Decision Making: Problems: Moderate: New problem with uncertain prognosis Data: Unique test(s) ordered: 1 Risk: Low: Low risk from testing/treatment Moderate: Drug management Medical Decision Making Level: 4 - Moderate documented in this encounter [facility] 11-14-2023 Note HNO ID: [id number] Author: AJ POOLE APRN.LAP MAKER Service: ? Author Type: Nurse Practitioner Type: Progress Notes Filed: 11/14/2023 15:52 Note Text: OGI VIRTUAL VISIT Virtual limitations reviewed with patient, as well as possible need to travel to have diagnostic services. Patient voiced understanding. Patient seen on MyChart Zoom Video Visit platform. Location of patient: [place] I have communicated my name and active licensure. The patient's identity and physical location were verified at the time of this visit. Either the patient or their legal safety representative has been informed of the risks and benefits of -- and alternatives to -- treatment through a remote evaluation and consents to proceed with the evaluation remotely. CC: Bleeding with early HPI: Ramona had a positive test on 11/11/23. LMP was beginning of September. She started having bleeding 2 days ago. Reports bleeding was heavier - used 2 Super tampons within 8 hours. Bleeding is now light. Denies lightheadedness or dizziness. Some slight cramping initially, but none at this time. ROS: NURSE TECHNICIAN: + bleeding early PE General: well appearing 23 year old female in no apparent distress Neuro: Alert and Oriented x3 Psych: Mood normal, affect normal, speech non pressured ASSESSMENT/PLAN: 1. Bleeding in early - ICD9: 640.90, ICD10: O20.9 - Discussed likely early loss - Recommend obtaining quant - Consider ultrasound based on HCG - Pain and bleeding precautions reviewed - HCG QUANTITATIVE RTO after lab to discuss attempting again vs contraception, answer any questions, etc. Aj Poole APRN.[facility] Medical Decision Making: Problems: Low: Acute, uncomplicated illness or injury Data: Unique test(s) ordered: 3+ Risk: Minimal: Minimal risk from testing/treatment Medical Decision Making Level: 3 - Low [facility] 11-14-2023 History of Presen t illness Narrative OGI VIRTUAL VISIT Virtual limitations reviewed with patient, as well as possible need to travel to have diagnostic services. Patient voiced understanding. Patient seen on 24/7 Card Zoom Video Visit platform. Location of patient: [place] I have communicated my name and active licensure. The patient's identity and physical location were verified at the time of this visit. Either the patient or their legal safety representative has been informed of the risks and benefits of -- and alternatives to -- treatment through a remote evaluation and consents to proceed with the evaluation remotely. CC: Bleeding with early HPI: Ramona had a positive test on 11/11/23. LMP was beginning of September. She started having bleeding 2 days ago. Reports bleeding was heavier - used 2 Super tampons within 8 hours. Bleeding is now light. Denies lightheadedness or dizziness. Some slight cramping initially, but none at this time. ROS: NURSE TECHNICIAN: + bleeding early PE General: well appearing 23 year old female in no apparent distress Neuro: Alert and Oriented x3 Psych: Mood normal, affect normal, speech non pressured ASSESSMENT/PLAN: 1. Bleeding in early - ICD9: 640.90, ICD10: O20.9 - Discussed likely early loss - Recommend obtaining quant - Consider ultrasound based on HCG - Pain and bleeding precautions reviewed - HCG QUANTITATIVE RTO after lab to discuss attempting again vs contraception, answer any questions, etc. Aj Poole APRN.CNP Medical Decision Making: Problems: Low: Acute, uncomplicated illness or injury Data: Unique test(s) ordered: 3+ Risk: Minimal: Minimal risk from testing/treatment Medical Decision Making Level: 3 - Low documented in this encounter [facility] 11-14-2023 Telephone encounter Note Patient notified of below and virtual visit scheduled. Jessica Tripp RN [facility] 11-14-2023 Miscellaneous Notes Patient notified of below and virtual visit scheduled. Jessica Tripp RN Left message for patient to call office. Aleja Goode RN Virtual visit this afternoon to discuss- [facility] and [facility] have openings.. Paul Galindo MD Pt called stating + test on 11-11-23. Started bleeding 2 days ago-heavy for about 8 hours with use of tampons.Has been wearing a panty liner since then and continues with spotting. Pt wanting HCG levels drawn. Bleeding precautions reviewed. Armida Quiros RN documented in this encounter [facility] 11-14-2023 Telephone encounter Note Left message for patient to call office. Aleja Goode RN [facility] 11-14-2023 Telephone encounter Note Virtual visit this afternoon to discuss- Sw and [facility] have openings.. Paul Galindo MD [facility] 11-14-2023 Telephone encounter Note Pt called stating + test on 11-11-23. Started bleeding 2 days ago-heavy for about 8 hours with use of tampons.Has been wearing a panty liner since then and continues with spotting. Pt wanting HCG levels drawn. Bleeding precautions reviewed. Armida Quiros RN [facility] 04-21-2023 History of Presen t illness Narrative Chief Complaint Patient presents with: Follow Up HPI Ramona Zhao is a 22 year old female who presents here today for Above Complaints.. Has changed diet to include less greasy foods and more lean proteins. Has noticed improvement in diarrhea. RUQ pain has improved and is only triggered by certain foods Takes imodium 2 mg daily at night Bowels change from dark brown to bright green No black stool Sometimes constipated, sometimes having diarrhea. Heartburn in the mornings, improves with drinking milk Takes Pepcid 20 mg once daily in morning Past medical history, appointments, medications, allergies reviewed. Previous Medical History PAST MEDICAL HISTORY Diagnosis Date NEGATIVE MEDICAL HISTORY Previous Surgical History PAST SURGICAL HISTORY Procedure Laterality Date DENTAL SURGERY HX wisdom teeth cut out NEXPLANON INSERTION 12/14/2019 removed 02/05/2022 Family History FAMILY HISTORY Problem Relation Age of Onset Hypertension Mother No Known Problems Father ADD/ADHD Brother Diabetes Maternal Grandmother Hypertension Maternal Grandmother Thyroid Maternal Grandmother Diabetes Maternal Grandfather Heart Maternal Grandfather Hypertension Maternal Grandfather No Known Problems Paternal Grandmother Diabetes Paternal Grandfather Hypertension Paternal Grandfather Heart Paternal Grandfather Patient Allergies ALLERGIES No Known Allergies Current Medications Current Outpatient Medications on File Prior to Visit Medication Sig famotidine (PEPCID) 20 mg tablet Take 1 tablet by mouth two times a day. loperamide HCl (IMODIUM A-D) 2 mg tab Take 1 tablet by mouth as needed. Initial dose 4 mg, followed by 2 mg after each loose stool; maximum: 16 mg/day. Stop taking when diarrhea is resolved No current facility-administered medications on file prior to visit. Social History Social History Tobacco Use Smoking status: Former Years: 3 Types: Cigarettes Quit date: 04/12/2019 Years since quittin.0 Smokeless tobacco: Never Tobacco comments: Social Vaping Use Vaping Use: current everyday user Quit date: 04/12/2019 Substances: Nicotine, THC, CBD, Flavoring Substance Use Topics Alcohol use: Yes Comment: social Drug use: Yes Types: Marijuana Review of Symptoms REVIEW OF SYSTEMS See HPI EXAM: BP 112/66 Pulse 94 Resp 16 Wt 92.5 kg (204 lb) LMP 03/08/2023 (Approximate) BMI 39.84 kg/m Lungs: Lungs clear to auscultation. No wheezing, rhonchi, rales.. Heart: RRR without murmur, gallop, or rubs. No ectopy. Abdomen: Normal abdominal exam, Abdomen soft, non-tender. Bowel sounds normal. No masses, organomegaly. Health Maintenance List HPV Vaccine(2 - 3-dose series) due on 07/19/2017 Pap Testing Never done GC (Gonorrhea) Screening (18-24) due on 12/11/2020 Chlamydia Screening (18-24) due on 12/11/2020 Influenza Vaccine(1) due on 10/29/2022 Covid-19 Vaccine(3 season) due on 10/29/2022 Depression Assessment Never done DTaP,Tdap,Td Vaccine(8 - Td or Tdap) due on 09/16/2029 Hepatitis B Vaccine Completed Meningococcal B Vaccine: Consider Based On Risk Completed Hepatitis C Screening Completed HIV Screening Completed ASSESSMENT/PLAN: 1. Alternating constipation and diarrhea - ICD9: 787.99, ICD10: R19.8 (primary diagnosis) - CONSULT TO GENERAL SURGERY 2. Gastroesophageal reflux disease without esophagitis - ICD9: 530.81, ICD10: K21.9 - Discussed lifestyle modifications including losing weight, limiting caffeine, no meals three hours before sleep, and head of bed elevation - Begin treatment with Prilosec 20 mg QD - OMEPRAZOLE 20 MG CAPSULE,DELAYED RELEASE E Shannon [employer] ASSOCIATE PROFESSOR OF VIOLIN Student I have personally seen and examined the patient and performed the medical-decision making components. I have reviewed the Advanced Practice Registered Nurse ([employer] CREAM [employer]OP ASSOCIATE) student's documentation and verified the findings in the note as written. Any additions or changes are noted in bold/italics. Vida Drake APRN.[employer]AP MAKER documented in this encounter [facility] 03-31-2023 History of Presen t illness Narrative RADIOLOGY SERVICE PROGRESS NOTE SERVICE DATE: 03/31/2023 SERVICE TIME: 08:00 AM PATIENT IDENTITY VERIFICATION COMPLETED USING TWO (2) STANDARD IDENTIFIERS: Name and Date of confirmed by patient verbally FALL SCREENING: Has the patient had 2 falls in the last year or 1 fall with injury or currently using an Ambulatory Assistive Device (Walker, Cane, Wheelchair, Crutches, etc.)? No PATIENT GENDER DATA: .female : No status: No ALLERGIES: Reviewed and unchanged MEDICATIONS REVIEWED: No PATIENT RELEVANT IMPLANT DATA REVIEWED: Not Applicable PATIENT PRESENTS WITH AN IMPLANTABLE OR ATTACHED DETAILER SCHOOL PHOTOGRAPHS: N/A CREATININE: Creatinine Date Value Ref Range Status 03/14/2023 0.69 0.58 - 0.96 mg/dL Final 05/23/2022 0.69 0.58 - 0.96 mg/dL Final 07/09/2021 0.69 0.58 - 0.96 mg/dL Final Estimated Glomerular Filtration Rate Date Value Ref Range Status 03/14/2023 125 >=60 mL/min/1.73m Final Comment: Estimated Glomerular Filtration Rate (eGFR) is calculated using the 2020 CKD-EPI creatinine equation. This equation utilizes serum creatinine, sex, and age as parameters. The creatinine assay has traceable calibration to isotope dilution-mass spectrometry. Refer to KDIGO guidelines for clinical interpretation. In patients with unstable renal function, e.g. those with acute kidney injury, the eGFR may not accurately reflect actual GFR. eGFR- Date Value Ref Range Status 01/31/2020 >60 Final P.O.C.T. RESULTS: N/A March 31, [address] PERFORMED: No IV SITE: Ambulatory: A peripheral IV was started in the Right antecubital site with a Angio cath: 24 gauge. POST EXAM PIV STATUS: Discontinued PROCEDURE TYPE: NM INJECT: Hepatobiliary with Gallbladder EF. 5.8 mCi Tc99m CHOLETEC. CCK 1.85 micrograms intravenous at 09:20. ADMINISTRATION TIME: 08:08 PATIENT DISCHARGED TO: Ambulatory patient, left NM department area. A Diagnostic radioactive procedure has taken place, with no further precautions necessary other than routine body substance precautions. More information regarding radiation safety can be found using this link: [email or web address] SIGNATURE: RT Sincere(Vanessa) PATIENT NAME: Ramona Zhao DATE: March 31, 2023 TIME: 09:50 AM PAGER/CONTACT #: documented in this encounter [facility] 05-30-2022 History of Presen t illness Narrative This is an Express [facility] eVisit note for Ramona Zhao eVisit/Questionnaire reviewed The chief complaint for the visit - Patient presents with: Vaginal Problem Recommendations/Treatment plan - See My Chart Message to patient Patient referred for in person exam d/t pain with urination, vaginal discharge Total time spent on evisit: <5 minutes Lety Murillo APRN.SABINA documented in this encounter [facility] 01-27-2022 Instructions Alpa Rios APRN.CNP - 01/27/2022 7:29 AM EST Oral Contraceptives: The Pill Beginning the Pill Pills come in either a 21 day pack or a 28 day pack. With the 21 day pack you will take one pill for 21 days then no pill for 7 days, during which time you will have what is known as withdrawal bleeding. The 28 day pack allows you to take a pill every day of the cycle with no interruptions. The first 21 pills are the pills with the active ingredients and the last 7 are the nonmedical pills (placebo) or they may contain iron. There will be bleeding during the week you are taking the nonmedical pills. The advantage to the 28 day pack is that you don t have to keep track of when you stopped the pill. There are a group of 28 day pills that contain 24 active pills and only 4 placebo pills. These are formulated to give you a welfare centre manager period. Unless otherwise instructed, you should start your pills the Tuesday following your first day of bleeding with your next period (if your period starts on a Tuesday, you should start pills the same day) Read your information packet that comes with the pills. Pill Benefits The pill is the most popular method of reversible control being used today. Millions of women rely on oral contraceptives as their control method. It is important to have an examination by your physician to determine if the pill is safe for you. There are several advantages associated with the pill: it is 97-98% effective when used correctly; may improve acne; periods are more regular and less painful; there is less iron deficiency anemia in pill users. [facility] use is associated with a decreased incidence of ovarian and uterine cancer. There is also no evidence that the pill increases the incidence of any cancer. How Oral Contraceptives Work Oral contraceptives come in two varieties. One is the combination pill which contains both estrogen and progesterone. Combination pills are considered 98-99% effective in preventing . This pill comes in either monophasic, which delivers the same amount of estrogen and progesterone throughout the cycle; and triphasic, which try tries to mimic the normal hormone cycle by changing the levels of the hormones in the pills during the month. There is no real advantage to taking the one over the other. The other type of pill only contains progesterone. It is best used for women who can t take estrogen. This type of pill is slightly less effective than the combination pill in preventing . It is VERY important to take the progesterone only pill at the same time every day. Oral contraceptives prevent ovulation (release of an egg from the ovary) by suppressing the pituitary gland s action. The pill does NOT prevent sexually transmitted disease. Obtaining a Prescription It is important to see your doctor before starting oral contraceptives so that you can have a full medical history taken and a physical examination given. Certain medical conditions may make the pill inappropriate for you, therefore it is very important to be honest and as complete as possible with the information you share with your doctor. The types of predisposing factors which would make the pill a poor choice of control would include: History of blood clots Stroke Serious liver disease or impaired liver function Unexplained vaginal bleeding or Cancer of the reproductive system Active gall bladder disease Hypertension Possible Side Effects It can take up to three months for your body to become adjusted to the pill. The more common side effects experienced at this time are: breakthrough spotting or bleeding, which is bleeding at any other time other than when you should be having a period; nausea or vomiting; breast tenderness; and mild fluid retention. There is no intermodal owner operator truck driver weight gain with the use of the pill. Breakthrough bleeding is the most common complaint of new pill users. There is no way to predict who will have it and there is no way of preventing it. Breakthrough bleeding usually subsides on its own with no further treatment after the first three months of taking the pill. If these symptoms continue to occur after the first three months you should check with your physician to see if there is any physical cause and possibly change to another control pill. Problems: Missed 1 pill: Take 2 pills the next day. Missed 2 pills: Take 2 pills the next day and 2 pills the following day. Also use another form of control (condoms) along with the pill for the rest of the month. Missed 3 or more pills: You have two choices. You can take two pills each day until you are on schedule, plus use an additional form of control along with the pill for the rest of the month. Or you can stop the pill and start a completely new pack of pills the next Tuesday. You must use another form of control with the pill for at least the first two weeks of the new pack. You re ill and you have been vomiting or have diarrhea: You must use another form of control with the pill since the pill may not be fully absorbed during your illness. Continue to use the added control until the end of the cycle. Desire to become : Stop using the pill for one month before trying to become . Taking other medications: The control pill is less effective when you take the antibiotic Rifampin, epilepsy (seizure) drugs such as phenytoin, carbamazepine, phenobarbital, topiramate and some medications for HIV. Let your doctor know if you start taking any of these medications while on the pill. Symptoms to Notify Your Doctor with Immediately: Pain in your chest or legs Continuous blurred vision Severe headaches Slurred speech Tingling or weakness on one side of your body Shortness of breath Swelling of one leg Refills of Control Pills You need to see a doctor every year for a refill of your prescription. This is necessary in order that your health can be monitored closely while you are taking control pills. If your prescription should before your next scheduled appointment you can usually get a one month extension from your doctors office if you call during regular business hours about one week before you need to start the new package of pills. This allows the physician to refer to your chart for necessary health information. documented in this encounter [facility] 01-27-2022 History of Presen t illness Narrative Dean Of Admissions offered: Patient declines. Ramona Zhao is a 21 year old female who presents for problem visit discuss removal of Nexplanon due to unscheduled bleeding. HPI: Unscheduled bleeding with Nexplanon. Had nexplanon inserted 2 years ago. She would like to discuss different contraception and prefers restarting OCP. OB History T1 L1 SAB0 IAB0 Ectopic0 Multiple0 Live Births1 Physical Therapist Technician History LMP: 04/28/2020, Unknown Age at Menarche: Age at First : Age at Menopause: Physical Therapist Technician History Comments: Sexual Activity: Yes; Male Contraception: Condom PAST MEDICAL HISTORY Diagnosis Date NEGATIVE MEDICAL HISTORY PAST SURGICAL HISTORY Procedure Laterality Date DENTAL SURGERY HX wisdom teeth cut out NEXPLANON INSERTION 12/14/2019 To be removed 12/13/2022 FAMILY HISTORY Problem Relation Age of Onset Hypertension Mother No Known Problems Father ADD/ADHD Brother Diabetes Maternal Grandmother Hypertension Maternal Grandmother Thyroid Maternal Grandmother Diabetes Maternal Grandfather Heart Maternal Grandfather Hypertension Maternal Grandfather No Known Problems Paternal Grandmother Diabetes Paternal Grandfather Hypertension Paternal Grandfather Heart Paternal Grandfather Social History Tobacco Use Smoking status: Some Days Years: 3.00 Types: Cigarettes Last attempt to quit: 04/12/2019 Years since quittin.7 Smokeless tobacco: Never Tobacco comments: Social Vaping Use Vaping Use: Former Quit date: 04/12/2019 Substance Use Topics Alcohol use: No Drug use: No Current Outpatient Medications Medication Sig etonogestrel (NEXPLANON) 68 mg impl subdermal implant 68 mg by SUBDERMAL route. dextromethorphan-guaiFENesin (MUCINEX DM) 30-600 mg per tablet Take 1 tablet by mouth twice daily. (Patient not taking: Reported on 01/27/2022) omeprazole (PRILOSEC) 40 mg capsule Take 1 capsule by mouth once daily. (Patient not taking: Reported on 01/15/2021 ) Reypmogu-Bp-Twa-Fe-FA ( VITAMIN) tab Take 1 tablet by mouth. (Patient not taking: Reported on 01/15/2021 ) No current facility-administered medications for this visit. Allergies As of Date: 01/27/2022 (No Known Allergies) Fully Assessed 01/27/2022 REVIEW OF SYSTEMS Denies family history of clotting disorders. Denies personal history of DVT, CVD, hypertension or migraine with aura. Non smoker. Allergies and current medication updated:Yes EXAM: BP 102/62 Wt 221 lb (100.2kg) LMP 04/28/2020 GENERAL: pleasant, female in no apparent distress CHEST: Normal inspiratory effort NEURO: alert and oriented x3,exam grossly non-focal ASSESSMENT/PLAN: 1. Breakthrough bleeding on Nexplanon - ICD9: 626.6, V45.59, ICD10: N92.1, Z97.5 (primary diagnosis) - NEXPLANON REMOVAL 2. General counseling and advice for contraceptive management - ICD9: V25.09, ICD10: Z30.09 - NEXPLANON REMOVAL - DROSPIRENONE 3 MG-ETHINYL ESTRADIOL 0.02 MG TABLET 3. Encounter for BCP ( control pills) initial prescription - ICD9: V25.01, ICD10: Z30.011 - RX for Loryna given today. She has taken this before with no side effects. - discussed with patient on how to take OCP's. Given written information. - counseled on benefits, risks and possible severe side effects of OCP's. - discussed need to use Condoms to help to prevent STD's including HIV etc. - DROSPIRENONE 3 MG-ETHINYL ESTRADIOL 0.02 MG TABLET Follow-up at Nexplanon removal. Alpa Rios APRN.LAP MAKER Medical Decision Making: Problems: Low: Stable chronic illness Risk: Moderate: Drug management Medical Decision Making Level: 3 - Low documented in this encounter [facility] 04-19-2019 History of Past i llness Narrative Problem Noted Date Resolved Date Abdominal pain in , antepartum 04/19/19 20 04/26/2019 Overview: 04/19/2019 She was seen in [facility] 04/11 for abdominal pain. Was followed with quant HCG's by Dr Flowers. States pain has significantly decreased since last visit.Denies ever having any vaginal bleeding this .TKRN History of streptococcal sore throat 04/19/2019 04/26/2019 Overview: 04/19/2019 Patient was treated for strep throat 04/11 with antibiotic. Discussed importance of finishing all of antibiotic prescribed. TKRN Nausea and vomiting in 04/19/2019 07/26/2019 Overview: 04/19/2019Patient is complaining of nausea and vomiting in . Advised patient to call/come in if she is unable to keep any food or fluids down in a 24-hour period. Patient is complaining of nausea and occasional vomiting in . Dietary considerations discussed . Vitamin B6 recommended. Advised patient to call/come in if she is unable to keep any food or fluids down in a 24-hour period. TKRN Patient request for diagnostic testing 0 07/26/2019 Overview: 04/19/2019Patient desires nuchal ultrasound. Considering genetic carrier screening testing. TKRN Head lice infestation 04/19/2019 07/26/2019 Overview: 04/19/2019 Treated for head lice in Urgent Care. TKRN No known problems 11/25/2016 04/26/2019 documented as of this encounter (statuses as of 01/27/2022) [facility] History of Past illness Narrative* Problem Noted Date Resolved Date Abdominal pain in , antepartum 04/19/19 20 04/26/2019 Overview: 04/19/2019 She was seen in [facility] 04/11 for abdominal pain. Was followed with quant HCG's by Dr Flowers. States pain has significantly decreased since last visit.Denies ever having any vaginal bleeding this .TKRN History of streptococcal sore throat 04/19/2019 04/26/2019 Overview: 04/19/2019 Patient was treated for strep throat 04/11 with antibiotic. Discussed importance of finishing all of antibiotic prescribed. TKRN Nausea and vomiting in 04/19/2019 07/26/2019 Overview: 04/19/2019Patient is complaining of nausea and vomiting in . Advised patient to call/come in if she is unable to keep any food or fluids down in a 24-hour period. Patient is complaining of nausea and occasional vomiting in . Dietary considerations discussed . Vitamin B6 recommended. Advised patient to call/come in if she is unable to keep any food or fluids down in a 24-hour period. TKRN Patient request for diagnostic testing 0 07/26/2019 Overview: 04/19/2019Patient desires nuchal ultrasound. Considering genetic carrier screening testing. TKRN Head lice infestation 04/19/2019 07/26/2019 Overview: 04/19/2019 Treated for head lice in Urgent Care. TKRN No known problems 11/25/2016 04/26/2019 documented as of this encounter (statuses as of 05/30/2022) [facility] History of Past illness Narrative* Problem Noted Date Diagnosed Date Resolved Date Abdominal pain in , antepartum 04/19/2019 04/26/2019 Overview: 04/19/2019 She was seen in [facility] 04/11 for abdominal pain. Was followed with quant HCG's by Dr Flowers. States pain has significantly decreased since last visit.Denies ever having any vaginal bleeding this .TKRN History of streptococcal sore throat 04/19/2019 04/26/2019 Overview: 04/19/2019 Patient was treated for strep throat 04/11 with antibiotic. Discussed importance of finishing all of antibiotic prescribed. TKRN Nausea and vomiting in 04/19/2019 07/26/2019 Overview: 04/19/2019Patient is complaining of nausea and vomiting in . Advised patient to call/come in if she is unable to keep any food or fluids down in a 24-hour period. Patient is complaining of nausea and occasional vomiting in . Dietary considerations discussed . Vitamin B6 recommended. Advised patient to call/come in if she is unable to keep any food or fluids down in a 24-hour period. TKRN Patient request for diagnostic testing 04/19/2019 07/26/2019 Overview: 04/19/2019Patient desires nuchal ultrasound. Considering genetic carrier screening testing. TKRN Head lice infestation 04/19/20192019 Overview: 04/19/2019 Treated for head lice in Urgent Care. TKRN No known problems 11/25/2016 04/26/2019 documented as of this encounter (statuses as of 04/01/2023) [facility] History of Past illness Narrative* Problem Noted Date Diagnosed Date Resolved Date Abdominal pain in , antepartum 04/19/2019 04/26/2019 Overview: 04/19/2019 She was seen in [facility] 04/11 for abdominal pain. Was followed with quant HCG's by Dr Flowers. States pain has significantly decreased since last visit.Denies ever having any vaginal bleeding this .TKRN History of streptococcal sore throat 04/19/2019 04/26/2019 Overview: 04/19/2019 Patient was treated for strep throat 04/11 with antibiotic. Discussed importance of finishing all of antibiotic prescribed. TKRN Nausea and vomiting in 04/19/2019 07/26/2019 Overview: 04/19/2019Patient is complaining of nausea and vomiting in . Advised patient to call/come in if she is unable to keep any food or fluids down in a 24-hour period. Patient is complaining of nausea and occasional vomiting in . Dietary considerations discussed . Vitamin B6 recommended. Advised patient to call/come in if she is unable to keep any food or fluids down in a 24-hour period. TKRN Patient request for diagnostic testing 04/19/2019 07/26/2019 Overview: 04/19/2019Patient desires nuchal ultrasound. Considering genetic carrier screening testing. TKRN Head lice infestation 04/19/20192019 Overview: 04/19/2019 Treated for head lice in Urgent Care. TKRN No known problems 11/25/2016 04/26/2019 documented as of this encounter (statuses as of 04/21/2023) [facility] Diagnosis Breakthrough bleeding on Nexplanon- Primary Metrorrhagia General counseling and advice for contraceptive management Other general counseling and advice for contraceptive management Encounter for BCP ( control pills) initial prescription General counseling for prescription of oral contraceptives documented [facility] Diagnosis Treatment not available- Primary Procedure not carried out for other reasons documented [facility] this [facility] Diagnosis Nausea Nausea alone Epigastric pain Abdominal pain, epigastric documented [facility] this [facility] Diagnosis Alternating constipation and diarrhea- Primary Other symptoms involving digestive system Gastroesophageal reflux disease without esophagitis Esophageal reflux documented [facility] this [facility] Diagnosis Bleeding in early - Primary Unspecified hemorrhage in early , unspecified as to episode of care documented in this encounter [facility] note* Diagnosis Spotting in early - Primary Spotting complicating , antepartum condition or complication documented in this encounter [facility] note* Diagnosis Positive urine test- Primary examination or test, positive result Nausea and vomiting during documented in this encounter [facility] note* Diagnosis Encounter for supervision of high risk in first trimester, antepartum- Primary with uncertain dates in first trimester 7 weeks gestation of state, incidental Obesity affecting in first trimester, unspecified obesity type History of miscarriage Personal history of other genital system and obstetric disorders Nausea and vomiting during [facility]* Diagnosis Encounter for supervision of high risk in first trimester, antepartum- Primary 10 weeks gestation of state, incidental Obesity affecting in first trimester, unspecified obesity type documented in this encounter [facility] note* Diagnosis Encounter for supervision of high risk in first trimester, antepartum- Primary 12 weeks gestation of state, incidental screening encounter Unspecified screening Maternal obesity 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 BMI 38.0-38.9,adult Body Mass Index 38.0-38.9, adult [facility] [place] [facility]* Diagnosis Encounter for screening for malformation using ultrasound- Primary 12 weeks gestation of state, incidental [facility] [place] [facility]* Diagnosis Viral illness- Primary Unspecified viral infection, in conditions classified elsewhere and of unspecified site documented in this encounter [facility] note* Diagnosis Bronchopneumonia- Primary Bronchopneumonia, organism unspecified Persistent cough Cough documented in this encounter [facility] note* Diagnosis Encounter for supervision of high risk in first trimester, antepartum- Primary 16 weeks gestation of state, incidental Maternal obesity 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 [facility] [place] [facility]* Diagnosis Encounter for screening for malformation using ultrasound- Primary Maternal obesity 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 BMI 38.0-38.9,adult Body Mass Index 38.0-38.9, adult 16 weeks gestation of state, incidental documented in this encounter [facility] note* Diagnosis Supervision of high risk in second trimester- Primary Unspecified high-risk 20 weeks gestation of state, incidental Obesity affecting in second trimester, unspecified obesity type documented in this encounter [facility] note* Diagnosis Encounter for anatomic survey- Primary Maternal obesity 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 BMI 38.0-38.9,adult Body Mass Index 38.0-38.9, adult documented in this encounter [facility] note* Diagnosis Screening for diabetes mellitus- Primary 24 weeks gestation of (HCC) state, incidental Supervision of high risk in second trimester (HCC) Unspecified high-risk documented in this encounter [facility] note* Diagnosis Supervision of high risk in third trimester (HCC)- Primary Unspecified high-risk 28 weeks gestation of (HCC) state, incidental Obesity affecting in third trimester, unspecified obesity type (HCC) documented in this encounter [facility] note* Diagnosis Supervision of high risk in third trimester (HCC)- Primary Unspecified high-risk 30 weeks gestation of (HCC) state, incidental Obesity affecting in third trimester, unspecified obesity type (HCC) Need for vaccination Need for prophylactic vaccination and inoculation against unspecified single disease documented in this encounter [facility] note* Diagnosis Maternal obesity 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 (HCC) BMI 38.0-38.9,adult Body Mass Index 38.0-38.9, adult documented in this encounter [facility] note* Diagnosis Supervision of high risk in third trimester (HCC)- Primary Unspecified high-risk 32 weeks gestation of (HCC) state, incidental Obesity affecting in third trimester, unspecified obesity type (HCC) documented in this encounter [facility] note* Diagnosis Supervision of high risk in third trimester (HCC)- Primary Unspecified high-risk Obesity affecting in third trimester, unspecified obesity type (HCC) 34 weeks gestation of (HCC) state, incidental Supervision of high risk in second trimester (HCC) Unspecified high-risk documented in this encounter [facility] note* Diagnosis 35 weeks gestation of (HCC)- Primary state, incidental Supervision of high risk in third trimester (HCC) Unspecified high-risk Obesity affecting in third trimester, unspecified obesity type (HCC) documented in this encounter [facility] for referral (narrative)* Outpatient Procedure (Routine) - Pending Review Specialty Diagnoses / Procedures Referred By Contac t Referred To Contact [facility] Diagnoses Breakthrough bleeding on Nexplanon General counseling and advice for contraceptive management Procedures NEXPLANON REMOVAL REMOVAL NON-BIODEGRADABLE DRUG DELIVERY IMPLANT Alpa Rios APRN.LAP MAKER [address] [place] [address] [address] Referral ID Status Reason Start Date Expiration Date Visits Requested Visits Authorized [id number] Pending Review Auto-Generat ed Referral 2 01/27/2023 1 1 [facility] for referral (narrative)* Diagnostic Procedure Only (Routine) - Closed Specialty Diagnoses / Procedures Referred By Contac t Referred To Contact [facility] Diagnoses Nausea Epigastric pain Procedures NM HEPATOBILIARY W EF AND/OR RX HEPATOBIL SYST IMAG INC GB W/PHARMA INTERVENJ Paola Rea APRN.SUBCONTRACTS MANAGER [address] [place] [address] [facility] [address] [place] [address] Referral ID Status Reason Start Date Expiration Date V isits Requested Visits Authorized [id number] Closed Auto-Generate d Referral 03/21/2023 04/19/2024 1 1 [facility] for referral (narrative)* Diagnostic Procedure Only (Routine) - Pending Review Specialty Diagnoses / Procedures Referred By Contac t Referred To Contact [facility] Diagnoses Encounter for supervision of high risk in first trimester, antepartum with uncertain dates in first trimester 7 weeks gestation of Procedures NUCHAL TRANSLUCENCY WHI US NUCHAL TRANSLUCENCY 1ST GESTATION Aj Poole APRN.LAP MAKER [address] [place] [address] [facility] [address] [place] [address] Referral ID Status Reason Start Date Expiration Date Visits Requested Visits Authorized [id number] Pending Review Auto-Generat ed Referral 02/12/2025 1 1 [facility] Diagnostic Procedure Only (Routine) - Pending Review Specialty Diagnoses / Procedures Referred By Contac t Referred To Contact [facility] Diagnoses 12 weeks gestation of Encounter for supervision of high risk in first trimester, antepartum screening encounter Maternal obesity 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 BMI 38.0-38.9,adult Procedures OBSTETRIC ULTRASOUND WHI US PREG UTERUS AFTER 1ST TRIMEST GESTATION Paul Galindo MD [facility] [place] [address] [facility] [address] [place] [address] Referral ID Status Reason Start Date Expiration Date Visits Requested Visits Authorized [id number] Pending Review Auto-Generat ed Referral 03/26/2024 03/26/2025 8 1 [facility] Summary Purpose Family History No Family History Records FoundNo Family History Records FoundNo Family History Records FoundNo Family History Records FoundNo Family History Records FoundNo Family History Records FoundNo Family History Records FoundNo Family History Records Found Advance Directives No Advanced Directives Records FoundNo Advanced Directives Records FoundNo Advanced Directives Records FoundNo Advanced Directives Records FoundNo Advanced Directives Records FoundNo Advanced Directives Records FoundNo Advanced Directives Records FoundNo Advanced Directives Records Found Reason for Referral Specialty Diagnoses / Procedures Referred By Contac t Referred To Contact General Surgery Diagnoses Alternating constipation and diarrhea Procedures CONSULT TO GENERAL SURGERY OFFICE/OUTPATIENT [facility] 60 MINUTES Vida Drake APRN.CNP [address] [place] [address] Referral ID Status Reason Start Date Expiration Date Visits Requested Visits Authorized [id number] Authorized PCP Requested Referral 04/21/2023 04/20/2024 1 1 Additional Source Comments INFORMATION SOURCE (unrecogn ized section and content) DATE CREATED AUTHOR 05/08/2018 [employer] DATE CREATED AUTHOR AUTHOR'S ORGANIZ ATION 07/20/2018 [facility] DATE CREATED AUTHOR AUTHOR'S ORGANIZ ATION 04/12/2019 [facility] DATE CREATED AUTHOR AUTHOR'S ORGANIZ ATION 07/13/2019 [facility] DATE CREATED AUTHOR AUTHOR'S ORGANIZ ATION 03/15/2023 [facility] [place] DATE CREATED AUTHOR AUTHOR'S ORGANIZ ATION 11/16/2023 [facility] DATE CREATED AUTHOR AUTHOR'S ORGANIZ ATION 05/02/2024 [facility] DATE CREATED AUTHOR AUTHOR'S ORGANIZ ATION 09/07/2024 [facility] Source Comments (unrecognize d section and content) In the event this informatio n is protected by the Federal Confidentiality of Alcohol and Drug Abuse Patient Records regulations: The Federal rules restrict any use of the information to criminally investigate or prosecute any alcohol or drug abuse patient.[facility] the event this information is protected by the Federal Confidentiality of Alcohol and Drug Abuse Patient Records regulations: The Federal rules restrict any use of the information to criminally investigate or prosecute any alcohol or drug abuse patient.[facility] the event this information is protected by the Federal Confidentiality of Alcohol and Drug Abuse Patient Records regulations: The Federal rules restrict any use of the information to criminally investigate or prosecute any alcohol or drug abuse patient.[facility] the event this information is protected by the Federal Confidentiality of Alcohol and Drug Abuse Patient Records regulations: The Federal rules restrict any use of the information to criminally investigate or prosecute any alcohol or drug abuse patient.[facility] the event this information is protected by the Federal Confidentiality of Alcohol and Drug Abuse Patient Records regulations: The Federal rules restrict any use of the information to criminally investigate or prosecute any alcohol or drug abuse patient.[facility] the event this information is protected by the Federal Confidentiality of Alcohol and Drug Abuse Patient Records regulations: The Federal rules restrict any use of the information to criminally investigate or prosecute any alcohol or drug abuse patient.[facility] the event this information is protected by the Federal Confidentiality of Alcohol and Drug Abuse Patient Records regulations: The Federal rules restrict any use of the information to criminally investigate or prosecute any alcohol or drug abuse patient.[facility] the event this information is protected by the Federal Confidentiality of Alcohol and Drug Abuse Patient Records regulations: The Federal rules restrict any use of the information to criminally investigate or prosecute any alcohol or drug abuse patient.[facility] the event this information is protected by the Federal Confidentiality of Alcohol and Drug Abuse Patient Records regulations: The Federal rules restrict any use of the information to criminally investigate or prosecute any alcohol or drug abuse patient.[facility] the event this information is protected by the Federal Confidentiality of Alcohol and Drug Abuse Patient Records regulations: The Federal rules restrict any use of the information to criminally investigate or prosecute any alcohol or drug abuse patient.[facility] the event this information is protected by the Federal Confidentiality of Alcohol and Drug Abuse Patient Records regulations: The Federal rules restrict any use of the information to criminally investigate or prosecute any alcohol or drug abuse patient.[facility] the event this information is protected by the Federal Confidentiality of Alcohol and Drug Abuse Patient Records regulations: The Federal rules restrict any use of the information to criminally investigate or prosecute any alcohol or drug abuse patient.[facility] the event this information is protected by the Federal Confidentiality of Alcohol and Drug Abuse Patient Records regulations: The Federal rules restrict any use of the information to criminally investigate or prosecute any alcohol or drug abuse patient.[facility] the event this information is protected by the Federal Confidentiality of Alcohol and Drug Abuse Patient Records regulations: The Federal rules restrict any use of the information to criminally investigate or prosecute any alcohol or drug abuse patient.[facility] the event this information is protected by the Federal Confidentiality of Alcohol and Drug Abuse Patient Records regulations: The Federal rules restrict any use of the information to criminally investigate or prosecute any alcohol or drug abuse patient.[facility] the event this information is protected by the Federal Confidentiality of Alcohol and Drug Abuse Patient Records regulations: The Federal rules restrict any use of the information to criminally investigate or prosecute any alcohol or drug abuse patient.[facility] the event this information is protected by the Federal Confidentiality of Alcohol and Drug Abuse Patient Records regulations: The Federal rules restrict any use of the information to criminally investigate or prosecute any alcohol or drug abuse patient.[facility] the event this information is protected by the Federal Confidentiality of Alcohol and Drug Abuse Patient Records regulations: The Federal rules restrict any use of the information to criminally investigate or prosecute any alcohol or drug abuse patient.[facility] CampusIn the event this information is protected by the Federal Confidentiality of Alcohol and Drug Abuse Patient Records regulations: The Federal rules restrict any use of the information to criminally investigate or prosecute any alcohol or drug abuse patient.[facility] CampusIn the event this information is protected by the Federal Confidentiality of Alcohol and Drug Abuse Patient Records regulations: The Federal rules restrict any use of the information to criminally investigate or prosecute any alcohol or drug abuse patient.[facility] CampusIn the event this information is protected by the Federal Confidentiality of Alcohol and Drug Abuse Patient Records regulations: The Federal rules restrict any use of the information to criminally investigate or prosecute any alcohol or drug abuse patient.[facility] CampusIn the event this information is protected by the Federal Confidentiality of Alcohol and Drug Abuse Patient Records regulations: The Federal rules restrict any use of the information to criminally investigate or prosecute any alcohol or drug abuse patient.[facility] CampusIn the event this information is protected by the Federal Confidentiality of Alcohol and Drug Abuse Patient Records regulations: The Federal rules restrict any use of the information to criminally investigate or prosecute any alcohol or drug abuse patient.[facility] CampusIn the event this information is protected by the Federal Confidentiality of Alcohol and Drug Abuse Patient Records regulations: The Federal rules restrict any use of the information to criminally investigate or prosecute any alcohol or drug abuse patient.[facility] CampusIn the event this information is protected by the Federal Confidentiality of Alcohol and Drug Abuse Patient Records regulations: The Federal rules restrict any use of the information to criminally investigate or prosecute any alcohol or drug abuse patient.[facility] [place] [facility] Reason for Visit (unrecogniz ed section and content) Reason Comments Contraception Reason Comments Vaginal Problem Reason Comments Radiology NM Specialty Diagnoses / Procedures Referred By Contac t Referred To Contact MOLECULAR & FUNCTIONAL IMAGING Diagnoses Nausea Epigastric pain Procedures NM HEPATOBILIARY W EF AND/OR RX HEPATOBIL SYST IMAG INC GB W/PHARMA INTERVENJ Paola Rea, [employer] SHOP ASSOCIATE.SUBCONTRACTS MANAGER [address] [place] [address] Molecular & Functional Imaging [address] [id number] Referral ID Status Reason Start Date Expiration Date V isits Requested Visits Authorized [id number] Closed Auto-Generate d Referral 03/21/2023 04/19/2024 1 1 Reason Comments Follow Up Reason Comments Vaginal Bleeding Reason Comments Spotting Reason Comments confirmation Reason Comments Initial OB Visit Reason Onset Date Comments Care 03/12/2024 Reason Onset Date Comments Care 03/26/2024 Reason Comments US Specialty Diagnoses / Procedures Referred By Contac t Referred To Contact [facility] Diagnoses Encounter for supervision of high risk in first trimester, antepartum with uncertain dates in first trimester 7 weeks gestation of Procedures NUCHAL TRANSLUCENCY WHI US NUCHAL TRANSLUCENCY 1ST GESTATION Aj Poole APRN.LAP MAKER [address] [place] [phone] [address] [address] Referral ID Status Reason Start Date Expiration Date V isits Requested Visits Authorized [id number] Denied Auto-Generat ed Referral Patient Cleared - Admin/Chairm an/Director advise to proceed or did not respond 02/13/2024 02/12/2025 1 0 Reason Comments Cough Cough, congestion an d ST x 1 week Reason Comments Cough PIZARRO, body aches x 1 d ay Reason Onset Date Comments Care 04/23/2024 Specialty Diagnoses / Procedures Referred By Contac t Referred To Contact [facility] Diagnoses 12 weeks gestation of Encounter for supervision of high risk in first trimester, antepartum screening encounter Maternal obesity 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 BMI 38.0-38.9,adult Procedures OBSTETRIC ULTRASOUND WHI US PREG UTERUS AFTER 1ST TRIMEST GESTATION Paul Galindo MD [address] [place] [address] Phone: tel: fax: [address] [phone] Referral ID Status Reason Start Date Expiration Date Visits Requested Visits Authorized [id number] Authorized Auto-Generat ed Referral 04/05/2024 02/27/2025 20 20 Reason Onset Date Comments Care 05/21/2024 Reason Onset Date Comments Care 06/18/2024 Reason Onset Date Comments Care 07/16/2024 Reason Onset Date Comments Care 07/30/2024 Specialty Diagnoses / Procedures Referred By Noni t Referred To Contact [facility] Diagnoses 12 weeks gestation of ([facility]) Encounter for supervision of high risk in first trimester, antepartum ([facility]) screening encounter ([facility]) Maternal obesity 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 ([facility]) BMI 38.0-38.9,adult Procedures OBSTETRIC ULTRASOUND WHI US PREG UTERUS AFTER 1ST TRIMEST GESTATION Paul Galindo MD [address] [place] [address] Phone: tel: fax: [facility] [address] [place] [address] Reason Onset Date Comments Care 08/13/2024 Reason Onset Date Comments Care 08/27/2024 Reason Onset Date Comments Care 09/03/2024 Care Teams (unrecognized sec tion and content) Medical Administrative Specialist Relationship Specialty Start Date End Date Victor Hugo Solano MD [address] [place], [place] [id number] PCP - General Family Medicine 05/06/20 Medical Administrative Specialist Relationship Specialty Start Date End Date Victor Hugo Solano MD [address] [place], [place] [address] PCP - General Family Medicine 05/06/20 Medical Administrative Specialist Relationship Specialty Start Date End Date Victor Hugo Solano MD [address] [place], [place] [id number] PCP - General Family Medicine 05/06/20 Medical Administrative Specialist Relationship Specialty Start Date End Date Victor Hugo Solano MD [address] [place], [place] [address] PCP - General Family Medicine 05/06/20 Medical Administrative Specialist Relationship Specialty Start Date End Date Victor Hugo Solano MD [address] [facility] [address] PCP - General Family Medicine 05/06/20 Medical Administrative Specialist Relationship Specialty Start Date End Date Victor Hugo Solano MD [address] [facility] [address] PCP - General Family Medicine 05/06/20 Medical Administrative Specialist Relationship Specialty Start Date End Date Victor Hugo Solano MD [address] [facility] [address] PCP - General Family Medicine 05/06/20 Podlogar, ERIC MartinezN.LAP MAKER [address] [facility] [address] [employer] Tech Family [facility] 02/04/24 Medical Administrative Specialist Relationship Specialty Start Date End Date Victor Hugo Solano MD [address] [facility] [address] PCP - General Family Medicine 05/06/20 Podlogar, Michelle, ICE CREAM SHOP ASSOCIATE.LAP MAKER [address] [facility] [address] [employer] Family [facility] 02/04/24 Medical Administrative Specialist Relationship Specialty Start Date End Date Victor Hugo Solano MD [address] [facility] [address] PCP - General Family Medicine 05/06/20 Podlogar, Michelle, ICE CREAM SHOP ASSOCIATE.LAP MAKER [address] [facility] [place] [address] [employer] [facility] 02/04/24 Medical Administrative Specialist Relationship Specialty Start Date End Date Victor Hugo Solano MD [address] [facility] [place] [address] PCP - General Family Medicine 05/06/20 Podlogar, Michelle ICE CREAM SHOP ASSOCIATE.LAP MAKER [address] [facility] [place] [address] [employer] [facility] 02/04/24 Medical Administrative Specialist Relationship Specialty Start Date End Date Victor Hugo Solano MD [address] [facility] [place] [address] PCP - General Family Medicine 05/06/20 Podlogar, Michelle ICE CREAM SHOP ASSOCIATE.LAP MAKER [address] [facility] [address] [employer] 02/04/24 Medical Administrative Specialist Relationship Specialty Start Date End Date Victor Hugo Solano MD [address] [facility] [place] [address] PCP - General Family Medicine 05/06/20 Podlogar, Michelle, ICE CREAM SHOP ASSOCIATE.LAP MAKER [address] [facility] [address] [employer] [facility] 02/04/24 Medical Administrative Specialist Relationship Specialty Start Date End Date Victor Hugo Solano MD [address] [facility] [address] PCP - General Family Medicine 05/06/20 Podlogar, Michelle, ICE CREAM SHOP ASSOCIATE.LAP MAKER [address] [place] [address] [employer] [facility] 02/04/24 Medical Administrative Specialist Relationship Specialty Start Date End Date Victor Hugo Solano MD [address] [place], [place] [address] PCP - General Family Medicine 05/06/20 Podlogar, Michelle ICE CREAM SHOP ASSOCIATE.LAP MAKER [address] [place] [address] [employer] 02/04/24 Medical Administrative Specialist Relationship Specialty Start Date End Date Victor Hugo Solano MD [address] [place] [address] PCP - General Family Medicine 05/06/20 Podlogar, Michelle [employer]AM SHOP ASSOCIATE.LAP MAKER [address] [place] [address] [employer] Tech Family Medicine 02/04/24 Vida Drake ICE CREAM SHOP ASSOCIATE.LAP MAKER [address] [place] [address] [facility] 05/21/24 Medical Administrative Specialist Relationship Specialty Start Date End Date Victor Hugo Solano MD [address] [place] [address] PCP - General Family Medicine 05/06/20 Podlogar, Michelle, ICE CREAM SHOP ASSOCIATE.LAP MAKER [address] [place] [address] [facility] Medicine 02/04/24 Vida Drake APRN.LAP MAKER [address] [place] [address] [employer] Family Medicine 05/21/24 Medical Administrative Specialist Relationship Specialty Start Date End Date Victor Hugo Solano MD [address] [facility] [place] [address] PCP - General Family Medicine 05/06/20 PodlogarMichelle ICE CREAM SHOP ASSOCIATE.LAP MAKER [address] [facility] [address] [employer] Family Medicine 02/04/24 Vida Drake ICE CREAM SHOP ASSOCIATE.LAP MAKER [address] [place] [address] [employer] Family Medicine 05/21/24 Medical Administrative Specialist Relationship Specialty Start Date End Date Victor Hugo Solano MD [address] [facility] [address] PCP - General Family Medicine 05/06/20 PodlogarMichelle, ICE CREAM SHOP ASSOCIATE.LAP MAKER [address] [facility] [address] [employer] Family Medicine 02/04/24 Medical Administrative Specialist Relationship Specialty Start Date End Date Victor Hugo Solano MD [address] [facility] [address] PCP - General Family Medicine 05/06/20 PodlogarMichelle ICE CREAM SHOP ASSOCIATE.LAP MAKER [address] [facility] [address] [employer] Family Medicine 02/04/24 Vida Drake ICE CREAM SHOP ASSOCIATE.LAP MAKER [address] [place] [address] [employer] Family Medicine 05/21/24 07/15/24 Medical Administrative Specialist Relationship Specialty Start Date End Date Victor Hugo Solano MD [address] [facility] [address] PCP - General Family Medicine 05/06/20 PodlogarMichelle ICE CREAM SHOP ASSOCIATE.LAP MAKER [address] [place] [address] [employer] Family Medicine 02/04/24 Medical Administrative Specialist Relationship Specialty Start Date End Date Victor Hugo Solano MD [address] [place] [address] PCP - General Family Medicine 05/06/20 PodlogarMichelle ICE CREAM SHOP ASSOCIATE.LAP MAKER [address] [place] [address] [employer] Family Medicine 02/04/24 Vida Drake ICE CREAM SHOP ASSOCIATE.LAP MAKER [address] [place] [address] [employer] [facility] 08/09/24 Medical Administrative Specialist Relationship Specialty Start Date End Date Victor Hugo Solano MD [address] [place] [address] PCP - General Family Medicine 05/06/20 PodlogarMichelle, ICE CREAM SHOP ASSOCIATE.LAP MAKER [address] [place] [address] [employer] Family Medicine 02/04/24 Vida Drake APRN.LAP MAKER [address] [place] [address] [employer] Family Medicine 08/09/24 Medical Administrative Specialist Relationship Specialty Start Date End Date Victor Hugo Solano MD [address] [place], [place] [address] PCP - General Family Medicine 05/06/20 Michelle Hernandez APRN.LAP MAKER [address] [place], [place] [address] [facility] 02/04/24 Vida Drake APRN.LAP MAKER [address] [place] [address] [facility] 08/09/24 FOR RECORDS PERTAINING TO PATIENTS WHO ARE OR HAVE BEEN ENROLLED IN A CHEMICAL DEPENDENCY/SUBSTANCEABUSE PROGRAM, SOME INFORMATION MAY BE OMITTED. This clinical summary was aggregated from multiple sources. Caution should be exercised in using it in the provision of clinical care. This summary normalizes information from multiple sources, and as a consequence, information in this document may materially change the coding, format and clinical context of patient data. In addition, data may be omitted in some cases. CLINICAL DECISIONS SHOULD BE BASED ON THE PRIMARY CLINICAL RECORDS. [employer] provides no warranty or guarantee of the accuracy or completeness of information in this document.
[2024-09-07 22:01] VITALS: BMI 41.9
[2024-09-07 22:37] LABS: ROM Internal Control Test YES-OK TO RESULT pt. (Internal QC); ROM Patient Test Negative (Negative)
[2024-09-07 22:38] LABS: Record Kit Lot#, ROM+ K3358
--- NOTE | 2024-09-08 11:22 | OB.TRI.NOTE ---
HPI - General General Date of Service: 09/07/24 HPI Narrative SELWYN ALEJO, is a 24 F who presents at 36w2d with complaint of leakage of fluid . PFSH PFSH Home Medications ?Medication ?Instructions ?Recorded ?Last Taken ?Type vitamin 1 ea PO DAILY 09/10/19 12/09/19 23:55 History no.76-iron,carbonyl 29 mg iron-folic acid 1 mg tablet pyridoxine (vitamin B6) 50 mg 50 mg PO DAILY nausea 09/07/24 09/06/24 History capsule (Vitamin B-6) Allergy/AdvReac Type Severity Reaction Status Date / Time No Known Allergies Allergy Verified 09/07/24 22:09 Social History Smoking Status: Former smoker History Elective abortions Hx Para 0 Spontaneous abortions Hx # Term Pregnancies Ectopic pregnancies Hx # Pregnancies Multiple births # of living children NST FHR Rate Baby A Baseline: 145 Variability:: Moderate Accelerations:: 15 x 15 Decelerations:: None NST Reactive:: Yes Uterine Activity:: None Assessment & Plan (1) Vaginal discharge: (2) 36 weeks gestation of : PLAN: Plan 1) ROM plus negative 2) No active labor 3) D/C home
== END 2024-09-07 22:58 | disposition home or self-care (01) ==
LOC: WPOUT 21:56 → WP 21:57
PROVIDERS: PCP Family Medicine; Referring Provider Advanced Practice Midwife; Visit Provider Advanced Practice Midwife
DX: O99.891 Other specified diseases and conditions complicating pregnancy (principal); N89.8 Other specified noninflammatory disorders of vagina; Z3A.36 36 weeks gestation of pregnancy; Z87.891 Personal history of nicotine dependence
CPT/HCPCS: 59025; 59050; 84112; 99221; G0378

== ENCOUNTER 2024-09-17 10:20 | Inpatient (IN) | payer OTHER, SELFPAY ==
[2024-09-17] VITALS (46 sets, daily range): BP systolic 104–157; BP diastolic 55–83; PULSE 68–115; RESP 13–20; TEMP 36.5–37; O2SAT 93–97; BMI 42.5; BMI 1751.0; BMI 20250721.0
[2024-09-17 10:11] LABS: ROM Internal Control Test YES-OK TO RESULT pt. (Internal QC)
[2024-09-17 10:12] LABS: ROM Patient Test POSITIVE (Negative); Record Kit Lot#, ROM+ K3358
[2024-09-17] MEDS: Lactated Ringers 1,000 ML 50 ML IV (11:30)
[2024-09-17 11:33] LABS: Hematocrit 37.4 % (37-47); Hemoglobin 12.6 g/dL (12.0-15.0); Immature Granulocytes Count 0.050 X10^3/uL (0.0-0.0); Mean Corp Hgb Conc 33.7 g/dL (32-36); Mean Corpuscular Volume 88.0 fL (81-99); Mean Platelet Vol. 13.0 fl (6.2-12.0); NRBC Flagged by Analyzer 0 % (0-5); Platelet Count 224 K/mm3 (150-450); RBC Distribution Width CV 12.5 % (11.6-14.6); RBC Distribution Width SD 39.6 fl (35.1-43.9); Red Blood Count 4.25 M/mm3 (4.2-5.4); White Blood Count 10.0 K/mm3 (4.4-11.0)
[2024-09-17 12:18] LABS: Syphilis Antibodies Nonreactive (Nonreactive)
[2024-09-17] MEDS: Oxytocin 15 Units/NS 250ml 15 UNITS/250 ML IV.SOLN 4 UNITS IV (14:24)
--- NOTE | 2024-09-17 16:57 | PCM.HP.OB ---
HPI - General General Date of Admission: 09/17/24 HPI Narrative SELWYN ALEJO, is a 24 F at 37.5 weeks gestation who presents with spontaneous rupture of membranes this morning around 0630. PFSH PFSH Medical History no medical history Home Medications Medication Instructions Recorded Last Taken Type vitamin 1 ea PO DAILY 09/10/19 12/09/19 23:55 History no.76-iron,carbonyl 29 mg iron-folic acid 1 mg tablet pyridoxine (vitamin B6) 50 mg 50 mg PO DAILY nausea 09/07/24 09/06/24 History capsule (Vitamin B-6) Allergy/AdvReac Type Severity Reaction Status Date / Time No Known Allergies Allergy Verified 09/17/24 09:51 Family History no significant family his Surgical History no surgical history Social History Smoking Status: Former smoker History Elective abortions Hx Para 1 Spontaneous abortions Hx # Term Pregnancies Ectopic pregnancies Hx # Pregnancies Multiple births # of living children NST FHR Rate Baby A Baseline: 140 Variability:: Moderate Accelerations:: 15 x 15 Decelerations:: None NST Reactive:: Yes ROS Eyes Eyes: Denies blurry vision, change in vision or spots in vision ENT HEENT: Denies dizziness or headache(s) Cardiovascular Cardiovascular: Denies abdominal pain, chest pain or dyspnea Respiratory/Chest Respiratory/Chest: Denies cough, dyspnea, shortness of breath at rest or shortness of breath with exertion Gastrointestinal Gastrointestinal: Denies abdominal pain, diarrhea or vomiting Genitourinary Genitourinary: Denies change in urinary stream, difficulty urinating or dysuria Musculoskeletal Musculoskeletal: Reports none Integumentary Integumentary: Denies rash Neurologic Neurologic: Denies dizziness, headache(s), memory loss or weakness Psychiatric Psychiatric: Reports none Vital Signs Vital Signs Vital Signs: 09/17/24 09:45 09/17/24 09:45 09/17/24 09:45 Temperature Temperature Source Pulse Rate 78 Respiratory Rate Blood Pressure 119/67 BP Systolic 119 BP Diastolic 67 Pulse Ox 95 09/17/24 09:45 09/17/24 09:45 09/17/24 09:45 Temperature Temperature Source Tympanic Pulse Rate Respiratory Rate 13 Blood Pressure BP Systolic BP Diastolic Pulse Ox 96 09/17/24 09:45 09/17/24 11:15 09/17/24 11:15 Temperature 97.9 F Temperature Source Tympanic Pulse Rate Respiratory Rate 18 Blood Pressure BP Systolic BP Diastolic Pulse Ox 09/17/24 11:15 09/17/24 11:22 09/17/24 11:22 Temperature 98.6 F Temperature Source Pulse Rate 83 Respiratory Rate Blood Pressure 119/65 BP Systolic 119 BP Diastolic 65 Pulse Ox 09/17/24 11:45 09/17/24 11:45 09/17/24 13:24 Temperature Temperature Source Pulse Rate 69 Respiratory Rate Blood Pressure 128/60 H BP Systolic 128 BP Diastolic 60 Pulse Ox 93 09/17/24 13:24 Temperature Temperature Source Pulse Rate 81 Respiratory Rate Blood Pressure BP Systolic BP Diastolic Pulse Ox Weight Weight: 218 lb Body Mass Index (BMI) 42.5 Physical Exam Const alert, oriented x3 and no apparent distress General Appearance: cooperative Orientation / Consciousness: awake Exam Limitations: no limitations HEENT normocephalic Head and Scalp: normal to inspection Eyes General Eye: normal appearance of both eyes Neck full ROM and no lymphadenopathy Lymph Lymphatic: no lymphadenopathy noted Chest inspection of chest normal Resp normal respiratory effort, normal air movement and clear to auscultation bilaterally Effort and Inspection: able to speak in complete sentences and symmetric chest movement Cardio regular rate and regular rhythm GI normal to inspection, nondistended, normoactive bowel sounds Manual OB Exam: presentation cephalic Back/Spine normal ROM Extremity full ROM and no calf tenderness Skin no rashes or lesions noted General Skin Exam: no breakdown Neuro oriented x3 and CN's II-XII intact bilaterally Psych mental status grossly normal and thought process normal Labs Labs Labs: Blood Type O POSITIVE Antibody Screen NEGATIVE Hct 37.4 % (37-47) Hgb 12.6 g/dL (12.0-15.0) Syphilis Total Ab Nonreactive (Nonreactive) Rhogam given: No Assessment & Plan (1) 37 weeks gestation of : (2) Spontaneous rupture of amniotic membranes: (3) Obesity affecting : PLAN: Plan ROM plus- positive SROM for clear fluid CE /-2 Admit to labor and delivery Routine labs GBS negative Pain medications/epidural when indicated Start Pitocin 2 mu/min IV after no cervical change for [address] Jones notified of admission and is collaborating physicain
--- NOTE | 2024-09-17 18:23 | PCM.PN.CNM ---
Subjective Subjective Patient breathing through contractions. Continues to change positions. Tried to use nitrous oxide for pain control but did not like the way it made her feel. Objective Data Objective Data Vital Signs: Vital Signs Temp Pulse Resp BP Pulse Ox 97.7 F L 99 18 137/74 H 93 09/17/24 17:27 09/17/24 17:27 09/17/24 17:27 09/17/24 17:27 09/17/24 11:45 Weight: 218 lb Body Mass Index (BMI) 42.5 Intake & Output: Intake and Output for Last 24 Hours 09/15/24 09/16/24 09/17/24 23:59 23:59 23:59 Intake Total 6.2 / 6.2 Balance 6.2 / 6.2 Lab / Micro Data 09/17/24 11:10 Labs: Laboratory Results - last 24 hr 09/17/24 09:50: Vag Amniotic Fld Detect POSITIVE H 09/17/24 11:10: WBC 10.0, RBC 4.25, Hgb 12.6, Hct 37.4, MCV 88.0, MCH 29.6, MCHC 33.7, RDW Std Deviation 39.6, RDW Coeff of Veronique 12.5, Plt Count 224, MPV 13.0 H, Immature Gran % (Auto) 0.500, Neut % (Auto) 70.4 H, Lymph % (Auto) 20.6, [place] % (Auto) 7.9, Eos % (Auto) 0.3, Baso % (Auto) 0.3, Absolute Neuts (auto) 7.0, Absolute Lymphs (auto) 2.05, Nucleated RBC % 0, Syphilis Total Ab Nonreactive, Blood Type O POSITIVE, Antibody Screen NEGATIVE Assessment & Plan (1) Obesity affecting : (2) Spontaneous rupture of amniotic membranes: (3) 37 weeks gestation of : (4) Variable deceleration: PLAN: Plan Start amnioinfusion at 300 cc bolus and to run at 100 cc/hour Cat. 2 tracing with variables CE 7cm Requesting epidural anesthesia at this time Dr. Jones updated on A&P
[2024-09-17] MEDS: Amnioinfusion- 0.9% NS 1,000 ML IV.SOLN. 1000 ML INTRA-UTER (18:34)
[2024-09-17] MEDS: Lactated Ringers 1,000 ML 200 ML IV (19:07)
[2024-09-17] MEDS: fentaNYL-bupivacaine (epidural) 100 ML BAG EPIDURAL (19:10)
--- OUTSIDE RECORDS SUMMARY | 2024-09-17 19:23 | XMS RPT_ITS | CCD ---
Author Organization [facility] Care Team Providers Care Patient Access Manager Name Role Phone Vicotr Hugo Solano MD Primary Care Provider ALEXANDRIA HYMAN Attending Unavaila VICTOR HUGO Soriano Primary Care Unavailab VICTOR HUGO Bolton Primary Care Unavailab IRA Alejandro Attending Unavailable VICTOR HUGO PRICE Attending Unava ilable VICTOR HUGO SOLANO Primary Care Unavailab HALEY Felton Attending Unavailable VICTOR HUGO SOLANO Primary Care Unavailab Victor Hugo Bolton MD Primary Care Provider PROVIDER, UNKNOWN Referring Unavailable VICTOR HUGO SOLANO Primary Care Unavailab le Podlogar MEDICAL REVIEW SPECIALIST.Michelle [place] Unavailable Knoble MEDICAL REVIEW SPECIALIST.Vida [place] Unavailable Knoble MEDICAL REVIEW SPECIALIST.Vida [place] Unavailable Knoble MEDICAL REVIEW SPECIALIST.Vida [place] Unavailable Dr. Damir Solano MD Primary Care Provider Alexandria Schwartz CNM Attending Provider Alexandria Schwartz CNM Referring Provider VICTOR HUGO SOLANO Primary Care Unavailab VERONIQUE Manzanares Attending Unavailable VICTOR HUGO SOLANO Primary Care Unavailab AJ Gonzalez Referring Unavailable PAUL GALINDO Attending Unavailable VICTOR HUGO SOLANO Primary Care Unavailab AJ Gonzalez Referring Unavailable VICTOR HUGO SOLANO Primary Care Unavailab PAUL Higgins Referring Unavailable VERONIQUE JONES Attending Unavailable BURSLEY, CHRISTOPHER B Primary Care Unavailab PAUL Higgins Referring Unavailable XIOMARA, JVER B Primary Care Unavailab PAUL Higgins Referring Unavailable WISWELL, VERONIQUE Referring Unavailable BURSLEY, CAMILAOPHER B Primary Care Unavailab MARIELA Jaeger Attending Unavailable WISWELL, VERONIQUE Referring Unavailable BURSLEY, CAMILAOPHER B Primary Care Unavailab le XIOMARA, CAMILAOPHER B Primary Care Unavailab VERONIQUE Manzanares Attending Unavailable MOHINI, VERONIQUE Referring Unavailable BURSLEY, CAMILAOPHER B Primary Care Unavailab ALEXANDRIA De Luna Attending Unavailable LAURIELEY, CAMILAOPHER B Primary Care Unavailab VERONIQUE Manzanares Attending Unavailable PAUL GALINDO Referring Unavailable WISWELLVERONIQUE Attending Unavailable XIOMARA, JVER B Primary Care Unavailab MARIELA Jaeger Attending Unavailable XIOMARA, JVER B Primary Care Unavailab le XIOMARA, CHRISTOPHER B Primary Care Unavailab AJ Gonzalez Attending Unavailable JV SOLANOER B Primary Care Unavailab AJ Gonzalez Attending Unavailable XIOMARA, JVER B Primary Care Unavailab AJ Gonzalez Attending Unavailable PAUL GALINDO Referring Unavailable BURSLEY, CAMILAOPHER B Primary Care Unavailab PAUL Higgins Referring Unavailable BURSLEY, CAMILAOPHER B Primary Care Unavailab AJ Gonzalez Attending Unavailable XIOMARA, JVER B Primary Care Unavailab le LAURIELEY, CHRISTOPHER B Primary Care Unavailab le XIOMARA, CAMILAOPHER B Primary Care Unavailab susana JONES, VERONIQUE Referring Unavailable XIOMARA, JVER B Primary Care Unavailab PAM Pulido Attending Unavailable MOHINI, VERONIQUE Referring Unavailable BURSLEY, CAMILAOPHER B Primary Care Unavailab le Laurieley, Damir Primary Care Unavailable Alexandria Schwartz Referring Unavailable Alexandria Schwartz Attending Unavailable Xiomara, Damir Primary Care Unavailable Ankush Chang Attending Unavailable Medications Current Medications Medication Drug Class(es) Dates Sig (Normalized) Sig (Original) fluticasone propionate 0.05 mg/actuat metered dose nasal spray (1 source) Corticosteroid Start: 05-14-2022 End: 06-11-2022 take 1 spray(s) nasal route once daily at bedtime fluticasone (FLONASE) 50 mcg/actuation nasal spray Use 1 [place] in each nostril daily at bedtime for 28 days. Use before lying down for bed. 9.9 mL 0 05/14/2022 06/11/2022 Active Comment on above: Use 1 [place] in each nostril daily at bedtime for [...] Comment on above: Take 1 tablet by [facility] as needed. Initial dose 4 mg, followed [...] Discontinued Start: 01-31-[address] [facility] once daily omeprazole (PRILOSEC) 40 mg capsule Indications: RUQ abdominal pain Take 1 capsule by mouth once daily. 30 capsule 2 01/31/2020 Active Comment on above: Take [address] [facility] once daily. Take [address] [facility] daily before breakfast. 1/2 hr before meal. vit no.124/iron/folic ( VITAMIN ORAL) (20 sources) take 1 tablet by mouth once daily vit no.124/iron/folic ( VITAMIN ORAL) Take 1 tablet by mouth once daily. Active Vit,Kzxf84-Pdrx-Bofwa 1 EACH tablet (1 source) Start: 09-10-2019 take 1 tablet by mouth once daily Vit,Mnip35-Xmww-Dpis c 1 EACH tablet Active 1 NMA PO DAILY September 10, 2019 12:00am pyridoxine (1 source) Start: 09-07-2024 take 1 capsule by mouth once daily Pyridoxine (Vitamin B6) (Vitamin B-6) 50 mg capsule Active 50 mg PO DAILY September 07, 2024 12:00am nausea pyridoxine HCl, vitamin B6, (VITAMIN B-6 ORAL) (20 sources) take 1 tablet by mouth once [...] extended release oral tablet (1 source) Uncompetitive Z-uaskgr-L-asparta te Receptor Antagonist, Sigma-1 Agonist Start: 01-15-2021 [...] by nanci th two times a day. Zboannbl-Nn-Wva-Fe-FA ( VITAMIN) tab (1 source) take 1 tablet by mouth once Eygmaysu-Nf-Wxj-Fe-F A ( VITAMIN) tab Take 1 tablet by mouth. 0 Active Comment on above: Take 1 tablet by nanci th. Problems Active Problems Problem Classification Problem Date Documented Da te Episodic/Chronic Abdominal pain (3 sources) Upper abdominal pain, unspecified; Translations: [Epigastric [...] [Encounter for immunization] Onset: 5 07-30-2024 Episodic Influenza (1 source) Influenza due to Influenza A virus; Translations: [Influenza due to other identified influenza virus with other respiratory manifestations] 04-26-2024 Episodic Menstrual disorders (1 source) Break-through bleeding; Translations: [Excessive and frequent menstruation with irregular cycle] Chronic Mood disorders (1 source) Depressive disorder; Translations: [Depression] 12-13-2019 Chronic Nausea and vomiting (1 source) Nausea; [...] unspecified trimester] 11-14-2023 Episodic Other complications of (1 source) Uterine contractions problem; Translations: [Other specified related conditions, unspecified trimester] 09-15-2019 Episodic Other female genital disorders (1 source) Other specified noninflammatory disorders of vagina; Translations: [Other specified noninflammatory disorders of vagina] Onset: 5 Episodic Other gastrointestinal disorders (1 source) Constipation [...] (BMI) 38.0-38.9, adult; Translations: [BMI 38.0-38.9,adult] Onset: 5 Chronic Other screening for suspected conditions (not mental disorders or infectious disease) (3 sources) Encounter for screening for diabetes mellitus; Translations: [Encounter for screening, unspecified] Onset: 5 Episodic Pneumonia (except that caused by tuberculosis or sexually transmitted disease) (1 source) Bronchopneumonia; Translations: [Bronchopneumonia, unspecified organism] 04-16-2024 Episodic Polyhydramnios and other problems of amniotic cavity (8 sources) Polyhydramnios; Translations: [Polyhydramnios, third trimester, not [...] of ] 06-18-2024 Episodic Residual codes; unclassified (3 sources) Gestation period, 28 weeks; Translations: [28 weeks gestation of ] 07-16-2024 Episodic Residual codes; unclassified (2 sources) Gestation period, 30 weeks; Translations: [30 weeks gestation of ] 07-30-2024 Episodic Residual codes; unclassified (1 source) Gestation period, 32 weeks; Translations: [32 weeks gestation of ] 08-13-2024 Episodic Residual codes; unclassified (2 sources) Gestation period, 34 weeks; Translations: [34 weeks gestation of ] 08-27-2024 Episodic Residual codes; unclassified (1 source) Gestation period, 35 weeks; Translations: [35 weeks gestation of ] 09-03-2024 Episodic Residual codes; unclassified (1 source) Gestation period, 27 weeks; Translations: [27 weeks gestation of ] 09-15-2019 Episodic Residual codes; unclassified (1 source) Gestation period, 38 weeks; Translations: [38 weeks gestation of ] 11-30-2019 Episodic Residual codes; unclassified (1 source) Gestation period, 39 weeks; Translations: [39 weeks gestation of ] 12-10-2019 Episodic Residual codes; unclassified (1 source) Gestation period, 36 weeks; Translations: [36 weeks gestation of ] 09-11-2024 Episodic Residual codes; unclassified (1 source) 36 weeks gestation of ; Translations: [36 weeks gestation of (HCC)] Onset: 5 Episodic Residual codes; unclassified (1 source) 35 [...] cough; Translations: [Acute cough] Onset: 3 Unclassified (20 sources) [facility] Education - COMMON Onset: 4 02-09-2024 Unclassified (20 sources) Education - [place] Onset: 4 02-09-2024 [...] Resolved: 07-26-2019 07-26-2019 Episodic Other complications of (20 sources) High risk ; Translations: [Supervision of high risk , unspecified, first trimester] Onset: 02-13-2024 02-13-2024 Episodic Other complications of (1 source) Supervision [...] Resolved: 04-26-2019 04-26-2019 Episodic Residual codes; unclassified (20 sources) H/O: miscarriage; Translations: [Personal history of other complications of , childbirth and the puerperium] Onset: 02-13-2024 Resolved: 09-11-2024 02-13-2024 Episodic Residual codes; unclassified (1 source) [...] Name Value Interpretation Reference Range Facil ity Examination level ultrasound on 09-11-2024 [facility] Radiology Study observation (narrative) [facility] ROUTINE, GROUP B ST REPTOCOCCUS BY PCRon 09-11-2024 ROUTINE, GROUP B STREPTOCOCCUS BY PCR Not detected Normal [facility] Comment on above: Performed By: #### G BPCR ####[facility] LABCLIA [id number] [place] [address] [place] URINE OB DIP B/Oon Glucose Ql (U) Negative Neg mg/dL [facility] Interpretation and review of laboratory results Normal [facility] Protein.monoclonal (U) [Mass/Vol] Negative Neg mg/dL [facility] OB Triage Physician Noteon 0 09-08-2024 OB Triage Physician Note [facility] Medical Records Department [address] [place] [address] OB Triage Physician Note 09/08/24 1122 MR#: [id number] Acct: [id number] Name: RAMONA ZHAO Jose Alejandro Rep #: [id number] : 2000 24 From: Alexandria Schwartz CNM PCP: Dr. Damir Solano MD Status:DEP CLI Y Location: [email or web address] HPI - General General Date of Service: 09/07/24 HPI Narrative RAMONA ZHAO, is a 24 F who presents at 36w2d with complaint of leakage of fluid . PFSH PFSH Home Medications ???Medication ???Instructions ???Recorded ???Last Taken ???Type vitamin 1 ea PO DAILY 09/10/19 1 23:55 History no.76-iron,carbonyl 29 mg iron-folic acid 1 mg tablet pyridoxine (vitamin B6) 50 mg 50 mg PO DAILY nausea 09/07/2412/22 History capsule (Vitamin B-6) Allergy/AdvReac Type Severity Reaction Status Date / Time No Known Allergies Allergy Verified 09/07/24 22:09 Social History Smoking Status: Former smoker History Elective abortions Hx Para 0 Spontaneous abortions Hx # Term Pregnancies Ectopic pregnancies Hx # Pregnancies Multiple births # of living children NST FHR Rate Baby A Baseline: 145 Variability:: Moderate Accelerations:: 15 x 15 Decelerations:: None NST Reactive:: Yes Uterine Activity:: None Assessment Plan (1) Vaginal discharge: (2) 36 weeks gestation of : PLAN: Plan 1) ROM plus negative 2) No active labor 3) D/C home 09/08/24 1123 Date Alexandria Schwartz CNM Cosigner Signature (if applicable): Date CC: UMA Schwartz; Dr. Damir Solano MD Signed Normal [facility] (ROM) Rupture Of Membraneson 09-07-2024 ROM Negative Normal Negative [facility] Comment on above: Result Comment: Amni otic fluid not present indicates No Rupture of Membranes at time of specimen collection. Performed By: #### L 205.1000 #### [facility] [address] [place], [address] URINE OB DIP B/Oon 5 Glucose Ql (U) Negative Neg mg/dL [facility] Interpretation and review of laboratory results Normal [facility] Protein.monoclonal (U) [Mass/Vol] Negative Neg mg/dL [facility] URINE OB DIP B/Oon 5 Glucose Ql (U) Negative Neg mg/dL [facility] Protein.monoclonal (U) [Mass/Vol] Negative Neg mg/dL [facility] Examination level ultrasound on 08-13-2024 [facility] Radiology Study observation (narrative) [facility] CBC W Auto Differential pane l (Bld)on 07-16-2024 Basophils (Bld) [#/Vol] 0.03 10*3/uL Normal <0.11 [facility] Comment on above: Order Comment: Speci men Type: BLOOD SPECIMENOrdering Facility: [facility] Address: [address] [place] [address] Performed By: #### 5 7021-8 ####[facility] [id number] [place] [address] [place] Basophils/100 WBC (Bld) 0.3 % Normal [facility] Comment on above: Order Comment: Speci men Type: BLOOD SPECIMENOrdering Facility: [facility] Address: [address] [place] [address] Performed By: #### 5 7021-8 ####[facility] [id number] [place] [address] [place] Differential cell count method Nom (Bld) Auto Normal [facility] Comment on above: Order Comment: Speci men Type: BLOOD SPECIMENOrdering Facility: [facility] Address: [address] [place] [address] Performed By: #### 5 7021-8 ####[facility] [id number] [place] [address] [place] Eosinophils (Bld) [#/Vol] 0.04 10*3/uL Normal <0.46 [facility] Comment on above: Order Comment: Speci men Type: BLOOD SPECIMENOrdering Facility: [facility] Address: [address] [place] [address] Performed By: #### 5 7021-8 ####[facility] MILLWNCLIA [id number] [place] [address] [place] Eosinophils/100 WBC (Bld) 0.4 % Normal [facility] Comment on above: Order Comment: Speci men Type: BLOOD SPECIMENOrdering Facility: [facility] Address: [address] [place] [address] Performed By: #### 5 7021-8 ####[facility]ITALAMILCARA [id number] [place] [address] [place] Erythrocyte distribution width (RBC) [Ratio] 12.3 % Normal 11.5-15.0 [facility] Comment on above: Order Comment: Speci men Type: BLOOD SPECIMENOrdering Facility: [facility] Address: [address] [place] [address] Performed By: #### 5 7021-8 ####[facility] [id number] [place] [address] [place] Hematocrit (Bld) [Volume fraction] 37.5 % Normal 36.0-46.0 [facility] Comment on above: Order Comment: Speci men Type: BLOOD SPECIMENOrdering Facility: [facility] Address: [address] [place], [place] [address] Performed By: #### 5 7021-8 ####[facility]ITALNCL[facility] [id number] [place] [address] [place] Hemoglobin (Bld) [Mass/Vol] 12.8 g/dL Normal 11.5-15.5 [facility] Comment on above: Order Comment: Speci men Type: BLOOD SPECIMENOrdering Facility: [facility] Address: [address] [place] [address] Performed By: #### 5 7021-8 ####[facility] SAVANAHSALINENOALYXA [id number] [place] [address] [place] Immature granulocytes (Bld) [#/Vol] 0.05 10*3/uL Normal <0.10 [facility] Comment on above: Order Comment: Speci men Type: BLOOD SPECIMENOrdering Facility: [facility] Address: [address] [place] [address] Performed By: #### 5 7021-8 ####[facility] [id number] [place] [address] [place] Immature granulocytes/100 WBC (Bld) 0.5 % Normal [facility] Comment on above: Order Comment: Speci men Type: BLOOD SPECIMENOrdering Facility: [facility] Address: [address] [place] [address] Performed By: #### 5 7021-8 ####[facility] [id number] [place] [address] [place] Lymphocytes (Bld) [#/Vol] 2.05 10*3/uL Normal 1.00-4.00 [facility] Comment on above: Order Comment: Speci men Type: BLOOD SPECIMENOrdering Facility: [facility] Address: [address] [place] [address] Performed By: #### 5 7021-8 ####[facility]ITALNCL[facility] [id number] [place] [address] [place] Lymphocytes/100 WBC (Bld) 20.1 % Normal [facility] Comment on above: Order Comment: Speci men Type: BLOOD SPECIMENOrdering Facility: [facility] Address: [address] [place] [address] Performed By: #### 5 7021-8 ####[facility] [id number] [place] [address] [place] MCH (RBC) [Entitic mass] 30.3 pg Normal 26.0-34.0 [facility] Comment on above: Order Comment: Speci men Type: BLOOD SPECIMENOrdering Facility: [facility] Address: [address] [place] [address] Performed By: #### 5 7021-8 ####[facility] [id number] [place] [address] [place] MCHC (RBC) [Mass/Vol] 34.1 g/dL Normal 30.5-36.0 [facility] Comment on above: Order Comment: Speci men Type: BLOOD SPECIMENOrdering Facility: [facility] Address: [address] [place] [address] Performed By: #### 5 7021-8 ####[facility] [id number] [address] STATES OF [facility] MCV (RBC) [Entitic vol] 88.7 fL Normal 80.0-100.0 [facility] Comment on above: Order Comment: Speci men Type: BLOOD SPECIMENOrdering Facility: [facility] Address: [address] [place] [address] Performed By: #### 5 7021-8 ####[facility] [id number] [place] [address] [place] Monocytes (Bld) [#/Vol] 0.57 10*3/uL Normal <0.87 [facility] Comment on above: Order Comment: Speci men Type: BLOOD SPECIMENOrdering Facility: [facility] Address: [address] [place] [address] Performed By: #### 5 7021-8 ####[facility]PITALNCM[facility] [id number] [place] [address] [place] Monocytes/100 WBC (Bld) 5.6 % Normal [facility] Comment on above: Order Comment: Speci men Type: BLOOD SPECIMENOrdering Facility: [facility] Address: [address] [place] [address] Performed By: #### 5 7021-8 ####[facility] HOSPITALNCA [id number] [place] [address] [place] Neutrophils (Bld) [#/Vol] 7.45 10*3/uL Normal 1.45-7.50 [facility] Comment on above: Order Comment: Speci men Type: BLOOD SPECIMENOrdering Facility: [facility] Address: [address] [place] [address] Performed By: #### 5 7021-8 ####[facility] [id number] [place] [address] [place] Neutrophils/100 WBC (Bld) 73.1 % Normal [facility] Comment on above: Order Comment: Speci men Type: BLOOD SPECIMENOrdering Facility: [facility] Address: [address] [place] [address] Performed By: #### 5 7021-8 ####[facility] [id number] [place] [address] [place] Nucleated RBC (Bld) [#/Vol] 10*3/uL Normal <0.01 [facility] Comment on above: Order Comment: Speci men Type: BLOOD SPECIMENOrdering Facility: [facility] Address: [address] [place] [address] Performed By: #### 5 7021-8 ####[facility] [id number] [place] [address] [place] Nucleated RBC/100 WBC (Bld) [Ratio] 0.0 /100 WBC Normal [facility] Comment on above: Order Comment: Speci men Type: BLOOD SPECIMENOrdering Facility: [facility] Address: [address] [place] [address] Performed By: #### 5 7021-8 ####[facility] GABNCSAM [id number] [place] [address] [place] Platelet mean volume (Bld) [Entitic vol] 12.2 fL Normal 9.0-12.7 [facility] Comment on above: Order Comment: Speci men Type: BLOOD SPECIMENOrdering Facility: [facility] Address: [address] [place] [address] Performed By: #### 5 7021-8 ####[facility] SAVANAHSALINENONCSAM [id number] [place] [address] [place] Platelets (Bld) [#/Vol] 219 10*3/uL Normal 150-400 [facility] Comment on above: Order Comment: Speci men Type: BLOOD SPECIMENOrdering Facility: [facility] Address: [address] [place] [address] Performed By: #### 5 7021-8 ####[facility] HOSPITALNCNIKAA [id number] [place] [address] [place] RBC (Bld) [#/Vol] 4.23 10*6/uL Normal 3.90-5.20 [facility] Comment on above: Order Comment: Speci men Type: BLOOD SPECIMENOrdering Facility: [facility] Address: [address] [place], [place] [address] Performed By: #### 5 7021-8 ####[facility]ITALNCLIA [id number] [place] [address] [place] WBC (Bld) [#/Vol] 10.19 10*3/uL Normal 3.70-11.00 [facility] Comment on above: Order Comment: Speci men Type: BLOOD SPECIMENOrdering Facility: [facility] Address: [address] [place] [address] Performed By: #### 5 7021-8 ####[facility] [id number] [place] [address] [place] GESTATIONAL GLUCOSE SCREEN, 1-HOUR, 50 GRAM, NON-FASTINGon 07-16-2024 Glucose [Mass/Vol] 121 mg/dL Normal 74-134 [facility] Comment on above: Order Comment: Speci men Type: BLOOD SPECIMENOrdering Facility: [facility] Address: [address] [place] [address] Result Comment: [facility] Congress of Obstetricians and Gynecologists ([place]) guidelines state a gestational diabetes mellitus positive screen is made, in women not previously diagnosed with overt diabetes, when the 1 hr plasma glucose level is equal to or above 140 mg/dL. The [facility] Education Liaison and [facility] [place] recommends a 135 mg/dL cutoff. Performed By: #### G LTGST ####[facility] [id number] [place] [address] [place] Reagin and Treponema pallidu m IgG and IgM [Interp]on 07-16-2024 T. pallidum IgG+IgM IA Ql (S) Non-Reactive Normal Nonreactive [facility] Comment on above: Order Comment: Novai men Type: BLOOD SPECIMENOrdering Facility: [facility] Address: [address] [place] [address] Performed By: #### 7 3752-8 ####[facility] LABCLIA [id number] [place] [id number] [place] Reagin+T pallidum IgG+IgM Se rPl-Impon 07-16-2024 Reagin and Treponema pallidum IgG and IgM [Interp] Cannot exclude recent Treponemal infection if specimen collected within 7-10 days after appearance of suspect lesions or 2-3 weeks after an exposure. Clinical correlation is required. Normal [facility] Comment on above: Order Comment: Novai men Type: BLOOD SPECIMENOrdering Facility: [facility] Address: [address] [place] [address] Performed By: #### 7 3752-8 ####[facility] LABCLIA [id number] [facility] HOSPITALGilda [address] STATES OF [facility] Examination level ultrasound on 05-22-2024 Indication Detailed [...] 1 oz EFW by: Hadlock (HC-AC-FL) Extended Photography Spotter 8.5 mm CM 6.7 mm 88% Nicolaides [...] normal LVOT view: normal 3-vessel view: normal 6-jpihqy-smappjn view: normal Heart / Thorax Situs: situs [...] Read By: Berta Hampton M.D. MATERNAL MEDICINE [facility] Examination level ultrasound on 05-21-2024 Radiology Study observation (narrative) [facility] Examination level ultrasound on 04-23-2024 Indication Early [...] 8 oz EFW by: Hadlock (HC-AC-FL) Extended Photography Spotter 6.3 mm CM 4.0 mm 46% Nicolaides Extremities / Bony Struc FL / HC 0.18 90% Hadlock Other Structures FHR 158 bpm Anatomy Cranium: normal Lateral ventricles: normal Choroid plexus: normal Midline falx: normal Cerebellum: normal Cisterna magna: normal Lips: normal 4-chamber view: normal RVOT view: normal LVOT view: normal 3-vessel view: normal 0-fetrvf-wnhzsax view: normal Heart / Thorax Diaphragm: normal [...] Read By: Yenny Lozano M.D. [facility] [facility] Rad[facility] Study observation (narrative) [facility] hCG Titer Quant., Serumon HCG QUANT. 07192 mIU/mL High 1-3 [facility] Comment on above: Result Comment: hCG levels with Gestational Age Gestational Age hCG mIU/mL (IU/L) 0.2 - 1 week 5 - 50 1-2 weeks 50 - 500 2-3 weeks 100 - 5000 3-4 weeks 500 - 38065 4-5 weeks 1000 - 54609 5-6 weeks 44617 - 100,000 6-8 weeks 64700 - 200,000 2-3 months 26088 - 100,000 Performed By: #### L 700.8000 #### [facility] [address] [place], [address] CBC W/Diff, Automatedon 03-31 Absolute Lymph 0.55 X10 3/uL Low 0.83-4.51 [facility] Comment on above: Performed By: #### L 500.4050, L100.0100 #### [facility] [address] [place], [address] Absolute Neut 7.1 X10 3/uL Normal 2.0-7.7 [facility] Comment on above: Performed By: #### L 500.4050, L100.0100 #### [facility] [address] [place], [address] Basophils/100 WBC (Bld) 0.3 % Normal 0-1 [facility] Comment on above: Performed By: #### L 500.4050, L100.0100 #### [facility] [address] [place], [address] Eosinophils/100 WBC (Bld) 0.0 % Normal 0-5 [facility] Comment on above: Performed By: #### L 500.4050, L100.0100 #### [facility] [address] [place], [address] Erythrocyte distribution width (RBC) [Ratio] 12.4 % Normal 11.6-14.6 [facility] Comment on above: Performed By: #### L 500.4050, L100.0100 #### [facility] [address] [place], [address] Hematocrit (Bld) [Volume fraction] 39.1 % Normal 37-47 [facility] Comment on above: Performed By: #### L 500.4050, L100.0100 #### [facility] [address] [place], [address] Hemoglobin (Bld) [Mass/Vol] 13.4 g/dL Normal 12.0-15.0 [facility] Comment on above: Performed By: #### L 500.4050, L100.0100 #### [facility] [address] [place], [address] IG% 0.500 Normal 0.0-0.9 [facility] Comment on above: Result Comment: IG% - Immature Granulocytes (promyelocytes, myelocytes and metamyelocytes) > 1% indicates that a LEFT SHIFT is Present. Performed By: #### L 500.4050, L100.0100 #### [facility] [address] [place], [address] Lymphocytes/100 WBC (Bld) 6.4 % Low 19-41 [facility] Comment on above: Performed By: #### L 500.4050, L100.0100 #### [facility] [address] [place], [address] MCH (RBC) [Entitic mass] 29.9 pg Normal 27.0-32.0 [facility] Comment on above: Performed By: #### L 500.4050, L100.0100 #### [facility] [address] [place], [address] MCHC (RBC) [Mass/Vol] 34.3 g/dL Normal 32-36 [facility] Comment on above: Performed By: #### L 500.4050, L100.0100 #### [facility] [address] [place], [address] MCV (RBC) [Entitic vol] 87.3 fL Normal 81-99 [facility] Comment on above: Performed By: #### L 500.4050, L100.0100 #### [facility] [address] [place], [address] Monocytes/100 WBC (Bld) 10.1 % High 0-10 [facility] Comment on above: Performed By: #### L 500.4050, L100.0100 #### [facility] [address] [place], [address] Neutrophils/100 WBC (Bld) 82.7 % High 47-70 [facility] Comment on above: Performed By: #### L 500.4050, L100.0100 #### [facility] [address] [place], [address] Nucleated RBC (Bld) [#/Vol] 0 10*3/uL Normal 0-5 [facility] Comment on above: Performed By: #### L 500.4050, L100.0100 #### [facility] [address] [place], [address] Platelet mean volume (Bld) [Entitic vol] 12.0 fL Normal 6.2-12.0 [facility] Comment on above: Performed By: #### L 500.4050, L100.0100 #### [facility] [address] [place], [address] Platelets (Bld) [#/Vol] 241 10*3/uL Normal 150-450 [facility] Comment on above: Performed By: #### L 500.4050, L100.0100 #### [facility] [address] [place], [address] RBC (Bld) [#/Vol] 4.48 10*6/uL Normal 4.2-5.4 [facility] Comment on above: Performed By: #### L 500.4050, L100.0100 #### [facility] [address] [place], [address] RDW SD 39.6 fl Normal 35.1-43.9 [facility] Comment on above: Performed By: #### L 500.4050, L100.0100 #### [facility] [address] [place], [address] WBC (Bld) [#/Vol] 8.6 10*3/uL Normal 4.4-11.0 [facility] Comment on above: Performed By: #### L 500.4050, L100.0100 #### [facility] [address] [place], [address] Chest PA and Lateralon 04-17 Chest PA and Lateral [facility] Imaging Services [address] [place] [address] Chest PA and Lateral MR#: [id number] Acct: [id number] Name: RAMONA ZHAO Rep #: [id number] : 2000 F 23 From: Diamond Sexton nd, MD PCP: Dr. Damir Solano MD Status: [facility] ER Study: Chest PA and Lateral Date of Exam: 04/17/24 Exam# [id number] Ordering Dr: Ankush Chang DO PROCEDURE: CHEST [...] and Lateral IMPRESSION: NEGATIVE CHEST Reading Location: [facility] CC: Dr. Damir Solano MD; Dr. Ankush Chang DO Ip Architect: Signed Normal [facility] Comprehensive Metabolic Prof ilon 04-17-2024 Albumin [Mass/Vol] 2.9 g/dL Low 3.2-5.0 [facility] Comment on above: Performed By: #### L 500.4050, L100.0100 #### [facility] [address] [place], [address] Albumin/Globulin [Mass ratio] 0.7 {ratio} Low 0.9-2.4 [facility] Comment on above: Performed By: #### L 500.4050, L100.0100 #### [facility] [address] [place], [address] ALK P 73 U/L Normal 45-117 [facility] Comment on above: Performed By: #### L 500.4050, L100.0100 #### [facility] [address] [place], [address] ALT [Catalytic activity/Vol] 56 U/L Normal 13-56 [facility] Comment on above: Performed By: #### L 500.4050, L100.0100 #### [facility] [address] [place], [address] AST [Catalytic activity/Vol] 46 U/L High 15-37 [facility] Comment on above: Performed By: #### L 500.4050, L100.0100 #### [facility] [address] [place], [address] Bilirubin [Mass/Vol] 0.60 mg/dL Normal 0.20-1.00 [facility] Comment on above: Result Comment: For patients on eltrombopag therapy, use of Dimension [place] TBIL is not recommended. Performed By: #### L 500.4050, L100.0100 #### [facility] [address] [place], [address] BUN/CRE 9.6 RATIO Low 10-20 [facility] Comment on above: Performed By: #### L 500.4050, L100.0100 #### [facility] [address] [place], [address] CA,Total 8.7 mg/dL Normal 8.5-10.1 [facility] Comment on above: Performed By: #### L 500.4050, L100.0100 #### [facility] [address] [place], [address] Chloride [Moles/Vol] 105 mmol/L Normal 98-107 [facility] Comment on above: Performed By: #### L 500.4050, L100.0100 #### [facility] [address] [place], [address] CO2 [Moles/Vol] 21.0 mmol/L Normal 21.0-32.0 [facility] Comment on above: Performed By: #### L 500.4050, L100.0100 #### [facility] [address] [place], [address] Creatinine [Mass/Vol] 0.52 mg/dL Low 0.55-1.02 [facility] Comment on above: Result Comment: The validity of the calculated GFR GFRAA in patients over 70 years has not been determined. Clinical correlation is essential. Performed By: #### L 500.4050, L100.0100 #### [facility] [address] [place], [address] ECRCL 164.60 ml/min Normal [facility] Comment on above: Performed By: #### L 500.4050, L100.0100 #### [facility] [address] [place], [address] EST GFR - AA 184 mL/min Normal >60 [facility] Comment on above: Result Comment: Afri can Maltese GFR Calc Performed By: #### L 500.4050, L100.0100 #### [facility] [address] [place], [address] GAP 9 Normal 5-15 [facility] Comment on above: Performed By: #### L 500.4050, L100.0100 #### [facility] [address] [place], [address] GFR/1.73 sq M.predicted among non-blacks MDRD (S/P/Bld) [Vol rate/Area] 152 mL/min/{1.73_m2} Normal >60 [facility] Comment on above: Result Comment: Non- GFR Calc Performed By: #### L 500.4050, L100.0100 #### [facility] [address] [place], [address] Globulin (S) [Mass/Vol] 4.3 g/dL High 2.2-4.2 [facility] Comment on above: Performed By: #### L 500.4050, L100.0100 #### [facility] [address] [place], [address] Glucose [Mass/Vol] 87 mg/dL Normal 74-106 [facility] Comment on above: Performed By: #### L 500.4050, L100.0100 #### [facility] [address] [place], [address] Potassium [Moles/Vol] 3.6 mmol/L Normal 3.5-5.1 [facility] Comment on above: Performed By: #### L 500.4050, L100.0100 #### [facility] [address] [place], [address] Sodium [Moles/Vol] 135 mmol/L Low 136-145 [facility] Comment on above: Performed By: #### L 500.4050, L100.0100 #### [facility] [address] [place], [address] T PROT 7.2 g/dL Normal 6.4-8.2 [facility] Comment on above: Performed By: #### L 500.4050, L100.0100 #### [facility] [address] [place], [address] Urea nitrogen [Mass/Vol] 5 mg/dL Low 7-18 [facility] Comment on above: Performed By: #### L 500.4050, L100.0100 #### [facility] [address] [place], [address] Emergency Department Summary on 04-17-2024 Emergency Department Summary [facility] Medical Records Department [address] [place] [address] Emergency Department Summary 04/17/24 MR#: [id number] Acct: [id number] Name: RAMONA ZHAO Rep #: [id number] : 2000 23 From: Ankush Chang DO [...] hematuria. Quantitative [place]CG [place] reviewed and was [address]. COVID-19 PCR was reviewed and was negative. [...] Veronique 12.4 (more content not included)... Normal [facility] M100.678on 04-17-2024 M100.678 2-18- SARS-CoV-2 (COVID 19) Negative INFLUENZA A A Positive A INFLUENZA B Negative RSV PCR Negative INFLUENZAE A Normal [facility] Comment on above: Performed By: #### M 100.678 #### [facility] [address] [place], [address] Urinalysis, Completeon 04-17 BACTERIA 1+ /hpf Normal None Seen [facility] Comment on above: Order Comment: CRITICAL VALUE CALLED TO [facility] 04/17/24 2247 Charity Lollo. RESULTS READ BACK BY SAME. PARTS COUNTER SPECIALIST TO SPECIFY Performed By: #### L 400.0001 #### [facility] [address] [place], [address] EPI,SQUAMOUS 0-5 SEEN Normal 5-10 [facility] Comment on above: Order Comment: CRITICAL VALUE CALLED TO [facility] 04/17/24 2247 Charity Lollo. RESULTS READ BACK BY SAME. PARTS COUNTER SPECIALIST TO SPECIFY Performed By: #### L 400.0001 #### [facility] [address] [place], [address] Mucus Ql (Urine sed) 1+ /hpf Normal [facility] Comment on above: Order Comment: CRITICAL VALUE CALLED TO [facility] 04/17/24 2247 Charity Lollo. RESULTS READ BACK BY SAME. PARTS COUNTER SPECIALIST TO SPECIFY Performed By: #### L 400.0001 #### [facility] [address] [place], [address] RBC 0-5 SEEN Normal 0-5 [facility] Comment on above: Order Comment: CRITICAL VALUE CALLED TO [facility] 04/17/24 2247 Charity Lollo. RESULTS READ BACK BY SAME. PARTS COUNTER SPECIALIST TO SPECIFY Performed By: #### L 400.0001 #### [facility] [address] [place], [address] WBC 5-10 SEEN Normal 0-5 [facility] Comment on above: Order Comment: CRITICAL VALUE CALLED TO [facility] 04/17/24 9256 Charity Gu. RESULTS READ BACK BY SAME. PARTS COUNTER SPECIALIST TO SPECIFY Performed By: #### L 400.0001 #### [facility] [address] [place], [address] CNOVon 04-16-2024 CNOV Office Visit (UCWSTR ) RAMONA ZHOA ([id number]) 89 F KIM[place] Date Time Provider Department 04/16/24 10:30 AM CARA FROST RUST During your visit today, we recorded the following information about you: Temperature Pulse Respiration Blood pressure 98.9 degrees 97/minute 21/minute 104/82 Weight 89.5 kg Cara Frost PA-C 04/16/2024 11:01 AM Signed This note was created using [employer]. Subjective Ramona Zhao is a 23 year [...] Persistent cough - ICD9: 786.2, ICD10: R05.3 SHANIA Malik-Priyanka Allergies As of Date: 04/16/2024 (No Known Allergies) Date Reviewed: 04/16/2024 Reviewed by: Xi Betts MA - Fully Assessed Reason for Visit: Cough [28] Cmt: BOLIVAR, body aches x 1 day Primary Visit [...] days. Ca (more content not included)... Normal [facility] CNOVon 04-02-2024 CNOV Office Visit (WSTR ) RAMONA ZHAO ([id number]) 89 F [place]IM[place] Date Time Provider Department 04/02/24 1:00 PM LIVAN BILLS RUST During your visit today, we recorded the following information about you: Temperature Pulse Respiration Blood pressure 98.4 degrees 91/minute 18/minute 122/78 Weight 87.6 kg Livan Bills, ANA.ORNAMENTAL PLASTERER HELPER 04/02/2024 1:04 PM Signed Subjective HPI Nontoxic-appearing [...] prn lavelle (more content not included)... Normal [facility] nuchal translucency me asured by [place] 03-27-2024 Indication First trimester anatomic survey Maternal obesity, BMI >30 Impression REMOTE READ The patient is referred for a first trimester anatomy scan including nuchal translucency measurement as clinically indicated. - Single, live, intrauterine . - Schaller rump length measurement is consistent with the [...] view: normal 4-chamber view with color: normal 1-fthkgd-ovheqlw view: normal Abdominal cord insertion: normal Stomach: [...] Read By: Yenny Lozano M.D. MATERNAL MEDICINE [facility] CARRIER SCREEN, STANDARDon 0 03-26-2024 CARRIER SCREEN RESULTS View results in Scanned Documents link when available. Normal [facility] Comment on above: Order Comment: Speci men Type: BLOOD SPECIMENOrdering Facility: [facility] Address: [address] [place] [address] Performed By: #### C RRSCN ####MYRIADCL[facility] [id number] [place] [address] CBC W Auto Differential pane l (Bld)on 03-26-2024 Basophils (Bld) [#/Vol] 0.03 10*3/uL Normal <0.11 [facility] Comment on above: Order Comment: Speci men Type: BLOOD SPECIMENOrdering Facility: [facility] Address: [address] [place] [address] Performed By: #### 5 7021-8 ####[facility] [id number] [place] [address] [place] Basophils/100 WBC (Bld) 0.3 % Normal [facility] Comment on above: Order Comment: Speci men Type: BLOOD SPECIMENOrdering Facility: [facility] Address: [address] [place] [address] Performed By: #### 5 7021-8 ####[facility] [id number] [place] [address] [place] Differential cell count method Nom (Bld) Auto Normal [facility] Comment on above: Order Comment: Speci men Type: BLOOD SPECIMENOrdering Facility: [facility] Address: [address] [place] [address] Performed By: #### 5 7021-8 ####[facility] [id number] [place] [address] [place] Eosinophils (Bld) [#/Vol] 0.03 10*3/uL Normal <0.46 [facility] Comment on above: Order Comment: Speci men Type: BLOOD SPECIMENOrdering Facility: [facility] Address: [address] [place] [address] Performed By: #### 5 7021-8 ####[facility] [id number] [place] [address] [place] Eosinophils/100 WBC (Bld) 0.3 % Normal [facility] Comment on above: Order Comment: Speci men Type: BLOOD SPECIMENOrdering Facility: [facility] Address: [address] [place] [address] Performed By: #### 5 7021-8 ####[facility] [id number] [place] [address] [place] Erythrocyte distribution width (RBC) [Ratio] 12.0 % Normal 11.5-15.0 [facility] Comment on above: Order Comment: Speci men Type: BLOOD SPECIMENOrdering Facility: [facility] Address: [address] [place] [address] Performed By: #### 5 7021-8 ####[facility] [id number] [place] [address] [place] Hematocrit (Bld) [Volume fraction] 37.4 % Normal 36.0-46.0 [facility] Comment on above: Order Comment: Speci men Type: BLOOD SPECIMENOrdering Facility: [facility] Address: [address] [place] [address] Performed By: #### 5 7021-8 ####[facility] SAVANAHSALINENONCNIKAA [id number] [place] [address] [place] Hemoglobin (Bld) [Mass/Vol] 12.9 g/dL Normal 11.5-15.5 [facility] Comment on above: Order Comment: Speci men Type: BLOOD SPECIMENOrdering Facility: [facility] Address: [address] [place] [address] Performed By: #### 5 7021-8 ####[facility]ITALN[facility] [id number] [place] [address] [place] Immature granulocytes (Bld) [#/Vol] 0.03 10*3/uL Normal <0.10 [facility] Comment on above: Order Comment: Speci men Type: BLOOD SPECIMENOrdering Facility: [facility] Address: [address] [place] [address] Performed By: #### 5 7021-8 ####[facility]ITALNCL[facility] [id number] [place] [address] [place] Immature granulocytes/100 WBC (Bld) 0.3 % Normal [facility] Comment on above: Order Comment: Speci men Type: BLOOD SPECIMENOrdering Facility: [facility] Address: [address] [place] [address] Performed By: #### 5 7021-8 ####[facility]ITALNCL[facility] [id number] [place] [address] [place] Lymphocytes (Bld) [#/Vol] 1.74 10*3/uL Normal 1.00-4.00 [facility] Comment on above: Order Comment: Speci men Type: BLOOD SPECIMENOrdering Facility: [facility] Address: [address] [place], [place] [address] Performed By: #### 5 7021-8 ####[facility]ITAL[facility] [id number] [place] [address] [place] Lymphocytes/100 WBC (Bld) 18.6 % Normal [facility] Comment on above: Order Comment: Speci men Type: BLOOD SPECIMENOrdering Facility: [facility] Address: [address] [place] [address] Performed By: #### 5 7021-8 ####[facility]ITALAMILCARLIA [id number] [place] [address] [place] MCH (RBC) [Entitic mass] 29.7 pg Normal 26.0-34.0 [facility] Comment on above: Order Comment: Speci men Type: BLOOD SPECIMENOrdering Facility: [facility] Address: [address] [place] [address] Performed By: #### 5 7021-8 ####[facility] [id number] [place] [address] [place] MCHC (RBC) [Mass/Vol] 34.5 g/dL Normal 30.5-36.0 [facility] Comment on above: Order Comment: Speci men Type: BLOOD SPECIMENOrdering Facility: [facility] Address: [address] [place] [address] Performed By: #### 5 7021-8 ####[facility]ITALNCL[facility] [id number] [place] [address] [place] MCV (RBC) [Entitic vol] 86.2 fL Normal 80.0-100.0 [facility] Comment on above: Order Comment: Speci men Type: BLOOD SPECIMENOrdering Facility: [facility] Address: [address] [place] [address] Performed By: #### 5 7021-8 ####[facility] [id number] [place] [address] [place] Monocytes (Bld) [#/Vol] 0.83 10*3/uL Normal <0.87 [facility] Comment on above: Order Comment: Speci men Type: BLOOD SPECIMENOrdering Facility: [facility] Address: [address] [place] [address] Performed By: #### 5 7021-8 ####[facility] [id number] [place] [address] [place] Monocytes/100 WBC (Bld) 8.8 % Normal [facility] Comment on above: Order Comment: Speci men Type: BLOOD SPECIMENOrdering Facility: [facility] Address: [address] [place] [address] Performed By: #### 5 7021-8 ####[facility]ITALNCL[facility] [id number] [place] [address] [place] Neutrophils (Bld) [#/Vol] 6.72 10*3/uL Normal 1.45-7.50 [facility] Comment on above: Order Comment: Speci men Type: BLOOD SPECIMENOrdering Facility: [facility] Address: [address] [place] [address] Performed By: #### 5 7021-8 ####[facility] [id number] [place] [address] [place] Neutrophils/100 WBC (Bld) 71.7 % Normal [facility] Comment on above: Order Comment: Speci men Type: BLOOD SPECIMENOrdering Facility: [facility] Address: [address] [place] [address] Performed By: #### 5 7021-8 ####[facility]ITALNCL[facility] [id number] [place] [address] [place] Nucleated RBC (Bld) [#/Vol] 10*3/uL Normal <0.01 [facility] Comment on above: Order Comment: Speci men Type: BLOOD SPECIMENOrdering Facility: [facility] Address: [address] [place] [address] Performed By: #### 5 7021-8 ####[facility]IL[facility] [id number] [place] [address] [place] Nucleated RBC/100 WBC (Bld) [Ratio] 0.0 /100 WBC Normal [facility] Comment on above: Order Comment: Speci men Type: BLOOD SPECIMENOrdering Facility: [facility] Address: [address] [place] [address] Performed By: #### 5 7021-8 ####[facility] SAVANAHSALINENONCSAM [id number] [place] [address] [place] Platelet mean volume (Bld) [Entitic vol] 12.2 fL Normal 9.0-12.7 [facility] Comment on above: Order Comment: Speci men Type: BLOOD SPECIMENOrdering Facility: [facility] Address: [address] [place] [address] Performed By: #### 5 7021-8 ####[facility] HOSPITALNCNIKAA [id number] [place] [address] [place] Platelets (Bld) [#/Vol] 239 10*3/uL Normal 150-400 [facility] Comment on above: Order Comment: Speci men Type: BLOOD SPECIMENOrdering Facility: [facility] Address: [address] [place] [address] Performed By: #### 5 7021-8 ####[facility]ITALNCL[facility] [id number] [place] [address] [place] RBC (Bld) [#/Vol] 4.34 10*6/uL Normal 3.90-5.20 [facility] Comment on above: Order Comment: Speci men Type: BLOOD SPECIMENOrdering Facility: [facility] Address: [address] [place], [place] [address] Performed By: #### 5 7021-8 ####[facility]ITALNCL[facility] [id number] [place] [address] [place] WBC (Bld) [#/Vol] 9.38 10*3/uL Normal 3.70-11.00 [facility] Comment on above: Order Comment: Speci men Type: BLOOD SPECIMENOrdering Facility: [facility] Address: [address] [place] [address] Performed By: #### 5 7021-8 ####[facility]ITAL[facility] [id number] [place] [address] [place] nuchal translucency me asured by USon 03-26-2024 Radiology Study observation (narrative) [facility] HBV surface Ag Ser Qlon 03-01 HBV surface Ag Ql (S) Negative Normal Negative [facility] Comment on above: Order Comment: Speci men Type: BLOOD SPECIMENOrdering Facility: [facility] Address: [address] [place] [address] Performed By: #### 5 195-3, 09426-9, 20017-2 ####[facility] LABCLIA [id number] [address] [place] HCV Ab Ser Qlon 03-26-2024 HCV Ab Ql (S) Negative Normal Negative [facility] Comment on above: Order Comment: Speci men Type: BLOOD SPECIMENOrdering Facility: [facility] Address: [address] [place] [address] Result Comment: The result suggests no evidence of active infection with Hepatitis C virus. Should recent infection be suspected, repeat testing may be considered 4-6 weeks after this draw. Performed By: #### 1 6128-1 ####[facility] LABCLIA [id number] [place] [address] [place] HGB ELECTROPHORESIS FOR EVAL (LAB ORDER)on 01-27-2025 Hemoglobin A (Bld) [Mass fraction] 97.5 % Normal 96.2-98.0 [facility] Comment on above: Order Comment: Speci men Type: BLOOD SPECIMENOrdering Facility: [facility] Address: [address] [place] [address] Performed By: #### L [id number], HGBELEV ####[facility] LABCLIA [id number] [place] [address] [place] Hemoglobin A2 (Bld) [Mass fraction] 2.5 % Normal 2.0-3.1 [facility] Comment on above: Order Comment: Speci men Type: BLOOD SPECIMENOrdering Facility: [facility] Address: [address] [place] [address] Performed By: #### L [id number], HGBELEV ####[facility] LABCLIA [id number] [place] [address] [place] Hemoglobin Unsp Elph (Bld) [Mass fraction] No abnormal hemoglobin identified. Normal No abnormal hemoglobin identified. [facility] Comment on above: Order Comment: Speci men Type: BLOOD SPECIMENOrdering Facility: [facility] Address: [address] [place] [address] Performed By: #### L [id number], HGBELEV ####[facility] LABCLIA [id number] [place] [address] [place] HGB EVALUATION CASCADE INTER Devang 03-26-2024 Hemoglobin pattern (Bld) [Interp] Reviewed by Sandra Ramirez MD Normal [facility] Comment on above: Order Comment: Speci men Type: BLOOD SPECIMENOrdering Facility: [facility] Address: [address] [place] [address] Performed By: #### L [id number], HGBELEV ####[facility] LABCLIA [id number] [place] [address] [place] INTERPRETATION (HGB EVAL) Normal [facility] Comment on above: Order Comment: Speci men Type: BLOOD SPECIMENOrdering Facility: [facility] Address: [address] [place] [address] Result Comment: Hemo globins were analyzed by capillary electrophoresis and CBC red cell parameters were reviewed. No abnormal hemoglobin is identified. There is a normal hemoglobin capillary electrophoresis pattern. Performed By: #### L [id number], HGBELEV ####[facility] LABIA [id number] [place] [address] [place] HIV 1+2 Ab IA Qlon 5 HIV 1 and 2 Ab IA.rapid Nom (S/P/Bld) Normal [facility] Comment on above: Order Comment: Speci men Type: BLOOD SPECIMENOrdering Facility: [facility] Address: [address] [place] [address] Result Comment: Test not indicated. Performed By: #### 5 195-3, 93772-5, 06548-4 ####[facility] LABIA [id number] [place] [address] [place] HIV 1+2 Ab+HIV1 p24 Ag IA Ql Non-Reactive Normal Nonreactive [facility] Comment on above: Order Comment: Speci men Type: BLOOD SPECIMENOrdering Facility: [facility] Address: [address] [place] [address] Performed By: #### 5 195-3, 59469-5, 00386-5 ####[facility] [id number] [place] [address] [place] HIV immunoassay testing algorithm interpretation (S/P/Bld) [Interp] Normal [facility] Comment on above: Order Comment: Speci men Type: BLOOD SPECIMENOrdering Facility: [facility] Address: [address] [place] [address] Result Comment: No e vidence of HIV-1 or HIV-2 infection. Should recent infection be suspected, repeat testing may be considered 2-3 weeks after this draw. [place] Rev. Code 3701.243(E): This information has been [...] or diagnoses. Performed By: #### 5 195-3, 58197-8, 71425-4 ####[facility] LABCLIA [id number] [place] [address] [place] HbA1c (Bld)on 03-26-2024 Average glucose Estimated from glycated hemoglobin (Bld) [Mass/Vol] 80 mg/dL Normal [facility] Comment on above: Order Comment: Speci men Type: BLOOD SPECIMENOrdering Facility: [facility] Address: [address] [place] [address] Result Comment: eAG: (Estimated average glucose) is a calculated value from HgbA1c and is client service representative of the average blood glucose level in the last 2-3 month period. Performed By: #### 5 5454-3 ####[facility] LABIA [id number] [place] [address] [place] HbA1c (Bld) [Mass fraction] 4.4 % Normal 4.3-5.6 [facility] Comment on above: Order Comment: Speci men Type: BLOOD SPECIMENOrdering Facility: [facility] Address: [address] [place] [address] Result Comment: Amer ican Diabetes Association guidelines indicate that patients with HgbA1c in the range 5.7-6.4% are at increased risk for development of diabetes, and intervention by lifestyle modification may be beneficial. HgbA1c greater or equal to 6.5% is considered diagnostic of diabetes. Performed By: #### 5 5454-3 ####[facility] LABIA [id number] [place] [id number] [place] [id number] PLUSon 03-26-2024 Cell-free DNA./Cell-free DNA.total Dosage of chromosome-specific cfDNA (cfDNA) [Molar fraction] 17% Normal [facility] Comment on above: Order Comment: Speci men Type: BLOOD SPECIMENOrdering Facility: [facility] Address: [address] [place] [address] Performed By: #### M AT21 ####[facility] LABCLIA [id number] [place] [address] Chr 13+18+21+X+Y aneuploidy Dosage of chromosome-specific cfDNA Ql (cfDNA) Negative Normal [facility] Comment on above: Order Comment: Speci men Type: BLOOD SPECIMENOrdering Facility: [facility] Address: [address] [place] [address] Performed By: #### M AT21 ####[facility] LABCLIA [id number] [place] [address] Chr 21 trisomy Dosage of chromosome-specific cfDNA Ql (cfDNA) Negative Normal [facility] Comment on above: Order Comment: Speci men Type: BLOOD SPECIMENOrdering Facility: [facility] Address: [address] [place] [address] Performed By: #### M AT21 ####[facility] LABCLIA [id number] [place] [address] Chr X and Y aneuploidy risk Sequencing Ql (cfDNA) [Interp] Not detected Normal [facility] Comment on above: Order Comment: Speci men Type: BLOOD SPECIMENOrdering Facility: [facility] Address: [address] [place] [address] Result Comment: Not Detected Not Detected Performed By: #### M AT21 ####[facility] LABCLIA [id number] [place] [address] Citation Damian (Reference lab test) Comment Normal [facility] Comment on above: Order Comment: Speci men Type: BLOOD SPECIMENOrdering Facility: [facility] Address: [address] [place] [address] Result Comment: 1. Chevy BENÍTEZ et al. Kaia Med. 2012;14(3):296-305. 2. Calvin TOUSSAINT et al. Prenat Diag. 2013;33(6):591-597. 3. Adam Mathew et al. Clin Chem. 2015 Apr;61(4):608-616. 4. Bri BENÍTEZ, et al. Kaia Med. 2011;13(11):913-920. 5. ACOG/SMFM Practice Bulletin No. 226, Nov 2019. Performed By: #### M AT21 ####[facility] LABCLIA [id number] [place] [address] Gestational age Estimated from conception date Lai Normal [facility] Comment on above: Order Comment: Renetta lynn Type: BLOOD SPECIMENOrdering Facility: [facility] Address: [address] [place] [address] Performed By: #### M AT21 ####[facility] LABCLIA [id number] [place] [address] GESTATIONALAGE AGE > OR = 9W Yes Normal [facility] Comment on above: Order Comment: Renetta lynn Type: BLOOD SPECIMENOrdering Facility: [facility] Address: [address] [place] [address] Performed By: #### M AT21 ####[facility] LABCLIA [id number] [place] [address] Laboratory comment Damian (Report) Comment Normal [facility] Comment on above: Order Comment: Renetta lynn Type: BLOOD SPECIMENOrdering Facility: [facility] Address: [address] [place] [address] Result Comment: The MaterniT(R) 21 PLUS laboratory-developed test (LDT) analyzes circulating cell-free DNA from a maternal blood sample. This test is used for screening purposes and not diagnostic. Clinical correlation is recommended. Validation data on twin pregnancies is limited and the ability of this test to detect aneuploidy in higher multiple gestations has not yet been validated. Performed By: #### M AT21 ####[facility] LABCLIA [id number] [place] [address] marketing director assisted living name Nom (Provider) Comment Normal [facility] Comment on above: Order Comment: Renetta lynn Type: BLOOD SPECIMENOrdering Facility: [facility] Address: [address] [place], [place] [address], [place] [address] Result Comment: This specimen showed an expected representation of chromosome 21, 18 and 13 material. Clinical correlation is suggested. Comment Paramjit Soto MD, PhD, Director, [employer] Performed By: #### M AT21 ####[facility] LABCLIA [id number] [place] [address] LIMITATIONS OF THE TEST Comment Normal [facility] Comment on above: Order Comment: Speci men Type: BLOOD SPECIMENOrdering Facility: [facility] Address: [address] [place] [address] Result Comment: Whil e the results of these tests are highly [...] and Fragmin(R)). Performed By: #### M AT21 ####[facility] LABCLIA [id number] [place] [id number] Monosomy X risk Dosage of chromosome-specific cfDNA Ql (Plasma cell-free+WBC DNA) [Interp] Not detected Normal [facility] Comment on above: Order Comment: Speci men Type: BLOOD SPECIMENOrdering Facility: [facility] Address: [address] [place] [address] Performed By: #### M AT21 ####[facility] LABCLIA [id number] [place] [address] NEGATIVE PREDICTIVE VALUE Note Normal [facility] Comment on above: Order Comment: Renetta lynn Type: BLOOD SPECIMENOrdering Facility: [facility] Address: [address] [place] [address] Result Comment: The Negative Predictive Value (NPV) for trisomy 21, 18, and 13 is greater than 99%. The NPV for SCA and ESS cannot be calculated as SCA and ESS are only reported when an abnormality is detected. Performed By: #### M AT21 ####[facility] LABCLIA [id number] [place] [id number] NOTE Comment Normal [facility] Comment on above: Order Comment: Renetta lynn Type: BLOOD SPECIMENOrdering Facility: [facility] Address: [address] [place] [address] Result Comment: See Notes Dr. TATTOFF. is a subsidiary of [employer], using the brand [employer]. This test was developed and its performance characteristics determined by [employer]. It has not been cleared or approved by the Food and Drug Administration. This laboratory is certified under the Clinical Laboratory Improvement Amendments (CLIA) as qualified to perform high complexity clinical laboratory testing and accredited by the [employer] (CAP). If there is future clinical need for adding MaterniT GENOME testing, this specimen will be available until term. [facility] samples will not be retained beyond 60 days. [facility] patients will have to send a new sample for re-sequencing ([facility] Test Code: 109164). Performed By: #### M AT21 ####[employer] [employer] LABCLIA [id number] [place] [address] PERFORMANCE CHARACTERISTICS Note Normal [facility] Comment on above: Order Comment: Renetta lynn Type: BLOOD SPECIMENOrdering Facility: [facility] Address: [address] [place] [address] Result Comment: ! Sex ! Accuracy: 99.4% [...] ! ! ! * As reported in [facility] database nstd37 [https://www.ncbi.nlm.nih.gov/dbvar/studies/nstd37/ ] # Estimated Sensitivity. Sensitivity estimated across the observed size distribution of each syndrome [per [facility] database nstd37] and across the range of fractions observed in routine clinical NIPT. Actual sensitivity can also be influenced by other factors such as the size of the event, total sequence counts, amplification bias, or sequence bias. ## Lai gestation only. Performed By: #### M AT21 ####[facility] [id number] [place] [address] POSITIVE PREDICTIVE VALUE N/A Normal [facility] Comment on above: Order Comment: Speci men Type: BLOOD SPECIMENOrdering Facility: [facility] Address: [address] [place] [address] Performed By: #### M AT21 ####[employer] LABTeleCIS WirelessIA [id number] [place] [address] Reference Lab Test Method Comment Normal [facility] Comment on above: Order Comment: Speci men Type: BLOOD SPECIMENOrdering Facility: [facility] Address: [address] [place] [address] Result Comment: See Notes Circulating cell-free DNA [...] and 22. Performed By: #### M AT21 ####[facility] LABCLIA [id number] [place] [address] Sex Dosage of chromosome-specific cfDNA Nom (cfDNA) Comment Normal [facility] Comment on above: Order Comment: Speci men Type: BLOOD SPECIMENOrdering Facility: [facility] Address: [address] [place] [address] Result Comment: Cons istent with Male Performed By: #### M AT21 ####[facility] LABCLIA [id number] [place] [address] Test performance information Damian (Unsp spec) Comment Normal [facility] Comment on above: Order Comment: Speci men Type: BLOOD SPECIMENOrdering Facility: [facility] Address: [address] [place] [address] Result Comment: The performance characteristics of the MaterniT(R) 21 PLUS laboratory-developed test (LDT) have been determined in a clinical validation study with women at increased risk for chromosomal aneuploidy.[1-4] Performed By: #### M AT21 ####[facility] LABCLIA [id number] [place] [address] Trisomy 13 risk Dosage of chromosome-specific cfDNA Ql (cfDNA) [Interp] Negative Normal [facility] Comment on above: Order Comment: Speci men Type: BLOOD SPECIMENOrdering Facility: [facility] Address: [address] [place] [address] Performed By: #### M AT21 ####[facility] LABCLIA [id number] [place] [address] Trisomy 18 risk Dosage of chromosome-specific cfDNA Ql (Plasma cell-free+WBC DNA) [Interp] Negative Normal [facility] Comment on above: Order Comment: Speci men Type: BLOOD SPECIMENOrdering Facility: [facility] Address: [address] [place] [address] Performed By: #### M AT21 ####[facility] LABCLIA [id number] [place] [address] RBC PARAMETERS FOR HB IDon 0 - Erythrocyte distribution width (RBC) [Ratio] 12.1 % Normal 11.5-15.0 [facility] Comment on above: Order Comment: Speci men Type: BLOOD SPECIMENOrdering Facility: [facility] Address: [address] [place] [address] Performed By: #### L [id number] ####[facility] LABCLIA [id number] [place] [address] [place] Hematocrit (Bld) [Volume fraction] 37.6 % Normal 36.0-46.0 [facility] Comment on above: Order Comment: Speci men Type: BLOOD SPECIMENOrdering Facility: [facility] Address: [address] [place] [address] Performed By: #### L [id number] ####[facility] LABCLIA [id number] [place] [address] [place] Hemoglobin (Bld) [Mass/Vol] 12.7 g/dL Normal 11.5-15.5 [facility] Comment on above: Order Comment: Speci men Type: BLOOD SPECIMENOrdering Facility: [facility] Address: [address] [place] [address] Performed By: #### L [id number] ####[facility] LABCLIA [id number] [place] [address] [place] MCH (RBC) [Entitic mass] 30.1 pg Normal 26.0-34.0 [facility] Comment on above: Order Comment: Speci men Type: BLOOD SPECIMENOrdering Facility: [facility] Address: [address] [place] [address] Performed By: #### L [id number] ####[facility] LABIA [id number] [place] [address] [place] MCHC (RBC) [Mass/Vol] 33.8 g/dL Normal 30.5-36.0 [facility] Comment on above: Order Comment: Speci men Type: BLOOD SPECIMENOrdering Facility: [facility] Address: [address] [place] [address] Performed By: #### L [id number] ####[facility] LABIA [id number] [place] [address] [place] MCV (RBC) [Entitic vol] 89.1 fL Normal 80.0-100.0 [facility] Comment on above: Order Comment: Speci men Type: BLOOD SPECIMENOrdering Facility: [facility] Address: [address] [place] [address] Performed By: #### L [id number] ####[facility] LABIA [id number] [place] [address] [place] RBC (Bld) [#/Vol] 4.22 10*6/uL Normal 3.90-5.20 [facility] Comment on above: Order Comment: Speci men Type: BLOOD SPECIMENOrdering Facility: [facility] Address: [address] [place] [address] Performed By: #### L [id number] ####[facility] LABIA [id number] [place] [address] [place] RUBELLA IGG ANTIBODYon 03-26 RUBELLA IGG AB, QUAL Positive Normal Positive [facility] Comment on above: Order Comment: Speci men Type: BLOOD SPECIMENOrdering Facility: [facility] Address: [address] [place] [address] Result Comment: The result suggests recent or past exposure to Rubella virus or history of Rubella vaccination. Positive result may also be seen due to presence of passively-transferred antibodies. Please correlate with patient's history. Performed By: #### R [id number] ####[facility] LABCLIA [id number] [place] [address] [place] Reagin and Treponema pallidu m IgG and IgM [Interp]on 03-26-2024 T. pallidum IgG+IgM IA Ql (S) Non-Reactive Normal Nonreactive [facility] Comment on above: Order Comment: Speci men Type: BLOOD SPECIMENOrdering Facility: [facility] Address: [address] [place] [address] Performed By: #### 5 195-3, 46333-1, 73041-5 ####[facility] LABCLIA [id number] [place] [address] [place] Reagin+T pallidum IgG+IgM Se rPl-Impon 03-26-2024 Reagin and Treponema pallidum IgG and IgM [Interp] Cannot exclude recent Treponemal infection if specimen collected within 7-10 days after appearance of suspect lesions or 2-3 weeks after an exposure. Clinical correlation is required. Normal [facility] Comment on above: Order Comment: Speci men Type: BLOOD SPECIMENOrdering Facility: [facility] Address: [address] [place] [address] Performed By: #### 5 195-3, 64906-2, 18694-1 ####[facility] LABCLIA [id number] [place] [address] [place] TYPE + SCREEN PRENATALon ABO O Normal [facility] Comment on above: Order Comment: Speci men Type: BLOOD SPECIMENOrdering Facility: [facility] Address: [address] [place] [address] Performed By: #### T SPN ####[facility] BLOOD BANKCLIA [id number] [place] [address] [place] Rh Nom (Bld) Positive Normal [facility] Comment on above: Order Comment: Speci men Type: BLOOD SPECIMENOrdering Facility: [facility] Address: [address] [place] [address] Performed By: #### T SPN ####[facility] BLOOD BANKCLIA [id number] [place] [address] [place] TYPE AND SCREEN EXPIRATION 03/29/2024 23:59 Normal [facility] Comment on above: Order Comment: Speci men Type: BLOOD SPECIMENOrdering Facility: [facility] Address: [address] [place] [address] Performed By: #### T SPN ####[facility] BLOOD BANKIA [id number] [place] [address] [place] Bacteria Ur Culton Bacteria identified Cx Nom (U) ORGANISM ID: 1 10,000 -<50,000 CFU/ml Normal urogenital sergio Normal [facility] Comment on above: Performed By: #### 6 30-4 ####[facility] LABCLIA [id number] [place] [address] [place] C. trachomatis+N. gonorrhoea e DNA NABILA+probe Ql (Unsp spec)on 02-13-2024 C. trachomatis rRNA NABILA+probe Ql (Unsp spec) Not detected Normal Not detected [facility] Comment on above: Order Comment: Speci men Type: SWABOrdering Facility: [facility] Address: [address] [place] [address] Performed By: #### 3 6902-5 ####[facility] LABCLIA [id number] [place] [address] [place] N. gonorrhoeae rRNA NABILA+probe Ql (Unsp spec) Not detected Normal Not detected [facility] Comment on above: Order Comment: Speci men Type: SWABOrdering Facility: [facility] Address: [address] [place] [address] Performed By: #### 3 6902-5 ####[facility] LABCLIA [id number] [place] [id number] [place] PAP TESTon 02-13-2024 ADEQUACY Satisfactory for interpretation. Normal [facility] Comment on above: Order Comment: Speci men Type: FLUID SPECIMENOrdering Facility: [facility] Address: [address] [place] [address] Performed By: #### L [id number] ####[facility] LABCLIA [id number] [place] [address] [place] CASE REPORT Normal [facility] Comment on above: Order Comment: Speci men Type: FLUID SPECIMENOrdering Facility: [facility] Address: [address] [place] [address] Result Comment: Gyne cologic Cytology Report Case: [id number] Authorizing Provider: Aj Poole APRN.ORNAMENTAL PLASTERER HELPER Collected: 02/13/2024 11:55 AM Ordering Location: OB/Gynecology Received: 02/13/2024 02:46 PM First Screen: Tiffanie Leal, CT, ASCP Specimen: Pap Test, ThinPrep, Cervix Performed By: #### L [id number] ####[facility] LABCLIA [id number] [place] [address] [place] CLINICAL HISTORY, CYTOLOGY, MILL FEEDER (Indicate Weeks) Normal [facility] Comment on above: Order Comment: Speci men Type: FLUID SPECIMENOrdering Facility: [facility] Address: [address] [place] [address] Performed By: #### L [id number] ####[facility] LABCLIA [id number] [place] [address] [place] FINAL PERFORMING LAB Normal [facility] Comment on above: Order Comment: Speci men Type: FLUID SPECIMENOrdering Facility: [facility] Address: [address] [place] [address] Result Comment: Tech nical component, build manager screening performed at [facility] [address] CLIA# [id number] Diagnostic interpretation performed at [facility], [address] [place], [place] [address] CLIA# [id number] Seasoning Sprayer: Federico Ring M.D. Performed By: #### L [id number] ####[facility] LABCLIA [id number] [place] [address] [place] INTERPRETATION, CYTOLOGY, MILL FEEDER Normal [facility] Comment on above: Order Comment: Speci men Type: FLUID SPECIMENOrdering Facility: [facility] Address: [address] [place] [address] Result Comment: Nega tive for intraepithelial lesion or malignancy. Performed By: #### L [id number] ####[facility]CLIA [id number] [place] [address] [place] LMP 12/20/2023 Normal [facility] Comment on above: Order Comment: Speci men Type: FLUID SPECIMENOrdering Facility: [facility] Address: [address] [place] [address] Performed By: #### L [id number] ####[facility] LABCLIA [id number] [place] [address] [place] PAP DISCLAIMER COMMENT The Pap Smear is a screening test for cervical cancer. False negative results occur with all screening tests, emphasizing the need for rescreening at recommended intervals, and clinical correlation. Normal [facility] Comment on above: Order Comment: Speci men Type: FLUID SPECIMENOrdering Facility: [facility] Address: [address] [place] [address] Performed By: #### L [id number] ####[facility] LABCLIA [id number] [place] [address] [place] PAP CLERICAL AIDE COMMENT This specimen has be en analyzed by the ThinPrep Imaging System, an automated imaging and review system, which assists the laboratory in evaluating cells on ThinPrep Pap tests. Following automated imaging, selected drummond from every slide are reviewed by a build manager. Normal [facility] Comment on above: Order Comment: Speci men Type: FLUID SPECIMENOrdering Facility: [facility] Address: [address] [place] [address] Performed By: #### L [id number] ####[facility] LABCLIA [id number] [facility] [id number] OF [facility] POC PARTS DEPARTMENT MANAGER ULTRASOUNDon 02-13-20 Indication Viability; confirm cardiac activity Impression Single [...] Read By: Aj Poole NP MATERNAL MEDICINE [facility] Radiology Study observation (narrative) [facility] CNOVon 02-09-2024 CNOV Office Visit (OBGYWM ) RAMONA ZHAO ([id number]) 89 [address] Date Time Provider Department 02/09/24 8:45 AM AJ POOLE During your visit today, we recorded the following information about you: Blood pressure Weight Last Period 114/64 91.2 kg 12/20/23 Aj Poole APRN.ORNAMENTAL PLASTERER HELPER 02/09/2024 8:58 AM Signed Ramona Zhao is [...] L1 SAB0 IAB0 Ectopic0 Multiple0 Live Births1 [employer] Developer History LMP: 12/20/2023 (Within Days), Having periods Age at Menarche: Age at First : Age at Menopause: [employer] Developer History Comments: Sexual Activity: Yes; Male Contraception: [...] Assessed 02/09/2024 REVIEW OF SYSTEMS Expanded ROS: MILL FEEDER: + UPT Allergies and current medication updated:Yes [...] anything further - care guide provided via [employer] [facility] 2. Nausea and vomiting during - ICD9: [...] Decision Making Level: 4 - Moderate Aj Poole APRN.CNP 02/09/2024 8:53 AM Signed MORNING SICKNESS IN by Elaine Conti M.D. for [employer] As you may already know, morning sickness can often be more appropriately called evening sickness or stnbl-gcywgg-wk-the-da y sickness. While there are the carolann [...] a healthy (more content not included)... Normal [facility] UA DIP,URINE HCG (POC)on Beta HCG ( test) Ql (U) Positive Abnormal Negative [facility] Comment on above: Location:[facility], [address] [place] [address], [facility] Interpretation and review of laboratory results Abnormal [facility] Chain Builder (POCT) Internal QC OK [facility] Location:[facility], [address], [place], [address] [place] [address] POINT OF CARE [facility] B-HCG SerPl-aCncon 4 HCG.beta subunit Qn m[IU]/mL Normal <5.0 [facility] Comment on above: Order Comment: Speci men Type: BLOOD SPECIMEN [facility] Address: [address] [place] [address] Result Comment: Oneal senior Performed By: #### 2 1198-7 #### [facility] CLIA [id number] [address] [place] [address] [place] CBC panel Auto (Bld)on 11-13 Erythrocyte distribution width (RBC) [Ratio] 11.9 % 11.5 - 15.0 % [facility] Hematocrit (Bld) [Volume fraction] 41.6 % 36.0 - 46.0 % [facility] Hemoglobin (Bld) [Mass/Vol] 13.6 g/dL 11.5 - 15.5 g/dL [facility] Interpretation and review of laboratory results Normal [facility] MCH (RBC) [Entitic mass] 28.6 pg 26.0 - 34.0 pg [facility] MCHC (RBC) [Mass/Vol] 32.7 g/dL 30.5 - 36.0 g/dL [facility] MCV (RBC) [Entitic vol] 87.4 fL 80.0 - 100.0 fL [facility] Nucleated RBC (Bld) [#/Vol] NINF [facility] Platelet mean volume (Bld) [Entitic vol] 11.5 fL 9.0 - 12.7 fL [facility] Platelets (Bld) [#/Vol] 310 10*3/uL [facility] RBC (Bld) [#/Vol] 4.76 10*6/uL 3.90 - 5.2 0 m/uL [facility] WBC (Bld) [#/Vol] 10.24 10*3/uL [facility] Erythrocyte distribution width (RBC) [Ratio] 11.9 % Normal 11.5-15.0 [facility] Comment on above: Order Comment: Renetta lynn Type: BLOOD SPECIMEN [facility] Address: [address] [place] [address] Performed By: #### 5 8410-2 #### [facility] CLIA [id number] [address] Hematocrit (Bld) [Volume fraction] 41.6 % Normal 36.0-46.0 [facility] Comment on above: Order Comment: Renetta lynn Type: BLOOD SPECIMEN [facility] Address: [address] [place] [address] Performed By: #### 5 8410-2 #### [facility] CLIA [id number] [address] STATES OF [facility] Hemoglobin (Bld) [Mass/Vol] 13.6 g/dL Normal 11.5-15.5 [facility] Comment on above: Order Comment: Renetta lynn Type: BLOOD SPECIMEN [facility] Address: [address] [place] [address] Performed By: #### 5 8410-2 #### [facility] CLIA [id number] [address] [place] MCH (RBC) [Entitic mass] 28.6 pg Normal 26.0-34.0 [facility] Comment on above: Order Comment: Speci men Type: BLOOD SPECIMEN [facility] Address: [address] [place] [address] Performed By: #### 5 8410-2 #### [facility] CLIA [id number] [address] [place] MCHC (RBC) [Mass/Vol] 32.7 g/dL Normal 30.5-36.0 [facility] Comment on above: Order Comment: Speci men Type: BLOOD SPECIMEN [facility] Address: [address] [place] [address] Performed By: #### 5 8410-2 #### [facility] CLIA [id number] [address] [place] MCV (RBC) [Entitic vol] 87.4 fL Normal 80.0-100.0 [facility] Comment on above: Order Comment: Speci men Type: BLOOD SPECIMEN [facility] Address: [address] [place] [address] Performed By: #### 5 8410-2 #### [facility] CLIA [id number] [address] Nucleated RBC (Bld) [#/Vol] 10*3/uL Normal <0.01 [facility] Comment on above: Order Comment: Speci men Type: BLOOD SPECIMEN [facility] Address: [address] [place] [address] Performed By: #### 5 8410-2 #### [facility] CLIA [id number] [address] [place] Platelet mean volume (Bld) [Entitic vol] 11.5 fL Normal 9.0-12.7 [facility] Comment on above: Order Comment: Speci men Type: BLOOD SPECIMEN [facility] Address: [address] [place] [address] Performed By: #### 5 8410-2 #### [facility] CLIA [id number] [address] Platelets (Bld) [#/Vol] 310 10*3/uL Normal 150-400 [facility] Comment on above: Order Comment: Renetta lynn Type: BLOOD SPECIMEN [facility] Address: [address] [place] [address] Performed By: #### 5 8410-2 #### [facility] CLIA [id number] [address] OF [facility] RBC (Bld) [#/Vol] 4.76 10*6/uL Normal 3.90-5.20 [facility] Comment on above: Order Comment: Renetta lynn Type: BLOOD SPECIMEN [facility] Address: [address] [place] [address] Performed By: #### 5 8410-2 #### [facility] CLIA [id number] [address] WBC (Bld) [#/Vol] 10.24 10*3/uL Normal 3.70-11.[address] [facility] Comment on above: Order Comment: Renetta lynn Type: BLOOD SPECIMEN [facility] Address: [address] [place] [address] Performed By: #### 5 8410-2 #### [facility] CLIA [id number] [address] OF [facility] CNPNon 11-14-2023 CNPN Telephone (OBGYWM) RAMONA ZHAO ([id number]) 89 [address] [facility] Date Time Provider Department 11/14/23 PAUL GALINDO OBGYWJose Alejandro During your visit today, we recorded the following information about you: Armida Quiros, RN 11/14/2023 1:48 PM Signed Pt called stating + test on 9-13-24. Started bleeding 2 days ago-heavy for about 8 hours with use of tampons.Has been wearing a panty liner since then and continues with spotting. Pt wanting HCG levels drawn. Bleeding precautions reviewed. VARUN Amor Rebecca L, MD 11/14/2023 2:08 PM Signed Virtual visit this afternoon to discuss- Sw and [facility] have openings.. MD Russel Linares Trisha, RN [...] early [O26.859] Order(s):HCG QUANTITATIVE [SQHCGQT] Order #: [id number] STANDING Prescriptions as of 11/14/2023 - omeprazole [...] Status:Closed by JESSICA TRIPP on 11/14/23 Normal [facility] HCG QUANTITATIVEon HCG.beta subunit Qn NINF [facility] Comment on above: Negative HCG.beta subunit Qnon 2023 Interpretation and review of laboratory results Normal [facility] TYPE + SCREEN PRENATALon ABO group Nom (Bld) O [facility] Blood group antibody screen Ql Negative [facility] HIstorical Ab Scr Status Negative [facility] Rh Nom (Bld) Positive [facility] Type and Screen Expiration 11/17/2023 23:59 [facility] ABO O [facility] Comment on above: Order Comment: Speci men Type: BLOOD SPECIMEN [facility] Address: [address] [place] [address] Performed By: #### T SPN #### [facility] CLIA [id number] [address] HISTORICAL AB SCR STATUS Negative [facility] Comment on above: Order Comment: Speci men Type: BLOOD SPECIMEN [facility] Address: [address] [place] [address] Performed By: #### T SPN #### [facility] CLIA [id number] [address] Rh Nom (Bld) Positive [facility] Comment on above: Order Comment: Speci men Type: BLOOD SPECIMEN [facility] Address: [address] [place] [address] Performed By: #### T SPN #### [facility] CLIA [id number] [address] TYPE AND SCREEN EXPIRATION 11/17/2023 23:59 Normal [facility] Comment on above: Order Comment: Speci men Type: BLOOD SPECIMEN [facility] Address: [address] [place] [address] Performed By: #### T SPN #### [facility] CLIA [id number] [address] [place] [address] [place] NM HEPATOBILIARY W EF AND/OR RXon 03-31-2023 [facility] ALLIED HEALTHon 03-14-2023 ALLIED HEALTH HNO ID: [id number] Author: MARY STONE RT(R) Service: ? Author [...] RVT March 14, 2023 4:08 PM Normal [facility] B-HCG SerPl-aCncon HCG.beta subunit Qn m[IU]/mL Normal <5.0 [facility] Comment on above: Order Comment: Spechayley lynn Type: BLOOD SPECIMEN [facility] Address: [address] [place] [address] Result Comment: Nega tiindira Performed By: #### 2 4323-8, 0-3, #### [facility] CLIA [id number] [address] [place] [address] OF [facility] CBC W Auto Differential pane l (Bld)on 03-14-2023 Basophils (Bld) [#/Vol] 0.03 10*3/uL Normal <0.11 [facility] Comment on above: Order Comment: Speci men Type: BLOOD SPECIMEN [facility] Address: [address] [place] [address] Performed By: #### 2 4323-8, 0-3, #### [facility] CLIA [id number] [address] [place] [address] [place] Basophils/100 WBC (Bld) 0.3 % Normal [facility] Comment on above: Order Comment: Speci men Type: BLOOD SPECIMEN [facility] Address: [address] [place] [address] Performed By: #### 2 4323-8, 3039-3, #### [facility] CLIA [id number] [address] [place] [address] [place] [facility] [place] Differential cell count method Nom (Bld) Auto Normal [facility] Comment on above: Order Comment: Speci men Type: BLOOD SPECIMEN [facility] Address: [address] [place] [address] Performed By: #### 2 4323-8, 3, #### [facility] CLIA [id number] [address] [place] [address] [place] Eosinophils (Bld) [#/Vol] 0.12 10*3/uL Normal <0.46 [facility] Comment on above: Order Comment: Speci men Type: BLOOD SPECIMEN [facility] Address: [address] [place] [address] Performed By: #### 2 4323-8, 3, #### [facility] CLIA [id number] [address] [place] [address] [place] Eosinophils/100 WBC (Bld) 1.0 % Normal [facility] Comment on above: Order Comment: Speci men Type: BLOOD SPECIMEN [facility] Address: [address] [place] [address] Performed By: #### 2 4323-8, 3, #### [facility] CLIA [id number] [address] [place] [address] [place] Erythrocyte distribution width (RBC) [Ratio] 11.8 % Normal 11.5-15.0 [facility] Comment on above: Order Comment: Speci men Type: BLOOD SPECIMEN [facility] Address: [address] [place] [address] Performed By: #### 2 4323-8, 3039-3, #### [facility] CLIA [id number] [address] [place] [address] [place] Hematocrit (Bld) [Volume fraction] 44.3 % Normal 36.0-46.0 [facility] Comment on above: Order Comment: Speci men Type: BLOOD SPECIMEN [facility] Address: [address] [place] [address] Performed By: #### 2 4323-8, 3, #### [facility] CLIA [id number] [address] [place] [address] [place] Hemoglobin (Bld) [Mass/Vol] 14.3 g/dL Normal 11.5-15.5 [facility] Comment on above: Order Comment: Speci men Type: BLOOD SPECIMEN [facility] Address: [address] [place] [address] Performed By: #### 2 4323-8, 3039-3, #### [facility] CLIA [id number] [address] [place] [address] [place] Immature granulocytes (Bld) [#/Vol] 10*3/uL Normal <0.10 [facility] Comment on above: Order Comment: Speci men Type: BLOOD SPECIMEN [facility] Address: [address] [place] [address] Performed By: #### 2 4323-8, 3039-3, #### [facility] CLIA [id number] [address] [place] [address] [place] Immature granulocytes/100 WBC (Bld) 0.1 % Normal [facility] Comment on above: Order Comment: Speci men Type: BLOOD SPECIMEN [facility] Address: [address] [place] [address] Performed By: #### 2 4323-8, 3039-3, #### [facility] CLIA [id number] [address] [place] [address] [place] Lymphocytes (Bld) [#/Vol] 1.83 10*3/uL Normal 1.00-4.00 [facility] Comment on above: Order Comment: Speci men Type: BLOOD SPECIMEN [facility] Address: [address] [place] [address] Performed By: #### 2 4323-8, 3039-3, #### [facility] CLIA [id number] [address] [place], [place] [address] [place] [address] STATES OF [facility] Lymphocytes/100 WBC (Bld) 15.9 % Normal [facility] Comment on above: Order Comment: Speci men Type: BLOOD SPECIMEN [facility] Address: [address] [place] [address] Performed By: #### 2 4323-8, 3, #### [facility] CLIA [id number] [address] [place] [address] [place] MCH (RBC) [Entitic mass] 28.9 pg Normal 26.0-34.0 [facility] Comment on above: Order Comment: Speci men Type: BLOOD SPECIMEN [facility] Address: [address] [place] [address] Performed By: #### 2 4323-8, 3, #### [facility] CLIA [id number] [address] [place] [address] [place] MCHC (RBC) [Mass/Vol] 32.3 g/dL Normal 30.5-36.0 [facility] Comment on above: Order Comment: Speci men Type: BLOOD SPECIMEN [facility] Address: [address] [place] [address] Performed By: #### 2 4323-8, 3039-3, #### [facility] CLIA [id number] [address] [place] [address] [place] MCV (RBC) [Entitic vol] 89.7 fL Normal 80.0-100.0 [facility] Comment on above: Order Comment: Speci men Type: BLOOD SPECIMEN [facility] Address: [address] [place] [address] Performed By: #### 2 4323-8, 3040-3, #### [facility] CLIA [id number] [address] [place] [address] [place] Monocytes (Bld) [#/Vol] 0.75 10*3/uL Normal <0.87 [facility] Comment on above: Order Comment: Speci men Type: BLOOD SPECIMEN [facility] Address: [address] [place] [address] Performed By: #### 2 4323-8, 3039-3, #### [facility] CLIA [id number] [address] [place] [address] [place] Monocytes/100 WBC (Bld) 6.5 % Normal [facility] Comment on above: Order Comment: Speci men Type: BLOOD SPECIMEN [facility] Address: [address] [place] [address] Performed By: #### 2 4323-8, 3039-3, #### [facility] CLIA [id number] [address] [place] [address] [place] Neutrophils (Bld) [#/Vol] 8.75 10*3/uL High 1.45-7.50 [facility] Comment on above: Order Comment: Speci men Type: BLOOD SPECIMEN [facility] Address: [address] [place] [address] Performed By: #### 2 4323-8, 0-3, #### [facility] CLIA [id number] [address] [place] [address] [place] Neutrophils/100 WBC (Bld) 76.2 % Normal [facility] Comment on above: Order Comment: Speci men Type: BLOOD SPECIMEN [facility] Address: [address] [place] [address] Performed By: #### 2 4323-8, 3039-3, #### [facility] CLIA [id number] [address] [facility] [place] [address] [place] Nucleated RBC (Bld) [#/Vol] Normal [facility] Comment on above: Order Comment: Speci men Type: BLOOD SPECIMEN [facility] Address: [address] [place] [address] Performed By: #### 2 4323-8, 3, #### [facility] CLIA [id number] [address] [place] [address] [place] Nucleated RBC/100 WBC (Bld) [Ratio] Normal [facility] Comment on above: Order Comment: Speci men Type: BLOOD SPECIMEN [facility] Address: [address] [place] [address] Performed By: #### 2 4323-8, 3, #### [facility] CLIA [id number] [address] [place] [address] [place] Platelet mean volume (Bld) [Entitic vol] 11.1 fL Normal 9.0-12.7 [facility] Comment on above: Order Comment: Speci men Type: BLOOD SPECIMEN [facility] Address: [address] [place] [address] Performed By: #### 2 4323-8, 3, #### [facility] CLIA [id number] [address] [place] [address] [place] Platelets (Bld) [#/Vol] 293 10*3/uL Normal 150-400 [facility] Comment on above: Order Comment: Speci men Type: BLOOD SPECIMEN [facility] Address: [address] [place] [address] Performed By: #### 2 4323-8, 3039-3, #### [facility] CLIA [id number] [address] [place] [address] [place] [facility] [place] RBC (Bld) [#/Vol] 4.94 10*6/uL Normal 3.90-5.20 [facility] Comment on above: Order Comment: Speci men Type: BLOOD SPECIMEN [facility] Address: [address] [place] [address] Performed By: #### 2 4323-8, 3039-3, #### [facility] CLIA [id number] [address] [place] [address] [facility] WBC (Bld) [#/Vol] 11.49 10*3/uL High 3.70-11.00 [facility] Comment on above: Order Comment: Speci men Type: BLOOD SPECIMEN [facility] Address: [address] [place] [address] Performed By: #### 2 4323-8, 3039-3, #### [facility] CLIA [id number] [address] [place] [address] [facility] [place] Comprehensive metabolic 2000 panelon 03-14-2023 Albumin [Mass/Vol] 4.3 g/dL Normal 3.9-4.9 [facility] Comment on above: Order Comment: Speci men Type: BLOOD SPECIMEN [facility] Address: [address] [place] [address] Performed By: #### 2 4323-8, 3039-3, #### [facility] CLIA [id number] [address] [place] [address] [facility] ALP [Catalytic activity/Vol] 63 U/L Normal 34-123 [facility] Comment on above: Order Comment: Speci men Type: BLOOD SPECIMEN [facility] Address: [address] [place] [address] Performed By: #### 2 4323-8, 3039-3, #### [facility] CLIA [id number] [address] [facility] [place] [address] [place] ALT With P-5'-P [Catalytic activity/Vol] 14 U/L Normal 7-38 [facility] Comment on above: Order Comment: Speci men Type: BLOOD SPECIMEN [facility] Address: [address] [place] [address] Performed By: #### 2 4323-8, 3039-3, #### [facility] CLIA [id number] [address] [place] [address] [place] Anion gap [Moles/Vol] 10 mmol/L Normal 9-18 [facility] Comment on above: Order Comment: Speci men Type: BLOOD SPECIMEN [facility] Address: [address] [place] [address] Performed By: #### 2 4323-8, 3, #### [facility] CLIA [id number] [address] [place] [address] [place] AST With P-5'-P [Catalytic activity/Vol] 19 U/L Normal 13-35 [facility] Comment on above: Order Comment: Speci men Type: BLOOD SPECIMEN [facility] Address: [address] [place] [address] Performed By: #### 2 4323-8, 3039-3, #### [facility] CLIA [id number] [address] [place] [address] [place] Bilirubin [Mass/Vol] 0.6 mg/dL Normal 0.2-1.3 [facility] Comment on above: Order Comment: Speci men Type: BLOOD SPECIMEN [facility] Address: [address] [place] [address] Performed By: #### 2 4323-8, 3039-3, #### [facility] CLIA [id number] [address] [place] [address] [place] Calcium [Mass/Vol] 9.0 mg/dL Normal 8.5-10.2 [facility] Comment on above: Order Comment: Speci men Type: BLOOD SPECIMEN [facility] Address: [address] [place] [address] Performed By: #### 2 4323-8, 3039-3, #### [facility] CLIA [id number] [address] [place] [address] [place] Chloride [Moles/Vol] 104 mmol/L Normal 97-105 [facility] Comment on above: Order Comment: Speci men Type: BLOOD SPECIMEN [facility] Address: [address] [place] [address] Performed By: #### 2 4323-8, 3, #### [facility] CLIA [id number] [address] [place] [address] [place] CO2 [Moles/Vol] 26 mmol/L Normal 22-30 [facility] Comment on above: Order Comment: Speci men Type: BLOOD SPECIMEN [facility] Address: [address] [place] [address] Performed By: #### 2 4323-8, 3, #### [facility] CLIA [id number] [address] [place] [address] [place] Creatinine [Mass/Vol] 0.69 mg/dL Normal 0.58-0.96 [facility] Comment on above: Order Comment: Speci men Type: BLOOD SPECIMEN [facility] Address: [address] [place] [address] Performed By: #### 2 4323-8, 3, #### [facility] CLIA [id number] [address] [place] [address] [facility] Creatinine and Glomerular filtration rate.predicted panel (S/P/Bld) 125 mL/min/1.73m??? Normal >=60 [facility] Comment on above: Order Comment: Speci men Type: BLOOD SPECIMEN [facility] Address: [address] [id number] Result Comment: [place] mated Glomerular Filtration Rate [...] actual GFR. Performed By: #### 2 4323-8, 3040-3, #### [facility] CLIA [id number] [address] [place] [address] [place] Glucose [Mass/Vol] 83 mg/dL Normal 74-99 [facility] Comment on above: Order Comment: Renetta lynn Type: BLOOD SPECIMEN [facility] Facility: [facility] Address: [address] [place] [address] Result Comment: The [place] Diabetes Association (ADA) provides guidance for cutoff [...] Standards of Medical Care in Diabetes 2016, [place] [employer] Association. Diabetes Care. 2016.39(Suppl 1). Performed By: #### 2 4323-8, 3040-3, #### [employer] [place] [facility] CLIA [id number] [address] [place] [address] [place] Potassium [Moles/Vol] 3.9 mmol/L Normal 3.7-5.1 [facility] Comment on above: Order Comment: Renetta lynn Type: BLOOD SPECIMEN [facility]: [facility] Address: [address] [place] [address] Performed By: #### 2 4323-8, 3040-3, #### [facility] CLIA [id number] [address] [place] [address] [place] Protein [Mass/Vol] 7.0 g/dL Normal 6.3-8.0 [facility] Comment on above: Order Comment: Speci men Type: BLOOD SPECIMEN [facility] Address: [address] [place] [address] Performed By: #### 2 4323-8, 3039-3, #### [facility] CLIA [id number] [address] [place] [address] [place] Sodium [Moles/Vol] 140 mmol/L Normal 136-144 [facility] Comment on above: Order Comment: Novai men Type: BLOOD SPECIMEN [facility] Address: [address] [place] [address] Performed By: #### 2 4323-8, 3, #### [facility] CLIA [id number] [address] [place] [address] [place] Urea nitrogen [Mass/Vol] 10 mg/dL Normal 7-21 [facility] Comment on above: Order Comment: Speci men Type: BLOOD SPECIMEN [facility] Address: [address] [place] [address] Performed By: #### 2 4323-8, 3, #### [facility] CLIA [id number] [address] [place] [address] [facility] ED NOTEon 03-14-2023 ED NOTE HNO ID: [id number] Author: JANICE MARIE RN Service: Nursing Author [...] for worsening or life threatening symptoms. Normal [facility] ED NOTE HNO ID: [id number] Author: JANICE MARIE, VARUN Service: Nursing Author Type: Registered Nurse Type: ED Notes Filed: 03/14/2023 15:14 Note Text: Patient awoke at 0200 today for work feeling nauseated. Shortly after she developed pain. She preceded to work. The pain continued in "waves" with diarrhea (x 4 times), denies vomiting. Approx 3 years ago she was told her gallbladder was not functioning appropriately. Since she has episodes of bloating and pain after eating high fat foods.She ate pizza and jackson-egg and cheese muffin 03/13/23. Her pain is epigastric and RUQ/LUQ abdomen. She states It is like a band across my abdomen". Normal [facility] ED PROV NOTEon 03-14-2023 ED PROV NOTE HNO ID: [id number] Author: IRA ZEE MD Service: Emergency Medicine [...] Toradol was (more content not included)... Normal [facility] Lipase SerPl-cCncon 03-14-19 Lipase [Catalytic activity/Vol] 14 U/L Low 16-61 [facility] Comment on above: Order Comment: Speci men Type: BLOOD SPECIMEN [facility] Address: [address] [place] [address] Performed By: #### 2 4323-8, 3040-3, 98811-0 #### [facility] CLIA [id number] [address] [place] [address] [place] US ABD RIGHT [...] sonographic appearance of the right upper quadrant. Ip Architect: LUCERO Transcribe Date/Time: Mar 14 2023 4:16P Dictated by : ANTONIO LYNN MD This examination was interpreted and the report reviewed and electronically signed by: ANTONIO LYNN MD on Mar 14 2023 4:19PM EST [id number] Normal [facility] Bacteria Bld Culton 05-24-19 23 Bacteria identified Cx Nom (Bld) CULTURE, BLOOD: No growth 5 days Normal [facility] Comment on above: Performed By: #### 5 7021-8 #### [facility] CLIA [id number] [address] [place] [address] Bacteria identified Cx Nom (Bld) CULTURE, BLOOD: No growth 5 days Normal [facility] Comment on above: Performed By: #### 6 00-7 #### [facility] CLIA [id number] [address] Bacteria Ur Culton 3 Bacteria identified Cx Nom (U) CULTURE, URINE: 10,000-<50,000 CFU/ml Normal Urogenital Sergio Normal [facility] Comment on above: Performed By: #### 5 7021-8 #### [facility] CLIA [id number] [address] [place] [address] CBC W Auto Differential pane l (Bld)on 05-23-2022 Basophils (Bld) [#/Vol] 10*3/uL Normal <0.11 [facility] Comment on above: Order Comment: Speci men Type: BLOOD SPECIMEN [facility] Address: [address] [place], [place] [address] Performed By: #### 5 7021-8 #### [facility] CLIA [id number] [address] [place] Basophils/100 WBC (Bld) 0.1 % Normal [facility] Comment on above: Order Comment: Speci men Type: BLOOD SPECIMEN [facility] Address: [address] [place] [address] Performed By: #### 5 7021-8 #### [facility] CLIA [id number] [address] [place] [address] [facility] Differential cell count method Nom (Bld) Auto Normal [facility] Comment on above: Order Comment: Speci men Type: BLOOD SPECIMEN [facility] Address: [address] [place] [address] Performed By: #### 5 7021-8 #### [facility] CLIA [id number] [address] [place] [address] [place] Eosinophils (Bld) [#/Vol] 0.05 10*3/uL Normal <0.46 [facility] Comment on above: Order Comment: Speci men Type: BLOOD SPECIMEN [facility] Address: [address] [place] [address] Performed By: #### 5 7021-8 #### [facility] CLIA [id number] [address] [place] [address] [place] Eosinophils/100 WBC (Bld) 0.3 % Normal [facility] Comment on above: Order Comment: Speci men Type: BLOOD SPECIMEN [facility] Address: [address] [place] [address] Performed By: #### 5 7021-8 #### [facility] CLIA [id number] [address] [place] Erythrocyte distribution width (RBC) [Ratio] 12.0 % Normal 11.5-15.0 [facility] Comment on above: Order Comment: Speci men Type: BLOOD SPECIMEN [facility] Address: [address] [place] [address] Performed By: #### 5 7021-8 #### [facility] CLIA [id number] [address] [place] [address] [place] Hematocrit (Bld) [Volume fraction] 40.9 % Normal 36.0-46.0 [facility] Comment on above: Order Comment: Speci men Type: BLOOD SPECIMEN [facility] Address: [address] [place] [address] Performed By: #### 5 7021-8 #### [facility] CLIA [id number] [address] [place] [address] [place] Hemoglobin (Bld) [Mass/Vol] 13.3 g/dL Normal 11.5-15.5 [facility] Comment on above: Order Comment: Speci men Type: BLOOD SPECIMEN [facility] Address: [address] [place] [address] Performed By: #### 5 7021-8 #### [facility] CLIA [id number] [address] [place] Immature granulocytes (Bld) [#/Vol] 0.03 10*3/uL Normal <0.10 [facility] Comment on above: Order Comment: Speci men Type: BLOOD SPECIMEN [facility] Address: [address] [place] [address] Performed By: #### 5 7021-8 #### [facility] CLIA [id number] [address] [place] [address] [place] Immature granulocytes/100 WBC (Bld) 0.2 % Normal [facility] Comment on above: Order Comment: Speci men Type: BLOOD SPECIMEN [facility] Address: [address] [place] [address] Performed By: #### 5 7021-8 #### [facility] CLIA [id number] [address] [place] [address] [place] Lymphocytes (Bld) [#/Vol] 3.48 10*3/uL Normal 1.00-4.00 [facility] Comment on above: Order Comment: Speci men Type: BLOOD SPECIMEN [facility] Address: [address] [place] [address] Performed By: #### 5 7021-8 #### [facility] CLIA [id number] [address] Lymphocytes/100 WBC (Bld) 20.7 % Normal [facility] Comment on above: Order Comment: Speci men Type: BLOOD SPECIMEN [facility] Address: [address] [place] [address] Performed By: #### 5 7021-8 #### [facility] CLIA [id number] [address] [place] [address] [place] MCH (RBC) [Entitic mass] 29.2 pg Normal 26.0-34.0 [facility] Comment on above: Order Comment: Speci men Type: BLOOD SPECIMEN [facility] Address: [address] [place] [address] Performed By: #### 5 7021-8 #### [facility] CLIA [id number] [address] [place] MCHC (RBC) [Mass/Vol] 32.5 g/dL Normal 30.5-36.0 [facility] Comment on above: Order Comment: Speci men Type: BLOOD SPECIMEN [facility] Address: [address] [place] [address] Performed By: #### 5 7021-8 #### [facility] CLIA [id number] [address] [place] MCV (RBC) [Entitic vol] 89.9 fL Normal 80.0-100.0 [facility] Comment on above: Order Comment: Speci men Type: BLOOD SPECIMEN [facility] Address: [address] [place] [address] Performed By: #### 5 7021-8 #### [facility] CLIA [id number] [address] [place] [address] [place] Monocytes (Bld) [#/Vol] 1.29 10*3/uL High <0.87 [facility] Comment on above: Order Comment: Speci men Type: BLOOD SPECIMEN [facility] Address: [address] [address] Performed By: #### 5 7021-8 #### [facility] CLIA [id number] [address] [place] [address] [place] Monocytes/100 WBC (Bld) 7.7 % Normal [facility] Comment on above: Order Comment: Speci men Type: BLOOD SPECIMEN [facility] Address: [address] [place] [address] Performed By: #### 5 7021-8 #### [facility] CLIA [id number] [address] [place] [address] [place] Neutrophils (Bld) [#/Vol] 11.97 10*3/uL High 1.45-7.50 [facility] Comment on above: Order Comment: Speci men Type: BLOOD SPECIMEN [facility] Address: [address] [place] [address] Performed By: #### 5 7021-8 #### [facility] CLIA [id number] [address] [place] [address] [place] Neutrophils/100 WBC (Bld) 71.0 % Normal [facility] Comment on above: Order Comment: Speci men Type: BLOOD SPECIMEN [facility] Address: [address] [place] [address] Performed By: #### 5 7021-8 #### [facility] CLIA [id number] [address] [place] [address] [place] Nucleated RBC (Bld) [#/Vol] Normal [facility] Comment on above: Order Comment: Speci men Type: BLOOD SPECIMEN [facility] Address: [address] [place] [address] Performed By: #### 5 7021-8 #### [facility] CLIA [id number] [address] [place] [address] [place] Nucleated RBC/100 WBC (Bld) [Ratio] Normal [facility] Comment on above: Order Comment: Speci men Type: BLOOD SPECIMEN [facility] Address: [address] [place] [address] Performed By: #### 5 7021-8 #### [facility] CLIA [id number] [address] [place] [address] [place] Platelet mean volume (Bld) [Entitic vol] 10.9 fL Normal 9.0-12.7 [facility] Comment on above: Order Comment: Speci men Type: BLOOD SPECIMEN [facility] Address: [address] [place] [address] Performed By: #### 5 7021-8 #### [facility] CLIA [id number] [address] [place] [address] [place] Platelets (Bld) [#/Vol] 357 10*3/uL Normal 150-400 [facility] Comment on above: Order Comment: Speci men Type: BLOOD SPECIMEN [facility] Address: [address] [place] [address] Performed By: #### 5 7021-8 #### [facility] CLIA [id number] [address] [place] [address] [place] RBC (Bld) [#/Vol] 4.55 10*6/uL Normal 3.90-5.20 [facility] Comment on above: Order Comment: Speci men Type: BLOOD SPECIMEN [facility] Address: [address] [place], [place] [address] Performed By: #### 5 7021-8 #### [facility] CLIA [id number] [address] [place] [address] [place] WBC (Bld) [#/Vol] 16.84 10*3/uL High 3.70-11.00 [facility] Comment on above: Order Comment: Speci men Type: BLOOD SPECIMEN [facility] Address: [address] [place] [address] Performed By: #### 5 7021-8 #### [facility] CLIA [id number] [address] [place], [place] [address] [place] [address] Comprehensive metabolic 2000 panelon 05-23-2022 Albumin [Mass/Vol] 4.0 g/dL Normal 3.9-4.9 [facility] Comment on above: Order Comment: Speci men Type: SPECIMEN FROM THROAT [facility] Address: [address] [place] [address] Performed By: #### G ASPCR #### [facility] CLIA [id number] [address] [place] ALP [Catalytic activity/Vol] 73 U/L Normal 34-123 [facility] Comment on above: Order Comment: Speci men Type: SPECIMEN FROM THROAT [facility] Address: [address] [place] [address] Performed By: #### G ASPCR #### [facility] CLIA [id number] [address] [place] [address] OF [facility] ALT With P-5'-P [Catalytic activity/Vol] 15 U/L Normal 7-38 [facility] Comment on above: Order Comment: Speci men Type: SPECIMEN FROM THROAT [facility] Address: [address] [place] [address] Performed By: #### G ASPCR #### [facility] CLIA [id number] [address] [place] Anion gap [Moles/Vol] 10 mmol/L Normal 9-18 [facility] Comment on above: Order Comment: Speci men Type: SPECIMEN FROM THROAT [facility] Address: [address] [place] [address] Performed By: #### G ASPCR #### [facility] CLIA [id number] [address] [place] [address] [place] AST With P-5'-P [Catalytic activity/Vol] 17 U/L Normal 13-35 [facility] Comment on above: Order Comment: Speci men Type: SPECIMEN FROM THROAT [facility] Address: [address] [place] [address] Performed By: #### G ASPCR #### [facility] CLIA [id number] [address] [place] [address] [place] Bilirubin [Mass/Vol] 0.4 mg/dL Normal 0.2-1.3 [facility] Comment on above: Order Comment: Speci men Type: SPECIMEN FROM THROAT [facility] Address: [address] [place] [address] Performed By: #### G ASPCR #### [facility] CLIA [id number] [address] [place] [address] [place] Calcium [Mass/Vol] 9.3 mg/dL Normal 8.5-10.2 [facility] Comment on above: Order Comment: Speci men Type: SPECIMEN FROM THROAT [facility] Address: [address] [place] [address] Performed By: #### G ASPCR #### [facility] CLIA [id number] [address] [place] [address] [place] Chloride [Moles/Vol] 99 mmol/L Normal 97-105 [facility] Comment on above: Order Comment: Speci men Type: SPECIMEN FROM THROAT [facility] Address: [address] [place] [address] Performed By: #### G ASPCR #### [facility] CLIA [id number] [address] [place] [address] [place] CO2 [Moles/Vol] 27 mmol/L Normal 22-30 [facility] Comment on above: Order Comment: Speci men Type: SPECIMEN FROM THROAT [facility] Address: [address] [address] Performed By: #### G ASPCR #### [facility] CLIA [id number] [address] [place] [address] [place] Creatinine [Mass/Vol] 0.69 mg/dL Normal 0.58-0.96 [facility] Comment on above: Order Comment: Speci men Type: SPECIMEN FROM THROAT [facility] Address: [address] [address] Performed By: #### G ASPCR #### [facility] CLIA [id number] [address] [place] [address] [facility] ESTIMATED GLOMERULAR FILTRATION RATE 125 mL/min/1.73m??? Normal >=60 [facility] Comment on above: Order Comment: Speci men Type: SPECIMEN FROM THROAT [facility] Address: [address] [place] [address] Result Comment: [place] mated Glomerular Filtration Rate [...] GFR. Performed By: #### G ASPCR #### [facility] CLIA [id number] [address] [place], [place] [id number] [facility] Glucose [Mass/Vol] 99 mg/dL Normal 74-99 [facility] Comment on above: Order Comment: Speci men Type: SPECIMEN FROM THROAT Order[facility] Address: [address] [address] Result Comment: The [place] Diabetes Association (ADA) provides guidance for cutoff [...] Standards of Medical Care in Diabetes 2016, [place] [employer]. Diabetes Care. 2016.39(Suppl 1). Performed By: #### G ASPCR #### [facility] CLIA [id number] [address] [place] [address] [place] Potassium [Moles/Vol] 3.9 mmol/L Normal 3.7-5.1 [facility] Comment on above: Order Comment: Speci men Type: SPECIMEN FROM THROAT [facility] Address: [address] [address] Performed By: #### G ASPCR #### [facility] CLIA [id number] [address] [place] [address] [place] Protein [Mass/Vol] 7.5 g/dL Normal 6.3-8.0 [facility] Comment on above: Order Comment: Speci men Type: SPECIMEN FROM THROAT [facility] Address: [address] [address] Performed By: #### G ASPCR #### [facility] CLIA [id number] [address] [place] [address] [place] Sodium [Moles/Vol] 136 mmol/L Normal 136-144 [facility] Comment on above: Order Comment: Speci men Type: SPECIMEN FROM THROAT [facility] Address: [address] [address] Performed By: #### G ASPCR #### [facility] CLIA [id number] [address] [place] [address] [place] Urea nitrogen [Mass/Vol] 8 mg/dL Normal 7-21 [facility] Comment on above: Order Comment: Speci men Type: SPECIMEN FROM THROAT [facility] Address: [address] [address] Performed By: #### G ASPCR #### [facility] CLIA [id number] [address] [place] [address] [place] ED NOTEon 05-23-2022 ED NOTE HNO ID: [id number] Author: Brian Pfeiffer, VARUN Service: Emergency Medicine Author Type: Registered Nurse Type: ED Notes Filed: 05/23/2022 8:13 PM Note Text: Pt arrived with c/o of continued ear pain and fever from previous visit. Pt states was here and only put on nasal spray to open ears. Helped for a short time but pain and fever worse. PWD. NAD. VSS. HR elevated. Fever noted. Normal [facility] ED PROV NOTEon 05-23-2022 ED PROV NOTE HNO ID: [id number] Author: Alexandria Hyman DO Service: Emergency Medicine [...] present. Puls (more content not included)... Normal [facility] FLUABV+SARS-CoV-2+RSV Pnl Re sp NABILA+probeon 05-23-2022 FLUABV+SARS-CoV-2+RS V Pnl Resp NABILA+probe COVID 19 RESULT: Not detected The method used is RT-PCR or an equivalent NAAT method. Reference Range(the expected result in uninfected individuals): Not detected INFLUENZA A PCR: Not detected INFLUENZA B PCR: Not detected RSV PCR: Not detected Normal [facility] Comment on above: Performed By: #### 5 7021-8 #### [facility] CLIA [id number] [address] [place] [address] [place] GROUP A STREPTOCOCCUS BY PCR on 05-23-2022 S. pyogenes DNA NABILA+probe Ql (Throat) Not detected Normal Not detected [facility] Comment on above: Order Comment: Speci men Type: SPECIMEN FROM THROAT [facility] Address: [address] [place] [phone] Performed By: #### G ASPCR #### [facility] CLIA [id number] [address] [place] [address] [place] HCG Preg Ur Qlon 05-23-2022 HCG ( test) Ql (U) Negative Normal Negative [facility] Comment on above: Order Comment: Renetta lynn Type: SPECIMEN FROM THROAT [facility] Address: [address] [place] [address] Result Comment: This test is intended to aid in the early detection of . Very dilute urine samples, as indicated by a low specific gravity, may not contain client service representative levels of hCG. This test detects [...] . Performed By: #### G ASPCR #### [facility] CLIA [id number] [address] [place] [address] HIGH SENSITIVITY TROPONIN T (INITIAL)on 05-23-2022 HIGH SENSITIVITY MILO <6 Normal <12 [facility] Comment on above: Order Comment: Renetta lynn Type: BLOOD SPECIMEN [facility] Address: [address] [place] [address] Result Comment: When assessing risk for acute [...] 30 day MACE. Performed By: #### L [id number] #### [facility] CLIA [id number] [address] [place] [address] OF [facility] HIGH SENSITIVITY TROPONIN T (SECOND)on 05-23-2022 HIGH SENSITIVITY MILO <6 Normal <12 [facility] Comment on above: Order Comment: Renetta lynn Type: SPECIMEN FROM THROAT [facility] Address: [facility] [address] Result Comment: When assessing risk for acute [...] MACE. Performed By: #### G ASPCR #### [facility] CLIA [id number] [address] [place] [address] Lactate (Bld) [Moles/Vol]on 05-23-2022 Lactate [Moles/Vol] 1.1 mmol/L Normal 0.5-2.2 [facility] Comment on above: Order Comment: Speci men Type: SPECIMEN FROM THROAT [facility] Address: [address] [place] [address] Performed By: #### G ASPCR #### [facility] CLIA [id number] [address] [place] [address] OF [facility] Urinalysis complete panel (U )on 05-23-2022 Bacteria LM.HPF (Urine sed) [#/Area] Many Abnormal None Seen [facility] Comment on above: Order Comment: Speci men Type: URINE SPECIMEN [facility] Address: [address] [place] [address] Performed By: #### 2 4356-8 #### [facility] CLIA [id number] [address] [place] [address] Bilirubin Ql (U) Negative Normal Negative [facility] Comment on above: Order Comment: Speci men Type: URINE SPECIMEN [facility] Address: [address] [place] [address] Performed By: #### 2 4356-8 #### [facility] CLIA [id number] [address] [id number] [facility] Clarity (Unsp spec) Clear Normal Clear [facility] Comment on above: Order Comment: Speci men Type: URINE SPECIMEN [facility] Address: [address] [place] [address] Performed By: #### 2 4356-8 #### [facility] CLIA [id number] [address] [place] [address] [place] Color (U) Yellow Normal Yellow [facility] Comment on above: Order Comment: Speci men Type: URINE SPECIMEN [facility] Address: [address] [place] [address] Performed By: #### 2 4356-8 #### [facility] CLIA [id number] [address] [place] [address] [place] NAVEED Epithelial cells LM.HPF (Urine sed) [#/Area] Moderate Normal [facility] Comment on above: Order Comment: Speci men Type: URINE SPECIMEN Ordering Facility: [facility] Address: [address] [place] [address] Performed By: #### 2 4356-8 #### [facility] CLIA [id number] [address] [place] [address] [place] Glucose Test strip (U) [Mass/Vol] Negative Normal Negative [facility] Comment on above: Order Comment: Speci men Type: URINE SPECIMEN Ordering Facility: [facility] Address: [address] [place] [address] Performed By: #### 2 4356-8 #### [facility] CLIA [id number] [address] [place] [address] [place] Hemoglobin Ql (U) Trace Abnormal Negative [facility] Comment on above: Order Comment: Speci men Type: URINE SPECIMEN Ordering Facility: [facility] Address: [address] [place] [address] Performed By: #### 2 4356-8 #### [facility] CLIA [id number] [address] [place] [address] [place] Ketones Ql (U) Negative Normal Negative [facility] Comment on above: Order Comment: Speci men Type: URINE SPECIMEN Ordering Facility: [facility] Address: [address] [place] [address] Performed By: #### 2 4356-8 #### [facility] CLIA [id number] [address] Leukocyte esterase Test strip Ql (U) Negative Normal Negative [facility] Comment on above: Order Comment: Speci men Type: URINE SPECIMEN Ordering Facility: [facility] Address: [address] [place] [address] Performed By: #### 2 4356-8 #### [facility] CLIA [id number] [address] [place] Nitrite Ql (U) Negative Normal Negative [facility] Comment on above: Order Comment: Speci men Type: URINE SPECIMEN Ordering Facility: [facility] Address: [address] [place] [address] Performed By: #### 2 4356-8 #### [facility] CLIA [id number] [address] [place] [address] [place] pH (U) 7.0 [pH] Normal 5.0-8.0 [facility] Comment on above: Order Comment: Speci men Type: URINE SPECIMEN Ordering Facility: [facility] Address: [address] [place] [address] Performed By: #### 2 4356-8 #### [facility] CLIA [id number] [address] [place] Protein (U) [Mass/Vol] Negative Normal Negative [facility] Comment on above: Order Comment: Speci men Type: URINE SPECIMEN Ordering Facility: [facility] Address: [address] [place] [address] Performed By: #### 2 4356-8 #### [facility] CLIA [id number] [address] [place] [address] [place] [facility] OF NAVEED RBC LM.HPF (Urine sed) [#/Area] 0-3 /HPF Normal 0-3 /HPF [facility] Comment on above: Order Comment: Speci men Type: URINE SPECIMEN Ordering Facility: [facility] Address: [address] [place] [address] Performed By: #### 2 4356-8 #### [facility] CLIA [id number] [address] [place] [address] Urobilinogen Ql (U) 0.2 EU/dL Normal 0.2-1.0 EU/dL [facility] Comment on above: Order Comment: Speci men Type: URINE SPECIMEN Ordering Facility: [facility] Address: [address] [place] [address] Performed By: #### 2 4356-8 #### [facility] CLIA [id number] [address] [place] [address] WBC LM.HPF (Urine sed) [#/Area] 0-5 /HPF Normal 0-5 /HPF [facility] Comment on above: Order Comment: Speci men Type: URINE SPECIMEN Ordering Facility: [facility] Address: [address] [place] [address] Performed By: #### 2 4356-8 #### [facility] CLIA [id number] [address] [place] [address] Urinalysis complete pnl Uron 05-23-2022 Specific gravity (U) [Rel density] 1.015 Normal 1.005-1.030 [facility] Comment on above: Order Comment: Speci men Type: URINE SPECIMEN Ordering Facility: [facility] Address: [address] [place] [address] Performed By: #### 2 4356-8 #### [facility] CLIA [id number] [address] [place] [address] Order Comment: Speci men Type: SPECIMEN FROM THROAT Ordering Facility: [facility] Address: [address] [place] [address] Performed By: #### G ASPCR #### [facility] CLIA [id number] [address] [place] [address] NAVEED XR CHEST 2V FRONTAL/LATon XR CHEST 2V [...] IMPRESSION: Suboptimal inspiration. No acute radiographic abnormality. Ip Architect: PSCB Transcribe Date/Time: May 23 2022 9:20P Dictated by : POLA ARMSTRONG MD This examination was interpreted and the report reviewed and electronically signed by: POLA ARMSTRONG MD on May 23 2022 9:21PM EST [id number] Normal [facility] ED PROV NOTEon 05-15-2022 ED PROV NOTE HNO ID: [id number] Author: Haley Barnhart MD Service: Emergency Medicine [...] dizziness, weakness and headaches. Physical Exam Vitals [05/14/222148] BP Pulse Temp Temp src Resp SpO2 [...] / Clinical Impression Clinical Impressions as of 05/14/221 Viral illness COVID-19 test performed per [facility] policy for suspected COVID community exposure. MDM [...] oropharynx unremarkab (more content not included)... Normal [facility] FLUABV+SARS-CoV-2+RSV Pnl Re sp NABILA+probeon 05-15-2022 FLUABV+SARS-CoV-2+RS V Pnl Resp NABILA+probe COVID 19 RESULT: Not detected The method used is RT-PCR or an equivalent NAAT method. Reference Range(the expected result in uninfected individuals): Not detected INFLUENZA A PCR: Not detected INFLUENZA B PCR: Not detected RSV PCR: Not detected Normal [facility] Comment on above: Performed By: #### 5 7021-8 #### [facility] CLIA [id number] [address] [place] [address] OF NAVEED ED NOTEon 05-14-2022 ED NOTE HNO ID: [id number] Author: Allie Hoffman RN Service: Emergency Medicine Author Type: Registered Nurse Type: ED Notes Filed: 05/14/2022 9:49 PM Note Text: Sore throat / cough / congestion x 3. Fever as high as 102; advil 1000. Denies N/V/D. [facility] ED NOTEon 04-20-2022 ED NOTE HNO ID: [id number] Author: Nany Bowdenle Service: Emergency Medicine Author Type: ? Type: [...] DATE: April 21, 2022 TIME: 3:11 PM [facility] ED NOTE HNO ID: [id number] Author: Beena Rome RN Service: Emergency Medicine Author Type: Registered Nurse Type: ED Notes Filed: 04/20/2022 10:40 AM Note Text: Pt given discharge instructions, pt questions answered and pt denies any further questions at time of discharge. Pt ambulates out of dept with a steady gait. 1 rx given [facility] ED NOTE HNO ID: [id number] Author: Beena Rome RN Service: Emergency Medicine Author Type: Registered Nurse Type: ED Notes Filed: 04/20/2022 9:56 AM Note Text: Pt had a uri recently and now has swelling and pain to the l side of her throat only. Pt has history of having tonsil stones. [facility] ED PROV NOTEon 04-20-2022 ED PROV NOTE HNO ID: [id number] Author: Victor Hugo Price MD Service: Emergency [...] due to (more content not included)... Normal [facility] US GRAVID ECHO LESS THAN [...] 10, 2019. Small subchorionic hemorrhage noted. Normal [facility] Comment on above: Order Comment: Order ed on Fin# [id number] Result Comment: Tech nologist: DM Dictated By: WONG KING MD, FACOG Signed By: WONG KING MD, FACOG Transcribed: 05.03.2019 14:08 Signed Out: 05/03/19 14:08:16 Rapid Influenza A/Bon 2019 Rapid Influenza A/B See below Normal Negative [facility] Comment on above: Result Comment: Nega tive for influenza A and B. Performed By: #### L RFLU #### [place] [address] Throat Rapid Grp A Strepon 0 04-11-2019 S. pyogenes Ag IA Ql (Unsp spec) see below Normal Negative [facility] Comment on above: Result Comment: Posi tive for group A Streptococcus antigen. Performed By: #### L RAPS #### [address] [address] Urinalysis Routineon 020 Appearance (U) CLEAR Normal [facility] Comment on above: Performed By: #### L URIN #### [address] [address] Bacteria LM.HPF (Urine sed) [#/Area] FEW Abnormal None [facility] Comment on above: Performed By: #### L URIN #### [facility] [address] [place] [address] Bilirubin Urine Negative Normal Negative [facility] Comment on above: Performed By: #### L URIN #### [facility] [address] [place] [address] Color (U) YELLOW Normal [facility] Comment on above: Performed By: #### L URIN #### [facility] [address] [place] [address] Ep Cells Urine 6-12 Abnormal 0-5 [facility] Comment on above: Performed By: #### L URIN #### [facility] [address] [place] [address] Glucose Ql (U) Negative Normal Negative [facility] Comment on above: Performed By: #### L URIN #### [facility] [address] [place] [address] Hemoglobin,Urine Negative Normal Negative [facility] Comment on above: Performed By: #### L URIN #### [facility] [address] [place] [address] Ketone Urine 2+ Abnormal Negative [facility] Comment on above: Performed By: #### L URIN #### [facility] [address] [place] [address] Leukocytes Esterase TRACE Abnormal Negative [facility] Comment on above: Performed By: #### L URIN #### [facility] [address] [place] [address] Nitrites Urine Negative Normal Negative [facility] Comment on above: Performed By: #### L URIN #### [facility] [address] [place] [address] pH (U) 7.5 [pH] Normal 5.0-8.0 [facility] Comment on above: Performed By: #### L URIN #### [facility] [address] [place] [address] Protein (U) [Mass/Vol] Negative Normal Negative [facility] Comment on above: Performed By: #### L URIN #### [facility] [address] [place] [address] RBC LM.HPF (Urine sed) [#/Area] 0-3 Normal 0-3 [facility] Comment on above: Performed By: #### L URIN #### [facility] [address] [place], [place] [address] Specific [place], Ur 1.020 Normal 1.005-1.030 [facility] Comment on above: Performed By: #### L URIN #### [facility] [address] [place] [address] Urobilinogen,Ur 1.0 EU/dL Normal 0.2-1.0 [facility] Comment on above: Performed By: #### L URIN #### [facility] [address] [place] [address] WBC LM.HPF (Urine sed) [#/Area] 0-2 Normal 0-5 [facility] Comment on above: Performed By: #### L URIN #### [facility] [address] [place] [address] Urine HCG, Qual.on 0 Beta HCG ( test) Ql (U) Positive Normal Negative [facility] Comment on above: Performed By: #### L HCG2 #### [place] [address] CT HEAD WO CONTRASTon 2018 CT HEAD WO CONTRAST Patient Name: RAMONA ZHAO STUDY: NR CT HEAD WO CONTRAST; 07/01/2018 10:57 pm INDICATION: head injury yesterday, off balance, vomiting. COMPARISON: None. ACCESSION NUMBER(S): [id number] ORDERING CLINICIAN: KEIKO SILVEIRA TECHNIQUE: Noncontrast axial [...] exam. Electronically signed by: YASMINE MAJANO MD Normal [facility] Provider Note - ED v2on 05-0 [...] nausea SIGNIFICANT EVENTS: Past Medical History Description:Denies SEGMENT PRODUCER: Is : no(1) Is : no(1) RESULTS/VITAL SIGNS RESULTS: Radiology Results: Impression: Normal exam. CT Head without Contrast [Jul 01 2018 11:04PM] VITAL SIGNS: T PRBP SpO2O2(LPM) %FiO2 Method 01-Jul-2018 21:49:[id number]/9 7 97 room air, no respiratory support CLINICAL IMPRESSION Diagnosis/Annotation: ED Dx Name:Concussion Code:S06.0X9A Dispostion: discharged Type: home Condition on Disposition: stable ATTESTATION Scribe Name: Sterling Garzon Scribing on Behalf of: Keiko Silveira DO ATTENDING SCRIBE ATTESTATION STATEMENT IKeiko DO, attests all medical record entries made [...] Silveira () References: 1. Data Referenced From "Triage - ED" 07/01/2018 09:49 PM Normal [facility] Risk Screen - Adult Emergenc yon 07-01-2018 [...] material; verbal instruction Cultural Considerationsnone Developmental Considerationsnone Taoist Considerationsnone Learning Assessment (Other Learner): Learning Assessment (Other Learner): Other learner availableyes... Learnermother Factors Influencing Readiness to Learnacuteness of illness Factors that Impact Ability to Learnnone Devices/Methods Used to Communicatenone Learning Preferencesverbal instruction, written material Cultural Considerationsnone Developmental Considerationsnone Taoist Considerationsnone Fall Risk Adult: Falls Risk: Altered [...] an injured patient at a Trauma Center ([facility]/[place]/[facility]/[employer]): yes C: Have you ever felt you needed to Cut down on your drinking: no A: Have people Annoyed you by criticizing your drinking: no G: Have you ever felt Guilty about drinking: no E: Have you ever felt you needed a drink first thing in the morning (Eye-outer diameter grinder tool) to steady your nerves or to get rid of hangover: no Electronic Signatures: Nasima Belle (RN) (Signed 01-Jul-2018 21:58) Authored: Preferred Language, Advanced Directives, Family Violence Adult, Learning Assessment (Patient), Learning Assessment (Other Learner), Fall Risk Adult, Pressure Injury/TB/Substance, CAGE Last Updated: 01-Jul-2018 21:58 by Nasima Belle (VARUN) [facility] Triage - EDon 07-01-2018 Triage - ED [...] of [place]: no Last menstrual period: 01-Jul-2018 SEGMENT PRODUCER History: control Patient has homicidal thoughts: no LAMAR: 3 Symptom Notes: . Symptoms Are POSITIVE For: blurred vision, nausea and vomiting. Symptoms Are Negative For: ataxia, bleeding, confusion, dizziness, headache, loss of consciousness and seizure. 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 Requested: no taxonomy teacher was requested MDRO: History of MDRO: no [...] Past Medical History, Active Electronic Signatures: Nasima Belle) (Signed 01-Jul-2018 21:59) Authored: Triage, Past Medical History Last Updated: 01-Jul-2018 21:59 by Nasima Belle (VARUN) Normal [facility] Vital Signs Date Time Vital Sign Value Performing Clinician Facility 09-11-2024 11:48-0400 Body mass index (BMI) [Ratio] 40.9 kg/m2 Pam Vazquez MD Work Phone: [facility] 09-11-2024 11:48-0400 Body weight 98.88 kg Pam Vazquez MD Work Phone: [facility] 09-11-2024 11:48-0400 Diastolic blood pressure 64 mm[Hg] Pam Vazquez MD Work Phone: [facility] 09-11-2024 11:48-0400 Systolic blood pressure 118 mm[Hg] Pam Vazquez MD Work Phone: [facility] 09-07-2024 22:01-0400 Body height 154.[address] Damir Solano MD Work Phone: [facility] 09-07-2024 22:01-0400 Body mass index (BMI) [Ratio] 41.9 kg/m2 Dr. Damir Solano MD Work Phone: 7(973)087-968731 [place] [address] 09-07-2024 22:01-0400 Body weight 100.[address] Damir Solano MD Work Phone: 6(048)197-519162 [place] [address] 09-07-2024 21:59-0400 Body temperature 98.6 [degF] Dr. Damir Solano MD Work Phone: 2(762)405-979262 [place] [address] 09-07-2024 21:59-0400 Diastolic blood pressure 62 mm[Hg] Dr. Damir Solano MD Work Phone: 6(444)625-064462 [place] [address] 09-07-2024 21:59-0400 Heart rate 103 /min Dr. Damir Solano MD Work Phone: 4(840)229-877162 [place] [address] 09-07-2024 21:59-0400 Respiratory rate 14 /min Dr. Damir Solano MD Work Phone: 2(771)127-560762 [place] [address] 09-07-2024 21:59-0400 Systolic blood pressure 124 mm[Hg] Dr. Damir Solano MD Work Phone: 6(946)293-960862 [place] [address] 09-03-2024 13:27-0400 Body mass index (BMI) [Ratio] 40.78 kg/m2 Mariela Velasco MD Work Phone: 7(483)960-865786 [place] [address] 09-03-2024 13:27-0400 Body weight 98.61 kg Mariela Velasco MD Work Phone: 1(066)473-454186 [place] [address] 09-03-2024 13:27-0400 Diastolic blood pressure 78 mm[Hg] Mariela Velasco MD Work Phone: 6(118)624-188986 [place] [address] 09-03-2024 13:27-0400 Systolic blood pressure 112 mm[Hg] Mariela Velasco MD Work Phone: 1(403)088-475986 [place] [address] 08-27-2024 16:12-0400 Body mass index (BMI) [Ratio] 40.14 kg/m2 Veronique Jones MD Work Phone: 3(447)333-912786 [place] [address] 08-27-2024 16:12-0400 Body weight 97.07 kg Veronique Jones MD Work Phone: [facility] 08-27-2024 16:12-0400 Diastolic blood pressure 78 mm[Hg] Veronique Jones MD Work Phone: [facility] 08-27-2024 16:12-0400 Systolic blood pressure 118 mm[Hg] Veronique Jones MD Work Phone: [facility] 08-13-2024 13:29-0400 Body mass index (BMI) [Ratio] 39.81 kg/m2 Veronique Jones MD Work Phone: [facility] 08-13-2024 13:29-0400 Body weight 96.25 kg Veronique Jones MD Work Phone: [facility] 08-13-2024 13:29-0400 Diastolic blood pressure 70 mm[Hg] Veronique Jones MD Work Phone: [facility] 08-13-2024 13:29-0400 Systolic blood pressure 112 mm[Hg] Veronique Jones MD Work Phone: [facility] 07-30-2024 14:16-0400 Body mass index (BMI) [Ratio] 39.32 kg/m2 Veronique Jones MD Work Phone: [facility] 07-30-2024 14:16-0400 Body weight 95.07 kg Veronique Jones MD Work Phone: [facility] 07-30-2024 14:16-0400 Diastolic blood pressure 70 mm[Hg] Veronique Jones MD Work Phone: [facility] 07-30-2024 14:16-0400 Systolic blood pressure 110 mm[Hg] Veronique Jones MD Work Phone: [facility] 07-16-2024 14:27-0400 Body mass index (BMI) [Ratio] 39.24 kg/m2 Veronique Jones MD Work Phone: [facility] 07-16-2024 14:27-0400 Body weight 94.89 kg Veronique Jones MD Work Phone: [facility] 07-16-2024 14:27-0400 Diastolic blood pressure 60 mm[Hg] Veronique Jones MD Work Phone: [facility] 07-16-2024 14:27-0400 Systolic blood pressure 100 mm[Hg] Veronique Jones MD Work Phone: [facility] 06-18-2024 14:14-0400 Body mass index (BMI) [Ratio] 38.57 kg/m2 Mariela Velasco MD Work Phone: [facility] 06-18-2024 14:14-0400 Body weight 93.26 kg Mariela Velasco MD Work Phone: [facility] 06-18-2024 14:14-0400 Diastolic blood pressure 64 mm[Hg] Mariela Velasco MD Work Phone: [facility] 06-18-2024 14:14-0400 Systolic blood pressure 102 mm[Hg] Mariela Velasco MD Work Phone: [facility] 05-21-2024 14:11-0400 Body mass index (BMI) [Ratio] 37.52 kg/m2 Aj Haury MEDICAL REVIEW SPECIALIST.ORNAMENTAL PLASTERER HELPER Work Phone: [facility] 05-21-2024 14:11-0400 Body weight 90.72 kg Aj Haury MEDICAL REVIEW SPECIALIST.ORNAMENTAL PLASTERER HELPER Work Phone: [facility] 05-21-2024 14:11-0400 Diastolic blood pressure 60 mm[Hg] Aj Haury MEDICAL REVIEW SPECIALIST.ORNAMENTAL PLASTERER HELPER Work Phone: [facility] 05-21-2024 14:11-0400 Systolic blood pressure 110 mm[Hg] Aj Haury MEDICAL REVIEW SPECIALIST.ORNAMENTAL PLASTERER HELPER Work Phone: [facility] 04-23-2024 14:02-0500 Body height 155.5 cm Veronique Jones MD Work Phone: [facility] 04-23-2024 14:02-0500 Body mass index (BMI) [Ratio] 35.79 kg/m2 Veronique Jones MD Work Phone: [facility] 04-23-2024 14:02-0500 Body weight 86.55 kg Veronique Jones MD Work Phone: [facility] 04-23-2024 14:02-0500 Diastolic blood pressure 60 mm[Hg] Veronique Jones MD Work Phone: [facility] 04-23-2024 14:02-0500 Systolic blood pressure 100 mm[Hg] Veronique Jones MD Work Phone: [facility] 04-16-2024 10:35-0500 Body mass index (BMI) [Ratio] 39.83 kg/m2 Cara Clutter PA-C Work Phone: [facility] 04-16-2024 10:35-0500 Body temperature 98.91 [degF] Cara Clutter PA-C Work Phone: [facility] 04-16-2024 10:35-0500 Body weight 89.5 kg Cara Clutter PA-C Work Phone: [facility] 04-16-2024 10:35-0500 Diastolic blood pressure 82 mm[Hg] Cara Clutter PA-C Work Phone: [facility] 04-16-2024 10:35-0500 Heart rate 97 /min Cara Clutter PA-C Work Phone: [facility] 04-16-2024 10:35-0500 Respiratory rate 21 /min Cara Clutter PA-C Work Phone: [facility] 04-16-2024 10:35-0500 SaO2% (BldA) [Mass fraction] 98 % Cara Clutter PA-C Work Phone: [facility] 04-16-2024 10:35-0500 Systolic blood pressure 104 mm[Hg] Cara Clutter PA-C Work Phone: [facility] 04-02-2024 12:43-0500 Body mass index (BMI) [Ratio] 38.98 kg/m2 Livan Bills APRN.CNP Work Phone: [facility] 04-02-2024 12:43-0500 Body temperature 98.4 [degF] Livan Bills MEDICAL REVIEW SPECIALIST.ORNAMENTAL PLASTERER HELPER Work Phone: [facility] 04-02-2024 12:43-0500 Body weight 87.6 kg Livan Bills MEDICAL REVIEW SPECIALIST.ORNAMENTAL PLASTERER HELPER Work Phone: [facility] 04-02-2024 12:43-0500 Diastolic blood pressure 78 mm[Hg] Livan Bills MEDICAL REVIEW SPECIALIST.ORNAMENTAL PLASTERER HELPER Work Phone: [facility] 04-02-2024 12:43-0500 Heart rate 91 /min Livan Bills MEDICAL REVIEW SPECIALIST.ORNAMENTAL PLASTERER HELPER Work Phone: [facility] 04-02-2024 12:43-0500 Respiratory rate 18 /min Livan Bills MEDICAL REVIEW SPECIALIST.ORNAMENTAL PLASTERER HELPER Work Phone: [facility] 04-02-2024 12:43-0500 SaO2% (BldA) [Mass fraction] 97 % Livan Bills MEDICAL REVIEW SPECIALIST.ORNAMENTAL PLASTERER HELPER Work Phone: [facility] 04-02-2024 12:43-0500 Systolic blood pressure 122 mm[Hg] Livan Bills MEDICAL REVIEW SPECIALIST.ORNAMENTAL PLASTERER HELPER Work Phone: [facility] 03-26-2024 13:42-0500 Body mass index (BMI) [Ratio] 38.76 kg/m2 Paul Galindo MD Work Phone: [facility] 03-26-2024 13:42-0500 Body weight 87.09 kg Paul Galindo MD Work Phone: [facility] 03-26-2024 13:42-0500 Diastolic blood pressure 66 mm[Hg] Paul Galindo MD Work Phone: [facility] 03-26-2024 13:42-0500 Systolic blood pressure 114 mm[Hg] Paul Galindo MD Work Phone: [facility] 03-12-2024 13:17-0500 Body mass index (BMI) [Ratio] 39.16 kg/m2 Alexandria Schwartz MEDICAL REVIEW SPECIALIST.CNM Work Phone: [facility] 03-12-2024 13:17-0500 Body weight 88 kg Alexandria Schwartz MEDICAL REVIEW SPECIALIST.CNM Work Phone: [facility] 03-12-2024 13:17-0500 Diastolic blood pressure 72 mm[Hg] Alexandria Schwartz MEDICAL REVIEW SPECIALIST.CNM Work Phone: [facility] 03-12-2024 13:17-0500 Systolic blood pressure 110 mm[Hg] Alexandria Schwartz MEDICAL REVIEW SPECIALIST.CNM Work Phone: [facility] 02-13-2024 11:14-0500 Body height 149.9 cm Aj Haury MEDICAL REVIEW SPECIALIST.ORNAMENTAL PLASTERER HELPER Work Phone: [facility] 02-13-2024 11:14-0500 Body mass index (BMI) [Ratio] 39.57 kg/m2 Aj Haury MEDICAL REVIEW SPECIALIST.ORNAMENTAL PLASTERER HELPER Work Phone: [facility] 02-13-2024 11:14-0500 Body weight 88.91 kg Aj Haury MEDICAL REVIEW SPECIALIST.ORNAMENTAL PLASTERER HELPER Work Phone: [facility] 02-13-2024 11:14-0500 Diastolic blood pressure 68 mm[Hg] Aj Haury MEDICAL REVIEW SPECIALIST.ORNAMENTAL PLASTERER HELPER Work Phone: [facility] 02-13-2024 11:14-0500 Systolic blood pressure 112 mm[Hg] Aj Haury MEDICAL REVIEW SPECIALIST.ORNAMENTAL PLASTERER HELPER Work Phone: [facility] 02-09-2024 08:45-0500 Body mass index (BMI) [Ratio] 39.26 kg/m2 Aj Haury MEDICAL REVIEW SPECIALIST.ORNAMENTAL PLASTERER HELPER Work Phone: [facility] 02-09-2024 08:45-0500 Body weight 91.17 kg Aj Haury MEDICAL REVIEW SPECIALIST.ORNAMENTAL PLASTERER HELPER Work Phone: [facility] 02-09-2024 08:45-0500 Diastolic blood pressure 64 mm[Hg] Aj Haury MEDICAL REVIEW SPECIALIST.ORNAMENTAL PLASTERER HELPER Work Phone: [facility] 02-09-2024 08:45-0500 Systolic blood pressure 114 mm[Hg] Aj Haury MEDICAL REVIEW SPECIALIST.ORNAMENTAL PLASTERER HELPER Work Phone: [facility] 04-21-2023 17:34-0500 Body weight 92.53 kg Vida Drake MEDICAL REVIEW SPECIALIST.ORNAMENTAL PLASTERER HELPER Work Phone: [facility] 04-21-2023 17:34-0500 Diastolic blood pressure 66 mm[Hg] Vida Drake MEDICAL REVIEW SPECIALIST.ORNAMENTAL PLASTERER HELPER Work Phone: [facility] 04-21-2023 17:34-0500 Heart rate 94 /min Vida Drake MEDICAL REVIEW SPECIALIST.ORNAMENTAL PLASTERER HELPER Work Phone: [facility] 04-21-2023 17:34-0500 Respiratory rate 16 /min Vida Drake MEDICAL REVIEW SPECIALIST.ORNAMENTAL PLASTERER HELPER Work Phone: [facility] 04-21-2023 17:34-0500 Systolic blood pressure 112 mm[Hg] Vida Drake MEDICAL REVIEW SPECIALIST.ORNAMENTAL PLASTERER HELPER Work Phone: [facility] 01-27-2022 07:16-0500 Body weight 100.25 kg Alpa Rios APRN.ORNAMENTAL PLASTERER HELPER Work Phone: [facility] 01-27-2022 07:16-0500 Diastolic blood pressure 62 mm[Hg] Alpa Rios APRN.ORNAMENTAL PLASTERER HELPER Work Phone: [facility] 01-27-2022 07:16-0500 Systolic blood pressure 102 mm[Hg] Alpa Rios APRN.ORNAMENTAL PLASTERER HELPER Work Phone: [facility] Encounters Encounter Date Encounter Type Care Provider Facility Start: 09-11-2024 End: 09-11-2024 ambulatory VERONIQUE JONES Facility:[facility] Start: 09-11-2024 End: 09-11-2024 Patient encounter procedure Pam Vazquez MD Work Phone: OB/Gynecology Comment on above: Supervision of high risk in third trimester (HCC) (Primary Dx); Obesity affecting in third trimester, unspecified obesity type (HCC); 36 weeks gestation of (HCC) 28 weeks gestation o f (HCC); Supervision of high risk in third trimester (HCC); Obesity affecting in third trimester, unspecified obesity type (HCC) Start: 09-07-2024 End: 09-07-[address] Damir Solano MD Work Phone: -[facility] Start: 09-07-2024 End: 09-07-2024 Patient encounter procedure Alexandria Schwartz TEMI -[facility] Work Phone: Start: 09-03-2024 End: 09-03-2024 Patient encounter procedure Mariela Velasco MD Work Phone: OB/Gynecology Comment on above: 35 weeks gestation o f (HCC) (Primary Dx); Supervision of high risk in third trimester (HCC); Obesity affecting in third trimester, unspecified obesity type (HCC) Start: 09-03-2024 End: 09-03-2024 ambulatory VERONIQUE JONES Facility:[facility] Start: 08-27-2024 End: 08-27-2024 Patient encounter procedure Veronique Jones MD Work Phone: OB/Gynecology Comment on above: Supervision of high risk in third trimester (HCC) (Primary Dx); Obesity affecting in third trimester, unspecified obesity type (HCC); 34 weeks gestation of (HCC); Supervision of high risk in second trimester (HCC) Start: 08-27-2024 End: 08-27-2024 ambulatory VICTOR HUGO SOLANO Facility:[facility] Start: 08-13-2024 End: 08-13-2024 ambulatory VICTOR HUGO SOLANO Facility:[facility] Start: 08-13-2024 End: 08-13-2024 Patient encounter procedure i Tech 1 Exhaust And Muffler [employer] [facility] Maternal Medicine Comment on [...] 07-30-2024 End: 07-30-2024 ambulatory VICTOR HUGO SOLANO Facility:[facility] Start: 07-17-2024 End: 09-16-2024 Follow-up encounter Mariela Velasco MD Work Phone: OB/Gynecology Start: 07-16-2024 End: 07-16-2024 Patient encounter procedure Veronique Jones MD Work Phone: OB/Gynecology Comment on above: Supervision of high risk in third trimester (HCC) (Primary Dx); 28 weeks gestation of (HCC); Obesity affecting in third trimester, unspecified obesity type (HCC) Start: 07-16-2024 End: 07-16-2024 ambulatory VICTOR HUGO SOLANO Facility:[facility] Start: 06-18-2024 End: 06-18-2024 Patient encounter procedure Mariela Velasco MD Work Phone: OB/Gynecology Comment on above: Screening for diabet es mellitus (Primary Dx); 24 weeks gestation of (HCC); Supervision of high risk in second trimester (HCC) Start: 06-18-2024 End: 06-18-2024 ambulatory MARIELA VELASCO Facility:[facility] Start: 05-22-2024 End: 07-22-2024 Follow-up encounter Paul Galindo MD Work Phone: OB/Gynecology Start: 05-21-2024 End: 05-21-2024 ambulatory VICTOR HUGO SOLANO Facility:[facility] Start: 05-21-2024 End: 05-21-2024 Patient encounter procedure Aj Poole APRN.CNP Work Phone: OB/Gynecology Comment on above: Supervision of high risk in second trimester (Primary Dx); 20 weeks gestation of ; Obesity affecting in second trimester, unspecified obesity type Encounter for anatomic survey (Primary Dx); Maternal obesity 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; BMI 38.0-38.9,adult Start: 04-23-2024 End: 04-23-2024 ambulatory VICTOR HUGO SOLANO Facility:[facility] Start: 04-23-2024 End: 04-23-2024 Patient encounter procedure Veronique Jones MD Work Phone: OB/Gynecology Comment on above: Encounter for superv ision of high risk in first trimester, antepartum (Primary Dx); 16 weeks gestation of ; Maternal obesity 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 Encounter for antena jared screening for malformation using ultrasound (Primary Dx); Maternal obesity 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; BMI 38.0-38.9,adult; 16 weeks gestation of Start: 04-17-2024 End: 04-18-2024 Emergency department patient visit Damir [facility] Facility:[facility] Start: 04-16-2024 End: 04-16-2024 ambulatory [facility] Facility:[facility] Start: 04-16-2024 End: 04-16-2024 Office outpatient visit 25 minutes Cara Frost PA-C Work Phone: [place] [employer] [facility] Comment on above: Bronchopneumonia (Pr imary Dx); Persistent cough Start: 04-02-2024 End: 04-02-2024 ambulatory [place] Elad[facility] Facility:[facility] Start: 04-02-2024 End: 04-02-2024 Office outpatient visit 15 minutes Livan Bills APRN.CNP Work Phone: [place] [employer] [facility] Comment on above: Viral illness (Prima ry Dx) Start: 03-26-2024 End: 03-26-2024 ambulatory [facility] Facility:[facility] Start: 03-26-2024 End: 03-26-2024 Patient encounter [...] weeks gestation of Start: 03-26-2024 End: 03-26-2024 ambulatory PAUL GALINDO Facility:[facility] Start: 03-12-2024 End: 03-12-2024 [facility] Facility:[facility] Start: 03-12-2024 End: 03-12-2024 Patient encounter procedure Alexandria Schwartz APRN.CNM Work Phone: OB/Gynecology Comment on above: Encounter for superv ision of high risk in first trimester, antepartum (Primary Dx); 10 weeks gestation of ; Obesity affecting in first trimester, unspecified obesity type Start: 02-13-2024 End: 02-13-2024 [facility] Facility:[facility] Start: 02-13-2024 End: 02-13-2024 Patient encounter procedure Aj Poole APRN.CNP Work Phone: OB/Gynecology Comment on above: Encounter for superv ision of high risk in first trimester, antepartum (Primary Dx); with uncertain dates in first trimester; 7 weeks gestation of ; Obesity affecting in first trimester, unspecified obesity type; History of miscarriage; Nausea and vomiting during Start: 02-09-2024 End: 02-09-2024 [facility] Facility:[facility] Start: 02-09-2024 End: 02-09-2024 Patient encounter procedure Aj Poole APRN.ORNAMENTAL PLASTERER HELPER Work Phone: OB/Gynecology Comment on above: Positive urine pregn smiley test (Primary Dx); Nausea and vomiting during Start: 11-14-2023 End: 11-14-2023 ambulatory Aj Poole APRN.CNP Work Phone: OB/Gynecology Comment on above: Bleeding in early pr egnancy (Primary Dx) Start: 11-14-2023 End: 11-14-2023 Telemedicine consultation with patient Aj Poole ZACARIAS Work Phone: OB/Gynecology Start: 11-14-2023 End: 11-14-2023 Telephone encounter Paul Galindo MD Work Phone: OB/Gynecology Comment on above: Spotting Start: 04-21-2023 End: 04-21-2023 Patient encounter procedure Vida Drake APRN.ORNAMENTAL PLASTERER HELPER Work Phone: [facility] [place] Comment on above: Alternating constipa tion and diarrhea (Primary Dx); Gastroesophageal reflux disease without esophagitis Start: 03-31-2023 End: 03-31-2023 Subsequent hospital visit by physician [facility] Work Phone: Nuclear Medicine Comment on above: Nausea [R11.0] Start: 03-14-2023 End: 03-14-2023 Emergency department patient visit VICTOR HUGO SOLANO Facility:[facility] Start: 05-30-2022 ambulatory Lety Murillo APRN.ORNAMENTAL PLASTERER HELPER Work Phone: Telemedicine Comment on above: Treatment not availa ble (Primary Dx) Start: 05-23-2022 End: 05-24-2022 Emergency department patient visit ALEXANDRIA HYMAN Facility:[facility] Start: 05-14-2022 End: 05-15-2022 Emergency department patient visit HALEY RIYA Facility:[facility] Start: 04-20-2022 End: 04-20-2022 Emergency department patient visit VICTOR HUGO PRICE Facility:[facility] Start: 01-27-2022 End: 01-27-2022 Patient encounter procedure Alpa Rios APRN.ORNAMENTAL PLASTERER HELPER Work Phone: OB/Gynecology Comment on above: Breakthrough bleedin g on Nexplanon (Primary Dx); General counseling and advice for contraceptive management; Encounter for BCP ( control pills) initial prescription Start: 04-19-2019 End: 07-26-2019 Patient requested procedure Paul Galindo MD Work Phone: [facility] Procedures Date Procedure Procedure Detail Performing Clinician Start: 09-11-2024 Urnls dip stick/tabl et rgnt non-auto w/o micrscp Pam Vazquez MD Work Phone: Start: 09-11-2024 Us preg uterus after 1st trimest 02/28 gestation Veronique Jones MD Work Phone: Start: 09-07-2024 Measurement of pH in vaginal fluid specimen using nitrazine yellow for detection of rupture of amniotic membrane Dr. Damir Solano MD Work Phone: Comment on above: Amniotic fluid not p resent indicates No Rupture of FetalMembranes at time of specimen collection. Start: 09-03-2024 Urnls dip stick/tabl et rgnt non-auto w/o micrscp Mariela Velasco MD Work Phone: Start: 08-27-2024 Urnls dip stick/tabl et rgnt non-auto w/o micrscp Veronique Jones MD Work Phone: Start: 08-13-2024 Us preg uterus after 1st trimest 1/ gestation Paul Galindo MD Work Phone: Start: 05-21-2024 Us preg uterus after 1st trimest / gestation Paul Galindo MD Work Phone: Start: 04-23-2024 Us preg uterus after 1st trimest 1/ gestation Paul Galindo MD Work Phone: Start: 03-26-2024 Antibody screen CHARLOTTE SOLANO Comment on above: Order Comment: Speci men Type: BLOOD SPECIMENOrdering Facility: [facility] Address: [address] [place] [address] Performed By: #### T SPN ####[facility] [id number] [address] Start: 03-26-2024 Us nuchal translucency 1st gestation Aj Poole APRN.ORNAMENTAL PLASTERER HELPER Work Phone: Start: 02-13-2024 Us uterus l imited 1/> fetuses Aj Poole APRN.ORNAMENTAL PLASTERER HELPER Work Phone: Start: 02-09-2024 UA DIP,URINE HCG (POC) Aj Poole APRN.ORNAMENTAL PLASTERER HELPER Work Phone: Start: 11-14-2023 Antibody screen UNKNOWN PROVIDER Comment on above: Order Comment: Speci men Type: BLOOD SPECIMEN [facility]ing [facility]: [facility] Address: [address] [place] [address] Performed By: #### T SPN #### [facility] CLIA [id number] [address] [place] [address] [place] Start: 03-31-2023 Hepatobil syst imag inc gb w/pharma intervenj Paolahayley Rea MEDICAL REVIEW SPECIALIST.PIPE OUT WORKER Work Phone: Start: 05-07-2018 Follow-up visit History of appendectomy History of appendectomy Dr. Damir Solano MD Work Phone: Plan of Treatment Date Care Activity Detail Author Start: 07-30-2034 Urine microalbumin profile DTaP,Tdap,Td Vaccine (9 - Td or Tdap) [facility] Start: 09-16-2029 Urine microalbumin profile [facility] Start: 02-12-2027 Screening for malign ant neoplasm of cervix Cervical Cancer Screening [facility] Start: 03-26-2025 Covid-19 Vaccine () Covid-19 Vaccine () [facility] Comment on above: Postponed from 10/29 (Declined at this time) Start: 10-29-2024 Influenza vaccination [facility] Start: 09-17-2024 End: 09-17-2024 Patient encounter procedure OB/Gynecology Comment on above: NST OB Routine Start: 09-11-2024 End: 09-11-2024 Patient encounter procedure Maternal Medicine Comment on above: Growth and BPP OB-Growth and BPP at 11 Start: 09-10-2024 End: 09-10-2024 Patient encounter procedure OB/Gynecology Comment on above: NST OB Routine Start: 09-07-2024 Nonstress test [facility] Start: 09-07-2024 Obstetric monitoring [facility] Start: 09-07-2024 Vital signs measurements [facility] Start: 09-07-2024 [facility] Start: 09-03-2024 End: 09-03-2024 Patient encounter procedure OB/Gynecology Comment on above: NST NST/ OB Start: 08-27-2024 End: 08-27-2024 Patient encounter procedure Maternal Medicine Comment on above: Growth Growth/ ob Start: 08-27-2024 Influenza vaccination Influenza Vacc ine (#1) [facility] Comment on above: Postponed from 10/29 (Declined at this time) Start: 08-13-2024 End: 08-13-2024 Patient encounter procedure Maternal Medicine Comment on above: OB Start: 07-30-2024 End: 07-30-2024 Patient encounter procedure 07/30/2024 2:20 PM EDT Routine Office Visit OB/Gynecology [address] [place] [address] Veronique Jones MD [address] [place] [address] OB OB/Gynecology Comment on above: OB Start: 07-18-2024 End: 10-17-2024 ANEMIA REFLEX PANEL ANEMIA REFLEX PANEL Lab Routine 24 weeks gestation of ([facility]) Supervision of high risk in second trimester ([facility]) Expected: 07/18/2024 (Approximate), Expires: 10/17/2024 [facility] Comment on above: Expected: 07/18/2024 (Approximate), Expires: 10/17/2024 Start: 07-18-2024 End: 06-18-2025 GESTATIONAL GLUCOSE SCREEN, 1-HOUR, 50 GRAM, NON-FASTING GESTATIONAL GLUCOSE SCREEN, 1-HOUR, 50 GRAM, NON-FASTING Lab Routine Screening for diabetes mellitus Expected: 07/18/2024 (Approximate), Expires: 06/18/2025 [facility] Work Phone: Comment on above: Expected: 07/18/2024 (Approximate), Expires: 06/18/2025 Start: 07-18-2024 End: 06-18-2025 SYPHILIS TREPONEMAL W/REFLEX SYPHILIS TREPONEMAL W/REFLEX Lab Routine 24 weeks gestation of ([facility]) Supervision of high risk in second trimester ([facility]) Expected: 07/18/2024 (Approximate), Expires: 06/18/2025 [facility] Comment on above: Expected: 07/18/2024 (Approximate), Expires: 06/18/2025 Start: 07-16-2024 End: 07-16-2024 Patient encounter procedure 07/16/2024 2:20 PM EDT Routine Office Visit OB/Gynecology [address] [place] [address] Veronique Jones MD [address] [place] [address] OB Routine OB/Gynecology Comment on above: OB Routine Start: 07-16-2024 End: 07-16-2024 ambulatory 07/16/2024 1:00 PM EDT Results Only [place] [facility] [address] [place] [address] Glucose test and LABs [facility] Comment on above: Glucose test and LAB s Start: 06-18-2024 End: 06-18-2024 Patient encounter procedure 06/18/2024 2:20 PM EDT Routine Office Visit OB/Gynecology [address] [place] [address] Mariela Velasco MD [address] [place] [address] OB OB/Gynecology Comment on above: OB Start: 05-21-2024 End: 05-21-2024 Patient encounter procedure Maternal Medicine Comment on above: anatomy OB Start: 04-23-2024 End: 04-23-2024 Patient encounter procedure Maternal Medicine Comment on above: anatomy OB Start: 03-26-2024 End: 06-25-2024 Chromosome 21 trisomy [Presence] in Blood or Tissue by Cytogenetics [facility] Comment on above: Expected: 03/26/2024 , Expires: 06/25/2024 Start: 03-26-2024 End: 03-26-2024 Patient encounter procedure Maternal Medicine Comment on above: Nuchal OB Routine Start: 03-12-2024 End: 03-12-2024 Patient encounter procedure 03/12/2024 1:15 PM EST Routine Office Visit OB/Gynecology [address] [place] [address] Alexandria Schwartz APRN.CNM [address] [place] [address] OB Routine OB/Gynecology Comment on above: OB Routine Start: 02-13-2024 End: 05-14-2024 ANEMIA REFLEX PANEL ANEMIA REFLEX PANEL Lab Routine Encounter for supervision of high risk in first trimester, antepartum with uncertain dates in first trimester Expected: 02/13/2024, Expires: 05/14/2024 [facility] Work Phone: Comment on above: Expected: 02/13/2024 , Expires: 05/14/2024 Start: 02-13-2024 End: 05-14-2024 CARRIER SCREEN, STANDARD CARRIER SCREEN, STANDARD Lab Routine Encounter for supervision of high risk in first trimester, antepartum with uncertain dates in first trimester 7 weeks gestation of Expected: 02/13/2024, Expires: 05/14/2024 [facility] Comment on above: Expected: 02/13/2024 , Expires: 05/14/2024 Start: 02-13-2024 End: 05-14-2024 Hemoglobin A1c in Blood HEMOGLOBIN A1C Lab Routine Encounter for supervision of high risk in first trimester, antepartum with uncertain dates in first trimester Expected: 02/13/2024, Expires: 05/14/2024 [facility] Comment on above: Expected: 02/13/2024 , Expires: 05/14/2024 Start: 02-13-2024 End: 05-14-2024 HEMOGLOBIN EVALUATION CASCADE HEMOGLOBIN EVALUATION CASCADE Lab Routine Encounter for supervision of high risk in first trimester, antepartum Expected: 02/13/2024, Expires: 05/14/2024 [facility] Comment on above: Expected: 02/13/2024 , Expires: 05/14/2024 Start: 02-13-2024 End: 05-14-2024 Hepatitis B virus surface Ag [Presence] in Serum HEPATITIS B SURFACE ANTIGEN Lab Routine Encounter for supervision of high risk in first trimester, antepartum with uncertain dates in first trimester Expected: 02/13/2024, Expires: 05/14/2024 [facility] Comment on above: Expected: 02/13/2024 , Expires: 05/14/2024 Start: 02-13-2024 End: 05-14-2024 Hepatitis C virus Ab [Presence] in Serum HEPATITIS C ANTIBODY IA WITH CONFIRMATION Lab Routine Encounter for supervision of high risk in first trimester, antepartum with uncertain dates in first trimester Expected: 02/13/2024, Expires: 05/14/2024 [facility] Comment on above: Expected: 02/13/2024 , Expires: 05/14/2024 Start: 02-13-2024 End: 05-14-2024 HIV 1+2 Ab [Presence] in Serum or Plasma by Immunoassay HIV 1/2 COMBO WITH REFLEX TO DIFFERENTIATION Lab Routine Encounter for supervision of high risk in first trimester, antepartum with uncertain dates in first trimester Expected: 02/13/2024, Expires: 05/14/2024 [facility] Comment on above: Expected: 02/13/2024 , Expires: 05/14/2024 Start: 02-13-2024 End: 02-12-2025 NUCHAL TRANSLUCENCY WHI NUCHAL TRANSLUCENCY WHI Anc Imaging Routine Encounter for supervision of high risk in first trimester, antepartum with uncertain dates in first trimester 7 weeks gestation of Expected: 02/13/2024, Expires: 02/12/2025 [facility] Comment on above: Expected: 02/13/2024 , Expires: 02/12/2025 Start: 02-13-2024 End: 05-14-2024 RUBELLA IGG ANTIBODY RUBELLA IGG ANTIBODY Lab Routine Encounter for supervision of high risk in first trimester, antepartum with uncertain dates in first trimester Expected: 02/13/2024, Expires: 05/14/2024 [facility] Comment on above: Expected: 02/13/2024 , Expires: 05/14/2024 Start: 02-13-2024 End: 05-14-2024 SYPHILIS TREPONEMAL W/REFLEX SYPHILIS TREPONEMAL W/REFLEX Lab Routine Encounter for supervision of high risk in first trimester, antepartum with uncertain dates in first trimester Expected: 02/13/2024, Expires: 05/14/2024 [facility] Comment on above: Expected: 02/13/2024 , Expires: 05/14/2024 Start: 02-13-2024 End: 05-14-2024 TYPE + SCREEN TYPE + SCREEN Blood Bank Routine Encounter for supervision of high risk in first trimester, antepartum with uncertain dates in first trimester Expected: 02/13/2024, Expires: 05/14/2024 [facility] Comment on above: Expected: 02/13/2024 , Expires: 05/14/2024 Start: 02-13-2024 End: 02-13-2024 Patient encounter procedure 02/13/2024 11:00 AM EST Initial Office Visit OB/Gynecology [address] [place] [address] Aj Poole APRN.ORNAMENTAL PLASTERER HELPER [address] [place] [address] New OB OB/Gynecology Comment on above: New OB Start: 10-30-2023 Covid-19 Vaccine () Covid-19 Vaccine () [facility] Start: 10-30-2023 Covid-19 Vaccine () Covid-19 Vaccine () [facility] Start: 10-30-2023 Influenza vaccination Influenza Vacc ine (#1) [facility] Start: 02-28-2023 Depression Assessment Depression Ass essment [facility] Start: 10-29-2022 Covid-19 Vaccine ( season) Covid-19 Vaccine ( season) [facility] Start: 10-29-2022 Influenza vaccination C [facility] Start: 02-28-2022 DEPRESSION ASSESSMENT DEPRESSION ASS ESSMENT [facility] Start: 10-29-2021 Influenza vaccination INFLUENZA (#1) [facility] Start: 02-28-2021 DEPRESSION ASSESSMENT DEPRESSION ASS ESSMENT [facility] Start: 12-11-2020 CHLAMYDIA SCREENING (18-24) CHLAMYDIA SCREENING (18-24) [facility] Start: 12-11-2020 GC (GONORRHEA) SCREENING (18-24) GC (GONORRHEA) SCREENING (18-24) [facility] Start: 12-11-2020 Screening for Chlamy faye trachomatis Chlamydia Screening (18-) [facility] Start: 10-22-2020 COVID-19 VACCINE (3 - Booster for Pfizer series) COVID-19 VACCINE (3 - Booster for Pfizer series) [facility] Start: 05-12-2020 PAP TESTING PAP TESTING [facility] Start: 05-12-2020 Screening for malign ant neoplasm of cervix [facility] Start: 07-19-2017 HPV Vaccine (2 - 3-d ose series) HPV Vaccine (2 - 3-dose series) [facility] Start: 05-12-2017 Anxiety Screening Anxiety Screening [facility] Start: 05-12-2017 Depression Screening Depression Scre ening [facility] Start: 12-21-2016 MENINGOCOCCAL B: Consider based on risk (2 of 2 - Risk Bexsero 2-dose series) MENINGOCOCCAL B: Consider based on risk (2 of 2 - Risk Bexsero 2-dose series) [facility] Start: 05-12-2013 PEDS TO ADULT TRANSITION ANNUAL ASSESSMENT PEDS TO ADULT TRANSITION ANNUAL ASSESSMENT [facility] Start: 2011 PEDS TO ADULT TRANSITION INITIAL DISCUSSION PEDS TO ADULT TRANSITION INITIAL DISCUSSION [facility] Start: 05-12-2010 HPV VACCINE (1 - 2-d ose series) HPV VACCINE (1 - 2-dose series) [facility] Bacteria identified in Urine by Culture URINE CULTURE Microbiology Routine Encounter for supervision of high risk in first trimester, antepartum with uncertain dates in first trimester 02/13/2024 11:55 AM [facility] Chlamydia trachomatis+Neisseria gonorrhoeae DNA [Presence] in Unspecified specimen by NABILA with probe detection GONORRHEA/CHLAMYDIA NAAT Lab Routine Encounter for supervision of high risk in first trimester, antepartum with uncertain dates in first trimester 02/13/2024 11:55 AM [facility] End: 12-14-2023 Choriogonadotropin.beta subunit [Units/volume] in Serum or Plasma HCG QUANTITATIVE Lab Routine Spotting in early 2x per week for 2 Occurrences starting 11/14/2023 until 12/14/2023 [facility] Work Phone: Comment on above: 2x per week for 2 Oc currences starting 11/14/2023 until 12/14/2023 End: 10-03-2024 nonstress test NON-STRESS TEST Procedures Routine 30 weeks gestation of (HCC) Obesity affecting in third trimester, unspecified obesity type (HCC) Once per week for 3 Occurrences starting 07/30/2024 until 10/03/2024 [facility] Work Phone: Comment on above: Once per week for 3 Occurrences starting 07/30/2024 until 10/03/2024 NEXPLANON REMOVAL NEXPLANON FREIDA SHAYY Procedures Routine Breakthrough bleeding on Nexplanon General counseling and advice for contraceptive management Ordered: 01/27/2022 [facility] Work Phone: Comment on above: Ordered: 01/27/2022 End: 10-12-2024 OBSTETRIC ULTRASOUND [facility]I OBSTETRIC ULTRASOUND [facility] Anc Imaging Routine 12 weeks gestation of Encounter for supervision of high risk in first trimester, antepartum screening encounter Maternal obesity 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 BMI 38.0-38.9,adult Once per month for 8 Occurrences starting 03/26/2024 until 10/12/2024 [facility] Work Phone: Comment on above: Once per month for 8 Occurrences starting 03/26/2024 until 10/12/2024 End: 10-08-2024 OBSTETRIC ULTRASOUND WHI OBSTETRIC ULTRASOUND [facility]I Anc Imaging Routine 28 weeks gestation of (HCC) Supervision of high risk in third trimester (HCC) Obesity affecting in third trimester, unspecified obesity type (HCC) Once per month for 2 Occurrences starting 07/16/2024 until 10/08/2024 [facility] Work Phone: Comment on above: Once per month for 2 Occurrences starting 07/16/2024 until 10/08/2024 PAP TEST PAP TEST Lab [facility] Encounter for supervision of high risk in first trimester, antepartum with uncertain dates in first trimester 02/13/2024 11:55 AM EST [facility] Patient Education Kick Counts ED False Labor OB Triage: Return to Hospital or Notify Physician if you Experience: [facility] Work Phone: ROUTINE, GR OUP B STREPTOCOCCUS BY PCR ROUTINE, GROUP B STREPTOCOCCUS BY PCR Microbiology Routine Supervision of high risk in third trimester (HCC) Obesity affecting in third trimester, unspecified obesity type (HCC) 36 weeks gestation of (HCC) 09/11/2024 12:00 PM EDT [facility] Work Phone: [facility] Immunizations Immunization Date Immunization Notes Care Provider Fa alvaro 07-30-2024 tetanus toxoid, redu aleida diphtheria toxoid, and acellular pertussis vaccine, adsorbed Veronique Wiswell MD Work Phone: [facility] 11-21-2019 influenza, injectabl e, quadrivalent, contains preservative Alpa Rios APRN.[facility] Work Phone: [facility] Work Phone: 11-21-2019 influenza, injectabl e, quadrivalent, preservative free Dr. Damir Solano MD Work Phone: [facility] 11-21-2019 influenza virus vacc ine, unspecified formulation [facility] Work Phone: [facility] 09-17-2019 tetanus toxoid, redu aleida diphtheria toxoid, and acellular pertussis vaccine, adsorbed Alpa Rios APRN.[facility] Work Phone: [facility] Work Phone: 11-23-2016 meningococcal B vacc ine, recombinant, OMV, adjuvanted Alpa Rios APRN.[facility] Work Phone: [facility] Work Phone: 11-23-2016 meningococcal polysaccharide (groups A, C, Y and W-135) diphtheria toxoid conjugate vaccine (MCV4P) Alpa Rios APRN.[facility] Work Phone: [facility] Work Phone: 11-17-2011 tetanus toxoid, redu aleida diphtheria toxoid, and acellular pertussis vaccine, adsorbed Alpa Rios APRN.[facility] Work Phone: [facility] Work Phone: 06-20-2003 diphtheria, tetanus toxoids and acellular pertussis vaccine, 5 pertussis antigens Alpa Rios APRN.[facility] Work Phone: [facility] Work Phone: 06-20-2003 measles, mumps and rubella virus vaccine Alpa Rios APRN.ORNAMENTAL PLASTERER HELPER Work Phone: [facility] Work Phone: 06-20-2003 poliovirus vaccine, inactivated Alpa Rios APRN.ORNAMENTAL PLASTERER HELPER Work Phone: [facility] Work Phone: 10-08-2002 diphtheria, tetanus toxoids and acellular pertussis vaccine, 5 pertussis antigens Alpa Rios APRN.[facility] Work Phone: [facility] Work Phone: 05-18-2000 haemophilus influenz ae type b vaccine, HbOC conjugate Alpa Rios MEDICAL REVIEW SPECIALIST.[facility] Work Phone: [facility] Work Phone: 05-18-2000 hepatitis B vaccine, pediatric or pediatric/adolescent dosage Alpa Rios MEDICAL REVIEW SPECIALIST.[facility] Work Phone: [facility] Work Phone: 05-18-2000 measles, mumps and rubella virus vaccine Alpa Rios MEDICAL REVIEW SPECIALIST.[facility] Work Phone: [facility] Work Phone: 05-18-2000 varicella virus vaccine Alpa Rios APRN.[facility] Work Phone: [facility] Work Phone: 1999 diphtheria, tetanus toxoids and acellular pertussis vaccine, 5 pertussis antigens Alpa Rios MEDICAL REVIEW SPECIALIST.[facility] Work Phone: [facility] Work Phone: 1999 poliovirus vaccine, inactivated Alpa Rios APRN.[facility] Work Phone: [facility] Work Phone: 1999 diphtheria, tetanus toxoids and acellular pertussis vaccine, 5 pertussis antigens Alpa Rios MEDICAL REVIEW SPECIALIST.[facility] Work Phone: [facility] Work Phone: 1999 haemophilus influenz ae type b vaccine, HbOC conjugate Alpa Rios MEDICAL REVIEW SPECIALIST.ORNAMENTAL PLASTERER HELPER Work Phone: [facility] Work Phone: 1999 hepatitis B vaccine, pediatric or pediatric/adolescent dosage Alpa Rios APRN.ORNAMENTAL PLASTERER HELPER Work Phone: [facility] Work Phone: 1999 poliovirus vaccine, inactivated Alpa Rios APRN.ORNAMENTAL PLASTERER HELPER Work Phone: [facility] Work Phone: 1999 diphtheria, tetanus toxoids and acellular pertussis vaccine, 5 pertussis antigens Alpa Rios APRN.ORNAMENTAL PLASTERER HELPER Work Phone: [facility] Work Phone: 1999 haemophilus influenz ae type b vaccine, HbOC conjugate Alpa Rios APRN.ORNAMENTAL PLASTERER HELPER Work Phone: [facility] Work Phone: 1999 hepatitis B vaccine, pediatric or pediatric/adolescent dosage Alpa Rios APRN.ORNAMENTAL PLASTERER HELPER Work Phone: [facility] Work Phone: 1999 poliovirus vaccine, inactivated Alpa Rios APRN.ORNAMENTAL PLASTERER HELPER Work Phone: [facility] Work Phone: Payers Date Payer Category Payer Self-pay 2024 Unknown [id number] 2022 Medicaid [id number] 2019 Medicaid [id number] 2019 Private Health Insurance [id number] 2019 Unknown [id number] Unknown [id number] Unknown [id number] Social History Date Type Detail Facility Start: 01-27-2022 End: 02-09-2024 Tobacco smoking status NHIS Ex-smoker [facility] Work Phone: Start: 04-12-2016 End: 04-12-2019 History of tobacco use Current smoker [facility] Work Phone: Start: 04-12-2016 End: 04-12-2019 History of tobacco use Cigarette Smoker [facility] Work Phone: Start: 01-27-2022 End: 02-09-2024 Tobacco use and exposure Smokeless tobacco non-user [facility] Work Phone: Start: 01-27-2022 Alcohol intake Current non-dr communications project lead of alcohol (finding) [facility] Start: 04-19-2019 History SDOH Financial 2 [facility] Start: 04-19-2019 History SDOH Food Worry 1 [facility] Start: 04-19-2019 Education 21 [facility] Start: 01-27-2022 Tobacco Comment [facility] Start: 2000 Sex Assigned At Not on file C [facility] Start: 05-23-2022 End: 02-09-2024 Alcohol intake Current drinker of alcohol (finding) [facility] Start: 04-20-2022 Alcohol Comment [facility] Start: 03-15-2023 End: 03-21-2023 History of Social function [facility] Start: 03-15-2023 End: 03-21-2023 Tobacco use panel [facility] How hard is it for y ou to pay for the very basics like food, housing, medical care, and heating Hard [facility] (I/We) worried wheth er (my/our) food would run out before (I/we) got money to buy more. Never true [facility] In the past 12 month s, has lack of transportation kept you from medical appointments or from getting medications? No [facility] Start: 02-13-2024 End: 07-16-2024 Alcoholic beverage intake Ex-drinker (finding) [facility] Start: 01-11-2024 [facility] Start: 12-13-2019 Alcohol Alcohol [facility] Start: 2000 Sex Assigned At Female W [facility] Goals Date Patient Goal Desired Activity /State Personal health goal Clinical Notes 04-19-2019 to 09-11-2024 Quick Notes - Pam Vazquez MD - 09/11/2024 12:01 PM EDTPrenatal Quick Notes - Pam Vazquez MD - 09/11/2024 12:01 PM EDTPatient Mariela Rascon MD - 09/03/2024 3:48 PM EDT Note Date & Type Note Facility 09-11-2024 Note Indication Evaluation of growth, Evaluation of well-being Maternal obesity, BMI >30 Impression - Single, live, intrauterine . - presentation is cephalic. - The biometry is consistent with the assigned gestational dating. - The EFW is 3492 g, at the 89%. AC is at the 97%. - The amniotic fluid volume is normal amount with an MVP of 6.5 cm and an WALLY of 21.8 cm. - The placenta is anterior, fundal. - BPP 10/05. - No malformations visualized on a limited survey as detailed below. Recommendations Additional follow-up as clinically indicated. Maternal Assessment Height 160 cm Height (ft) 5 ft Height (in) 3 in Physical Exam Initial weight (lb) 192 lb Initial BMI 34.01 kg/m Maternal assessment other: 4 Para 1 REMOTE READ Method Transabdominal ultrasound examination. View: Suboptimal view: limited by position Lai . Number of fetuses: 1 Dating GA by prior assessment 36 w + 6 d TERRY by prior assessment: 10/03/2024 Ultrasound examination on: 09/11/2024 GA by U/S based upon: AC, BPD, Femur GA by U/S 38 w + 2 d TERRY by U/S: 09/23/2024 Assigned: based on stated TERRY, selected on 09/11/2024 Assigned GA 36 w + 6 d Assigned TERRY: 10/03/2024 General Evaluation Cardiac activity present. FHR 159 bpm. movements: present. Presentation: cephalic Placenta: Placental site: anterior, fundal Umbilical cord: Cord vessels: 3 vessel cord Amniotic fluid: Amount of AF: normal amount. MVP 6.5 cm. WALLY 21.8 cm. Q1 6.5 cm, Q2 5.5 cm, Q3 4.1 cm, Q4 5.6 cm Biophysical Profile 2: breathing movements 2: Gross body movements 2: tone 2: Amniotic fluid volume 10/05 Biophysical profile score Growth Overview Exam date GA BPD (mm) HC (mm) AC (mm) FL (mm) HL (mm) EFW (g) 04/23/2024 16w 5d 39.6 94% 145.1 76% 124.9 89% 26 94% 26.3 96% 215 97% 05/21/2024 20w 5d 52 86% 199.8 87% 169.6 81% 37.9 97% 37 98% 470 96% 08/13/2024 32w 5d 91.4 >99% 329.8 97% 323.7 >99% 66 93% 2773 >99% 09/11/2024 36w 6d 98.3 >99% 348.3 90% 350.5 97% 70.7 65% 3492 89% Biometry Standard BPD 98.3 mm 40w 2d >99% Hadlock OFD 120.1 mm -/- 81% Nicolaides HC 348.3 mm -/- 90% Alka AC 350.5 mm 39w 0d 97% Hadlock Femur 70.7 mm 35w 5d 65% Alka EFW 3,492 g 39w 2d 89% Hadlock EFW (lb) 7 lb EFW (oz) 11 oz EFW by: Hadlock (HC-AC-FL) Extended Photography Spotter 7.4 mm Extremities / Bony Struc FL / HC 0.20 Other Structures FHR 159 bpm Anatomy Lateral ventricles: normal Cavum septi pellucidi: normal Cerebellum: normal Cisterna magna: normal 4-chamber view: normal RVOT view: normal LVOT view: normal 3-vessel view: normal Heart / Thorax Situs: situs solitus (normal) Diaphragm: normal Stomach: normal Kidneys: normal Bladder: normal sex: male Wants to know sex: yes Performed By: Jessica Mckeon RDMS, RVT Read By: Priscilla De La Cruz M.D. [facility] 09-11-2024 Progress note Formatting of t his note might be different from the original. KJ - S: Ramona denies LOF, contractions or vaginal bleeding. O: 36w6d, see flow sheet SENSITIVE EXAM: The sensitive examination was discussed with the Patient or Patient's Authorized Program Engagement Director. As applicable, any other physician, advance practice provider, medical student, or other health professional student that will be observing or involved in the sensitive examination for educational or training purposes was discussed with the Patient or Authorized Program Engagement Director. The Patient or Authorized Program Engagement Director has agreed to proceed with the sensitive examination. (Sensitive examination includes inspection and/or palpation of the breasts, pelvis, prostate and anorectal regions). A/P: Assessment & Plan Supervision of high risk in third trimester (HCC) Orders: URINE OB DIP B/O ROUTINE, GROUP B STREPTOCOCCUS BY PCR Obesity affecting in third trimester, unspecified obesity type (HCC) Growth US today with EFW 89% Orders: URINE OB DIP B/O ROUTINE, GROUP B STREPTOCOCCUS BY PCR 36 weeks gestation of (HCC) Orders: URINE OB DIP B/O ROUTINE, GROUP B STREPTOCOCCUS BY PCR Reviewed labor & FM precautions Pam Vazquez MD [facility] 09-11-2024 Miscellaneous Notes KJ - S: Ramona denies LOF, contractions or vaginal bleeding. O: 36w6d, see flow sheet SENSITIVE EXAM: The sensitive examination was discussed with the Patient or Patient's Authorized Program Engagement Director. As applicable, any other physician, advance practice provider, medical student, or other health professional student that will be observing or involved in the sensitive examination for educational or training purposes was discussed with the Patient or Authorized Program Engagement Director. The Patient or Authorized Program Engagement Director has agreed to proceed with the sensitive examination. (Sensitive examination includes inspection and/or palpation of the breasts, pelvis, prostate and anorectal regions). A/P: Assessment & Plan Supervision of high risk in third trimester (HCC) Orders: URINE OB DIP B/O ROUTINE, GROUP B STREPTOCOCCUS BY PCR Obesity affecting in third trimester, unspecified obesity type (HCC) Growth US today with EFW 89% Orders: URINE OB DIP B/O ROUTINE, GROUP B STREPTOCOCCUS BY PCR 36 weeks gestation of (HCC) Orders: URINE OB DIP B/O ROUTINE, GROUP B STREPTOCOCCUS BY PCR Reviewed labor & FM precautions Pam Vazquez MD documented in this encounter [facility] 09-11-2024 Instructions Missy Salinas MA - 09/11/2024 11:23 AM EDT SEQUENTIAL SCREENINGS The [facility] offers sequential screenings for women who are [...] It will require an appointment with our mosaic technician. This is not an ultrasound performed [...] the above symptoms, contact our office at [phone] and ask to speak with a nurse. After hours, you can call [facility] at [phone] OR call [facility] at [phone] and ask to have the doctor examination scorer paged. If you consider this an emergency, dial 2-1-4 or go to your nearest emergency department. NEED HELP? Are you dealing with a violent or abusive relationship? Are you a victim of rape or sexual assult? Call [facility] ([place]) 24 hour Crisis Hotline: 616.807.3624 or 496-531-8190. MANUAL Your Guide to a Healthy manual is now on-line. Visit [email or web address] to download your free copy documented in this encounter [facility] 09-03-2024 Note HNO ID: [id number] Author: MARIELA VELASCO MD Service: ? Author Type: Physician Type: Progress Notes Filed: 09/03/2024 15:49 Note Text: NST SUMMARY PROVIDER ASSESSMENT AND INTERPRETATION Indications for NST: Obesity and Polyhydramnios Baseline: 155 Variability: Moderate Accelerations: Present 15 X 15 Decelerations: None Interpretation: Reactive SIGNATURE: Mariela Velasco MD [facility] 09-03-2024 History of Presen t illness Narrative NST SUMMARY PROVIDER ASSESSMENT AND INTERPRETATION Indications for NST: Obesity and Polyhydramnios Baseline: 155 Variability: Moderate Accelerations: Present 15 X 15 Decelerations: None Interpretation: Reactive SIGNATURE: Mariela Velasco MD documented in this encounter [facility] 09-03-2024 Progress note Formatting of t his [...] 1. 35 weeks gestation of ([facility]) - ICD9: V22.2, ICD10: Z3A.35 (primary diagnosis) - URINE OB DIP B/O 2. Supervision of high risk in third trimester ([facility]) - ICD9: V23.9, ICD10: O09.93 - URINE OB DIP B/O 3. Obesity affecting in third trimester, unspecified obesity type ([facility]) - ICD9: 649.13, ICD10: O99.213 Growth q month and Nsts q week - URINE OB DIP B/O Mariela Velasco MD [facility] 09-03-2024 Miscellaneous Notes S: Ramona Zhao is [...] week ASSESSMENT/PLAN: 1. 35 weeks gestation of (HCC) - ICD9: V22.2, ICD10: Z3A.35 (primary diagnosis) - URINE OB DIP B/O 2. Supervision of high risk in third trimester ([facility]) - ICD9: V23.9, ICD10: O09.93 - URINE OB DIP B/O 3. Obesity affecting in third trimester, unspecified obesity type (HCC) - ICD9: 649.13, ICD10: O99.213 Growth q month and Nsts q week - URINE OB DIP B/O Mariela Velasco MD documented in this encounter [facility] 09-03-2024 Instructions Yarelis Rider MA - 09/03/2024 1:25 PM EDT SEQUENTIAL SCREENINGS The [facility] offers sequential screenings for women who are [...] It will require an appointment with our mosaic technician. This is not an ultrasound performed [...] the above symptoms, contact our office at [phone] and ask to speak with a nurse. After hours, you can call [facility] at [phone] OR call [facility] at [phone] and ask to have the doctor examination scorer paged. If you consider this an emergency, dial or go to your nearest emergency department. NEED HELP? Are you dealing with a violent or abusive relationship? Are you a victim of rape or sexual assult? Call [facility] ([place]) 24 hour Crisis Hotline: 622.921.5492 or 667-455-6318. MANUAL Your Guide to a Healthy manual is now on-line. Visit [email or web address] to download your free copy documented in this encounter [facility] 08-27-2024 Note HNO ID: [id number] Author: VERONIQUE JONES MD Service: ? Author [...] - RTO 1 wk Veronique Jones DO [facility] 08-27-2024 History of Presen t illness Narrative [...] Veronique Jones DO documented in this encounter [facility] 08-27-2024 Progress note Formatting of t his note might be different from the original. SW- No rgular ctx, v,b lkof. Good FM [facility] 08-27-2024 Miscellaneous Notes SW- No rgular ctx, v,b lkof. Good FM documented in this encounter [facility] 08-27-2024 Instructions Chikis Esquivel MA - 08/27/2024 4:12 PM EDT SEQUENTIAL SCREENINGS The [facility] offers sequential screenings for women who are [...] It will require an appointment with our mosaic technician. This is not an ultrasound performed [...] the above symptoms, contact our office at [phone] and ask to speak with a nurse. After hours, you can call [facility] at [phone] OR call [facility] at [phone] and ask to have the doctor examination scorer paged. If you consider this an emergency, dial 9-1-1 or go to your nearest emergency department. NEED HELP? Are you dealing with a violent or abusive relationship? Are you a victim of rape or sexual assult? Call [facility] ([place]) 24 hour Crisis Hotline: 738.384.5714 or 594-274-9484. MANUAL Your Guide to a Healthy manual is now on-line. Visit [email or web address] to download your free copy documented in this encounter [facility] 08-13-2024 Note Indication Evaluation of growth Discrepancy [...] 2 oz EFW by: Hadlock (HC-AC-FL) Extended Photography Spotter 8.1 mm Extremities / Bony Struc FL [...] M.D. [facility] 08-13-2024 Note HNO ID: [id number] Author: VERONIQUE JONES MD Service: ? Author Type: Physician Type: Progress Notes Filed: 08/13/2024 13:58 Note Text: SW- Some discomfort. No ctx, vb, lof. Good FM PE: Gen- NAD, well appearing See flowsheet A/p 32 wk gestation - Obesity: Growth US today and final report pending. Repeat growth US 4 weeks. NSTs at 36 wks - RTO 2 wks Veronique Jones DO [facility] 08-13-2024 History of Presen t illness Narrative SW- Some discomfort. No ctx, vb, lof. Good FM PE: Gen- NAD, well appearing See flowsheet A/p 32 wk gestation - Obesity: Growth US today and final report pending. Repeat growth US 4 weeks. NSTs at 36 wks - RTO 2 wks Veronique Jones DO documented in this encounter [facility] 08-13-2024 Instructions Yarelis Rider MA - 08/13/2024 1:28 PM EDT SEQUENTIAL SCREENINGS The [facility] offers sequential screenings for women who are [...] It will require an appointment with our mosaic technician. This is not an ultrasound performed [...] the above symptoms, contact our office at [phone] and ask to speak with a nurse. After hours, you can call [facility] at [phone] OR call [facility] at [phone] and ask to have the doctor examination scorer paged. If you consider this an emergency, dial 9-1-3 or go to your nearest emergency department. NEED HELP? Are you dealing with a violent or abusive relationship? Are you a victim of rape or sexual assult? Call [facility] ([place]) 24 hour Crisis Hotline: 316.511.4410 or 077-143-2051. MANUAL Your Guide to a Healthy manual is now on-line. Visit [email or web address] to download your free copy documented in this encounter [facility] 07-30-2024 Progress note Formatting of t his note might be different from the original. SW- Some cramping. No vb, lof. Good FM. No urinary or bowel symptoms PE: Gen- NAD, well appearing Abd- Soft, gravid, NT See flowsheet A/p 30 wk gestation - Tdap today - Obesity: Schedule growth US and NST - RTO 2 wks Veronique Jones DO [facility] 07-30-2024 Miscellaneous Notes SW- Some cramping. No vb, lof. Good FM. No urinary or bowel symptoms PE: Gen- NAD, well appearing Abd- Soft, gravid, NT See flowsheet A/p 30 wk gestation - Tdap today - Obesity: Schedule growth US and NST - RTO 2 wks Veronique Jones DO documented in this encounter [facility] 07-30-2024 Note HNO ID: [id number] Author: YARELIS RIDER MA Service: ? Author Type: Boatbuilder Supervisor Type: Progress Notes Filed: 07/30/2024 15:05 Note [...] severely ill: Yes Patient denies history of Guillain-Salvo Syndrome (a severe paralytic illness): Yes Tdap Adacel injection was given without incident. See immunizations for details of immunizations administered today. VIS sheet provided: Yes Provider Veronique Jones DO was present in office at time of injection. Yarelis Rider MA [facility] 07-30-2024 History of Presen t illness Narrative [...] severely ill: Yes Patient denies history of Guillain-Salvo Syndrome (a severe paralytic illness): Yes Tdap Adacel injection was given without incident. See immunizations for details of immunizations administered today. VIS sheet provided: Yes Provider Veronique Jones DO was present in office at time of injection. Yarelis Rider MA documented in this encounter [facility] 07-30-2024 Instructions Yarelis Rider MA - 07/30/2024 2:14 PM EDT SEQUENTIAL SCREENINGS The [facility] offers sequential screenings for women who are [...] It will require an appointment with our mosaic technician. This is not an ultrasound performed [...] the above symptoms, contact our office at [phone] and ask to speak with a nurse. After hours, you can call [facility] at [phone] OR call [facility] at [phone] and ask to have the doctor examination scorer paged. If you consider this an emergency, dial 9-1-1 or go to your nearest emergency department. NEED HELP? Are you dealing with a violent or abusive relationship? Are you a victim of rape or sexual assult? Call [facility] ([place]) 24 hour Crisis Hotline: 865.922.8226 or 054-994-0004. MANUAL Your Guide to a Healthy manual is now on-line. Visit [email or web address] to download your free copy documented in this encounter [facility] 07-16-2024 Progress note Formatting of t his [...] - RTO 2 wks Veronique Jones DO [facility] 07-16-2024 Miscellaneous Notes SW- Pt doing well. [...] Veronique Jones DO documented in this encounter [facility] 07-16-2024 Instructions Yarelis Rider MA - 07/16/2024 2:23 PM EDT SEQUENTIAL SCREENINGS The [facility] offers sequential screenings for women who are [...] It will require an appointment with our mosaic technician. This is not an ultrasound performed [...] the above symptoms, contact our office at [phone] and ask to speak with a nurse. After hours, you can call [facility] at [phone] OR call [facility] at [phone] and ask to have the doctor examination scorer paged. If you consider this an emergency, dial 9-1-0 or go to your nearest emergency department. NEED HELP? Are you dealing with a violent or abusive relationship? Are you a victim of rape or sexual assult? Call [facility] ([place]) 24 hour Crisis Hotline: 505.702.8748 or 205-156-7039. MANUAL Your Guide to a Healthy manual is now on-line. Visit [email or web address] to download your free copy documented in this encounter [facility] 06-18-2024 Progress note Formatting of t his [...] high risk in second trimester ([facility]) - ICD9: V23.9, ICD10: O09.92 - SYPHILIS TREPONEMAL W/REFLEX - ANEMIA REFLEX PANEL Mariela Velasco MD [facility] 06-18-2024 Miscellaneous Notes S: Ramona Zhao is [...] high risk in second trimester ([facility]) - ICD9: V23.9, ICD10: O09.92 - SYPHILIS TREPONEMAL W/REFLEX - ANEMIA REFLEX PANEL Mariela Velasco MD documented in this encounter [facility] 06-18-2024 Instructions Yarelis Rider MA - 06/18/2024 2:10 PM EDT SEQUENTIAL SCREENINGS [facility] offers sequential screenings for women who are [...] It will require an appointment with our mosaic technician. This is not an ultrasound performed [...] the above symptoms, contact our office at [phone] and ask to speak with a nurse. After hours, you can call doctors [facility] at [phone] OR call [facility] at [phone] and ask to have the doctor examination scorer paged. If you consider this an emergency, dial 5-9-2 or go to your nearest emergency department. NEED HELP? Are you dealing with a violent or abusive relationship? Are you a victim of rape or sexual assult? Call [facility] ([place]) 24 hour Crisis Hotline: 837.814.7006 or 172-292-2449. MANUAL Your Guide to a Healthy manual is now on-line. Visit [email or web address] [email or web address] to download your free copy documented in this encounter [facility] 05-22-2024 Progress note Formatting of t his note might be different from the original. Anatomy ultrasound reviewed. No abnormalities identified. Follow up as clinically indicated. Please place copy in ob chart. Paul Galindo MD [facility] 05-22-2024 Miscellaneous Notes Anatomy ultrasound reviewed. No abnormalities identified. Follow up as clinically indicated. Please place copy in ob chart. Paul Galindo MD documented in this encounter [facility] 05-21-2024 Progress note Formatting of t his [...] weeks or sooner as needed. Aj Poole APRN.ORNAMENTAL PLASTERER HELPER [facility] 05-21-2024 Miscellaneous Notes EH - S: Ramona [...] weeks or sooner as needed. Aj Poole APRN.ORNAMENTAL PLASTERER HELPER documented in this encounter [facility] 05-21-2024 Instructions Missy Salinas MA - 05/21/2024 2:10 PM EDT SEQUENTIAL SCREENINGS [facility] offers sequential screenings for women who are [...] It will require an appointment with our mosaic technician. This is not an ultrasound performed [...] the above symptoms, contact our office at [phone] and ask to speak with a nurse. After hours, you can call doctors [facility] at [phone] OR call [facility] at [phone] and ask to have the doctor examination scorer paged. If you consider this an emergency, dial 10-29- or go to your nearest emergency department. NEED HELP? Are you dealing with a violent or abusive relationship? Are you a victim of rape or sexual assult? Call [facility] ([place]) 24 hour Crisis Hotline: 443.498.6580 or 659-694-4176. MANUAL Your Guide to a Healthy manual is now on-line. Visit [email or web address] [email or web address] to download your free copy documented in this encounter [facility] 04-23-2024 Progress note Formatting of t his note might be different from the original. SW- pt doing well. No pain, vb, lof PE: Gen- Nad, well appearing Abd- Soft, NT See flowsheet A/p 16 wk gestation - NOB and NIPT reviewed - Early anatomy US today - RTO 4 wks for 20 week anatomy and visit Veronique Jones DO [facility] 04-23-2024 Miscellaneous Notes SW- pt doing well. No pain, vb, lof PE: Gen- Nad, well appearing Abd- Soft, NT See flowsheet A/p 16 wk gestation - NOB and NIPT reviewed - Early anatomy US today - RTO 4 wks for 20 week anatomy and visit Veronique Jones DO documented in this encounter [facility] 04-23-2024 Instructions Yarelis Rider MA - 04/23/2024 1:58 PM EST SEQUENTIAL SCREENINGS [facility] offers sequential screenings for women who are [...] It will require an appointment with our mosaic technician. This is not an ultrasound performed [...] the above symptoms, contact our office at [phone] and ask to speak with a nurse. After hours, you can call doctors [facility] at [phone] OR call [facility] at [phone] and ask to have the doctor examination scorer paged. If you consider this an emergency, dial 8-8-2 or go to your nearest emergency department. NEED HELP? Are you dealing with a violent or abusive relationship? Are you a victim of rape or sexual assult? Call [facility] ([place]) 24 hour Crisis Hotline: 223.352.7526 or 813-704-1609. MANUAL Your Guide to a Healthy manual is now on-line. Visit [email or web address] [email or web address] to download your free copy documented in this encounter [facility] 04-16-2024 Note HNO ID: [id number] Author: CARA FROST PA-C Service: ? Author Type: Physician Parking Worker Type: Progress Notes Filed: 04/16/2024 11:01 Note Text: This note was created using Visual Revenueriter. Subjective Ramona Zhao is a 23 year [...] ICD9: 786.2, ICD10: R05.3 Cara Frost PA-C [facility] 04-16-2024 History of Presen t illness Narrative This note was created using Visual Revenueriter. Subjective Ramona Zhao is a 23 year [...] Cara Frost PA-C documented in this encounter [facility] 04-02-2024 Note HNO ID: [id number] Author: LIVAN BILLS APRN.ORNAMENTAL PLASTERER HELPER Service: ? Author Type: Nurse Practitioner Type: [...] room for any (more content not included)... [facility] 04-02-2024 History of Presen t illness Narrative [...] of care. This note was generated using CardioLogs software. It may contain errors in wording, punctuation, or spelling. Livan Bills APRN.ORNAMENTAL PLASTERER HELPER documented in this encounter [facility] 03-27-2024 Progress note Formatting of t his note might be different from the original. Anatomy ultrasound reviewed. No abnormalities identified. Follow up as clinically indicated. Please place copy in ob chart. Paul Galindo MD [facility] 03-27-2024 Miscellaneous Notes Anatomy ultrasound reviewed. No abnormalities identified. Follow up as clinically indicated. Please place copy in ob chart. Paul Galindo MD documented in this encounter [facility] 03-26-2024 Progress note Formatting of t his [...] OBSTETRIC ULTRASOUND [facility]I MD Paul Linares MD [facility] 03-26-2024 Miscellaneous Notes RR- VB No. LOF [...] Paul Linares MD documented in this encounter [facility] 03-26-2024 Instructions Keri Waller LPN - 03/26/2024 1:18 PM EST SEQUENTIAL SCREENINGS [facility] offers sequential screenings for women who are [...] It will require an appointment with our mosaic technician. This is not an ultrasound performed [...] the above symptoms, contact our office at [phone] and ask to speak with a nurse. After hours, you can call doctors [facility] at [phone] OR call [facility] at [phone] and ask to have the doctor examination scorer paged. If you consider this an emergency, dial 10-29-5 or go to your nearest emergency department. NEED HELP? Are you dealing with a violent or abusive relationship? Are you a victim of rape or sexual assult? Call [facility] ([place]) 24 hour Crisis Hotline: 765.429.1374 or 529-575-9822. MANUAL Your Guide to a Healthy manual is now on-line. Visit [email or web address] [email or web address] to download your free copy documented in this encounter [facility] 03-20-2024 Progress note Formatting of t his [...] RTO in 4 weeks Alexandria Schwartz APRN.CNM [facility] Work Phone: 03-20-2024 Miscellaneous Notes NOEMÍ-S: Ramona [...] Alexandria Schwartz APRN.CNM documented in this encounter [facility] 03-12-2024 Instructions Adam Bethea MA - 03/12/2024 1:15 PM EST SEQUENTIAL SCREENINGS [facility] offers sequential screenings for women who are [...] It will require an appointment with our mosaic technician. This is not an ultrasound performed [...] the above symptoms, contact our office at [phone] and ask to speak with a nurse. After hours, you can call doctors registry at [phone] OR call [facility] at [phone] and ask to have the doctor examination scorer paged. If you consider this an emergency, dial 9-1-1 or go to your nearest emergency department. NEED HELP? Are you dealing with a violent or abusive relationship? Are you a victim of rape or sexual assult? Call [facility] ([place]) 24 hour Crisis Hotline: 511.295.8754 or 243-417-7445. MANUAL Your Guide to a Healthy manual is now on-line. Visit [email or web address] [email or web address] to download your free copy documented in this encounter [facility] 02-13-2024 Note HNO ID: [id number] Author: AJ POOLE APRN.ORNAMENTAL PLASTERER HELPER Service: ? Author Type: Nurse Practitioner Type: Progress Notes Filed: 02/13/2024 12:52 Note Text: Framing Mill Operator offered: Patient declines. 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 [facility] 02-13-2024 History of Presen t illness Narrative Framing Mill Operator offered: Patient declines. 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 As applicable, any other physician, advance practice provider, medical student, or other health professional student that will be observing or involved in the sensitive examination for educational or training purposes was discussed with the Patient or Authorized Program Engagement Director. The Patient or Authorized Program Engagement Director has agreed to proceed with the sensitive examination. (Sensitive examination includes inspection and/or palpation of the breasts, pelvis, prostate and anorectal regions). PHYSICAL EXAM: BP 112/68 Ht 4' 11.016" (1.50m) Wt 196 lb (88.9kg) LMP 12/20/2023 [...] Your guide to a health and the Exercise Equipment Specialist. Discussed hemoglobin electrophoresis. Patient: Accepts Reviewed midwifery and bag bundler services that are available. 2) Screening: Hemoglobin [...] [] RSV vaccine 32 0/7 - 36 6/7 (Oct - Mar) [] declined [] COVID [...] RPR [] Behavioral Health Screening Third trimester (28-30 weeks): [] Consent [] Contraception [] Truss Designer [] TeamBirth handout Third trimester (36-40 weeks): [...] LMP. Confirm TERRY with nuchal. Aj Poole APRN.CNP Nausea and Vomiting During - 02/09/2024 Comment: 02/13/24 Improved with Vitamin B6. To notify if prescription is needed. Aj Poole APRN.CNP Follow up in 4 weeks or sooner prn. Plan for NT scan between 12w0d and 13w6d gestation. Aj Poole APRN.CNP documented in this encounter [facility] 02-13-2024 Instructions Aj Poole APRN.CNP - 02/13/2024 10:59 AM EST Please select the following link to access the [facility] Your Guide to a Healthy . [email or web address] e MORNING SICKNESS IN by Elaine Conti M.D. for [employer] As you may already know, morning sickness can often be more appropriately called evening sickness or rkmgf-yychms-vz-the-day sickness. While there are the carolann few, [...] medication, Doxylamine, is currently marketed as an achy-qgo-jpnmznj sleeping pill. Ask your practitioner if creating a vitamin B6/Doxylamine combination with hmsx-kab-rekhrxk medications would be safe for you. Prescription [...] Phenergan, Compazine, Reglan documented in this encounter [facility] 02-09-2024 Instructions Aj Poole APRN.CNP - 02/09/2024 8:53 AM EST MORNING SICKNESS IN by Elaine Conti M.D. for [employer] As you may already know, morning sickness can often be more appropriately called evening sickness or boszu-nsfgjw-yc-the-day sickness. While there are the carolann few, [...] medication called Bendectin was available in the 1970s-1979's and was shown to be safe in [...] medication, Doxylamine, is currently marketed as an iojd-xns-smenzvy sleeping pill. Ask your practitioner if creating a vitamin B6/Doxylamine combination with jmvb-yjb-eaygklc medications would be safe for you. Prescription [...] Phenergan, Compazine, Reglan documented in this encounter [facility] 02-09-2024 Note HNO ID: [id number] Author: AJ POOLE APRN.SABINA Service: ? Author Type: Nurse Practitioner Type: [...] L1 SAB0 IAB0 Ectopic0 Multiple0 Live Births1 Crm Dynamics Developer History LMP: 12/20/2023 (Within Days), Having periods Age at Menarche: Age at First : Age at Menopause: [employer] Developer History Comments: Sexual Activity: Yes; Male Contraception: [...] Assessed 02/09/2024 REVIEW OF SYSTEMS Expanded ROS: MILL FEEDER: + UPT Allergies and current medication updated:Yes [...] anything further - care guide provided via [employer] 2. Nausea and vomiting during - ICD9: 643.90, ICD10: O21.9 Vitamin B6 and Unisom doses reviewed. - To notify if prescription is needed. - Small frequent meals and hydration encouraged - To go to ER if unable to tolerate food/water more than 12-24 hours RTO for new OB visit. Aj Poole APRN.SABINA Medical Decision Making: Problems: Moderate: New problem with uncertain prognosis Data: Unique test(s) ordered: 1 Risk: Low: Low risk from testing/treatment Moderate: Drug management Medical Decision Making Level: 4 - Moderate [facility] 02-09-2024 History of Presen t illness Narrative [...] L1 SAB0 IAB0 Ectopic0 Multiple0 Live Births1 Crm Dynamics Developer History LMP: 12/20/2023 (Within Days), Having periods Age at Menarche: Age at First : Age at Menopause: [employer] Developer History Comments: Sexual Activity: Yes; Male Contraception: [...] Assessed 02/09/2024 REVIEW OF SYSTEMS Expanded ROS: MILL FEEDER: + UPT Allergies and current medication updated:Yes [...] anything further - care guide provided via [employer] 2. Nausea and vomiting during - ICD9: [...] 4 - Moderate documented in this encounter [facility] 11-14-2023 Note HNO ID: [id number] Author: AJ POOLE APRN.CNP Service: ? Author Type: Nurse Practitioner Type: Progress Notes Filed: 11/14/2023 15:52 Note Text: OGI VIRTUAL VISIT Virtual limitations reviewed with patient, as well as possible need to travel to have diagnostic services. Patient voiced understanding. Patient seen on [employer] Video Visit platform. Location of patient: [place] I have communicated my name and active licensure. The patient's identity and physical location were verified at the time of this visit. Either the patient or their legal client service representative has been informed of the risks [...] initially, but none at this time. ROS: MILL FEEDER: + bleeding early PE General: well appearing [...] contraception, answer any questions, etc. Aj Poole APRN.ORNAMENTAL PLASTERER HELPER Medical Decision Making: Problems: Low: Acute, uncomplicated illness or injury Data: Unique test(s) ordered: 3+ Risk: Minimal: Minimal risk from testing/treatment Medical Decision Making Level: 3 - Low [facility] 11-14-2023 History of Presen t illness Narrative OGI VIRTUAL VISIT Virtual limitations reviewed with patient, as well as possible need to travel to have diagnostic services. Patient voiced understanding. Patient seen on [employer] Video Visit platform. Location of patient: [place] I have communicated my name and active licensure. The patient's identity and physical location were verified at the time of this visit. Either the patient or their legal client service representative has been informed of the risks [...] initially, but none at this time. ROS: MILL FEEDER: + bleeding early PE General: well appearing [...] 3 - Low documented in this encounter [facility] 11-14-2023 Telephone encounter Note Patient notified of below and virtual visit scheduled. Jessica Tripp RN [facility] 11-14-2023 Miscellaneous Notes Patient notified of below [...] Armida Quiros RN documented in this encounter [facility] 11-14-2023 Telephone encounter Note Left message for patient to call office. Aleja Goode RN [facility] 11-14-2023 Telephone encounter Note Virtual visit this afternoon to discuss- Sw and EH have openings.. Paul Galindo MD [facility] 11-14-2023 Telephone encounter Note Pt called stating + test on 11-11-23. Started bleeding 2 days ago-heavy for about 8 hours with use of tampons.Has been wearing a panty liner since then and continues with spotting. Pt wanting HCG levels drawn. Bleeding precautions reviewed. Armida Quiros RN [facility] 04-21-2023 History of Presen t illness Narrative [...] Influenza Vaccine(1) due on 10/29/2022 Covid-19 Vaccine(3 - 2022-24 season) due on 10/29/2022 Depression Assessment Never [...] 20 MG CAPSULE,DELAYED RELEASE E Shannon [employer] PROCESS ARTIST Student I have personally seen and examined the patient and performed the medical-decision making components. I have reviewed the Advanced Practice Registered Nurse (MEDICAL REVIEW SPECIALIST) student's documentation and verified the findings in the note as written. Any additions or changes are noted in bold/italics. Vida Drake APRN.ORNAMENTAL PLASTERER HELPER documented in this encounter [facility] 03-31-2023 History of Presen t illness Narrative [...] PATIENT PRESENTS WITH AN IMPLANTABLE OR ATTACHED NICKER: N/A CREATININE: Creatinine Date Value Ref Range [...] safety can be found using this link: [email or web address]%20N [email or web address]%20Medicine%20Procedures.p df SIGNATURE: RT Sincere(Vanessa) PATIENT NAME: Ramona Zhao DATE: March 31, 2023 TIME: 09:50 AM PAGER/CONTACT #: documented in this encounter [facility] 05-30-2022 History of Presen t illness Narrative This is an Express Care eVisit note for Ramona Zhao eVisit/Questionnaire reviewed The chief complaint for the visit - Patient presents with: Vaginal Problem Recommendations/Treatment plan - See My Chart Message to patient Patient referred for in person exam d/t pain with urination, vaginal discharge Total time spent on evisit: <5 minutes Lety Murillo APRN.CNP documented in this encounter [facility] 01-27-2022 Instructions Alpa Rios APRN.CNP - 01/27/2022 [...] These are formulated to give you a bench grinder period. Unless otherwise instructed, you should start [...] less iron deficiency anemia in pill users. intermission coordinator use is associated with a decreased incidence [...] and mild fluid retention. There is no long-term weight gain with the use of the [...] necessary health information. documented in this encounter [facility] 01-27-2022 History of Presen t illness Narrative Framing Mill Operator offered: Patient declines. Ramona Zaho is a 21 year old female who presents for problem visit discuss removal of Nexplanon due to unscheduled bleeding. HPI: Unscheduled bleeding with Nexplanon. Had nexplanon inserted 2 years ago. She would like to discuss different contraception and prefers restarting OCP. OB History T1 L1 SAB0 IAB0 Ectopic0 Multiple0 Live Births1 Crm Dynamics Developer History LMP: 04/28/2020, Unknown Age at Menarche: Age at First : Age at Menopause: [employer] Developer History Comments: Sexual Activity: Yes; Male Contraception: [...] (Patient not taking: Reported on 01/15/2021 ) Oxnktioz-Se-Oap-Fe-FA ( VITAMIN) tab Take 1 tablet by [...] TABLET Follow-up at Nexplanon removal. Alpa Rios APRN.SABINA Medical Decision Making: Problems: Low: Stable chronic illness Risk: Moderate: Drug management Medical Decision Making Level: 3 - Low documented in this encounter [facility] 04-19-2019 History of Past i llness Narrative Problem Noted Date Resolved Date Abdominal pain in , antepartum 04/19/19 20 04/26/2019 Overview: 04/19/2019 [facility]. Was followed with quant HCG's by Dr Vazquez. States pain has significantly decreased since last [...] of this encounter (statuses as of 01/27/2022) [facility] History of Past illness Narrative* Problem Noted Date Resolved Date Abdominal pain in , antepartum 04/19/19 20 04/26/2019 Overview: 04/19/2019 [facility] was seen [facility] for abdominal pain. Was followed with quant HCG's by Dr Vazquez. States pain has significantly decreased since last [...] of this encounter (statuses as of 05/30/2022) [facility] History of Past illness Narrative* Problem Noted Date Diagnosed Date Resolved Date Abdominal pain in , antepartum 04/19/2019 04/26/2019 Overview: 04/19/2019 [facility] for abdominal pain. Was followed with quant HCG's by Dr Vazquez. States pain has significantly decreased since last [...] of this encounter (statuses as of 04/01/2023) [facility] History of Past illness Narrative* Problem Noted Date Diagnosed Date Resolved Date Abdominal pain in , antepartum 04/19/2019 04/26/2019 Overview: 04/19/2019 She was seen [facility] for abdominal pain. Was followed with quant HCG's by Dr Vazquez. States pain has significantly decreased since last [...] of this encounter (statuses as of 04[facility]21/2023) [facility] Breakthrough bleeding on Nexplanon- Primary Metrorrhagia General counseling and advice for contraceptive management Other general counseling and advice for contraceptive management Encounter for BCP ( control pills) initial prescription General counseling for prescription of oral contraceptives [facility] Treatment not available- Primary Procedure not carried out for other reasons [facility] Diagnosis Nausea Nausea alone Epigastric pain Abdominal pain, epigastric [facility] Diagnosis Alternating constipation and diarrhea- Primary Other symptoms involving digestive system Gastroesophageal reflux disease without esophagitis Esophageal reflux [facility] Diagnosis Bleeding in early - Primary Unspecified hemorrhage in early , unspecified as to episode of care [facility] Diagnosis Spotting in early - Primary Spotting complicating , antepartum condition or complication [facility] Diagnosis Positive urine test- Primary examination or test, positive result Nausea and vomiting during documented in this encounter [facility] note* Diagnosis Encounter for supervision of high risk in first trimester, antepartum- Primary with uncertain dates in first trimester 7 weeks gestation of state, incidental Obesity affecting in first trimester, unspecified obesity type History of miscarriage Personal history of other genital system and obstetric disorders Nausea and vomiting during documented in this encounter [facility] note* Diagnosis Encounter for supervision of high risk in first trimester, antepartum- Primary 10 weeks gestation of state, incidental Obesity affecting in first trimester, unspecified obesity type documented in this encounter [facility] note* Diagnosis Encounter for supervision of high risk in first trimester, antepartum- Primary 12 weeks gestation of state, incidental screening encounter Unspecified screening Maternal obesity 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 BMI 38.0-38.9,adult Body Mass Index 38.0-38.9, adult documented in this encounter [facility] note* Diagnosis Encounter for screening for malformation using ultrasound- Primary 12 weeks gestation of state, incidental documented in this encounter [facility] note* Diagnosis Viral illness- Primary Unspecified viral infection, in conditions classified elsewhere and of unspecified site documented in this encounter [facility] note* Diagnosis Bronchopneumonia- Primary Bronchopneumonia, organism unspecified Persistent cough Cough documented in this encounter [facility] [facility]* Diagnosis Encounter for supervision of high risk in first trimester, antepartum- Primary 16 weeks gestation of state, incidental Maternal obesity 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 documented in this encounter [facility] note* Diagnosis Encounter for screening for malformation using ultrasound- Primary Maternal obesity 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 BMI 38.0-38.9,adult Body Mass Index 38.0-38.9, adult 16 weeks gestation of state, incidental documented in this encounter [facility] note* Diagnosis Supervision of high risk in second trimester- Primary Unspecified high-risk 20 weeks gestation of state, incidental Obesity affecting in second trimester, unspecified obesity type [facility] Diagnosis Encounter for anatomic survey- Primary Maternal obesity 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 BMI 38.0-38.9,adult Body Mass Index 38.0-38.9, adult [facility]* Diagnosis Screening for diabetes mellitus- Primary 24 weeks gestation of (HCC) state, incidental Supervision of high risk in second trimester (HCC) Unspecified high-risk documented in this encounter [facility] note* Diagnosis Supervision of high risk in third trimester (HCC)- Primary Unspecified high-risk 28 weeks gestation of (HCC) state, incidental Obesity affecting in third trimester, unspecified obesity type (HCC) documented in this encounter [facility] note* Diagnosis Supervision of high risk in third trimester (HCC)- Primary Unspecified high-risk 30 weeks gestation of (HCC) state, incidental Obesity affecting in third trimester, unspecified obesity type (HCC) Need for vaccination Need for prophylactic vaccination and inoculation against unspecified single disease documented in this encounter [facility] note* Diagnosis Maternal obesity 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 (HCC) BMI 38.0-38.9,adult Body Mass Index 38.0-38.9, adult documented in this encounter [facility] note* Diagnosis Supervision of high risk in third trimester (HCC)- Primary Unspecified high-risk 32 weeks gestation of (HCC) state, incidental Obesity affecting in third trimester, unspecified obesity type (HCC) documented in this encounter [facility] note* Diagnosis Supervision of high risk in third trimester (HCC)- Primary Unspecified high-risk Obesity affecting in third trimester, unspecified obesity type (HCC) 34 weeks gestation of (HCC) state, incidental Supervision of high risk in second trimester (HCC) Unspecified high-risk documented in this encounter [facility] note* Diagnosis 35 weeks gestation of (HCC)- Primary state, incidental Supervision of high risk in third trimester (HCC) Unspecified high-risk Obesity affecting in third trimester, unspecified obesity type (HCC) documented in this encounter [facility] noteNo assessment information availableWOur [facility] of [facility] Work Phone: Evaluation note* Diagnosis Supervision of high risk in third trimester (HCC)- Primary Unspecified high-risk Obesity affecting in third trimester, unspecified obesity type (HCC) 36 weeks gestation of (HCC) state, incidental [facility] 28 weeks [facility] of (HCC) state, incidental Supervision of high risk in third trimester (HCC) Unspecified high-risk Obesity affecting in third trimester, unspecified obesity type (HCC) documented in this encounter [facility] for referral (narrative)* Outpatient Procedure (Routine) - Pending Review Specialty Diagnoses / Procedures Referred By Contac t Referred To Contact [facility] Diagnoses Breakthrough bleeding on Nexplanon General counseling and advice for contraceptive management Procedures NEXPLANON REMOVAL REMOVAL NON-BIODEGRADABLE DRUG DELIVERY IMPLANT Alpa Rios APRN.ORNAMENTAL PLASTERER HELPER [address] [place] [address] [facility] [address] [place] [address] Referral ID Status Reason Start Date Expiration Date Visits Requested Visits Authorized [id number] Pending Review Auto-Generat ed Referral 2 01/27/2023 1 1 [facility] for referral (narrative)* Diagnostic Procedure Only (Routine) - Closed Specialty Diagnoses / Procedures Referred By Contac t Referred To Contact MOLECULAR & FUNCTIONAL IMAGING Diagnoses Nausea Epigastric pain Procedures NM HEPATOBILIARY W EF AND/OR RX HEPATOBIL SYST IMAG INC GB W/PHARMA INTERVENJ Paola Rea APRN.PIPE OUT WORKER [address] [place] [address] Molecular & Functional Imaging [address] [place], [place] [id number] Referral ID Status Reason Start Date Expiration Date V isits Requested Visits Authorized [id number] Closed Auto-Generate d Referral 03/21/2023 04/19/2024 1 1 [facility] for referral (narrative)* Diagnostic Procedure Only (Routine) - Pending Review Specialty Diagnoses / Procedures Referred By Contac t Referred To Contact [facility] Diagnoses Encounter for supervision of high risk in first trimester, antepartum with uncertain dates in first trimester 7 weeks gestation of Procedures NUCHAL TRANSLUCENCY WHI US NUCHAL TRANSLUCENCY 1ST GESTATION Aj Poole APRN.CNP [address] [place] [address] [address] Referral ID Status Reason Start Date Expiration Date Visits Requested Visits Authorized [id number] Pending Review Auto-Generat ed Referral 02/12/2025 1 1 [facility] for referral (narrative)* Diagnostic Procedure Only (Routine) - Pending Review Specialty Diagnoses / Procedures Referred By Noni avila Referred To Contact [facility] Diagnoses 12 weeks gestation of Encounter for supervision of high risk in first trimester, antepartum screening encounter Maternal obesity 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 BMI 38.0-38.9,adult Procedures OBSTETRIC ULTRASOUND WHI US PREG UTERUS AFTER 1ST TRIMEST GESTATION Paul Galindo MD [address] [place] [address] [address] Referral ID Status Reason Start Date Expiration Date Visits Requested Visits Authorized [id number] Pending Review Auto-Generat ed Referral 03/26/2024 03/26/2025 8 1 [facility] for referral (narrative)No reason for referral information availableWOur [facility] of [facility] Work Phone: Summary Purpose Family History No Family History [...] Referral Specialty Diagnoses / Procedures Referred By Noni avila Referred To Contact General Surgery Diagnoses Alternating constipation and diarrhea Procedures CONSULT TO GENERAL SURGERY OFFICE/OUTPATIENT [facility] 60 MINUTES Vida Drake APRN.ORNAMENTAL PLASTERER HELPER [address] [place] [address] Referral ID Status Reason Start Date Expiration Date Visits Requested Visits Authorized [id number] Authorized PCP Requested Referral 04/21/2023 04/20/2024 1 1 Chief Complaint and Reason for Visit Chief Complaint Admit Date R/O LABOR September 07, 2024 9:45 pm Additional Source Comments INFORMATION SOURCE (unrecogn ized section and content) DATE CREATED AUTHOR 05/08/2018 [employer] DATE CREATED AUTHOR AUTHOR'S ORGANIZ ATION 07/20/2018 [facility] DATE CREATED AUTHOR AUTHOR'S ORGANIZ ATION 04/12/2019 [facility] DATE CREATED AUTHOR AUTHOR'S ORGANIZ ATION 07/13/2019 [facility] DATE CREATED AUTHOR AUTHOR'S ORGANIZ ATION 03/15/2023 [facility] DATE CREATED AUTHOR AUTHOR'S ORGANIZ ATION 11/16/2023 [facility] DATE CREATED AUTHOR AUTHOR'S ORGANIZ ATION 09/15/2024 [facility] DATE CREATED AUTHOR AUTHOR'S ORGANIZ ATION 09/16/2024 [facility] Source Comments (unrecognize d section and content) In the event this informatio n is protected by the Federal Confidentiality of Alcohol and Drug Abuse Patient Records regulations: The Federal rules restrict any use of the information to criminally investigate or prosecute any alcohol or drug abuse patient.[facility] HospitalIn the event this information is protected by the Federal Confidentiality of Alcohol and Drug Abuse Patient Records regulations: The Federal rules restrict any use of the information to criminally investigate or prosecute any alcohol or drug abuse patient.[facility] HospitalIn the event this information is protected by the Federal Confidentiality of Alcohol and Drug Abuse Patient Records regulations: The Federal rules restrict any use of the information to criminally investigate or prosecute any alcohol or drug abuse patient.[facility] HospitalIn the event this information is protected by the Federal Confidentiality of Alcohol and Drug Abuse Patient Records regulations: The Federal rules restrict any use of the information to criminally investigate or prosecute any alcohol or drug abuse patient.[facility] HospitalIn the event this information is protected by the Federal Confidentiality of Alcohol and Drug Abuse Patient Records regulations: The Federal rules restrict any use of the information to criminally investigate or prosecute any alcohol or drug abuse patient.[facility] HospitalIn the event this information is protected by the Federal Confidentiality of Alcohol and Drug Abuse Patient Records regulations: The Federal rules restrict any use of the information to criminally investigate or prosecute any alcohol or drug abuse patient.[facility] HospitalIn the event this information is protected by the Federal Confidentiality of Alcohol and Drug Abuse Patient Records regulations: The Federal rules restrict any use of the information to criminally investigate or prosecute any alcohol or drug abuse patient.[facility] HospitalIn the event this information is protected by the Federal Confidentiality of Alcohol and Drug Abuse Patient Records regulations: The Federal rules restrict any use of the information to criminally investigate or prosecute any alcohol or drug abuse patient.[facility] HospitalIn the event this information is protected by the Federal Confidentiality of Alcohol and Drug Abuse Patient Records regulations: The Federal rules restrict any use of the information to criminally investigate or prosecute any alcohol or drug abuse patient.[facility] HospitalIn the event this information is protected by the Federal Confidentiality of Alcohol and Drug Abuse Patient Records regulations: The Federal rules restrict any use of the information to criminally investigate or prosecute any alcohol or drug abuse patient.[facility] HospitalIn the event this information is protected by the Federal Confidentiality of Alcohol and Drug Abuse Patient Records regulations: The Federal rules restrict any use of the information to criminally investigate or prosecute any alcohol or drug abuse patient.[facility] HospitalIn the event this information is protected by the Federal Confidentiality of Alcohol and Drug Abuse Patient Records regulations: The Federal rules restrict any use of the information to criminally investigate or prosecute any alcohol or drug abuse patient.[facility] HospitalIn the event this information is protected by the Federal Confidentiality of Alcohol and Drug Abuse Patient Records regulations: The Federal rules restrict any use of the information to criminally investigate or prosecute any alcohol or drug abuse patient.[facility] HospitalIn the event this information is protected by the Federal Confidentiality of Alcohol and Drug Abuse Patient Records regulations: The Federal rules restrict any use of the information to criminally investigate or prosecute any alcohol or drug abuse patient.[facility] HospitalIn the event this information is protected by the Federal Confidentiality of Alcohol and Drug Abuse Patient Records regulations: The Federal rules restrict any use of the information to criminally investigate or prosecute any alcohol or drug abuse patient.[facility] HospitalIn the event this information is protected by the Federal Confidentiality of Alcohol and Drug Abuse Patient Records regulations: The Federal rules restrict any use of the information to criminally investigate or prosecute any alcohol or drug abuse patient.[facility] HospitalIn the event this information is protected by the Federal Confidentiality of Alcohol and Drug Abuse Patient Records regulations: The Federal rules restrict any use of the information to criminally investigate or prosecute any alcohol or drug abuse patient.[facility] HospitalIn the event this information is protected by the Federal Confidentiality of Alcohol and Drug Abuse Patient Records regulations: The Federal rules restrict any use of the information to criminally investigate or prosecute any alcohol or drug abuse patient.[facility] HospitalIn the event this information is protected by the Federal Confidentiality of Alcohol and Drug Abuse Patient Records regulations: The Federal rules restrict any use of the information to criminally investigate or prosecute any alcohol or drug abuse patient.[facility] HospitalIn the event this information is protected by the Federal Confidentiality of Alcohol and Drug Abuse Patient Records regulations: The Federal rules restrict any use of the information to criminally investigate or prosecute any alcohol or drug abuse patient.[facility] HospitalIn the event this information is protected by the Federal Confidentiality of Alcohol and Drug Abuse Patient Records regulations: The Federal rules restrict any use of the information to criminally investigate or prosecute any alcohol or drug abuse patient.[facility] HospitalIn the event this information is protected by the Federal Confidentiality of Alcohol and Drug Abuse Patient Records regulations: The Federal rules restrict any use of the information to criminally investigate or prosecute any alcohol or drug abuse patient.[facility] HospitalIn the event this information is protected by the Federal Confidentiality of Alcohol and Drug Abuse Patient Records regulations: The Federal rules restrict any use of the information to criminally investigate or prosecute any alcohol or drug abuse patient.[facility] HospitalIn the event this information is protected by the Federal Confidentiality of Alcohol and Drug Abuse Patient Records regulations: The Federal rules restrict any use of the information to criminally investigate or prosecute any alcohol or drug abuse patient.[facility] HospitalIn the event this information is protected by the Federal Confidentiality of Alcohol and Drug Abuse Patient Records regulations: The Federal rules restrict any use of the information to criminally investigate or prosecute any alcohol or drug abuse patient.[facility] HospitalIn the event this information is protected by the Federal Confidentiality of Alcohol and Drug Abuse Patient Records regulations: The Federal rules restrict any use of the information to criminally investigate or prosecute any alcohol or drug abuse patient.[facility] HospitalIn the event this information is protected by the Federal Confidentiality of Alcohol and Drug Abuse Patient Records regulations: The Federal rules restrict any use of the information to criminally investigate or prosecute any alcohol or drug abuse patient.[facility] HospitalIn the event this information is protected by the Federal Confidentiality of Alcohol and Drug Abuse Patient Records regulations: The Federal rules restrict any use of the information to criminally investigate or prosecute any alcohol or drug abuse patient.[facility] Reason for Visit (unrecogniz ed section and content) Reason Comments Contraception Reason Comments Vaginal Problem Reason Comments Radiology NM Specialty Diagnoses / Procedures Referred By Contac t Referred To Contact MOLECULAR & FUNCTIONAL IMAGING Diagnoses Nausea Epigastric pain Procedures NM HEPATOBILIARY W EF AND/OR RX HEPATOBIL SYST IMAG INC GB W/PHARMA INTERVENJ Rea Paola, MEDICAL REVIEW SPECIALIST.PIPE OUT WORKER [address] [place] [address] Molecular & Functional Imaging [address] [place] [address] Referral ID Status Reason Start Date Expiration Date V isits Requested Visits Authorized [id number] Closed Auto-Generate d Referral 03/21/2023 04/19/2024 1 1 Reason Comments Follow Up Reason Comments Vaginal Bleeding Reason Comments Spotting Reason Comments confirmation Reason Comments Initial OB Visit Reason Onset Date Comments Care 03/12/2024 Reason Onset Date Comments Care 03/26/2024 Reason Comments US Specialty Diagnoses / Procedures Referred By Noni avila Referred To Contact [facility] Diagnoses Encounter for supervision of high risk in first trimester, antepartum with uncertain dates in first trimester 7 weeks gestation of Procedures NUCHAL TRANSLUCENCY WHI US NUCHAL TRANSLUCENCY 1ST GESTATION Aj Poole, MEDICAL REVIEW SPECIALIST.ORNAMENTAL PLASTERER HELPER [address] [place] [id number] [address] [address] Referral ID Status Reason Start Date Expiration Date V isits Requested Visits Authorized [id number] Denied Auto-Generat ed Referral Patient Cleared - Admin/Chairm an/Director advise to proceed or did not respond 02/13/2024 02/12/2025 1 0 Reason Comments Cough Cough, congestion an d ST x 1 week Reason Comments Cough BOLIVAR, body aches x 1 d ay Reason Onset Date Comments Care 04/23/2024 Specialty Diagnoses / Procedures Referred By Noni avila Referred To Contact [facility] Diagnoses 12 weeks gestation of Encounter for supervision of high risk in first trimester, antepartum screening encounter Maternal obesity 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 BMI 38.0-38.9,adult Procedures OBSTETRIC ULTRASOUND WHI US PREG UTERUS AFTER 1ST TRIMEST GESTATION Paul Galindo MD [address] [place] [address] Phone: tel: fax: [address] [place] [address] Referral ID Status Reason Start Date Expiration Date Visits Requested Visits Authorized [id number] Authorized Auto-Generat ed Referral 04/05/2024 02/27/2025 20 20 Reason Onset Date Comments Care 05/21/2024 Reason Onset Date Comments Care 06/18/2024 Reason Onset Date Comments Care 07/16/2024 Reason Onset Date Comments Care 07/30/2024 Specialty Diagnoses / Procedures Referred By Noni avila Referred To Contact [facility] Diagnoses 12 weeks gestation of (HCC) Encounter for supervision of high risk in first trimester, antepartum ([facility]) screening encounter ([facility]) Maternal obesity 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 ([facility]) BMI 38.0-38.9,adult Procedures OBSTETRIC ULTRASOUND WHI US PREG UTERUS AFTER 1ST TRIMEST GESTATION Paul Galindo MD [address] [place] [address] Phone: tel: fax: [address] [address] Reason Onset Date Comments Care 08/13/2024 Reason Onset Date Comments Care 08/27/2024 Reason Onset Date Comments Care 09/03/2024 Reason Onset Date Comments Care 09/11/2024 Specialty Diagnoses / Procedures Referred By Noni avila Referred To Contact [facility] Diagnoses 28 weeks gestation of (HCC) Supervision of high risk in third trimester ([facility]) Obesity affecting in third trimester, unspecified obesity type ([facility]) Procedures OBSTETRIC ULTRASOUND WHI US PREG UTERUS AFTER 1ST TRIMEST GESTATION Veronique Jones MD [address] [place] [address] Phone: tel: fax: [address] [address] Referral ID Status Reason Start Date Expiration Date Visits Requested Visits Authorized [id number] Authorized Auto-Generat ed Referral 08/09/2024 02/27/2025 20 20 Care Teams (unrecognized sec tion and content) Patient Access Manager Relationship Specialty Start Date End Date Victor Hugo Solano MD [facility] [place] [address] PCP - General Family Medicine 05/06/20 Patient Access Manager Relationship Specialty Start Date End Date Victor Hugo Solano MD [address] [facility] [address] PCP - General Family Medicine 05/06/20 Patient Access Manager Relationship Specialty Start Date End Date Victor Hugo Solano MD [address] [place] [address] PCP - General Family Medicine 05/06/20 Patient Access Manager Relationship Specialty Start Date End Date Victor Hugo Solano MD [address] [place] [address] PCP - General Family Medicine 05/06/20 Patient Access Manager Relationship Specialty Start Date End Date Victor Hugo Solano MD [address] [place] [address] PCP - General Family Medicine 05/06/20 Patient Access Manager Relationship Specialty Start Date End Date Victor Hugo Solano MD [address] [place] [address] PCP - General Family Medicine 05/06/20 Patient Access Manager Relationship Specialty Start Date End Date Victor Hugo Solano MD [address] [facility] [address] PCP - General Family Medicine 05/06/20 Michelle Hernandez APRN.CNP [address] [facility] [address] Cold Work Operator Family Medicine 02/04/24 Patient Access Manager Relationship Specialty Start Date End Date Victor Hugo Solano MD [address] [place] [address] PCP - General Family Medicine 05/06/20 PodlogarMichelle APRN.ORNAMENTAL PLASTERER HELPER [address] [place] [address] Cold Work Operator Family Medicine 02/04/24 Patient Access Manager Relationship Specialty Start Date End Date Victor Hugo Solano MD [address] [place] [address] PCP - General Family Medicine 05/06/20 Podlogar, ERIC MartinezN.ORNAMENTAL PLASTERER HELPER [address] [place] [address] Cold Work Operator Family Medicine 02/04/24 Patient Access Manager Relationship Specialty Start Date End Date Victor Hugo Solano MD [address] [place] [address] PCP - General Family Medicine 05/06/20 PodlogarMichelle, MEDICAL REVIEW SPECIALIST.ORNAMENTAL PLASTERER HELPER [address] [place] [address] Cold Work Operator Family Medicine 02/04/24 Patient Access Manager Relationship Specialty Start Date End Date Victor Hugo Solano MD [address] [place] [address] PCP - General Family Medicine 05/06/20 Podlogar, Michelle, MEDICAL REVIEW SPECIALIST.ORNAMENTAL PLASTERER HELPER [address] [place] [address] Cold Work Operator Family Medicine 02/04/24 Patient Access Manager Relationship Specialty Start Date End Date Victor Hugo Solano MD [address] [place] [address] PCP - General Family Medicine 05/06/20 PodlogarMichelle APRN.ORNAMENTAL PLASTERER HELPER [address] [place] [address] Cold Work Operator Family Medicine 02/04/24 Patient Access Manager Relationship Specialty Start Date End Date Victor Hugo Solano MD [address] [place] [address] PCP - General Family Medicine 05/06/20 PodlogarMichelle APRN.ORNAMENTAL PLASTERER HELPER [address] [place] [address] Cold Work Operator Family Medicine 02/04/24 Patient Access Manager Relationship Specialty Start Date End Date Victor Hugo Solano MD [address] [place] [address] PCP - General Family Medicine 05/06/20 PodlogarMichelle, MEDICAL REVIEW SPECIALIST.ORNAMENTAL PLASTERER HELPER [address] [place] [address] Cold Work Operator Family Medicine 02/04/24 Patient Access Manager Relationship Specialty Start Date End Date Victor Hugo Solano MD [address] [place] [address] PCP - General Family Medicine 05/06/20 Podlogar, Michelle MEDICAL REVIEW SPECIALIST.ORNAMENTAL PLASTERER HELPER [address] [place] [address] Cold Work Operator Family [facility] 02/04/24 Vida Drake APRN.ORNAMENTAL PLASTERER HELPER [address] [place] [address] Cold Work Operator Family Medicine 05/21/24 Patient Access Manager Relationship Specialty Start Date End Date Victor Hugo Solano MD [address] [place] [address] PCP - General Family Medicine 05/06/20 Podlogar, Michelle MEDICAL REVIEW SPECIALIST.ORNAMENTAL PLASTERER HELPER [address] [place] [address] Cold Work Operator Family Medicine 02/04/24 Vida Drake APRN.ORNAMENTAL PLASTERER HELPER [address] [place] [address] [facility] Family Medicine 05/21/24 Patient Access Manager Relationship Specialty Start Date End Date Victor Hugo Solano MD [address] [place] [address] PCP - General Family Medicine 05/06/20 Podlogar, Michelle, MEDICAL REVIEW SPECIALIST.ORNAMENTAL PLASTERER HELPER [address] [place], [place] [address] [facility] 02/04/24 Vida Drake, MEDICAL REVIEW SPECIALIST.ORNAMENTAL PLASTERER HELPER [address] [place] [address] [facility] 05/21/24 Patient Access Manager Relationship Specialty Start Date End Date Victor Hugo Solano MD [address] [place] [address] PCP - General Family Medicine 05/06/20 Podlogar, Michelle, MEDICAL REVIEW SPECIALIST.ORNAMENTAL PLASTERER HELPER [address] [place] [address] [facility] 02/04/24 Patient Access Manager Relationship Specialty Start Date End Date Victor Hugo Solano MD [address] [place], [place] [address] PCP - General Family Medicine 05/06/20 PodlogarMichelle APRN.ORNAMENTAL PLASTERER HELPER [address] [place] [address] [facility] 02/04/24 Vida Drake APRN.ORNAMENTAL PLASTERER HELPER [address] [place] [address] [facility] 05/21/24 07/15/24 Patient Access Manager Relationship Specialty Start Date End Date Victor Hugo Solano MD [address] [place] [address] PCP - General Family Medicine 05/06/20 PodlogMichelle toussaint MEDICAL REVIEW SPECIALIST.ORNAMENTAL PLASTERER HELPER [address] [place] [address] [facility] Medicine 02/04/24 Patient Access Manager Relationship Specialty Start Date End Date Victor Hugo Solano MD [address] [place] [address] PCP - General Family Medicine 05/06/20 PodlogarMichelle MEDICAL REVIEW SPECIALIST.ORNAMENTAL PLASTERER HELPER [address] [place] [address] [facility] Family Medicine 02/04/24 Vida Drake APRN.ORNAMENTAL PLASTERER HELPER [address] [place], [place] [address] [phone] Patient Access Manager Relationship Specialty Start Date End Date Victor Hugo Solano MD [address] [place], [place] [address] PCP - General Family Medicine 05/06/20 PodlogarMichelle, MEDICAL REVIEW SPECIALIST.ORNAMENTAL PLASTERER HELPER [address] [place], [place] [address] [facility] 02/04/24 Vida Drake MEDICAL REVIEW SPECIALIST.ORNAMENTAL PLASTERER HELPER [address] [place], [place] [address] [facility] 08/09/24 Patient Access Manager Relationship Specialty Start Date End Date Victor Hugo Solano MD [address] [place], [place] [address] PCP - General Family Medicine 05/06/20 PodlogarMichelle, MEDICAL REVIEW SPECIALIST.ORNAMENTAL PLASTERER HELPER [address] [place], [place] [id number] [facility] Medicine 02/04/24 Vida Drake, MEDICAL REVIEW 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 Damir Solano MD Primary Care Provider Acti ve Team Status: Inactive Member Role/Relationship Status Dates Dr. Damir Solano MD Primary Care Provider Acti ve Start: September 07, 2024 End: September 07, 2024 Alexandria Schwartz CNM Attending Provider Active St art: September 07, 2024 End: September 07, 2024 Alexandria Schwartz CNM Referring Provider Active St art: September 07, 2024 End: September 07, 2024 Patient Access Manager Relationship Specialty Start Date End Date Victor Hugo Solano MD [address] [facility] [place] [address] PCP - General Family Medicine 05/06/20 PodlogarMichelle APRN.ORNAMENTAL PLASTERER HELPER [address] [facility] [place] [address] [facility] 02/04/24 Vida Drake APRN.ORNAMENTAL PLASTERER HELPER [address] [place] [address] [facility] 08/09/24 Patient Access Manager Relationship Specialty Start Date End Date Victor Hugo Solano MD [address] [facility] [place] [address] PCP - General Family Medicine 05/06/20 PodlogarMichelle APRN.ORNAMENTAL PLASTERER HELPER [address] [facility] [place] [address] [facility] 02/04/24 Vida Drake APRN.ORNAMENTAL PLASTERER HELPER [address] [facility] [place] [address] [facility] 08/09/24 Patient Access Manager Relationship Specialty Start Date End Date Victor Hugo Solano MD [address] [facility] [place] [address] PCP - General Family Medicine 05/06/20 CourtneylogMichelle toussaint APRN.ORNAMENTAL PLASTERER HELPER [address] [facility] [place] [address] [facility] 02/04/24 Vida Drake APRN.ORNAMENTAL PLASTERER HELPER [address] [place] [address] [facility] 08/09/24 Goals (unrecognized section and content) Goals may be documented in a n alternate section FOR RECORDS PERTAINING TO PATIENTS WHO ARE [...] BE BASED ON THE PRIMARY CLINICAL RECORDS. [facility] [employer] provides no warranty or guarantee of the accuracy or completeness of information in this document.
[2024-09-17] MEDS: Oxytocin 15 Units/NS 250ml 15 UNITS/250 ML IV.SOLN 334 UNITS IV (19:48)
--- NOTE | 2024-09-17 19:59 | OB.VAGDELI_ITS ---
Assessment & Plan (1) (spontaneous vaginal delivery): (2) Care and examination of lactating mother: Maternal Data Information TERRY Calculator Estimated Delivery Date Method Current WG Current Estimate 10/03/24 Manual 37w 5d Vaginal Delivery Maternal Presentation Maternal Presentation: Spontaneous Rupture of Membranes Type of Induction: Pitocin (Augmentation) Vaginal Delivery Information Procedure Performed: Spontaneous Vaginal Delivery Surgeon/Practitioner: Keli Perez Date of Procedure: 09/17/24 Pre-Procedure Diagnosis: Term gestation, Spontaneous rupture of membranes Post-Procedure Diagnosis: , Live male Type of anesthesia: Epidural Estimated Blood Loss: 150 Time of Delivery: 19:43 Findings Description of procedure: Went to bedside due to variable decelerations. Patient found to be complete dilation +1 station. With good maternal effort, head delivered followed by anterior shoulder and remainder of infant body without any force, delay, or traction. Loose cord around body and under arm. Vigorous male was delivered atraumatically and placed on maternal abdomen. Pitocin IV started for active management of the third stage of labor. 3 vessel cord clamped and cut after delay and infant placed immediately skin to skin with patient. Cord blood and gasses collected at this time. Placenta delivered spontaneously and intact. After inspection, vagina and perineum are intact. Vaginal sweep performed. Fundus is firm 2 below U and bleeding is hemostatic. Straight cathed for 200 cc clear/yellow urine. Sponge and sharps counts correct. Patient and infant bonding well at this time. Dr. Jones in room during delivery. Routine post orders placed. Presentation: Vertex Amniotic Membrane Rupture Type: Spontaneous Amniotic Fluid Description: Clear Placental Delivery Description: Spontaneous Placenta Disposition: [facility] Specimen collected: No Cord Vessel Description: 3 Vessels Cord Entanglement: Other (Around body x1 loose) Nuchal Cord Compression: Without compression Cord Gases: ABG and VBG Infant A Gender: Male (1 minute): 8 (5 minute): 9 Delayed Cord Clamping: Yes Insight Director mechanical applications engineer: No Post Vaginal Deli Medications given after delivery: IV Pitocin Episiotomy Description: None Laceration: None Complication Complications: No
[2024-09-17] MEDS: Oxytocin 15 Units/NS 250ml 15 UNITS/250 ML IV.SOLN 83 UNITS IV (20:19)
[2024-09-18 02:00] VITALS: BP 123/89; PULSE 86; RESP 16; O2SAT 97
--- NOTE | 2024-09-18 07:08 | PCM.DC.SUM ---
Providers Date of Admission: 09/17/24 Primary Care Physician: Dr. Damir Solano MD Reason For Visit: LABOR AND DELIVERY Diagnosis Discharge Diagnosis (1) (spontaneous vaginal delivery): Status: Acute Code(s): O80 - Encounter for full-term uncomplicated delivery (2) Care and examination of lactating mother: Status: Acute Code(s): Z39.1 - Encounter for care and examination of lactating mother Plan PPD 1 D/C home with follow up in office Medications at Discharge Home Medications vitamin no.76-iron,carbonyl 29 mg iron-folic acid 1 mg tablet 1 ea PO DAILY 09/10/19 pyridoxine (vitamin B6) 50 mg capsule (Vitamin B-6) 50 mg PO DAILY nausea 09/07/24 Hospital Course Operations None Procedures None Summary of Care Provided Minutes Spent on Discharge: 15 Hospital Course: Patient had vaginal delivery. Hospital course was uneventful. Physical Exam Narrative Patient seen at bedside. Denies pain. Ambulating and voiding without difficulty. Lochia decreased. Desires discharge arabella due to baby being transferred to [facility] for r/o imperferated anus. Const alert and oriented x3 General Appearance: Negative for in distress HEENT normocephalic Eyes General Eye: normal appearance of both eyes Neck General: normal visual inspection Chest Chest: symmetrical chest wall rise Resp normal respiratory effort and normal air movement Effort and Inspection: symmetric chest movement; Negative for tachypneic Auscultation: clear to auscultation bilaterally Cardio regular rate and regular rhythm Peripheral Pulses: pulses 2+ throughout GI normal to inspection, nondistended, normoactive bowel sounds Narrative: Ice to perineum OB / External & Speculum: vaginal bleeding and other Lochia decreasing Uterus Palpation: uterus fundus firm (Below U) Extremity normal to inspection, full ROM and normal capillary refill Skin no rashes or lesions noted Neuro oriented x3, CN's II-XII intact bilaterally and gait normal Psych mental status grossly normal, thought process normal and activity/motor behavior normal Weight / BMI Weight Weight: 218 lb Body Mass Index (BMI) 42.5 ABG / Lab / Microbiology Data 09/17/24 11:10 Laboratory: Laboratory Results - last 24 hr 09/17/24 09:50: Vag Amniotic Fld Detect POSITIVE H 09/17/24 11:10: WBC 10.0, RBC 4.25, Hgb 12.6, Hct 37.4, MCV 88.0, MCH 29.6, MCHC 33.7, RDW Std Deviation 39.6, RDW Coeff of Veronique 12.5, Plt Count 224, MPV 13.0 H, Immature Gran % (Auto) 0.500, Neut % (Auto) 70.4 H, Lymph % (Auto) 20.6, Pike % (Auto) 7.9, Eos % (Auto) 0.3, Baso % (Auto) 0.3, Absolute Neuts (auto) 7.0, Absolute Lymphs (auto) 2.05, Nucleated RBC % 0, Syphilis Total Ab Nonreactive, Blood Type O POSITIVE, Antibody Screen NEGATIVE D/C Instructions Discharge Activity: Return to Normal Activity, No Restrictions, May Drive, May Shower and May Take a Tub Bath (Warm water only. No bath salts, soaps, bubbles) May resume sexual activity in: 6-8 weeks Weight Bearing Status: Weight bearing as tolerated Call your doctor if you observe: Fever of 101 or Higher, Inability to urinate, Using more than 1 pad per hour, Shortness of breath, Dizziness, Chest pain, Calf discomfort and Uncontrolled pain DC O2, CPAP, BIPAP Needs Home O2 Discharge instructions: No Please Follow Up With: [facility] Mandie ALCOCER When: 2 weeks in office or virtual Meaningful Use Info Meaningful Use Meaningful Use Diagnoses (Choose all that apply): None applicable Discharge Plan Admission Admit Date/Time: 09/17/24 10:20 Attending Provider: Keli Perez Primary Care Provider: Damir Solano Discharge Orders/Prescriptions Prescriptions: No Action vit,[id number] 1 EACH tablet 1 ea PO DAILY Vitamin B-6 50 mg capsule 50 mg PO DAILY Referrals / Follow Up: Damir Solano MD [Primary Care Provider] -
[2024-09-18 08:00] VITALS: BP 132/78; PULSE 91; RESP 16; TEMP 36.5
== END 2024-09-18 11:40 | disposition home or self-care (01) | DRG 807 ==
LOC: WPOUT 10:27 → WP 10:27
PROVIDERS: Admitting Provider Advanced Practice Midwife; PCP Family Medicine; Referring Provider Advanced Practice Midwife; Visit Provider Advanced Practice Midwife
DX: O42.02 Full-term premature rupture of membranes, onset of labor within 24 hours of rupture (principal); Z37.0 Single live birth; O69.82X0 Labor and delivery complicated by other cord entanglement, without compression, not applicable or unspecified; O99.214 Obesity complicating childbirth; O76 Abnormality in fetal heart rate and rhythm complicating labor and delivery; Z3A.37 37 weeks gestation of pregnancy; Z87.891 Personal history of nicotine dependence
CPT/HCPCS: 59025; 59050; 84112; 85025; 86780; 86850; 86900; 86901; 99221; G0378